=== PATIENT | male | born 1950 | race Caucasian/White ===

== ENCOUNTER 2021-10-19 12:21 | Inpatient (IN) | payer MEDICARE ==
[2021-10-19] MEDS ORDERED: PANTOPRAZOLE 40 MG/10 ML VIAL IVP STA (13:50)
[2021-10-19] MEDS ORDERED: SODIUM CHLORIDE 0.9% 500 ML 500 ML IV ONE (13:50)
[2021-10-19] MEDS ORDERED: fentaNYL (PF) 50 MCG/ML 2 ML AMP IVP STA (14:05)
[2021-10-19 14:10] LABS: Albumin 3.9 g/dL (3.5-5.0); Calcium 9.3 mg/dL (8.4-10.2); Potassium 5.9 mmol/L (3.5-5.1); Total Bilirubin 1.6 mg/dL (0.2-1.3); Total Protein 6.6 g/dL (6.3-8.2)
[2021-10-19 14:16] LABS: HCT 42.8 % (39.0-53.0); HGB 13.5 gm/dL (13.0-17.5); MCH 25.5 pg (25.0-35.0); MCHC 31.4 g/dL (31.0-37.0); MCV 81.3 fL (80.0-100.0); Platelet Count 519 k/uL (150-450); RBC 5.27 m/uL (4.30-5.90); RDW 12.9 % (11.5-15.5); WBC 17.5 k/uL (3.8-10.6)
--- NOTE | 2021-10-19 14:16 | ED ---
General Adult HPI - General Chief complaint: Abdominal Pain Stated complaint: near syncope, weakness Time Seen by Provider: 10/19/21 13:46 Source: patient, RN notes reviewed, old records reviewed Mode of arrival: ambulatory Limitations: no limitations - History of Present Illness Initial comments: 71-year-old male presenting for evaluation of abdominal pain and distention. Pain is generalized. It has been present for the past 3 days. The patient has had significant nausea with some vomiting. He states he has had a bowel movement but this is been very minimal. He denies chest pain. Denies fever. - Related Data Allergies Allergy/AdvReac Type Severity Reaction Status Date / Time No Known Allergies Allergy Verified 10/19/21 13:15 Review of Systems ROS Statement: Those systems with pertinent positive or pertinent negative responses have been documented in the HPI. ROS Other: All systems not noted in ROS Statement are negative. Past Medical History Past Medical History: Cancer, Hypertension Additional Past Medical History / Comment(s): irregular heart rate History of Any Multi-Drug Resistant Organisms: None Reported Additional Past Surgical History / Comment(s): metaport Past Psychological History: No Psychological Hx Reported Smoking Status: Never smoker Past Alcohol Use History: Occasional Past Drug Use History: None Reported General Exam Limitations: no limitations General appearance: alert, in no apparent distress Head exam: Present: atraumatic, normocephalic Eye exam: Present: normal appearance, PERRL ENT exam: Present: mucous membranes dry Neck exam: Present: normal inspection. Absent: tenderness, meningismus Respiratory exam: Present: normal lung sounds bilaterally. Absent: respiratory distress Cardiovascular Exam: Present: regular rate, normal rhythm GI/Abdominal exam: Present: distended, tenderness, guarding. Absent: rebound, rigid Extremities exam: Present: normal inspection, normal capillary refill. Absent: pedal edema Neurological exam: Present: alert, oriented X3, CN II-XII intact. Absent: motor sensory deficit Psychiatric exam: Present: normal affect, normal mood Skin exam: Present: warm, dry, intact. Absent: cyanosis, diaphoretic Course Vital Signs 10/19/21 13:16 Temperature 98.3 F Pulse Rate 96 Respiratory 20 Rate Blood Pressure 89/51 O2 Sat by Pulse 98 Oximetry Medical Decision Making - Medical Decision Making 71-year-old male with abdominal pain for the past 3 days with associated vomiting. Patient is hypotensive upon arrival. He has significant laboratory abnormalities including an elevated white blood cell count, QTC injury, lactic acidosis. He has CT evidence of possible ruptured appendicitis with inflammatory change within the right lower quadrant. I discussed the findings with Dr. Nicholson who will admit. She requested both medicine and urology be placed on consult. Patient is started on IV antibiotics and IV fluids. He will be kept nothing by mouth at this time. - Lab Data Result diagrams: 10/19/21 13:30 10/19/21 13:30 Lab Results 10/19/21 10/19/21 10/19/21 Range/Units 13:30 13:30 14:04 WBC 17.5 H (3.8-10.6) k/uL RBC 5.27 (4.30-5.90) m/uL Hgb 13.5 (13.0-17.5) gm/dL Hct 42.8 (39.0-53.0) % MCV 81.3 (80.0-100.0) fL MCH 25.5 (25.0-35.0) pg MCHC 31.4 (31.0-37.0) g/dL RDW 12.9 (11.5-15.5) % Plt Count 519 H (150-450) k/uL MPV 8.0 Neutrophils % (Manual) 75 % Band Neuts % (Manual) 14 % Lymphocytes % (Manual) 5 % Monocytes % (Manual) 6 % Metamyelocytes % 1 % Neutrophils # (Manual) 15.50 H (1.3-7.7) k/uL Lymphocytes # (Manual) 0.88 L (1.0-4.8) k/uL Monocytes # (Manual) 1.05 H (0-1.0) k/uL Metamyelocytes # (Man) 0.18 H (0) k/uL Nucleated RBCs 0 (0-0) /100 WBC Manual Slide Review Performed Poikilocytosis (manual Present Sodium 129 L (137-145) mmol/L Potassium 5.9 H (3.5-5.1) mmol/L Chloride 90 L (98-107) mmol/L Carbon Dioxide 25 (22-30) mmol/L Anion Gap 14 mmol/L BUN 21 H (9-20) mg/dL Creatinine 1.65 H (0.66-1.25) mg/dL Est GFR (CKD-EPI)AfAm 47 (>60 ml/min/1.73 sqM) Est GFR (CKD-EPI)NonAf 41 (>60 ml/min/1.73 sqM) Glucose 108 H (74-99) mg/dL Plasma Lactic Acid Zak (0.7-2.0) mmol/L Calcium 9.3 (8.4-10.2) mg/dL Magnesium (1.6-2.3) mg/dL Total Bilirubin 1.6 H (0.2-1.3) mg/dL AST 22 (17-59) U/L ALT 16 (4-49) U/L Alkaline Phosphatase 73 (38-126) U/L Total Protein 6.6 (6.3-8.2) g/dL Albumin 3.9 (3.5-5.0) g/dL Amylase 39 (30-110) U/L Lipase 15 L (23-300) U/L Urine Color [place] Urine Appearance Cloudy (Clear) Urine pH 5.5 (5.0-8.0) Ur Specific [place] 1.022 (1.001-1.035) Urine Protein 2+ H (Negative) Urine Glucose (UA) Trace H (Negative) Urine Ketones 1+ H (Negative) Urine Blood Negative (Negative) Urine Nitrite Negative (Negative) Urine Bilirubin 1+ H (Negative) Urine Urobilinogen <2.0 (<2.0) mg/dL Ur Leukocyte Esterase Negative (Negative) Urine RBC 3 (0-5) /hpf Urine WBC 12 H (0-5) /hpf Ur Squamous Epith Cells 2 (0-4) /hpf Urine Bacteria Rare H (None) /hpf Hyaline Casts 21 H (0-2) /lpf Urine Mucus Many H (None) /hpf 10/19/21 10/19/21 Range/Units 14:04 14:04 WBC (3.8-10.6) k/uL RBC (4.30-5.90) m/uL Hgb (13.0-17.5) gm/dL Hct (39.0-53.0) % MCV (80.0-100.0) fL MCH (25.0-35.0) pg MCHC (31.0-37.0) g/dL RDW (11.5-15.5) % Plt Count (150-450) k/uL MPV Neutrophils % (Manual) % Band Neuts % (Manual) % Lymphocytes % (Manual) % Monocytes % (Manual) % Metamyelocytes % % Neutrophils # (Manual) (1.3-7.7) k/uL Lymphocytes # (Manual) (1.0-4.8) k/uL Monocytes # (Manual) (0-1.0) k/uL Metamyelocytes # (Man) (0) k/uL Nucleated RBCs (0-0) /100 WBC Manual Slide Review Poikilocytosis (manual Sodium (137-145) mmol/L Potassium (3.5-5.1) mmol/L Chloride (98-107) mmol/L Carbon Dioxide (22-30) mmol/L Anion Gap mmol/L BUN (9-20) mg/dL Creatinine (0.66-1.25) mg/dL Est GFR (CKD-EPI)AfAm (>60 ml/min/1.73 sqM) Est GFR (CKD-EPI)NonAf (>60 ml/min/1.73 sqM) Glucose (74-99) mg/dL Plasma Lactic Acid Zak 4.1 H* (0.7-2.0) mmol/L Calcium (8.4-10.2) mg/dL Magnesium 1.9 (1.6-2.3) mg/dL Total Bilirubin (0.2-1.3) mg/dL AST (17-59) U/L ALT (4-49) U/L Alkaline Phosphatase (38-126) U/L Total Protein (6.3-8.2) g/dL Albumin (3.5-5.0) g/dL Amylase (30-110) U/L Lipase (23-300) U/L Urine Color Urine Appearance (Clear) Urine pH (5.0-8.0) Ur Specific [place] (1.001-1.035) Urine Protein (Negative) Urine Glucose (UA) (Negative) Urine Ketones (Negative) Urine Blood (Negative) Urine Nitrite (Negative) Urine Bilirubin (Negative) Urine Urobilinogen (<2.0) mg/dL Ur Leukocyte Esterase (Negative) Urine RBC (0-5) /hpf Urine WBC (0-5) /hpf Ur Squamous Epith Cells (0-4) /hpf Urine Bacteria (None) /hpf Hyaline Casts (0-2) /lpf Urine Mucus (None) /hpf Disposition Clinical Impression: Acute appendicitis, Sepsis Disposition: ADMITTED IP TO THIS HOSP Condition: Stable Is patient prescribed a controlled substance at d/c from ED?: No Referrals: Vj Knowles MD [Primary Care Provider] - 1-2 days Time of Disposition: 16:12
--- NOTE | 2021-10-19 14:36 | XR ---
EXAMINATION TYPE: XR KUB DATE OF EXAM: 10/19/2021 1:55 PM CLINICAL HISTORY: Pain with nausea and vomiting TECHNIQUE: Two Upright KUB images of the abdomen are obtained. COMPARISON: None. FINDINGS: Gas is seen in nondistended stomach. Scattered gas is seen in non-distended small bowel loo ps. Gas and fecal material is seen in non-distended colon. There is 8 mm calculus lower pole right ki dney. Scoliotic curvature with multilevel spurring and disc space narrowing in the thoracolumbar spin e. Prominent bilateral pelvic phleboliths. No free air. Lung bases are clear. Moderate axial joint sp marika loss in both hips. IMPRESSION: Overall nonobstructive bowel gas pattern.
[2021-10-19] MEDS: SODIUM CHLORIDE 0.9% 1,000 ML IV SCH ×2 (14:46→21:04)
[2021-10-19 15:10] LABS: Band Neutrophils % 14 %; Lymphocytes # (M) 0.88 k/uL (1.0-4.8); Metamyelocytes # (M) 0.18 k/uL (0); Metamyelocytes % 1 %; Monocytes # (M) 1.05 k/uL (0-1.0); Neutrophils % (M) 75 %; Nucleated Red Blood Cells 0 /100 WBC (0-0); Total Cells Counted 200
[2021-10-19 15:12] LABS: Poikilocytosis (M) Present
[2021-10-19 15:35] LABS: Appearance,Urine Cloudy (Clear); Bacteria,Urine Rare /hpf; Bilirubin,Urine 1+ (Negative); Blood,Urine Negative (Negative); Color,Urine Orange; Glucose,Urine (UA) Trace (Negative); Hyaline Casts,Urine 21 /lpf (0-2); Ketones,Urine 1+ (Negative); Leukocyte Esterase,Urine Negative (Negative); Mucus,Urine Many /hpf; Nitrite,Urine Negative (Negative); PH, Urine 5.5 (5.0-8.0); Protein,Urine 2+ (Negative); RBC,Urine 3 /hpf (0-5); Specific Gravity,Urine 1.022 (1.001-1.035); Squamous Epithelial Cell,Urine 2 /hpf (0-4); Urobilinogen,Urine <2.0 mg/dL (<2.0); WBC,Urine 12 /hpf (0-5)
--- NOTE | 2021-10-19 15:59 | CT ---
EXAMINATION TYPE: CT abdomen pelvis wo con DATE OF EXAM: 10/19/2021 COMPARISON: No previous CT scan is available for comparison HISTORY: lower anterior abdominal pain CT DLP: 871.9 mGycm Automated exposure control for dose reduction was used. TECHNIQUE: Helical acquisition of images was performed from the lung bases through the pelvis. FINDINGS: Suboptimal CT scan due to the lack of IV and oral contrast demonstration. LUNG BASES: Coronary arterial calcifications. Fluid-filled esophagus. LIVER/GB: No definite hepatic focal lesion. Cholelithiasis without evidence of acute cholecystitis. PANCREAS: Slightly atrophic. SPLEEN: No significant abnormality is seen. ADRENALS: No significant abnormality is seen. KIDNEYS: No significant abnormality is seen. FREE AIR: No free air is visualized RETROPERITONEAL ADENOPATHY: None visualized REPRODUCTIVE ORGANS: Enlarged prostate. Unremarkable seminal vesicles. URINARY BLADDER: Sizable left fat-containing inguinal hernia, also containing portion of the urinary bladder. This may cause urinary symptoms, please correlate clinically. PELVIC ADENOPATHY: None visualized. OSSEOUS STRUCTURES: Degenerative changes of the lower thoracic and lumbar spine. No aggressive bone lesion. BOWEL: Thick walled collection/soft tissue density lesion with central fluid/necrosis centered over the inferior medial aspect of the cecum inseparable from the appendicular base and possibly the termi nal ileum, measuring 5.5 x 7.5 cm with air bubbles within. This is associated with dilated appendix w ith the appendix tip measures up to 2.6 cm. Associated severe acute inflammatory changes in the lower abdomen, peritonitis cannot be excluded. Fluid-filled stomach. Slightly thickened small bowel loops in the pelvis, possibly reactive. OTHER: Scattered arterial atherosclerotic calcification. Small amount of free pelvic fluid. IMPRESSION: Severe acute inflammatory changes seen in the lower abdomen with thick walled collection/soft tissue lesion along the medial inferior aspect of the cecum demonstrating air bubble within and inseparable from the appendix and possibly the terminal ileum as detailed above. The overall picture could be related to sequela of acute appendicitis with contained perforation larsen aure underlying lesion/neoplastic process and/or associated peritonitis cannot be excluded. This is crum boptimally assessed due to the lack of oral and IV contrast administration. Recommend clinical correl ation and urgent surgical consultation. Other findings as above.
[2021-10-19] MEDS ORDERED: PIPERACILLIN-TAZOBACTAM 3.375 GM in SODIUM CHLORIDE 0.9% 100 ML IVPB STA (16:01)
[2021-10-19] MEDS ORDERED: HYDROmorphone 1 MG/ML 1 ML SYRINGE IVP PRN (16:09)
[2021-10-19] MEDS ORDERED: NALOXONE 0.4 MG/ML 1 ML VIAL IV PRN (16:09)
[2021-10-19] MEDS ORDERED: SODIUM CHLORIDE 0.9% 1,000 ML IV ONE ×2 (17:45→20:52)
[2021-10-19] MEDS: PANTOPRAZOLE 40 MG/10 ML VIAL IVP SCH (21:05)
[2021-10-19] MEDS: HYDROmorphone 0.5 MG/0.5 ML SYRINGE IVP PRN (21:05)
[2021-10-19] MEDS: ONDANSETRON 4 MG/2 ML VIAL IVP PRN (21:06)
[2021-10-19] MEDS: HEPARIN SODIUM,PORCINE/PF 5,000 UNIT/0.5 ML SYRINGE SQ SCH (21:06)
--- NOTE | 2021-10-19 22:34 | P.GSCN ---
History of Present Illness Consult date: 10/19/21 Reason for Consult: Irregular Bladder Requesting physician: Dimitry Martinez History of present illness: The patient is a 71-year-old white male admitted with abdominal pain. CT scan shows prolapse of the bladder into a left inguinal hernia. The kidneys appear normal and computed tomography scan, and no other bladder abnormalities are seen. The patient states that his urinary stream is weaker than it was 30 years ago, but does not report difficulty voiding. Specifically, he denies dysuria and hematuria. He reports nocturia 1. He does admit to occasional intermittency. Review of Systems - Constitutional Reports fever - Gastrointestinal Reports abdominal pain, Reports nausea, Reports vomiting - Genitourinary Reports as per HPI Past Medical History Past Medical History: Cancer, Hypertension Additional Past Medical History / Comment(s): irregular heart rate History of Any Multi-Drug Resistant Organisms: None Reported Additional Past Surgical History / Comment(s): metaport Past Psychological History: No Psychological Hx Reported Smoking Status: Never smoker Past Alcohol Use History: Occasional Past Drug Use History: None Reported Medications and Allergies Home Medications Medication Instructions Recorded Confirmed Type Calcium Carbonate [Tums] 500 mg PO DAILY 10/19/21 10/19/21 History Cholecalciferol (Vitamin D3) 125 mcg PO DAILY 10/19/21 10/19/21 History [Vitamin D3 (125 MCG = 5,000 IU)] Ibuprofen [Motrin] 800 mg PO Q8H PRN 10/19/21 10/19/21 History Magnesium 250 mg PO DAILY 10/19/21 10/19/21 History Potassium Gluconate [Potassium 99 mg PO DAILY 10/19/21 10/19/21 History Gluconate ER] Vitamin E (Dl,Tocopheryl Acet) 400 unit PO DAILY 10/19/21 10/19/21 History [Vitamin E (400 Iu = 180 mg)] amLODIPine BES/OLMESARTAN MED 1 tab PO BID 10/19/21 10/19/21 History [amLODIPine BES/OLMESARTAN MED 5-20 mg] atenoloL [Tenormin] 25 mg PO BID PRN 10/19/21 10/19/21 History Allergies Allergy/AdvReac Type Severity Reaction Status Date / Time No Known Allergies Allergy Verified 10/19/21 16:37 Surgical - Exam Vital Signs Temp Pulse Resp BP Pulse Ox 98.3 F 96 20 89/51 98 10/19/21 13:16 10/19/21 13:16 10/19/21 13:16 10/19/21 13:16 10/19/21 13:16 - General well developed, well nourished, moderate distress - Respiratory normal respiratory effort - Abdomen Distended, mild diffuse tenderness, no mass, no guarding, no rebound. Left inguinal hernia is palpable. - Genitourinary normal penis with no external lesions, testicles non-tender - Psychiatric oriented to time, oriented to person, oriented to place, speech is normal, memory intact Results - Labs 10/19/21 13:30 10/19/21 13:30 Abnormal Lab Results - Last 24 Hours (Table) 10/19/21 10/19/21 10/19/21 Range/Units 13:30 13:30 14:04 WBC 17.5 H (3.8-10.6) k/uL Plt Count 519 H (150-450) k/uL Neutrophils # (Manual) 15.50 H (1.3-7.7) k/uL Lymphocytes # (Manual) 0.88 L (1.0-4.8) k/uL Monocytes # (Manual) 1.05 H (0-1.0) k/uL Metamyelocytes # (Man) 0.18 H (0) k/uL Sodium 129 L (137-145) mmol/L Potassium 5.9 H (3.5-5.1) mmol/L Chloride 90 L (98-107) mmol/L BUN 21 H (9-20) mg/dL Creatinine 1.65 H (0.66-1.25) mg/dL Glucose 108 H (74-99) mg/dL Plasma Lactic Acid Zak (0.7-2.0) mmol/L Total Bilirubin 1.6 H (0.2-1.3) mg/dL Lipase 15 L (23-300) U/L Urine Protein 2+ H (Negative) Urine Glucose (UA) Trace H (Negative) Urine Ketones 1+ H (Negative) Urine Bilirubin 1+ H (Negative) Urine WBC 12 H (0-5) /hpf Urine Bacteria Rare H (None) /hpf Hyaline Casts 21 H (0-2) /lpf Urine Mucus Many H (None) /hpf 10/19/21 Range/Units 14:04 WBC (3.8-10.6) k/uL Plt Count (150-450) k/uL Neutrophils # (Manual) (1.3-7.7) k/uL Lymphocytes # (Manual) (1.0-4.8) k/uL Monocytes # (Manual) (0-1.0) k/uL Metamyelocytes # (Man) (0) k/uL Sodium (137-145) mmol/L Potassium (3.5-5.1) mmol/L Chloride (98-107) mmol/L BUN (9-20) mg/dL Creatinine (0.66-1.25) mg/dL Glucose (74-99) mg/dL Plasma Lactic Acid Zak 4.1 H* (0.7-2.0) mmol/L Total Bilirubin (0.2-1.3) mg/dL Lipase (23-300) U/L Urine Protein (Negative) Urine Glucose (UA) (Negative) Urine Ketones (Negative) Urine Bilirubin (Negative) Urine WBC (0-5) /hpf Urine Bacteria (None) /hpf Hyaline Casts (0-2) /lpf Urine Mucus (None) /hpf Diabetes panel 10/19/21 Range/Units 13:30 Sodium 129 L (137-145) mmol/L Potassium 5.9 H (3.5-5.1) mmol/L Chloride 90 L (98-107) mmol/L Carbon Dioxide 25 (22-30) mmol/L BUN 21 H (9-20) mg/dL Creatinine 1.65 H (0.66-1.25) mg/dL Glucose 108 H (74-99) mg/dL Calcium 9.3 (8.4-10.2) mg/dL AST 22 (17-59) U/L ALT 16 (4-49) U/L Alkaline Phosphatase 73 (38-126) U/L Total Protein 6.6 (6.3-8.2) g/dL Albumin 3.9 (3.5-5.0) g/dL Calcium panel 10/19/21 Range/Units 13:30 Calcium 9.3 (8.4-10.2) mg/dL Albumin 3.9 (3.5-5.0) g/dL Pituitary panel 10/19/21 Range/Units 13:30 Sodium 129 L (137-145) mmol/L Potassium 5.9 H (3.5-5.1) mmol/L Chloride 90 L (98-107) mmol/L Carbon Dioxide 25 (22-30) mmol/L BUN 21 H (9-20) mg/dL Creatinine 1.65 H (0.66-1.25) mg/dL Glucose 108 H (74-99) mg/dL Calcium 9.3 (8.4-10.2) mg/dL Adrenal panel 10/19/21 Range/Units 13:30 Sodium 129 L (137-145) mmol/L Potassium 5.9 H (3.5-5.1) mmol/L Chloride 90 L (98-107) mmol/L Carbon Dioxide 25 (22-30) mmol/L BUN 21 H (9-20) mg/dL Creatinine 1.65 H (0.66-1.25) mg/dL Glucose 108 H (74-99) mg/dL Calcium 9.3 (8.4-10.2) mg/dL Total Bilirubin 1.6 H (0.2-1.3) mg/dL AST 22 (17-59) U/L ALT 16 (4-49) U/L Alkaline Phosphatase 73 (38-126) U/L Total Protein 6.6 (6.3-8.2) g/dL Albumin 3.9 (3.5-5.0) g/dL - Imaging CT scan - pelvis: report reviewed, image reviewed Assessment and Plan Plan: CT scan shows prolapse of the bladder into the patient's left inguinal hernia. The bladder otherwise appears normal, as do the kidneys. Urinalysis shows trace microhematuria but is otherwise unremarkable. The patient reports only mild voiding symptoms. Bladder Scan will be utilized to check the postvoid residual. As long as bladder emptying is adequate, no further urologic evaluation or treatment is felt to be warranted. I explained to the patient that if and when his left inguinal hernia is repaired, the prolapse of bladder into the hernia will be reduced prior to hernia repair. Please notify me if I can be of further assistance. Time with Patient: Greater than 30
[2021-10-20] MEDS: PIPERACILLIN-TAZOBACTAM 3.375 GM in SODIUM CHLORIDE 0.9% 100 ML IVPB SCH ×3 (00:05→16:56)
--- NOTE | 2021-10-20 03:57 | P.CONS ---
History of Present Illness - Reason for Consult Consult date: 10/20/21 - History of Present Illness The patient is a 71-year-old male with a PMH of hypertension who had presented to the with complaints of abdominal pain. Reports that his pain initially started 3-4 days ago, with mild diffuse pain, aching in nature which gradually worsened. Reports pain was 10 out of 10 at maximal intensity, but had improved to a 1 at the time of interview. Notes that the pain is now limited to the lower abdomen. Denies any history of such pain. Also reports long-standing history of a hernia in the groin. Notes that he does not try to reduce it. CT abdomen in the emergency room revealed severe acute inflammatory changes, possibly secondary to acute appendicitis with contained perforation. Laboratory evaluation was remarkable for WBC count 17.5, lactic acid 4.1, sodium 129, potassium 5.9, BUN 21, creatinine 1.65. Review of systems: Pertinent positives and negatives as discussed in HPI, a complete review of systems was performed and all other systems are negative. Physical examination: General: non toxic, no distress, appears at stated age, obese Derm: no unusual rashes/lesions no unusual ecchymoses, warm, dry Head: atraumatic, normocephalic, symmetric Eyes: EOMI, no lid lag, anicteric sclera, pupils equal round reactive to light ENT: Nose and ears atraumatic, no thrush, no pharyngeal erythema Neck: No thyromegaly, no cervical lymphadenopathy, trachea midline, supple Mouth: no lip lesion, mucus membranes moist Cardiovascular: S1S2 reg, no murmur, positive posterior tibial pulse bilateral, no edema, capillary refill less than 2 seconds Lungs: CTA bilateral, no rhonchi, no rales , no accessory muscle use Abdominal: soft, diffuse tenderness on palpation, no guarding noted, left sided inguinal hernia noted nonreducible, nontender Ext: no gross muscle atrophy, muscle strength 5 out of 5 in all 4 extremities grossly, no contractures, Neuro: CN II-XI grossly intact, light touch intact all 4 extremities, finger to nose within normal limits, Psych: Alert, oriented, appropriate affect Assessment/plan Severe sepsis secondary to suspected perforated acute appendicitis -Continue with IV Zosyn -IV fluids -Pain control -Nothing by mouth for now Kidney injury, acute versus chronic -Continue with fluids and monitor for now Lactic acidosis -Monitor for resolution Hypochloremic hyponatremia -IV fluids Past Medical History Past Medical History: Cancer, Hypertension Additional Past Medical History / Comment(s): irregular heart rate History of Any Multi-Drug Resistant Organisms: None Reported Additional Past Surgical History / Comment(s): metaport Past Anesthesia/Blood Transfusion Reactions: No Reported Reaction Past Psychological History: No Psychological Hx Reported Smoking Status: Never smoker Past Alcohol Use History: Occasional Past Drug Use History: None Reported - Past Family History Father Family Medical History: Cancer Medications and Allergies Home Medications Medication Instructions Recorded Confirmed Type Calcium Carbonate [Tums] 500 mg PO DAILY 10/19/21 10/19/21 History Cholecalciferol (Vitamin D3) 125 mcg PO DAILY 10/19/21 10/19/21 History [Vitamin D3 (125 MCG = 5,000 IU)] Ibuprofen [Motrin] 800 mg PO Q8H PRN 10/19/21 10/19/21 History Magnesium 250 mg PO DAILY 10/19/21 10/19/21 History Potassium Gluconate [Potassium 99 mg PO DAILY 10/19/21 10/19/21 History Gluconate ER] Vitamin E (Dl,Tocopheryl Acet) 400 unit PO DAILY 10/19/21 10/19/21 History [Vitamin E (400 Iu = 180 mg)] amLODIPine BES/OLMESARTAN MED 1 tab PO BID 10/19/21 10/19/21 History [amLODIPine BES/OLMESARTAN MED 5-20 mg] atenoloL [Tenormin] 25 mg PO BID PRN 10/19/21 10/19/21 History Allergies Allergy/AdvReac Type Severity Reaction Status Date / Time No Known Allergies Allergy Verified 10/19/21 16:37 Physical Exam Vitals: Vital Signs Temp Pulse Pulse Resp BP BP Pulse Ox 10/20/21 00:00 99.6 F 98 18 94/58 92 L 10/19/21 20:12 99.6 F 100 16 104/68 95 10/19/21 20:00 98 18 10/19/21 17:50 64 16 92/52 95 10/19/21 17:17 62 16 93/56 95 10/19/21 16:41 78 16 72/48 95 10/19/21 13:16 98.3 F 96 20 89/51 98 Intake and Output 10/19/21 10/19/21 10/20/21 14:59 22:59 06:59 Output Total 110 200 Balance -110 -200 Output: Urine 100 200 Emesis 10 Other: # Voids 1 Weight 99.79 kg 99.79 kg Results CBC & Chem 7: 10/19/21 13:30 10/19/21 13:30 Labs: Abnormal Lab Results - Last 24 Hours (Table) 10/19/21 10/19/21 10/19/21 Range/Units 13:30 13:30 14:04 WBC 17.5 H (3.8-10.6) k/uL Plt Count 519 H (150-450) k/uL Neutrophils # (Manual) 15.50 H (1.3-7.7) k/uL Lymphocytes # (Manual) 0.88 L (1.0-4.8) k/uL Monocytes # (Manual) 1.05 H (0-1.0) k/uL Metamyelocytes # (Man) 0.18 H (0) k/uL Sodium 129 L (137-145) mmol/L Potassium 5.9 H (3.5-5.1) mmol/L Chloride 90 L (98-107) mmol/L BUN 21 H (9-20) mg/dL Creatinine 1.65 H (0.66-1.25) mg/dL Glucose 108 H (74-99) mg/dL Plasma Lactic Acid Zak (0.7-2.0) mmol/L Total Bilirubin 1.6 H (0.2-1.3) mg/dL Lipase 15 L (23-300) U/L Urine Protein 2+ H (Negative) Urine Glucose (UA) Trace H (Negative) Urine Ketones 1+ H (Negative) Urine Bilirubin 1+ H (Negative) Urine WBC 12 H (0-5) /hpf Urine Bacteria Rare H (None) /hpf Hyaline Casts 21 H (0-2) /lpf Urine Mucus Many H (None) /hpf 10/19/21 10/19/21 10/19/21 Range/Units 14:04 16:43 20:04 WBC (3.8-10.6) k/uL Plt Count (150-450) k/uL Neutrophils # (Manual) (1.3-7.7) k/uL Lymphocytes # (Manual) (1.0-4.8) k/uL Monocytes # (Manual) (0-1.0) k/uL Metamyelocytes # (Man) (0) k/uL Sodium (137-145) mmol/L Potassium (3.5-5.1) mmol/L Chloride (98-107) mmol/L BUN (9-20) mg/dL Creatinine (0.66-1.25) mg/dL Glucose (74-99) mg/dL Plasma Lactic Acid Zak 4.1 H* 2.7 H* 2.6 H* (0.7-2.0) mmol/L Total Bilirubin (0.2-1.3) mg/dL Lipase (23-300) U/L Urine Protein (Negative) Urine Glucose (UA) (Negative) Urine Ketones (Negative) Urine Bilirubin (Negative) Urine WBC (0-5) /hpf Urine Bacteria (None) /hpf Hyaline Casts (0-2) /lpf Urine Mucus (None) /hpf Microbiology - Last 24 Hours (Table) 10/19/21 14:04 Urine Culture - Preliminary Urine,Voided
[2021-10-20] MEDS: SODIUM CHLORIDE 0.9% 1,000 ML IV SCH ×2 (05:55→17:50)
[2021-10-20] MEDS: HYDROmorphone 0.5 MG/0.5 ML SYRINGE IVP PRN ×2 (06:39→20:03)
[2021-10-20] MEDS: HEPARIN SODIUM,PORCINE/PF 5,000 UNIT/0.5 ML SYRINGE SQ SCH ×2 (08:27→20:03)
[2021-10-20] MEDS: PANTOPRAZOLE 40 MG/10 ML VIAL IVP SCH ×2 (08:27→20:04)
[2021-10-20 08:59] LABS: MCV 81.3 fL (80.0-100.0); Mean Platelet Volume 8.3; Platelet Count 379 k/uL (150-450); RBC 3.93 m/uL (4.30-5.90); RDW 13.4 % (11.5-15.5); WBC 11.3 k/uL (3.8-10.6)
[2021-10-20 09:02] LABS: HGB 10.2 gm/dL (13.0-17.5)
[2021-10-20 09:34] LABS: Albumin 2.5 g/dL (3.5-5.0); Calcium 7.5 mg/dL (8.4-10.2); Phosphorus 3.8 mg/dL (2.5-4.5); Potassium 4.9 mmol/L (3.5-5.1); Total Bilirubin 0.8 mg/dL (0.2-1.3); Total Protein 4.8 g/dL (6.3-8.2)
[2021-10-20] MEDS ORDERED: HYDROmorphone 0.5 MG/0.5 ML SYRINGE ONE (12:47)
--- NOTE | 2021-10-20 14:54 | P.PN ---
Subjective Progress Note Date: 10/20/21 (delayed charting seen at 0945) Principal diagnosis: abdominal Patient is a 71-year-old male with hypertension who presented due to abdominal pain. In the ER he was found to have possible acute appendicitis plus or minus perforation versus neoplasm. He was found to have sepsis, hyponatremia, and hyperkalemia. He was admitted started on IV Zosyn, IV fluids, and pain control. We are asked to consult for medical management. Patient seen and examined at bedside. He continues to have some abdominal pain as well as distention. He denies any chest pain or shortness of breath. He has not had a bowel movement. General: Non toxic, no distress, appears at stated age Derm: warm, dry Head: atraumatic, normocephalic, symmetric Eyes: EOMI, no lid lag, anicteric sclera Mouth: no lip lesion, mucus membranes moist Cardiovascular: S1S2 reg, no murmur, positive posterior tibial pulse bilateral, Lungs: CTA bilateral, no rhonchi, no rales , no accessory muscle use Abdominal: soft, + guarding, + TTP diffusely, no appreciable organomegaly Ext: no gross muscle atrophy, no edema, no contractures Neuro: CN II-XI grossly intact, no focal neuro deficits Psych: Alert, oriented, appropriate affect Assessment/plan: Acute appendicitis with sepsis, possible perforation - Surgery recs - Zosyn - fluids - pain control - antiemetics - BP is low normal will continue to hold BP meds Hyponatremia, due to dehydration - IVF - follow labs Elevated Cr GALA vs CKD - avoid nephrotoxic agents - follow Cr - hold ARB HTN, currently hypotensive - follow BP - all medications on hold Anemia - due to IVF - follow CBC Hyperkalemia, resolved Thank you for allowing us to participate in the care of this pleasant patient. Do not hesitate to contact us with questions. Someone can be reached from the [facility] hospitalist group all hours of the day at [phone] or via [email or web address]. Objective - Vital Signs Vital signs: Vital Signs Temp 98.6 F 10/20/21 12:16 Pulse 74 10/20/21 12:16 Resp 18 10/20/21 12:16 BP 97/57 10/20/21 12:16 Pulse Ox 95 10/20/21 12:16 FiO2 Intake & Output 05/10/20/21 10/20/21 18:59 06:59 18:59 Output Total 310 430 Balance -310 -430 Weight 99.79 kg Output: Urine 300 380 Post Void Residual 50 Emesis 10 Other: Voiding Method Toilet Toilet # Voids 1 - Labs CBC & Chem 7: 10/20/21 08:33 10/20/21 08:33 Labs: Abnormal Lab Results - Last 24 Hours (Table) 10/19/21 10/19/21 10/19/21 Range/Units 13:30 13:30 14:04 WBC 17.5 H (3.8-10.6) k/uL RBC (4.30-5.90) m/uL Hgb (13.0-17.5) gm/dL Hct (39.0-53.0) % Plt Count 519 H (150-450) k/uL Neutrophils # (Manual) 15.50 H (1.3-7.7) k/uL Lymphocytes # (Manual) 0.88 L (1.0-4.8) k/uL Monocytes # (Manual) 1.05 H (0-1.0) k/uL Metamyelocytes # (Man) 0.18 H (0) k/uL Sodium 129 L (137-145) mmol/L Potassium 5.9 H (3.5-5.1) mmol/L Chloride 90 L (98-107) mmol/L BUN 21 H (9-20) mg/dL Creatinine 1.65 H (0.66-1.25) mg/dL Glucose 108 H (74-99) mg/dL Plasma Lactic Acid Zak (0.7-2.0) mmol/L Calcium (8.4-10.2) mg/dL Total Bilirubin 1.6 H (0.2-1.3) mg/dL Total Protein (6.3-8.2) g/dL Albumin (3.5-5.0) g/dL Lipase 15 L (23-300) U/L Urine Protein 2+ H (Negative) Urine Glucose (UA) Trace H (Negative) Urine Ketones 1+ H (Negative) Urine Bilirubin 1+ H (Negative) Urine WBC 12 H (0-5) /hpf Urine Bacteria Rare H (None) /hpf Hyaline Casts 21 H (0-2) /lpf Urine Mucus Many H (None) /hpf 05/25/22 05/25/22 05/25/22 Range/Units 14:04 16:43 20:04 WBC (3.8-10.6) k/uL RBC (4.30-5.90) m/uL Hgb (13.0-17.5) gm/dL Hct (39.0-53.0) % Plt Count (150-450) k/uL Neutrophils # (Manual) (1.3-7.7) k/uL Lymphocytes # (Manual) (1.0-4.8) k/uL Monocytes # (Manual) (0-1.0) k/uL Metamyelocytes # (Man) (0) k/uL Sodium (137-145) mmol/L Potassium (3.5-5.1) mmol/L Chloride (98-107) mmol/L BUN (9-20) mg/dL Creatinine (0.66-1.25) mg/dL Glucose (74-99) mg/dL Plasma Lactic Acid Zak 4.1 H* 2.7 H* 2.6 H* (0.7-2.0) mmol/L Calcium (8.4-10.2) mg/dL Total Bilirubin (0.2-1.3) mg/dL Total Protein (6.3-8.2) g/dL Albumin (3.5-5.0) g/dL Lipase (23-300) U/L Urine Protein (Negative) Urine Glucose (UA) (Negative) Urine Ketones (Negative) Urine Bilirubin (Negative) Urine WBC (0-5) /hpf Urine Bacteria (None) /hpf Hyaline Casts (0-2) /lpf Urine Mucus (None) /hpf 10/20/21 10/20/21 Range/Units 08:33 08:33 WBC 11.3 H (3.8-10.6) k/uL RBC 3.93 L (4.30-5.90) m/uL Hgb 10.2 L D (13.0-17.5) gm/dL Hct 32.0 L (39.0-53.0) % Plt Count (150-450) k/uL Neutrophils # (Manual) (1.3-7.7) k/uL Lymphocytes # (Manual) (1.0-4.8) k/uL Monocytes # (Manual) (0-1.0) k/uL Metamyelocytes # (Man) (0) k/uL Sodium 130 L (137-145) mmol/L Potassium (3.5-5.1) mmol/L Chloride (98-107) mmol/L BUN 23 H (9-20) mg/dL Creatinine 1.40 H (0.66-1.25) mg/dL Glucose (74-99) mg/dL Plasma Lactic Acid Zak (0.7-2.0) mmol/L Calcium 7.5 L (8.4-10.2) mg/dL Total Bilirubin (0.2-1.3) mg/dL Total Protein 4.8 L (6.3-8.2) g/dL Albumin 2.5 L (3.5-5.0) g/dL Lipase (23-300) U/L Urine Protein (Negative) Urine Glucose (UA) (Negative) Urine Ketones (Negative) Urine Bilirubin (Negative) Urine WBC (0-5) /hpf Urine Bacteria (None) /hpf Hyaline Casts (0-2) /lpf Urine Mucus (None) /hpf Microbiology - Last 24 Hours (Table) 10/19/21 14:04 Urine Culture - Preliminary Urine,Voided
--- NOTE | 2021-10-20 14:56 | P.GSHP ---
History of Present Illness H&P Date: 10/20/21 CHIEF COMPLAINT: Abdominal pain HISTORY OF PRESENT ILLNESS: This is a 71-year-old male who presents to the hospital with a four-day complaint of abdominal pain. Reports the pain is in the right lower quadrant. The level of pain intensity at times is 10 out of 10. He has more pain with movements. When he is lying still pain is 0 out of 10. Patient reports having fevers as high as 100.2 at home. He has been having nausea and vomiting. He also has a left inguinal hernia that has been present since 2009. The hernia is now containing a portion of the bladder as well as fat noted on CT. Patient had a computed tomography scan with evidence of appendicitis with perforation. Patient denies any prior abdominal surgeries. He has been having low-grade temps and hypotensive on admission. He is currently on IV antibiotics. Patient has received IV fluid boluses for the hypotension. Patient reports that his urine has been more orange in color and urine has been expelled more slowly. Patient denies any prior abdominal surgeries. Denies any cardiac history. 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 No longer on anticoagulation. PAST SURGICAL HISTORY: See list. MEDICATIONS: See list. ALLERGIES: See list. SOCIAL HISTORY: No illicit drug use. REVIEW OF SYSTEMS: CONSTITUTIONAL: Denies fever or chills. HEENT: Denies blurred vision, vision changes, or eye pain. Denies hemoptysis ENDOCRINE: Denies heat or cold intolerance. CARDIOVASCULAR: Denies chest pain or pressure. RESPIRATORY: No shortness of breath. GASTROINTESTINAL: Please refer to HPI NEURO: Denies history of seizures. PSYCH: No depression or suicidal ideation HEMATOLOGIC: Denies bleeding disorders. LYMPHATIC: The patient denies any lumps and bumps around the neck. GENITOURINARY: Denies any blood in urine or increased urinary frequency. MUSCULOSKELETAL: Denies myalgias. Denies joint swelling. Denies decreased range of motion beyond patients baseline. SKIN: Denies pruitis. Denies rash. PHYSICAL EXAM: VITAL SIGNS: Reviewed GENERAL: Well-developed in no acute distress. HEENT: No sclera icterus. Extraocular movements grossly intact. Moist buccal mucosa. Head is atraumatic, normocephalic. Hears conversational speech. No nasal drainage. NECK: Supple without lymphadenopathy. CHEST: Non-labored respirations and equal bilateral excursions. CARDIOVASCULAR: Palpable 2+ radial pulses. ABDOMEN: Soft. Nondistended. Right lower quadrant tenderness with palpation left lower quadrant evidence of left inguinal hernia. Tender with palpation. Evidence of peritonitis on exam MUSCULOSKELETAL: No clubbing or cyanosis. NEUROLOGIC: No focal or lateralizing signs. Cranial nerves II through XII suzie ssly intact. PSYCH: Appropriate affect. Alert and oriented to person, place and time. SKIN: Well perfused. Good skin turgor. LABORATORY DATA: WBC 17.5 down to 11.3 hemoglobin is 10.2 platelets 379 Sodium is 1:30 potassium 5.9 down to 4.9 creatinine 1.65 down to 1.40 Lactic acid 2.6 down to 1.2 Magnesium 2.0 Total bilirubin 1.6 down to 0.8 AST 21 ALT 11 alk phos 43 lipase 15 IMAGING: Computed tomography scan abdomen and pelvis unable to open report due to [employer] being down ASSESSMENT: 1. Acute appendicitis with perforation 2. Peritonitis 3. Left inguinal hernia containing bladder and fat 4. Sepsis secondary to the appendicitis perforation 5. Hyponatremia 6. History of left tonsil carcinoma status post radiation and chemotherapy 7. Hypotension PLAN: -Continue medical management at this time with IV antibiotics and IV fluids. Possible surgical intervention if no improvement in patient's symptoms. -Keep patient nothing by mouth, except for ice chips -PICC line ordered for outpatient IV antibiotics -Consult infectious disease for acute appendicitis with perforation and evidence of peritonitis -Continue supportive care -Continue pain medications -Continue antiemetics -Continue to check postvoid residuals -Patient also followed by urology and medicine service -DVT prophylaxis subcu heparin and GI prophylaxis Protonix Physician Clock Assembler note has been reviewed by physician. Signing provider agrees with the documented findings, assessment, and plan of care. REASON FOR ADMISSION: Perforated appendicitis HISTORY OF PRESENT ILLNESS: The patient is a 71 year old male who presents with a four-day history of generalized abdominal pain. Patient reports she was doing quite well and over the weekend on Sunday. Patient presented to the emergency room with generalized abdominal pain. Diagnostic studies demonstrated possible perforated appendicitis. Patient presented with severe dehydration including lactic acidosis. Additionally, patient reports history of left inguinal hernia ongoing for over 12 years since 2009. Since admission, patient confirms abdominal pain however stable. Reports primary discomfort involves the left groin. He reports trouble with urination. PAST MEDICAL HISTORY: See list and reviewed PAST SURGICAL HISTORY: See list and reviewed MEDICATIONS: See list and reviewed ALLERGIES: See list and reviewed SOCIAL HISTORY: See list and reviewed FAMILY HISTORY: See list and reviewed REVIEW OF ORGAN SYSTEMS: CONSTITUTIONAL: No fevers or chills. EYES: Denies any trouble with vision. No glasses. HEENT: No difficulties with hearing. No nosebleeds. No difficulty swallowing. RESPIRATORY: Denies pneumonia. Denies any troubles with breathing or dyspnea on exertion. CARDIOVASCULAR: Has hypertension. Has history of irregular heart rate. GASTROINTESTINAL: Denies fatty food intolerance. Denies change in bowel habits and gas bloat. GENITOURINARY: Denies any blood in urine. Has increased urinary frequency. NEUROLOGICAL: Denies any numbness or tingling along the distal extremities. No seizure disorders or headaches. MUSCULOSKELETAL: Denies any back pain, stiffness or joint arthritis. SKIN: No current skin cancer. No rash. PSYCHIATRIC: Denies current depression or suicidal thoughts. ENDOCRINE: Denies current thyroid disorders. Denies any blood sugar glucose intolerance. HEME/LYMPHATIC: Denies any lumps and bumps around the neck. No recent deep venous thrombosis. Patient has history of cancer including port placement. ALLERGY/IMMUNOLOGY: No immunoglobulin therapy. No immune deficiencies. BREAST: Denies current breast lumps, pain or nipple discharge. PHYSICAL EXAM: VITALS: Reviewed CONSTITUTIONAL: Well developed and in no acute distress. EYES: Conjuctivae without sclera icterus. Extraocular movements grossly intact. HEAD, EARS, NOSE, THROAT: Moist buccal mucosa. Head is atraumatic, normocephalic. Hears conversational speech. No nasal drainage. NECK: Supple. No JV distention. No thyroidomegaly. RESPIRATORY: Non-labored respirations and equal bilateral excursions. No gross wheezes. CARDIOVASCULAR: Palpable 2+ radial pulses. ABDOMEN: Protuberant. Diffusely tender. LYMPH: No neck lymphadenopathy. MUSCULOSKELETAL: No clubbing cyanosis or edema. NEUROLOGIC: Cranial nerves II through XII grossly intact. No focal or lateralizing signs. PSYCH: Appropriate affect. Alert and oriented to person, place and time. Displays appropriate insight. CLINCAL LABS: Reviewed. WBC down 17.5-11.3. Hemoglobin down 13.5-10.5. Hyponatremia sodium 129 now 130. Creatinine elevated 1.65 to 1.4 IMAGING: Independently reviewed. CT of the abdomen and pelvis independently review demonstrated fluid collections within the abdomen including around the right lower quadrant and appendix. Features consistent with phlegmon at the right lower quadrant. Bladder containing left inguinal hernia. No diffuse free air within the abdomen. No bowel obstruction. Multiple gallstones. This is my independent interpretation. RADIOLOGY: Report reviewed. RECORDS: previous old records reviewed Lexican stress test 2017 demonstrated ejection fraction of 60%. ASSESSMENT: 1. Perforated appendicitis with phlegmon 2. Lactic acidosis in presence of sepsis 3. Bladder containing left inguinal hernia PLAN: 1. IV fluid hydration for lactic acidosis 2. Urology consultation for incarcerated bladder in left groin 3. PICC line for anticipated prolonged antibiotics due to phlegmon and perforated appendicitis with infectious disease consultation 4. Cardiology consultation for cardiac risk assessment prior to surgical intervention 5. May need louis catheter for urinary retention 6. Inpatient hospitalization anticipated for 7 to 10 days due to complicated perforated appendicitis ADVANCE DIRECTIVE: Thank you for this kind consultation. Past Medical History Past Medical History: Cancer, Hypertension Additional Past Medical History / Comment(s): irregular heart rate History of Any Multi-Drug Resistant Organisms: None Reported Additional Past Surgical History / Comment(s): metaport Past Anesthesia/Blood Transfusion Reactions: No Reported Reaction Past Psychological History: No Psychological Hx Reported Smoking Status: Never smoker Past Alcohol Use History: Occasional Past Drug Use History: None Reported - Past Family History Father Family Medical History: Cancer Medications and Allergies Home Medications Medication Instructions Recorded Confirmed Type Calcium Carbonate [Tums] 500 mg PO DAILY 10/19/21 10/19/21 History Cholecalciferol (Vitamin D3) 125 mcg PO DAILY 10/19/21 10/19/21 History [Vitamin D3 (125 MCG = 5,000 IU)] Ibuprofen [Motrin] 800 mg PO Q8H PRN 10/19/21 10/19/21 History Magnesium 250 mg PO DAILY 10/19/21 10/19/21 History Potassium Gluconate [Potassium 99 mg PO DAILY 10/19/21 10/19/21 History Gluconate ER] Vitamin E (Dl,Tocopheryl Acet) 400 unit PO DAILY 10/19/21 10/19/21 History [Vitamin E (400 Iu = 180 mg)] amLODIPine BES/OLMESARTAN MED 1 tab PO BID 10/19/21 10/19/21 History [amLODIPine BES/OLMESARTAN MED 5-20 mg] atenoloL [Tenormin] 25 mg PO BID PRN 10/19/21 10/19/21 History Allergies Allergy/AdvReac Type Severity Reaction Status Date / Time No Known Allergies Allergy Verified 10/19/21 16:37 Surgical - Exam Vital Signs Temp Pulse Resp BP Pulse Ox 98.3 F 96 20 89/51 98 10/19/21 13:16 10/19/21 13:16 10/19/21 13:16 10/19/21 13:16 10/19/21 13:16 Results - Labs 10/20/21 08:33 10/20/21 08:33 Abnormal Lab Results - Last 24 Hours (Table) 10/19/21 10/19/21 10/19/21 Range/Units 13:30 13:30 14:04 WBC 17.5 H (3.8-10.6) k/uL RBC (4.30-5.90) m/uL Hgb (13.0-17.5) gm/dL Hct (39.0-53.0) % Plt Count 519 H (150-450) k/uL Neutrophils # (Manual) 15.50 H (1.3-7.7) k/uL Lymphocytes # (Manual) 0.88 L (1.0-4.8) k/uL Monocytes # (Manual) 1.05 H (0-1.0) k/uL Metamyelocytes # (Man) 0.18 H (0) k/uL Sodium 129 L (137-145) mmol/L Potassium 5.9 H (3.5-5.1) mmol/L Chloride 90 L (98-107) mmol/L BUN 21 H (9-20) mg/dL Creatinine 1.65 H (0.66-1.25) mg/dL Glucose 108 H (74-99) mg/dL Plasma Lactic Acid Zak (0.7-2.0) mmol/L Calcium (8.4-10.2) mg/dL Total Bilirubin 1.6 H (0.2-1.3) mg/dL Total Protein (6.3-8.2) g/dL Albumin (3.5-5.0) g/dL Lipase 15 L (23-300) U/L Urine Protein 2+ H (Negative) Urine Glucose (UA) Trace H (Negative) Urine Ketones 1+ H (Negative) Urine Bilirubin 1+ H (Negative) Urine WBC 12 H (0-5) /hpf Urine Bacteria Rare H (None) /hpf Hyaline Casts 21 H (0-2) /lpf Urine Mucus Many H (None) /hpf 10/19/21 10/19/21 10/19/21 Range/Units 14:04 16:43 20:04 WBC (3.8-10.6) k/uL RBC (4.30-5.90) m/uL Hgb (13.0-17.5) gm/dL Hct (39.0-53.0) % Plt Count (150-450) k/uL Neutrophils # (Manual) (1.3-7.7) k/uL Lymphocytes # (Manual) (1.0-4.8) k/uL Monocytes # (Manual) (0-1.0) k/uL Metamyelocytes # (Man) (0) k/uL Sodium (137-145) mmol/L Potassium (3.5-5.1) mmol/L Chloride (98-107) mmol/L BUN (9-20) mg/dL Creatinine (0.66-1.25) mg/dL Glucose (74-99) mg/dL Plasma Lactic Acid Zak 4.1 H* 2.7 H* 2.6 H* (0.7-2.0) mmol/L Calcium (8.4-10.2) mg/dL Total Bilirubin (0.2-1.3) mg/dL Total Protein (6.3-8.2) g/dL Albumin (3.5-5.0) g/dL Lipase (23-300) U/L Urine Protein (Negative) Urine Glucose (UA) (Negative) Urine Ketones (Negative) Urine Bilirubin (Negative) Urine WBC (0-5) /hpf Urine Bacteria (None) /hpf Hyaline Casts (0-2) /lpf Urine Mucus (None) /hpf 10/20/21 10/20/21 Range/Units 08:33 08:33 WBC 11.3 H (3.8-10.6) k/uL RBC 3.93 L (4.30-5.90) m/uL Hgb 10.2 L D (13.0-17.5) gm/dL Hct 32.0 L (39.0-53.0) % Plt Count (150-450) k/uL Neutrophils # (Manual) (1.3-7.7) k/uL Lymphocytes # (Manual) (1.0-4.8) k/uL Monocytes # (Manual) (0-1.0) k/uL Metamyelocytes # (Man) (0) k/uL Sodium 130 L (137-145) mmol/L Potassium (3.5-5.1) mmol/L Chloride (98-107) mmol/L BUN 23 H (9-20) mg/dL Creatinine 1.40 H (0.66-1.25) mg/dL Glucose (74-99) mg/dL Plasma Lactic Acid Zak (0.7-2.0) mmol/L Calcium 7.5 L (8.4-10.2) mg/dL Total Bilirubin (0.2-1.3) mg/dL Total Protein 4.8 L (6.3-8.2) g/dL Albumin 2.5 L (3.5-5.0) g/dL Lipase (23-300) U/L Urine Protein (Negative) Urine Glucose (UA) (Negative) Urine Ketones (Negative) Urine Bilirubin (Negative) Urine WBC (0-5) /hpf Urine Bacteria (None) /hpf Hyaline Casts (0-2) /lpf Urine Mucus (None) /hpf Microbiology - Last 24 Hours (Table) 10/19/21 14:04 Urine Culture - Preliminary Urine,Voided Diabetes panel 10/19/21 10/20/21 Range/Units 13:30 08:33 Sodium 129 L 130 L (137-145) mmol/L Potassium 5.9 H 4.9 (3.5-5.1) mmol/L Chloride 90 L 100 (98-107) mmol/L Carbon Dioxide 25 24 (22-30) mmol/L BUN 21 H 23 H (9-20) mg/dL Creatinine 1.65 H 1.40 H (0.66-1.25) mg/dL Glucose 108 H 91 (74-99) mg/dL Calcium 9.3 7.5 L (8.4-10.2) mg/dL AST 22 21 (17-59) U/L ALT 16 11 (4-49) U/L Alkaline Phosphatase 73 43 (38-126) U/L Total Protein 6.6 4.8 L (6.3-8.2) g/dL Albumin 3.9 2.5 L (3.5-5.0) g/dL Calcium panel 10/19/21 10/20/21 Range/Units 13:30 08:33 Calcium 9.3 7.5 L (8.4-10.2) mg/dL Phosphorus 3.8 (2.5-4.5) mg/dL Albumin 3.9 2.5 L (3.5-5.0) g/dL Pituitary panel 10/19/21 10/20/21 Range/Units 13:30 08:33 Sodium 129 L 130 L (137-145) mmol/L Potassium 5.9 H 4.9 (3.5-5.1) mmol/L Chloride 90 L 100 (98-107) mmol/L Carbon Dioxide 25 24 (22-30) mmol/L BUN 21 H 23 H (9-20) mg/dL Creatinine 1.65 H 1.40 H (0.66-1.25) mg/dL Glucose 108 H 91 (74-99) mg/dL Calcium 9.3 7.5 L (8.4-10.2) mg/dL Adrenal panel 10/19/21 10/20/21 Range/Units 13:30 08:33 Sodium 129 L 130 L (137-145) mmol/L Potassium 5.9 H 4.9 (3.5-5.1) mmol/L Chloride 90 L 100 (98-107) mmol/L Carbon Dioxide 25 24 (22-30) mmol/L BUN 21 H 23 H (9-20) mg/dL Creatinine 1.65 H 1.40 H (0.66-1.25) mg/dL Glucose 108 H 91 (74-99) mg/dL Calcium 9.3 7.5 L (8.4-10.2) mg/dL Total Bilirubin 1.6 H 0.8 (0.2-1.3) mg/dL AST 22 21 (17-59) U/L ALT 16 11 (4-49) U/L Alkaline Phosphatase 73 43 (38-126) U/L Total Protein 6.6 4.8 L (6.3-8.2) g/dL Albumin 3.9 2.5 L (3.5-5.0) g/dL
[2021-10-20] MEDS ORDERED: SODIUM CHLORIDE 0.9% 1,000 ML IV ONE (17:45)
[2021-10-20] MEDS: ACETAMINOPHEN IV (For NPO) 1,000 MG in EMPTY BAG 1 BAG IVPB SCH (18:50)
--- NOTE | 2021-10-20 23:33 | P.CONS ---
History of Present Illness - Reason for Consult Consult date: 10/20/21 - History of Present Illness Patient is a 71-year male presented to the hospital yesterday for evaluation of abdominal pain that started Sunday that is 2 days before presentation to the hospital the patient pain has been mostly in the lower abdominal area, described the pain to be more of a sharp intensity is almost 7-8 out of 10 head no radiation patient felt nauseated and did have episode of vomiting no constipation and no diarrhea, patient on presentation to the hospital was afebrile subsequent did have low-grade fever patient did have a white count of 17.5 that has came down to 11.3 BUN/creatinine mild elevated lactic acid was mildly elevated urine has been negative blood culture. She is currently pending patient did have a CT of abdominal pelvis severe acute intermittent changes in the lower abdominal with thick-walled collection along the medial inferior aspect of the cecum concerning for ruptured appendicitis and small abscess patient is currently being treated with Zosyn infectious disease was consulted today for further management of antibiotic therapy Past Medical History Past Medical History: Cancer, Hypertension Additional Past Medical History / Comment(s): irregular heart rate History of Any Multi-Drug Resistant Organisms: None Reported Additional Past Surgical History / Comment(s): metaport Past Anesthesia/Blood Transfusion Reactions: No Reported Reaction Past Psychological History: No Psychological Hx Reported Smoking Status: Never smoker Past Alcohol Use History: Occasional Past Drug Use History: None Reported - Past Family History Father Family Medical History: Cancer Medications and Allergies Home Medications Medication Instructions Recorded Confirmed Type Calcium Carbonate [Tums] 500 mg PO DAILY 10/19/21 10/19/21 History Cholecalciferol (Vitamin D3) 125 mcg PO DAILY 10/19/21 10/19/21 History [Vitamin D3 (125 MCG = 5,000 IU)] Ibuprofen [Motrin] 800 mg PO Q8H PRN 10/19/21 10/19/21 History Magnesium 250 mg PO DAILY 10/19/21 10/19/21 History Potassium Gluconate [Potassium 99 mg PO DAILY 10/19/21 10/19/21 History Gluconate ER] Vitamin E (Dl,Tocopheryl Acet) 400 unit PO DAILY 10/19/21 10/19/21 History [Vitamin E (400 Iu = 180 mg)] amLODIPine BES/OLMESARTAN MED 1 tab PO BID 10/19/21 10/19/21 History [amLODIPine BES/OLMESARTAN MED 5-20 mg] atenoloL [Tenormin] 25 mg PO BID PRN 10/19/21 10/19/21 History Allergies Allergy/AdvReac Type Severity Reaction Status Date / Time No Known Allergies Allergy Verified 10/19/21 16:37 Physical Exam Vitals: Vital Signs Temp Pulse Pulse Resp BP BP Pulse Ox 10/20/21 14:00 18 10/20/21 12:16 98.6 F 74 18 97/57 95 10/20/21 08:25 99.5 F 94 18 86/50 97 10/20/21 06:30 99.1 F 97 16 93/53 95 10/20/21 04:00 99.3 F 99 18 104/66 90 L 10/20/21 02:00 98 18 10/20/21 00:00 99.6 F 98 18 94/58 92 L 10/19/21 20:12 99.6 F 100 16 104/68 95 10/19/21 20:00 98 18 10/19/21 17:50 64 16 92/52 95 10/19/21 17:17 62 16 93/56 95 10/19/21 16:41 78 16 72/48 95 Intake and Output 10/20/21 10/20/21 10/20/21 06:59 14:59 22:59 Output Total 200 986 Balance -200 -986 Output: Urine 200 680 Post Void Residual 306 Other: Voiding Method Toilet Toilet Results CBC & Chem 7: 10/20/21 08:33 10/20/21 08:33 Labs: Abnormal Lab Results - Last 24 Hours (Table) 10/19/21 10/19/21 10/20/21 Range/Units 16:43 20:04 08:33 WBC 11.3 H (3.8-10.6) k/uL RBC 3.93 L (4.30-5.90) m/uL Hgb 10.2 L D (13.0-17.5) gm/dL Hct 32.0 L (39.0-53.0) % Sodium (137-145) mmol/L BUN (9-20) mg/dL Creatinine (0.66-1.25) mg/dL Plasma Lactic Acid Zak 2.7 H* 2.6 H* (0.7-2.0) mmol/L Calcium (8.4-10.2) mg/dL Total Protein (6.3-8.2) g/dL Albumin (3.5-5.0) g/dL 10/20/21 Range/Units 08:33 WBC (3.8-10.6) k/uL RBC (4.30-5.90) m/uL Hgb (13.0-17.5) gm/dL Hct (39.0-53.0) % Sodium 130 L (137-145) mmol/L BUN 23 H (9-20) mg/dL Creatinine 1.40 H (0.66-1.25) mg/dL Plasma Lactic Acid Zak (0.7-2.0) mmol/L Calcium 7.5 L (8.4-10.2) mg/dL Total Protein 4.8 L (6.3-8.2) g/dL Albumin 2.5 L (3.5-5.0) g/dL Microbiology - Last 24 Hours (Table) 10/19/21 14:04 Urine Culture - Preliminary Urine,Voided Assessment and Plan Plan: 1patient presented hospital abdominal pain has been diagnosed with likely ruptured appendicitis with localized abscess will need to cover for the enteric gram-negative both aerobes and anaerobes keeping in mind the patient has not been on antibiotics could be a sensitive pathogen. 2we will discuss with the radiology if the abscess can be drained CT-guided which should be sent for the culture. 3continue with Zosyn in view of clinical response and white count is trending down. We will follow on clinical condition and cultures to further adjust medication if needed Thank you for this consultation will follow this patient along with you Time with Patient: Greater than 30
[2021-10-21] MEDS: PIPERACILLIN-TAZOBACTAM 3.375 GM in SODIUM CHLORIDE 0.9% 100 ML IVPB SCH ×4 (01:07→23:36)
[2021-10-21] MEDS: ACETAMINOPHEN IV (For NPO) 1,000 MG in EMPTY BAG 1 BAG IVPB SCH ×3 (01:08→12:34)
[2021-10-21] MEDS: SODIUM CHLORIDE 0.9% 1,000 ML IV SCH ×3 (01:08→21:30)
[2021-10-21] MEDS: ONDANSETRON 4 MG/2 ML VIAL IVP PRN (04:58)
[2021-10-21] MEDS: HYDROmorphone 0.5 MG/0.5 ML SYRINGE IVP PRN (04:58)
--- NOTE | 2021-10-21 08:08 | P.PN ---
Subjective Progress Note Date: 10/21/21 CHIEF COMPLAINT: Perforated appendicitis HISTORY OF PRESENT ILLNESS: The patient is a 71 year old male admitted with perforated appendicitis with phlegmon and initial presentation of sepsis. Patient reports clinical improvement today compared to yesterday. He is passing flatus. He is able to tolerate touching his abdomen. No reports of fevers. No reports of chills. Patient is concerned with low blood pressure following narcotic Dilaudid. REVIEW OF ORGAN SYSTEMS: No shortness of breath. Reports low blood pressure with Dilaudid. No fevers or chills. Denies acute chest pain. PHYSICAL EXAM: VITALS: Reviewed CONSTITUTIONAL: Well developed and in no acute distress. EYES: Conjuctivae without sclera icterus. Extraocular movements grossly intact. HEAD, EARS, NOSE, THROAT: Moist buccal mucosa. Head is atraumatic, normocephalic. Hears conversational speech. No nasal drainage. NECK: Supple. No JV distention. No thyroidomegaly. RESPIRATORY: Non-labored respirations and equal bilateral excursions. No gross wheezes. CARDIOVASCULAR: Palpable 2+ radial pulses. ABDOMEN: Protuberant. Decreased generalized tenderness. LYMPH: No neck lymphadenopathy. MUSCULOSKELETAL: No clubbing cyanosis or edema. NEUROLOGIC: Cranial nerves II through XII grossly intact. No focal or lateralizing signs. PSYCH: Appropriate affect. Alert and oriented to person, place and time. Displays appropriate insight. CLINCAL LABS: Ordered and pending ASSESSMENT: 1. Perforated appendicitis with phlegmon 2. Lactic acidosis in presence of sepsis 3. Bladder containing left inguinal hernia 4. Hypotension with history of arrhythmia 5. Acute tubular necrosis with renal insufficiency due to dehydration PLAN: 1. Care plan discussed with patient where he is requesting nonnarcotic pain management. Scheduled Tylenol and Toradol reviewed. Dilaudid for breakthrough pain. 2. He has personal history of arrhythmia and hypotension during hospitalization. Echocardiogram ordered with cardiology consultation including for presurgical clearance 3. Inpatient hospitalization for 7 days reviewed and adjusted pending clinical course 4. PICC line for antibiotics including TPN 5. Overall, patient demonstrated understanding of the care plan and agreed. Objective - Vital Signs Vital signs: Vital Signs Temp 98.4 F 10/21/21 04:00 Pulse 97 10/21/21 04:00 Resp 16 10/21/21 04:00 BP 118/81 10/21/21 04:00 Pulse Ox 95 10/21/21 04:16 FiO2 Intake & Output 10/20/21 10/21/21 10/21/21 18:59 06:59 18:59 Output Total 1330 800 Balance -1330 -800 Output: Urine 880 800 Post Void Residual 450 Other: Voiding Method Toilet Toilet - Labs CBC & Chem 7: 10/20/21 08:33 10/20/21 08:33 Labs: Abnormal Lab Results - Last 24 Hours (Table) 10/20/21 10/20/21 Range/Units 08:33 08:33 WBC 11.3 H (3.8-10.6) k/uL RBC 3.93 L (4.30-5.90) m/uL Hgb 10.2 L D (13.0-17.5) gm/dL Hct 32.0 L (39.0-53.0) % Sodium 130 L (137-145) mmol/L BUN 23 H (9-20) mg/dL Creatinine 1.40 H (0.66-1.25) mg/dL Calcium 7.5 L (8.4-10.2) mg/dL Total Protein 4.8 L (6.3-8.2) g/dL Albumin 2.5 L (3.5-5.0) g/dL Microbiology - Last 24 Hours (Table) 10/19/21 16:20 Blood Culture - Preliminary Blood No Growth after 24 hours 10/19/21 16:35 Blood Culture - Preliminary Blood No Growth after 24 hours 10/19/21 14:04 Urine Culture - Final Urine,Voided
[2021-10-21 09:03] LABS: Basophils % (A) 0 %; Eosinophils % (A) 0 %; HCT 33.5 % (39.0-53.0); HGB 10.3 gm/dL (13.0-17.5); Hypochromasia Moderate; Lymphocytes # (A) 0.4 k/uL (1.0-4.8); Lymphocytes % (A) 3 %; MCH 25.7 pg (25.0-35.0); MCHC 30.6 g/dL (31.0-37.0); MCV 84.1 fL (80.0-100.0); Mean Platelet Volume 7.8; Monocytes # (A) 0.5 k/uL (0-1.0); Monocytes % (A) 4 %; Neutrophils # (A) 10.9 k/uL (1.3-7.7); Neutrophils % (A) 91 %; Platelet Count 367 k/uL (150-450); RBC 3.99 m/uL (4.30-5.90); RDW 13.2 % (11.5-15.5); WBC 12.1 k/uL (3.8-10.6)
[2021-10-21] MEDS: PANTOPRAZOLE 40 MG/10 ML VIAL IVP SCH ×2 (09:12→20:06)
[2021-10-21] MEDS: ONDANSETRON 4 MG/2 ML VIAL IVP SCH ×4 (09:12→23:36)
[2021-10-21] MEDS: KETOROLAC 15 MG/ML 1 ML VIAL IVP SCH ×4 (09:12→23:36)
[2021-10-21 09:13] LABS: Albumin 2.7 g/dL (3.5-5.0); Calcium 7.7 mg/dL (8.4-10.2); Potassium 4.9 mmol/L (3.5-5.1); Total Bilirubin 0.7 mg/dL (0.2-1.3)
[2021-10-21 09:14] LABS: Prothrombin Time 10.8 sec (9.0-12.0)
[2021-10-21] MEDS: HEPARIN SODIUM,PORCINE/PF 5,000 UNIT/0.5 ML SYRINGE SQ SCH ×2 (09:15→20:07)
[2021-10-21 10:16] VITALS: BMI 31.5
[2021-10-21] MEDS ORDERED: LIDOCAINE 1% PF 10 MG/ML (5 ML AMP) SQ ONE (10:32)
--- NOTE | 2021-10-21 11:54 | IR ---
EXAMINATION TYPE: IR cvc insert >=5 years DATE OF EXAM: 10/21/2021 COMPARISON: NONE CLINICAL HISTORY: Perforated appendicitis Needs long-term intravenous access for total parenteral nut rition. PROCEDURE: Hand hygiene obtained with soap and water and alcohol-based hand rub. After informed consent, the skin overlying the right basilic vein was localized with ultrasound and n oted to be compressible and patent. An ultrasound image was obtained and submitted on the patient's chart. The overlying skin was prepped and draped and Lidocaine was used for local anesthesia. A ski n waylon was made with a scalpel. Access was gained to the vein under ultrasound guidance with a 21 ga uge needle and a 0.018 inch wire was advanced. Access site was dilated with Peel-Away sheath and cat heter tailored to the appropriate length and advanced such that the distal tip is at the cavoatrial j unction. Spot image was obtained verifying placement. Catheter was fixed to the skin and a sterile dressing was placed following hemostasis. Catheter was aspirated and flushed with saline. Patient w as discharged in stable condition without complication.Maximal barrier technique is utilized. Ultras ound image is documented on the chart. Ultrasound used with sterile technique. Fluoro time and fluoroscopic images submitted to document procedure: 305 intraoperative C-arm images, 1 minute fluoroscopy time IMPRESSION: STATUS POST ULTRASOUND AND FLUOROSCOPIC GUIDED PICC LINE PLACEMENT, READY FOR USE. THIS PROCEDURE WAS PERFORMED BY THE UNDERSIGNED.
--- NOTE | 2021-10-21 12:52 | P.PN ---
Subjective Progress Note Date: 10/21/21 Principal diagnosis: Sepsis, appendicitis Patient is a 71-year-old male with hypertension who presented due to abdominal pain. In the ER he was found to have possible acute appendicitis plus or minus perforation versus neoplasm. He was found to have sepsis, hyponatremia, and hy perkalemia. He was admitted started on IV Zosyn, IV fluids, and pain control. We are asked to consult for medical management. Patient seen and examined at bedside. He reports that his abdominal pain is better. Reports he has not had a bowel movement in 2 days. Reports that his breathing is okay and his pain is tolerable. Denies shortness of breath or chest pain or palpitations. Objective - Vital Signs Vital signs: Vital Signs Temp 98.4 F 10/21/21 09:10 Pulse 94 10/21/21 09:10 Resp 16 10/21/21 09:10 BP 102/62 10/21/21 09:10 Pulse Ox 90 L 10/21/21 09:10 FiO2 Intake & Output 10/20/21 10/21/21 10/21/21 18:59 06:59 18:59 Intake Total 0 Output Total 1330 800 200 Balance -1330 -800 -200 Weight 99.79 kg Intake: Oral 0 Output: Urine 880 800 200 Post Void Residual 450 Other: Voiding Method Toilet Toilet Toilet - Exam Constitutional: No acute distress, on room air HEENT: Pupils equally reactive to light, atraumatic, normocephalic. Lungs: Clear to auscultation bilaterally, no wheezing, no crackles Cardiovascular: RRR, S1-S2 normal, no murmur, no peripheral edema Abdominal: Soft, mild tenderness to palpation Extremities: No cyanosis or clubbing Neuro: No focal neurological signs alert - Labs CBC & Chem 7: 10/21/21 08:27 10/21/21 08:27 Labs: Abnormal Lab Results - Last 24 Hours (Table) 10/21/21 10/21/21 Range/Units 08:27 08:27 WBC 12.1 H (3.8-10.6) k/uL RBC 3.99 L (4.30-5.90) m/uL Hgb 10.3 L (13.0-17.5) gm/dL Hct 33.5 L (39.0-53.0) % MCHC 30.6 L (31.0-37.0) g/dL Neutrophils # 10.9 H (1.3-7.7) k/uL Lymphocytes # 0.4 L (1.0-4.8) k/uL Sodium 133 L (137-145) mmol/L Carbon Dioxide 17 L (22-30) mmol/L Glucose 73 L (74-99) mg/dL Calcium 7.7 L (8.4-10.2) mg/dL Total Protein 5.0 L (6.3-8.2) g/dL Albumin 2.7 L (3.5-5.0) g/dL Microbiology - Last 24 Hours (Table) 10/19/21 16:20 Blood Culture - Preliminary Blood No Growth after 24 hours 10/19/21 16:35 Blood Culture - Preliminary Blood No Growth after 24 hours 10/19/21 14:04 Urine Culture - Final Urine,Voided Assessment and Plan Assessment: Assessment/plan: Acute appendicitis with sepsis, possible perforation -Follow surgery recommendations - On IV Zosyn, WBC trended up -On IV fluids - Pain management and antiemetics. - BP is low normal will continue to hold BP meds Hyponatremia, due to dehydration - IVF - follow labs, improved to 133 today GALA - Improved with IV fluids, likely prerenal - Avoid nephrotoxic agents if possible. Constipation - Added Colace HTN, currently hypotensive - Monitor BP. Resume antihypertensives for blood pressure is elevated. Anemia - Monitor hemoglobin and transfuse if hemoglobin is less than 7. Hyperkalemia, resolved
[2021-10-21] MEDS ORDERED: [UNRECOGNIZED DRUG - REMARK] IV SCH ×7 (13:00)
[2021-10-21] MEDS ORDERED: FAT EMULSION 20% 500 ML in EMPTY BAG 1 BAG IV SCH (13:00)
--- NOTE | 2021-10-21 13:18 | CA ---
Transthoracic Echo Report Name: Prudencio Cooper Age: 71 Gender: M : 1950 Exam Date: 10/21/2021 08:07 Exam Location: [facility] Ht (in): 70 Wt (lb): 215 Ordering Physician: Dayami Pak MD Attending/Referring Phys: Pasha COOK Software Technician Alvina Hastings RDCS Procedure CPT: Indications: Hypotension, arrhythmia Cardiac Hx: Technical Quality: Fair Contrast 1: Total Dose (mL): Contrast 2: Total Dose (mL): MEASUREMENTS (Male / Female) Normal Values 2D ECHO LV Diastolic Diameter PLAX 3.4 cm 4.2 - 5.9 / 3.9 - 5.3 cm LV Systolic Diameter PLAX 1.4 cm IVS Diastolic Thickness 1.5 cm 0.6 - 1.0 / 0.6 - 0.9 cm LVPW Diastolic Thickness 1.6 cm 0.6 - 1.0 / 0.6 - 0.9 cm LV Relative Wall Thickness 0.9 RV Internal Dim ED PLAX 3.1 cm LA Volume 65.1 cm??? 18 - 58 / 22 - 52 cm??? M-MODE Aortic Root Diameter MM 3.1 cm LA Systolic Diameter MM 4.5 cm LA Ao Ratio MM 1.4 DOPPLER AV Peak Velocity 127.2 cm/s AV Peak Gradient 6.5 mmHg AI Peak Velocity 285.1 cm/s AI Peak Gradient 32.5 mmHg AI Pressure Half Time 522.3 ms LVOT Peak Velocity 107.1 cm/s LVOT Peak Gradient 4.6 mmHg MV Area PHT 4.3 cm??? Mitral E Point Velocity 103.1 cm/s Mitral A Point Velocity 91.9 cm/s Mitral E to A Ratio 1.1 MV Deceleration Time 193.8 ms MV E' Velocity 10.3 cm/s Mitral E to MV E' Ratio 10.1 TR Peak Velocity 260.8 cm/s TR Peak Gradient 27.2 mmHg Right Ventricular Systolic Press 30.0 mmHg FINDINGS Left Ventricle Moderately increased left ventricular wall thickness. Normal left ventricular systolic function with no obvious regional wall motion abnormalities. Normal left ventricular diastolic filling pattern. Left ventricular ejection fraction is estimated at 55-60 %. Right Ventricle Normal right ventricular size and function. Right ventricular systolic pressure within normal limits. Right Atrium Normal right atrial size. Left Atrium Mildly increased left atrial volume. Mildly increased left atrial area. No evidence for an atrial septal defect. Mitral Valve Structurally normal mitral valve. Mild mitral annular calcification. Trace to mild mitral regurgitation. Aortic Valve Trileaflet aortic valve. Trace aortic regurgitation. Tricuspid Valve Mild tricuspid regurgitation. Pulmonic Valve Structurally normal pulmonic valve. Trace pulmonic regurgitation. Pericardium No pericardial effusion. Aorta Aortic root and proximal ascending aorta not well visualized. CONCLUSIONS Hyperdynamic left ventricle was EF of 65-70% Moderate concentric left ventricular hypertrophy Technically difficult study overall Previewed by: Dr. Garret Macario MD (Electronically Signed) Final Date: 21 Oct 2021 13:17
--- NOTE | 2021-10-21 15:57 | P.PN ---
Subjective Progress Note Date: 10/21/21 Principal diagnosis: Perforated appendicitis Patient is a 71-year-old male presenting to the hospital with abdominal pain, has been diagnosed with a ruptured appendicitis and a small abscess. On today's evaluation that is 10/21/2021, the patient denies having any fever or chills, abdominal pain has slightly decreased in intensity, denies any nausea or vomiting no chest pain shortness of breath or cough and no diarrhea Objective - Vital Signs Vital signs: Vital Signs Temp 98.9 F 10/21/21 12:30 Pulse 62 10/21/21 12:30 Resp 16 10/21/21 12:30 BP 122/79 10/21/21 12:30 Pulse Ox 93 L 10/21/21 12:30 FiO2 Intake & Output 10/20/21 10/21/21 10/21/21 18:59 06:59 18:59 Intake Total 0 Output Total 1330 800 200 Balance -1330 -800 -200 Weight 99.79 kg Intake: Oral 0 Output: Urine 880 800 200 Post Void Residual 450 Other: Voiding Method Toilet Toilet Toilet - Exam GENERAL DESCRIPTION: An elderly male lying in bed in no distress RESPIRATORY SYSTEM: Unlabored breathing , decreased breath sounds at bases HEART: S1 S2 regular rate and rhythm , ABDOMEN: Soft , mild right lower quadrant tenderness EXTREMITIES: No edema feet - Labs CBC & Chem 7: 10/21/21 08:27 10/21/21 08:27 Labs: Abnormal Lab Results - Last 24 Hours (Table) 10/21/21 10/21/21 Range/Units 08:27 08:27 WBC 12.1 H (3.8-10.6) k/uL RBC 3.99 L (4.30-5.90) m/uL Hgb 10.3 L (13.0-17.5) gm/dL Hct 33.5 L (39.0-53.0) % MCHC 30.6 L (31.0-37.0) g/dL Neutrophils # 10.9 H (1.3-7.7) k/uL Lymphocytes # 0.4 L (1.0-4.8) k/uL Sodium 133 L (137-145) mmol/L Carbon Dioxide 17 L (22-30) mmol/L Glucose 73 L (74-99) mg/dL Calcium 7.7 L (8.4-10.2) mg/dL Total Protein 5.0 L (6.3-8.2) g/dL Albumin 2.7 L (3.5-5.0) g/dL Microbiology - Last 24 Hours (Table) 10/19/21 16:20 Blood Culture - Preliminary Blood No Growth after 24 hours 10/19/21 16:35 Blood Culture - Preliminary Blood No Growth after 24 hours 10/19/21 14:04 Urine Culture - Final Urine,Voided Assessment and Plan (1) Acute appendicitis Current Visit: Yes Status: Acute Code(s): K35.80 - UNSPECIFIED ACUTE APPENDICITIS SNOMED Code(s): 30860801 (2) Peritonitis Current Visit: Yes Status: Acute Code(s): K65.9 - PERITONITIS, UNSPECIFIED SNOMED Code(s): 29905989 Plan: 1patient presented hospital abdominal pain has been diagnosed with likely ruptured appendicitis with localized abscess will need to cover for the enteric gram-negative both aerobes and anaerobes keeping in mind the patient has not been on antibiotics could be a sensitive pathogen. 2patient to continue with Zosyn in view of clinical response and monitor his clinical course closely Time with Patient: Less than 30
[2021-10-21 23:51] LABS: Glucose,Whole Blood 110 mg/dL (75-99)
[2021-10-22] MEDS ORDERED: MELATONIN 3 MG TABLET PO ONE (02:58)
[2021-10-22] MEDS: ONDANSETRON 4 MG/2 ML VIAL IVP SCH ×3 (05:35→17:01)
[2021-10-22] MEDS: KETOROLAC 15 MG/ML 1 ML VIAL IVP SCH ×3 (05:35→17:01)
[2021-10-22] MEDS: SODIUM CHLORIDE 0.9% 1,000 ML IV SCH ×4 (06:20→18:06)
[2021-10-22] MEDS: PANTOPRAZOLE 40 MG/10 ML VIAL IVP SCH ×2 (08:19→20:04)
[2021-10-22] MEDS: HEPARIN SODIUM,PORCINE/PF 5,000 UNIT/0.5 ML SYRINGE SQ SCH ×2 (08:19→20:05)
[2021-10-22] MEDS: PIPERACILLIN-TAZOBACTAM 3.375 GM in SODIUM CHLORIDE 0.9% 100 ML IVPB SCH ×2 (08:19→16:30)
[2021-10-22] MEDS: DOCUSATE 100 MG CAP PO PRN (08:25)
[2021-10-22 10:04] LABS: Ionized Calcium 4.6 mg/dL (4.5-5.3)
[2021-10-22 10:18] LABS: Basophils % (A) 0 %; Eosinophils # (A) 0.1 k/uL (0-0.7); Eosinophils % (A) 1 %; HCT 33.9 % (39.0-53.0); HGB 10.1 gm/dL (13.0-17.5); Hypochromasia Marked; Lymphocytes # (A) 0.5 k/uL (1.0-4.8); Lymphocytes % (A) 6 %; MCH 25.3 pg (25.0-35.0); MCHC 29.8 g/dL (31.0-37.0); Mean Platelet Volume 7.8; Monocytes # (A) 0.5 k/uL (0-1.0); Monocytes % (A) 6 %; Neutrophils % (A) 85 %; Platelet Count 360 k/uL (150-450); RBC 3.99 m/uL (4.30-5.90); RDW 13.9 % (11.5-15.5); WBC 8.3 k/uL (3.8-10.6)
[2021-10-22 10:22] LABS: African American GFR (CKD) >90 (>60 ml/min/1.73 sqM); Anion Gap 8 mmol/L; Blood Urea Nitrogen 10 mg/dL (9-20); Calcium 7.5 mg/dL (8.4-10.2); Carbon Dioxide 24 mmol/L (22-30); Chloride 96 mmol/L (98-107); Glucose 445 mg/dL (74-99); Magnesium 1.8 mg/dL (1.6-2.3); Non-African American GFR(CKD) 85 (>60 ml/min/1.73 sqM); Phosphorus 3.7 mg/dL (2.5-4.5); Potassium 3.6 mmol/L (3.5-5.1); Sodium 128 mmol/L (137-145)
--- NOTE | 2021-10-22 10:36 | P.CRDCN ---
History of Present Illness History of present illness: HISTORY OF PRESENTING ILLNESS Patient is a pleasant 71-year-old male with history of hypertension and palpitations controlled with atenolol who presents secondary to abdominal pain. He had abdominal pain starting on Sunday and presented a few days later with worsening pain in the lower abdomen. CT showed appendicitis with perforation and patient was found to be septic with elevated lactic acid, elevated white blood cell count and acute kidney injury. He was seen by surgery with homa mmendations for TPN with delayed surgery and antibiotics. Currently he is feeling much better in terms of his abdominal pain. His creatinine has improved. Cardiology was consulted due to hypotension and preoperative clearance. He states prior to this he has not been having any chest pain, pressure, shortness breath. He is easily able to walk up a flight of stairs without any dyspnea or difficulty. He had a stress test approximately 4-5 years ago without any significant findings. EKG showed normal sinus rhythm, Q waves inferiorly, no significant ST or T wave abnormalities. Echocardiogram shows normal ejection fraction 55-60% with mild mitral regurgitation and moderate LVH. REVIEW OF SYSTEMS At the time of my exam: CONSTITUTIONAL: Denies fever or chills. CARDIOVASCULAR: Denies chest pain, shortness of breath, orthopnea, PND + palpitations. RESPIRATORY: Denies cough. GASTROINTESTINAL: +abdominal pain. MUSCULOSKELETAL: Denies myalgias. NEUROLOGIC: Denies numbness, tingling or weakness. ENDOCRINE: Denies fatigue, weight change, polydipsia or polyurina. GENITOURINARY: Denies burning, hematuria or urgency with micturation. HEMATOLOGIC: Denies history of anemia or bleeding. PHYSICAL EXAMINATION Vital signs reviewed. CONSTITUTIONAL: No apparent distress. HEENT: Head is normocephalic. Pupils are equal, round. Sclerae anicteric. Mucous membranes of the mouth are moist. No JVD. No carotid bruit. CHEST EXAMINATION: Lungs are clear to auscultation. No chest wall tenderness is noted on palpation or with deep breathing. HEART EXAMINATION: Regular rate and rhythm. S1, S2 heard. No murmurs, gallops or rub. ABDOMEN: Soft, nontender. Positive bowel sounds. EXTREMITIES: 2+ peripheral pulses, no lower extremity edema and no calf tenderness. NEUROLOGIC EXAMINATION: Patient is awake, alert and oriented x3. ASSESSMENT 1. Appendicitis with rupture 2. Preoperative cardiovascular exam 3. Hypotension related to sepsis 4. Sepsis 5. Hypertension 6. Moderate LVH 7. Abnormal EKG PLAN Patient's main presentation was 4 abdominal pain and appendicitis. His hypotension is improved. Acute kidney injury has improved. He is not having any significant angina or heart failure symptoms. He is able to do more than 4 metastases of activity without significant angina or heart failure symptoms and echo shows preserved ejection fraction. Therefore patient will be cleared from a cardiology standpoint for appendectomy. Follow-up in the office in 1-2 weeks. Past Medical History Past Medical History: Cancer, Hypertension Additional Past Medical History / Comment(s): irregular heart rate History of Any Multi-Drug Resistant Organisms: None Reported Additional Past Surgical History / Comment(s): metaport Past Anesthesia/Blood Transfusion Reactions: No Reported Reaction Past Psychological History: No Psychological Hx Reported Smoking Status: Never smoker Past Alcohol Use History: Occasional Past Drug Use History: None Reported - Past Family History Father Family Medical History: Cancer Medications and Allergies Home Medications Medication Instructions Recorded Confirmed Type Calcium Carbonate [Tums] 500 mg PO DAILY 10/19/21 10/19/21 History Cholecalciferol (Vitamin D3) 125 mcg PO DAILY 10/19/21 10/19/21 History [Vitamin D3 (125 MCG = 5,000 IU)] Ibuprofen [Motrin] 800 mg PO Q8H PRN 10/19/21 10/19/21 History Magnesium 250 mg PO DAILY 10/19/21 10/19/21 History Potassium Gluconate [Potassium 99 mg PO DAILY 10/19/21 10/19/21 History Gluconate ER] Vitamin E (Dl,Tocopheryl Acet) 400 unit PO DAILY 10/19/21 10/19/21 History [Vitamin E (400 Iu = 180 mg)] amLODIPine BES/OLMESARTAN MED 1 tab PO BID 10/19/21 10/19/21 History [amLODIPine BES/OLMESARTAN MED 5-20 mg] atenoloL [Tenormin] 25 mg PO BID PRN 10/19/21 10/19/21 History Allergies Allergy/AdvReac Type Severity Reaction Status Date / Time No Known Allergies Allergy Verified 10/19/21 16:37 Physical Exam Vitals: Vital Signs Temp Pulse Resp BP Pulse Ox 10/22/21 08:00 98.3 F 100 16 136/79 94 L 10/22/21 03:07 97.8 F 103 H 12 125/82 92 L 10/21/21 23:45 98.8 F 102 H 17 137/86 93 L 10/21/21 19:47 97.5 F L 93 18 115/75 93 L 10/21/21 17:25 98.6 F 105 H 18 118/77 92 L 10/21/21 12:30 98.9 F 62 16 122/79 93 L Intake and Output 10/21/21 10/22/21 10/22/21 22:59 06:59 14:59 Intake Total 1360 Output Total 200 Balance 1360 -200 Intake: Intake, IV Titration 1240 Amount ACETAMINOPHEN IV (For NPO 100 ) 1,000 mg In Empty Bag 1 bag @ 400 mls/hr IVPB Q6HR [facility] Rx#:[id number] Piperacillin-Tazobactam 3 100 .375 gm In Sodium Chloride 0.9% 100 ml @ 25 mls/hr IVPB Q8HR [facility] Rx# :[id number] Sodium Chloride 0.9% 1, 1040 000 ml @ 130 mls/hr IV . Q7H42M [facility] Rx#:[id number] Oral 120 Output: Urine 200 Other: Voiding Method Toilet Toilet # Voids 3 1 # Bowel Movements 1 Results 10/22/21 09:30 10/22/21 09:30 CBC 10/22/21 Range/Units 09:30 WBC 8.3 (3.8-10.6) k/uL RBC 3.99 L (4.30-5.90) m/uL Hgb 10.1 L (13.0-17.5) gm/dL Hct 33.9 L (39.0-53.0) % Plt Count 360 (150-450) k/uL Comprehensive Metabolic Panel 10/22/21 Range/Units 09:30 Sodium 128 L (137-145) mmol/L Potassium 3.6 (3.5-5.1) mmol/L Chloride 96 L (98-107) mmol/L Carbon Dioxide 24 (22-30) mmol/L BUN 10 (9-20) mg/dL Creatinine 0.90 (0.66-1.25) mg/dL Glucose 445 H (74-99) mg/dL Calcium 7.5 L (8.4-10.2) mg/dL Current Medications Generic Name Dose Route Start Last Admin Trade Name Freq PRN Reason Stop Dose Admin Docusate Sodium 100 mg 10/21/21 12:46 10/22/21 08:25 Docusate 100 Mg Cap PO 100 mg DAILY PRN Administration Constipation Heparin Sodium (Porcine) 5,000 unit 10/19/21 21:00 10/22/21 08:19 Heparin Sodium,Porcine/Pf 5,000 Unit/0.5 Ml Syringe SQ 5,000 unit Q12HR [facility] Administration Hydromorphone HCl 0.5 mg 10/19/21 16:09 10/21/21 04:58 Hydromorphone 0.5 Mg/0.5 Ml Syringe IVP 0.5 mg Q3HR PRN Administration Moderate Pain Hydromorphone HCl 1 mg 10/19/21 16:09 Hydromorphone 1 Mg/Ml 1 Ml Syringe IVP Q3HR PRN Severe Pain Sodium Chloride 1,000 mls @ 130 mls/hr 10/19/21 14:15 10/22/21 06:22 Saline 0.9% IV 130 mls/hr .Q7H42M [facility] Administration Piperacillin Sod/Tazobactam 100 mls @ 25 mls/hr 10/20/21 00:00 10/22/21 08:19 Sod 3.375 gm/ Sodium Chloride IVPB 25 mls/hr Q8HR [facility] Administration Protocol Parenteral Vitamin Supplement 1,041 mls @ 30 mls/hr 10/21/21 13:00 10/21/21 14:04 10 ml/ Zinc/Copper/Manganese/ IV 10/22/21 12:59 30 mls/hr Selenium 1 ml/ Sodium Acetate .Q24H [facility] Administration 30 meq/ Sodium Phosphate 12 mmol/ Magnesium Sulfate 0.5 gm / Calcium Gluconate 1 gm/ Amino Acids/Dextrose Parenteral Vitamin Supplement 1,041 mls @ 90 mls/hr 10/22/21 13:00 10 ml/ Zinc/Copper/Manganese/ IV Selenium 1 ml/ Sodium Acetate .BY DURATION [facility] 30 meq/ Sodium Phosphate 12 mmol/ Magnesium Sulfate 0.5 gm / Calcium Gluconate 1 gm/ Amino Acids/Dextrose Sodium Acetate 30 meq/ Sodium 1,030 mls @ 90 mls/hr 10/22/21 13:00 Phosphate 12 mmol/ Magnesium IV Sulfate 0.5 gm/ Calcium .BY DURATION [facility] Gluconate 1 gm/ Amino Acids/ Dextrose Fat Emulsion Intravenous 500 500 mls @ 42 mls/hr 10/21/21 13:00 10/21/21 19:01 ml/ IV Solution IV 42 mls/hr Fr@1300 [facility] Administration Ketorolac Tromethamine 15 mg 10/21/21 08:15 10/22/21 05:35 Ketorolac 15 Mg/Ml 1 Ml Vial IVP 10/24/21 08:08 15 mg Q6HR [facility] Administration Naloxone HCl 0.2 mg 10/19/21 16:09 Naloxone 0.4 Mg/Ml 1 Ml Vial IV Q2M PRN Opioid Reversal Ondansetron HCl 4 mg 10/21/21 08:15 10/22/21 05:35 Ondansetron 4 Mg/2 Ml Vial IVP 4 mg Q6HR [facility] Administration Pantoprazole Sodium 40 mg 10/19/21 21:00 10/22/21 08:19 Pantoprazole 40 Mg/10 Ml Vial IVP 40 mg BID [facility] Administration Sodium Chloride 10 ml 10/21/21 11:50 Sodium Chloride 0.9% Flush 10 Ml Syringe IV Q4HR PRN PICC Line Sodium Chloride 10 ml 10/28/21 09:00 Sodium Chloride 0.9% Flush 10 Ml Syringe IV WEEKLY [facility] Sodium Chloride 20 ml 10/21/21 11:50 Sodium Chloride 0.9% Flush 10 Ml Syringe IV Q4HR PRN PICC Line Intake and Output 10/21/21 10/22/21 10/22/21 22:59 06:59 14:59 Intake Total 1360 Output Total 200 Balance 1360 -200 Intake: Intake, IV Titration 1240 Amount ACETAMINOPHEN IV (For NPO 100 ) 1,000 mg In Empty Bag 1 bag @ 400 mls/hr IVPB Q6HR [facility] Rx#:[id number] Piperacillin-Tazobactam 3 100 .375 gm In Sodium Chloride 0.9% 100 ml @ 25 mls/hr IVPB Q8HR [facility] Rx# :[id number] Sodium Chloride 0.9% 1, 1040 000 ml @ 130 mls/hr IV . Q7H42M [facility] Rx#:[id number] Oral 120 Output: Urine 200 Other: Voiding Method Toilet Toilet # Voids 3 1 # Bowel Movements 1 10/22/21 09:30 10/22/21 09:30
[2021-10-22 12:18] LABS: Glucose,Whole Blood 126 mg/dL (75-99)
--- NOTE | 2021-10-22 12:38 | P.PN ---
Progress Note - Text Progress Note Date: 10/22/21 The patient reports urinary frequency. He denies dysuria and hematuria. He is voiding without difficulty. His urine culture was negative. Postvoid residuals were all under 150 mL, consistent with adequate bladder emptying. He is urologically stable and will follow up with me as an outpatient as needed. Please notify us if we can be of any further assistance.
--- NOTE | 2021-10-22 12:59 | P.PN ---
Subjective Progress Note Date: 10/22/21 Principal diagnosis: Acute appendicitis Patient is a 71-year-old male with hypertension who presented due to abdominal pain. In the ER he was found to have possible acute appendicitis plus or minus perforation versus neoplasm. He was found to have sepsis, hyponatremia, and hyperkalemia. He was admitted started on IV Zosyn, IV fluids, and pain control. Internal medicine team following for medical management 10/22/2021: Patient seen and examined. Patient denies any new complaints no nausea vomiting fever chills states that he is feeling much improved overall Objective - Vital Signs Vital signs: Vital Signs Temp 98.8 F 10/22/21 11:43 Pulse 97 10/22/21 11:43 Resp 17 10/22/21 11:43 BP 142/82 10/22/21 11:43 Pulse Ox 95 10/22/21 11:43 FiO2 Intake & Output 10/21/21 10/22/21 10/22/21 18:59 06:59 18:59 Intake Total 1360 Output Total 200 200 Balance 1160 -200 Weight 99.79 kg Intake: Intake, IV Titration 1240 Amount ACETAMINOPHEN IV (For NPO 100 ) 1,000 mg In Empty Bag 1 bag @ 400 mls/hr IVPB Q6HR [facility] Rx#:[id number] Piperacillin-Tazobactam 3 100 .375 gm In Sodium Chloride 0.9% 100 ml @ 25 mls/hr IVPB Q8HR [facility] Rx# :[id number] Sodium Chloride 0.9% 1, 1040 000 ml @ 130 mls/hr IV . Q7H42M [facility] Rx#:[id number] Oral 120 Output: Urine 200 200 Other: Voiding Method Toilet Toilet # Voids 3 1 # Bowel Movements 1 - Exam Constitutional: No acute distress, on room air HEENT: Pupils equally reactive to light, atraumatic, normocephalic. Lungs: Clear to auscultation bilaterally, no wheezing, no crackles Cardiovascular: RRR, S1-S2 normal, no murmur, no peripheral edema Abdominal: Soft, mild tenderness to palpation Extremities: No cyanosis or clubbing Neuro: No focal neurological signs alert - Labs CBC & Chem 7: 10/22/21 09:30 10/22/21 09:30 Labs: Abnormal Lab Results - Last 24 Hours (Table) 10/21/21 10/22/21 10/22/21 Range/Units 23:48 09:30 09:30 RBC 3.99 L (4.30-5.90) m/uL Hgb 10.1 L (13.0-17.5) gm/dL Hct 33.9 L (39.0-53.0) % MCHC 29.8 L (31.0-37.0) g/dL Lymphocytes # 0.5 L (1.0-4.8) k/uL Sodium 128 L (137-145) mmol/L Chloride 96 L (98-107) mmol/L Glucose 445 H (74-99) mg/dL POC Glucose (mg/dL) 110 H (75-99) mg/dL Calcium 7.5 L (8.4-10.2) mg/dL 10/22/21 Range/Units 12:16 RBC (4.30-5.90) m/uL Hgb (13.0-17.5) gm/dL Hct (39.0-53.0) % MCHC (31.0-37.0) g/dL Lymphocytes # (1.0-4.8) k/uL Sodium (137-145) mmol/L Chloride (98-107) mmol/L Glucose (74-99) mg/dL POC Glucose (mg/dL) 126 H (75-99) mg/dL Calcium (8.4-10.2) mg/dL Microbiology - Last 24 Hours (Table) 10/19/21 16:35 Blood Culture - Preliminary Blood No Growth after 48 hours 10/19/21 16:20 Blood Culture - Preliminary Blood No Growth after 48 hours Assessment and Plan (1) Acute appendicitis Current Visit: Yes Status: Acute Code(s): K35.80 - UNSPECIFIED ACUTE APPENDICITIS SNOMED Code(s): 66240947 Plan: Acute appendicitis with sepsis, possible perforation -Surgical team following. Cardiology team was consulted for surgical clearance. Patient has been cleared by cardiology to proceed with appendectomy -Patient's leukocytosis has improved and is currently on IV Zosyn -Patient's pain controlled with IV Dilaudid, Toradol -BP is low normal will continue to hold BP meds Hyponatremia, due to dehydration -Patient's sodium worse today. Labs today show 128 -Currently on IV fluids. Will order urine studies including urine sodium and urine osmolarity GALA - Improved with IV fluids, likely prerenal - Avoid nephrotoxic patient's creatinine now back to baseline 0.90 Constipation -Colace HTN -Blood pressure is currently stable. Anemia - Monitor hemoglobin and transfuse if hemoglobin is less than 7. Hyperkalemia -Resolved
[2021-10-22] MEDS: 1: MVI, ADULT NO.4 WITH VIT K 10 ML, TRACE (CONC-1ML/DOSE) 1 ML, SODIUM ACETATE 30 MEQ, IV SCH ×7 (14:27)
[2021-10-22 16:40] LABS: Glucose,Whole Blood 130 mg/dL (75-99)
[2021-10-22] MEDS ORDERED: ALPRAZolam 0.5 MG TAB PO PRN (17:42)
--- NOTE | 2021-10-22 18:41 | P.PN ---
Subjective Progress Note Date: 10/22/21 CHIEF COMPLAINT: Perforated appendicitis HISTORY OF PRESENT ILLNESS: The patient is a 71 year old male admitted with perforated appendicitis with phlegmon and initial presentation of sepsis. He reports moderate improvement of his abdominal pain since admission. Reports low appetite. He is passing flatus having bowel movements. Pain is very well controlled. No blood in stools. He reports troubles with sleep due to noise. REVIEW OF ORGAN SYSTEMS: No shortness of breath. No fevers or chills. Denies acute chest pain. PHYSICAL EXAM: VITALS: Reviewed CONSTITUTIONAL: Well developed and in no acute distress. EYES: Conjuctivae without sclera icterus. Extraocular movements grossly intact. HEAD, EARS, NOSE, THROAT: Moist buccal mucosa. Head is atraumatic, normocephalic. Hears conversational speech. No nasal drainage. RESPIRATORY: Non-labored respirations and equal bilateral excursions. No gross wheezes. CARDIOVASCULAR: Palpable 2+ radial pulses. ABDOMEN: Protuberant. No peritonitis. MUSCULOSKELETAL: No clubbing cyanosis or edema. NEUROLOGIC: Cranial nerves II through XII grossly intact. No focal or lateralizing signs. PSYCH: Appropriate affect. Alert and oriented to person, place and time. Displays appropriate insight. CLINCAL LABS: WBC is down from 17.5 on admission to 8.3, now normal. Sodium low 128. ASSESSMENT: 1. Perforated appendicitis with phlegmon 2. Lactic acidosis in presence of sepsis 3. Bladder containing left inguinal hernia 4. Hypotension with history of arrhythmia 5. Acute tubular necrosis with renal insufficiency due to dehydration 6. Hyponatremia. PLAN: 1. May start clear liquid diet. 2. Continue TPN and on antibiotics. 3. Appreciate cardiology recommendations. 4. 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 Disposition in 4-5 days depending IV antibiotic management Objective - Vital Signs Vital signs: Vital Signs Temp 97.7 F 10/22/21 16:00 Pulse 97 10/22/21 16:00 Resp 16 10/22/21 16:00 BP 135/74 10/22/21 16:00 Pulse Ox 94 L 10/22/21 16:00 FiO2 Intake & Output 10/21/21 10/22/21 10/22/21 18:59 06:59 18:59 Intake Total 1360 Output Total 200 200 400 Balance 1160 -200 -400 Weight 99.79 kg Intake: Intake, IV Titration 1240 Amount ACETAMINOPHEN IV (For NPO 100 ) 1,000 mg In Empty Bag 1 bag @ 400 mls/hr IVPB Q6HR [facility] Rx#:[id number] Piperacillin-Tazobactam 3 100 .375 gm In Sodium Chloride 0.9% 100 ml @ 25 mls/hr IVPB Q8HR [facility] Rx# :[id number] Sodium Chloride 0.9% 1, 1040 000 ml @ 130 mls/hr IV . Q7H42M [facility] Rx#:[id number] Oral 120 Output: Urine 200 200 400 Other: Voiding Method Toilet Toilet # Voids 3 1 # Bowel Movements 1 - Labs CBC & Chem 7: 10/22/21 09:30 10/22/21 09:30 Labs: Abnormal Lab Results - Last 24 Hours (Table) 10/21/21 10/22/21 10/22/21 Range/Units 23:48 09:30 09:30 RBC 3.99 L (4.30-5.90) m/uL Hgb 10.1 L (13.0-17.5) gm/dL Hct 33.9 L (39.0-53.0) % MCHC 29.8 L (31.0-37.0) g/dL Lymphocytes # 0.5 L (1.0-4.8) k/uL Sodium 128 L (137-145) mmol/L Chloride 96 L (98-107) mmol/L Glucose 445 H (74-99) mg/dL POC Glucose (mg/dL) 110 H (75-99) mg/dL Calcium 7.5 L (8.4-10.2) mg/dL 10/22/21 10/22/21 Range/Units 12:16 16:38 RBC (4.30-5.90) m/uL Hgb (13.0-17.5) gm/dL Hct (39.0-53.0) % MCHC (31.0-37.0) g/dL Lymphocytes # (1.0-4.8) k/uL Sodium (137-145) mmol/L Chloride (98-107) mmol/L Glucose (74-99) mg/dL POC Glucose (mg/dL) 126 H 130 H (75-99) mg/dL Calcium (8.4-10.2) mg/dL Microbiology - Last 24 Hours (Table) 10/19/21 16:35 Blood Culture - Preliminary Blood No Growth after 48 hours 10/19/21 16:20 Blood Culture - Preliminary Blood No Growth after 48 hours
--- NOTE | 2021-10-22 22:49 | P.PN ---
Subjective Progress Note Date: 10/22/21 Principal diagnosis: Perforated appendicitis Patient is a 71-year-old male presenting to the hospital with abdominal pain, has been diagnosed with a ruptured appendicitis and a small abscess. On today's evaluation that is 10/22/2021, the patient remains to be afebrile, the patient abdominal pain has decreased in intensity, the patient denies any nausea or vomiting no chest pain shortness of breath or cough and no diarrhea Objective - Vital Signs Vital signs: Vital Signs Temp 97.7 F 10/22/21 16:00 Pulse 97 10/22/21 16:00 Resp 16 10/22/21 16:00 BP 135/74 10/22/21 16:00 Pulse Ox 94 L 10/22/21 16:00 FiO2 Intake & Output 10/22/21 10/22/21 10/23/21 06:59 18:59 06:59 Output Total 200 400 Balance -200 -400 Output: Urine 200 400 Other: Voiding Method Toilet # Voids 1 # Bowel Movements 1 - Exam GENERAL DESCRIPTION: An elderly male lying in bed in no distress RESPIRATORY SYSTEM: Unlabored breathing , decreased breath sounds at bases HEART: S1 S2 regular rate and rhythm , ABDOMEN: Soft , mild right lower quadrant tenderness EXTREMITIES: No edema feet - Labs CBC & Chem 7: 10/22/21 09:30 10/22/21 09:30 Labs: Abnormal Lab Results - Last 24 Hours (Table) 10/21/21 10/22/21 10/22/21 Range/Units 23:48 09:30 09:30 RBC 3.99 L (4.30-5.90) m/uL Hgb 10.1 L (13.0-17.5) gm/dL Hct 33.9 L (39.0-53.0) % MCHC 29.8 L (31.0-37.0) g/dL Lymphocytes # 0.5 L (1.0-4.8) k/uL Sodium 128 L (137-145) mmol/L Chloride 96 L (98-107) mmol/L Glucose 445 H (74-99) mg/dL POC Glucose (mg/dL) 110 H (75-99) mg/dL Calcium 7.5 L (8.4-10.2) mg/dL 10/22/21 10/22/21 Range/Units 12:16 16:38 RBC (4.30-5.90) m/uL Hgb (13.0-17.5) gm/dL Hct (39.0-53.0) % MCHC (31.0-37.0) g/dL Lymphocytes # (1.0-4.8) k/uL Sodium (137-145) mmol/L Chloride (98-107) mmol/L Glucose (74-99) mg/dL POC Glucose (mg/dL) 126 H 130 H (75-99) mg/dL Calcium (8.4-10.2) mg/dL Microbiology - Last 24 Hours (Table) 10/19/21 16:20 Blood Culture - Preliminary Blood No Growth after 72 hours 10/19/21 16:35 Blood Culture - Preliminary Blood No Growth after 72 hours Assessment and Plan (1) Acute appendicitis Current Visit: Yes Status: Acute Code(s): K35.80 - UNSPECIFIED ACUTE APPENDICITIS SNOMED Code(s): 03966548 (2) Peritonitis Current Visit: Yes Status: Acute Code(s): K65.9 - PERITONITIS, UNSPECIFIED SNOMED Code(s): 67352268 Plan: 1patient presented hospital abdominal pain has been diagnosed with likely ruptured appendicitis with localized abscess will need to cover for the enteric gram-negative both aerobes and anaerobes keeping in mind the patient has not been on antibiotics could be a sensitive pathogen. 2patient has shunt some clinical improvement and the patient white count has normalized, patient to continue with Zosyn and monitor clinical course closely Time with Patient: Less than 30
[2021-10-23] MEDS: PIPERACILLIN-TAZOBACTAM 3.375 GM in SODIUM CHLORIDE 0.9% 100 ML IVPB SCH ×4 (00:07→23:11)
[2021-10-23] MEDS: ONDANSETRON 4 MG/2 ML VIAL IVP SCH ×5 (00:09→23:11)
[2021-10-23] MEDS: KETOROLAC 15 MG/ML 1 ML VIAL IVP SCH ×5 (00:09→23:11)
[2021-10-23] MEDS: 1: MVI, ADULT NO.4 WITH VIT K 10 ML, TRACE (CONC-1ML/DOSE) 1 ML, SODIUM ACETATE 30 MEQ, IV SCH ×28 (00:10→18:09)
[2021-10-23 06:06] LABS: Glucose,Whole Blood 127 mg/dL (75-99)
[2021-10-23] MEDS: SODIUM CHLORIDE 0.9% 1,000 ML IV SCH ×2 (06:26→23:11)
[2021-10-23 07:46] LABS: African American GFR (CKD) >90 (>60 ml/min/1.73 sqM); Anion Gap 8 mmol/L; Blood Urea Nitrogen 8 mg/dL (9-20); Calcium 7.8 mg/dL (8.4-10.2); Carbon Dioxide 28 mmol/L (22-30); Chloride 95 mmol/L (98-107); Glucose 114 mg/dL (74-99); Magnesium 1.8 mg/dL (1.6-2.3); Non-African American GFR(CKD) 89 (>60 ml/min/1.73 sqM); Phosphorus 2.8 mg/dL (2.5-4.5); Potassium 3.5 mmol/L (3.5-5.1); Sodium 131 mmol/L (137-145)
[2021-10-23] MEDS: PANTOPRAZOLE 40 MG/10 ML VIAL IVP SCH (08:48)
[2021-10-23] MEDS: HEPARIN SODIUM,PORCINE/PF 5,000 UNIT/0.5 ML SYRINGE SQ SCH ×2 (08:49→20:30)
[2021-10-23] MEDS: MAGNESIUM SULFATE-D5W PMX 1 GM in DEXTROSE/WATER 1 100ML.BAG IVPB SCH ×2 (10:22→12:11)
--- NOTE | 2021-10-23 11:20 | P.PN ---
Subjective Progress Note Date: 10/23/21 Principal diagnosis: Acute appendicitis Patient is a 71-year-old male with hypertension who presented due to abdominal pain. In the ER he was found to have possible acute appendicitis plus or minus perforation versus neoplasm. He was found to have sepsis, hyponatremia, and hyperkalemia. He was admitted started on IV Zosyn, IV fluids, and pain control. Internal medicine team following for medical management 10/23/2021: Patient seen and examined. He reports that he is feeling much better today. He was able to sleep last night with the addition of 0.5 mg Xanax. Patient states that he's feeling significantly better due to a well rested sleep. Patient continues to be on IV antibiotics and being followed by both surgical and infectious disease team. Objective - Vital Signs Vital signs: Vital Signs Temp 98.9 F 10/23/21 02:00 Pulse 109 H 10/23/21 02:00 Resp 15 10/23/21 02:00 BP 155/93 10/23/21 02:00 Pulse Ox 94 L 10/23/21 02:00 FiO2 Intake & Output 10/22/21 10/23/21 10/23/21 18:59 06:59 18:59 Intake Total 928.5 Output Total 400 400 Balance -400 528.5 Intake: Intake, IV Titration 928.5 Amount Sodium Acetate 30 meq 928.5 Sodium Phosphate 12 mmol Magnesium Sulfate gm 0.5 gm Calcium Gluconate 1 gm In Amino Acids 5 %/ Dextrose 20 % 1,000 ml @ 90 mls/hr IV .BY DURATION [facility] Rx#:[id number] Output: Urine 400 400 Other: Voiding Method Toilet # Voids 2 # Bowel Movements 2 - Exam Constitutional: No acute distress, on room air HEENT: Pupils equally reactive to light, atraumatic, normocephalic. Lungs: Clear to auscultation bilaterally, no wheezing, no crackles Cardiovascular: RRR, S1-S2 normal, no murmur, no peripheral edema Abdominal: Soft, mild tenderness to palpation Extremities: No cyanosis or clubbing Neuro: No focal neurological signs alert - Labs CBC & Chem 7: 10/22/21 09:30 10/23/21 06:50 Labs: Abnormal Lab Results - Last 24 Hours (Table) 10/22/21 10/22/21 10/22/21 Range/Units 09:30 12:16 16:38 Sodium (137-145) mmol/L Chloride (98-107) mmol/L BUN (9-20) mg/dL Glucose (74-99) mg/dL POC Glucose (mg/dL) 126 H 130 H (75-99) mg/dL Calcium (8.4-10.2) mg/dL Triglycerides 161.00 H (0.00-149.00) mg/dL 10/23/21 10/23/21 Range/Units 05:55 06:50 Sodium 131 L (137-145) mmol/L Chloride 95 L (98-107) mmol/L BUN 8 L (9-20) mg/dL Glucose 114 H (74-99) mg/dL POC Glucose (mg/dL) 127 H (75-99) mg/dL Calcium 7.8 L (8.4-10.2) mg/dL Triglycerides (0.00-149.00) mg/dL Microbiology - Last 24 Hours (Table) 10/19/21 16:20 Blood Culture - Preliminary Blood No Growth after 72 hours 10/19/21 16:35 Blood Culture - Preliminary Blood No Growth after 72 hours Assessment and Plan (1) Acute appendicitis Current Visit: Yes Status: Acute Code(s): K35.80 - UNSPECIFIED ACUTE A PPENDICITIS SNOMED Code(s): 40707539 Plan: Acute appendicitis with sepsis, possible perforation -Surgical team following. Cardiology team was consulted for surgical clearance. Patient has been cleared by cardiology to proceed with appendectomy -Patient's leukocytosis has improved and is currently on IV Zosyn -Patient's pain controlled with IV Dilaudid, Toradol -Surgical team and infectious disease team following: At this time recommenda tion is to continue with IV antibiotics, no planned surgical procedure yet Hyponatremia, due to dehydration -Patient's sodium is improving today. His last sodium is 131 -Currently on IV fluids. GALA - Improved with IV fluids, likely prerenal - Avoid nephrotoxic patient's creatinine now back to baseline 0.90 Constipation -Colace HTN -Blood pressure is currently stable. Anemia -Patient's hemoglobin is 10.1 stable at this time. Hyperkalemia -Resolved Insomnia -Resolved with the addition of 0.5 mg xanax as needed Disposition: We'll continue with IV antibiotics. We'll await surgical and in fectious disease recommendation on discharge plan
[2021-10-23 11:55] LABS: Glucose,Whole Blood 125 mg/dL (75-99)
[2021-10-23] MEDS: POTASSIUM CHLORIDE 20 MEQ in WATER FOR INJECTION 1 100ML.BAG IVPB SCH ×2 (13:03→15:30)
--- NOTE | 2021-10-23 17:09 | P.PN ---
Subjective Progress Note Date: 10/23/21 CHIEF COMPLAINT: Perforated appendicitis HISTORY OF PRESENT ILLNESS: The patient is a 71 year old male admitted with perforated appendicitis with phlegmon and initial presentation of sepsis. His sepsis has resolved. His is at bedside. He denies any further abdominal pain. He tolerated liquid diet. He feels well with this course of recovery. He is on TPN and IV antibiotics. Patient seen and evaluated with infectious disease provider. REVIEW OF ORGAN SYSTEMS: No shortness of breath. No fevers or chills. Denies acute chest pain. PHYSICAL EXAM: VITALS: Reviewed CONSTITUTIONAL: Well developed and in no acute distress. EYES: Conjuctivae without sclera icterus. Extraocular movements grossly intact. HEAD, EARS, NOSE, THROAT: Moist buccal mucosa. Head is atraumatic, normocephalic . Hears conversational speech. No nasal drainage. RESPIRATORY: Non-labored respirations and equal bilateral excursions. No gross wheezes. CARDIOVASCULAR: Palpable 2+ radial pulses. ABDOMEN: Protuberant. Nondistended. MUSCULOSKELETAL: No clubbing cyanosis or edema. NEUROLOGIC: Cranial nerves II through XII grossly intact. No focal or lateralizing signs. PSYCH: Appropriate affect. Alert and oriented to person, place and time. Displays appropriate insight. CLINCAL LABS: Sodium improved to 131 to 128, hyponatremia ASSESSMENT: 1. Perforated appendicitis with phlegmon 2. Lactic acidosis in presence of sepsis 3. Bladder containing left inguinal hernia 4. Hypotension with history of arrhythmia 5. Acute tubular necrosis with renal insufficiency due to dehydration 6. Hyponatremia. PLAN: 1. Will start low fiber diet. 2. Wean TPN 3. Social work and home healthcare for home antibiotics infusion 4. Will repeat computed tomography scan prior to discharge. 5. Disposition and 48-72 hours pending tolerating diet and IV antibiotic management for home 6. Questions and care plan discussed with patient, and infectious disease provider Objective - Vital Signs Vital signs: Vital Signs Temp 99.3 F 10/23/21 08:00 Pulse 113 H 10/23/21 08:00 Resp 17 10/23/21 08:00 BP 131/88 10/23/21 08:00 Pulse Ox 94 L 10/23/21 08:00 FiO2 Intake & Output 10/22/21 10/23/21 10/23/21 18:59 06:59 18:59 Intake Total 928.5 Output Total 400 400 Balance -400 528.5 Intake: Intake, IV Titration 928.5 Amount Sodium Acetate 30 meq 928.5 Sodium Phosphate 12 mmol Magnesium Sulfate gm 0.5 gm Calcium Gluconate 1 gm In Amino Acids 5 %/ Dextrose 20 % 1,000 ml @ 90 mls/hr IV .BY DURATION [facility] Rx#:[id number] Output: Urine 400 400 Other: Voiding Method Toilet # Voids 2 # Bowel Movements 2 - Labs CBC & Chem 7: 10/22/21 09:30 10/23/21 06:50 Labs: Abnormal Lab Results - Last 24 Hours (Table) 10/22/21 10/23/21 10/23/21 Range/Units 09:30 05:55 06:50 Sodium 131 L (137-145) mmol/L Chloride 95 L (98-107) mmol/L BUN 8 L (9-20) mg/dL Glucose 114 H (74-99) mg/dL POC Glucose (mg/dL) 127 H (75-99) mg/dL Calcium 7.8 L (8.4-10.2) mg/dL Triglycerides 161.00 H (0.00-149.00) mg/dL 10/23/21 Range/Units 11:53 Sodium (137-145) mmol/L Chloride (98-107) mmol/L BUN (9-20) mg/dL Glucose (74-99) mg/dL POC Glucose (mg/dL) 125 H (75-99) mg/dL Calcium (8.4-10.2) mg/dL Triglycerides (0.00-149.00) mg/dL Microbiology - Last 24 Hours (Table) 10/19/21 16:20 Blood Culture - Preliminary Blood No Growth after 72 hours 10/19/21 16:35 Blood Culture - Preliminary Blood No Growth after 72 hours
[2021-10-23 18:00] LABS: Glucose,Whole Blood 116 mg/dL (75-99)
[2021-10-23] MEDS ORDERED: atenoloL 25 MG TAB PO SCH (21:00)
[2021-10-23 23:55] LABS: Glucose,Whole Blood 100 mg/dL (75-99)
[2021-10-24] MEDS: 1: MVI, ADULT NO.4 WITH VIT K 10 ML, TRACE (CONC-1ML/DOSE) 1 ML, SODIUM ACETATE 30 MEQ, IV SCH ×7 (04:16)
[2021-10-24] MEDS: atenoloL 25 MG TAB PO SCH (04:17)
[2021-10-24] MEDS: DOCUSATE 100 MG CAP PO PRN (04:20)
[2021-10-24] MEDS: KETOROLAC 15 MG/ML 1 ML VIAL IVP SCH (06:19)
[2021-10-24] MEDS: ONDANSETRON 4 MG/2 ML VIAL IVP SCH ×3 (06:19→17:28)
[2021-10-24] MEDS: IOPAMIDOL CONTRAST (ORAL USE) VIAL PO PRN ×2 (07:44→08:51)
[2021-10-24] MEDS: PIPERACILLIN-TAZOBACTAM 3.375 GM in SODIUM CHLORIDE 0.9% 100 ML IVPB SCH ×2 (07:45→16:05)
[2021-10-24] MEDS: HEPARIN SODIUM,PORCINE/PF 5,000 UNIT/0.5 ML SYRINGE SQ SCH ×2 (07:45→20:22)
[2021-10-24 08:16] LABS: Basophils # (A) 0.2 k/uL (0-0.2); Basophils % (A) 2 %; Eosinophils # (A) 0.2 k/uL (0-0.7); Eosinophils % (A) 2 %; HCT 36.9 % (39.0-53.0); HGB 11.3 gm/dL (13.0-17.5); Hypochromasia Slight; Lymphocytes # (A) 0.7 k/uL (1.0-4.8); Lymphocytes % (A) 7 %; MCH 24.8 pg (25.0-35.0); MCHC 30.6 g/dL (31.0-37.0); MCV 81.1 fL (80.0-100.0); Mean Platelet Volume 7.4; Monocytes # (A) 1.1 k/uL (0-1.0); Monocytes % (A) 11 %; Neutrophils # (A) 8.2 k/uL (1.3-7.7); Neutrophils % (A) 76 %; Platelet Count 434 k/uL (150-450); RBC 4.55 m/uL (4.30-5.90); RDW 13.2 % (11.5-15.5); WBC 10.7 k/uL (3.8-10.6)
[2021-10-24 08:27] LABS: African American GFR (CKD) >90 (>60 ml/min/1.73 sqM); Anion Gap 10 mmol/L; Blood Urea Nitrogen 9 mg/dL (9-20); Calcium 8.1 mg/dL (8.4-10.2); Carbon Dioxide 27 mmol/L (22-30); Chloride 96 mmol/L (98-107); Glucose 104 mg/dL (74-99); Magnesium 1.9 mg/dL (1.6-2.3); Non-African American GFR(CKD) >90 (>60 ml/min/1.73 sqM); Phosphorus 3.1 mg/dL (2.5-4.5); Potassium 3.8 mmol/L (3.5-5.1); Sodium 133 mmol/L (137-145)
--- NOTE | 2021-10-24 10:27 | XR ---
EXAMINATION TYPE: XR chest 2V DATE OF EXAM: 10/24/2021 COMPARISON: None INDICATION: Oxygen desaturation TECHNIQUE: Frontal and lateral views of the chest are obtained. FINDINGS: The heart size is normal. The pulmonary vasculature is normal. No suspicious focal consolidation is evident.. PIC line enters on the right with the tip in the dist al superior vena cava region. IMPRESSION: 1. No acute pulmonary process.
--- NOTE | 2021-10-24 11:06 | P.PN ---
Subjective Patient was examined at bedside today not complaining of any worsening symptomatology. Patient did have a bowel movement denies any abdominal pain. Anticipated for CT abdomen pelvis scan today. Case discussed with RN present at bedside. Objective - Vital Signs Vital signs: Vital Signs Temp 98.2 F 10/24/21 08:00 Pulse 99 10/24/21 08:00 Resp 17 10/24/21 08:00 BP 128/77 10/24/21 08:00 Pulse Ox 99 10/24/21 08:00 FiO2 Intake & Output 10/23/21 10/24/21 10/24/21 18:59 06:59 18:59 Intake Total 815.75 120 Balance 815.75 120 Intake: Intake, IV Titration 330.75 Amount Mvi, Adult No.4 with Vit 330.75 K 10 ml Trace (Conc-1Ml/ Dose) 1 ml Sodium Acetate 30 meq Sodium Phosphate 15 mmol Magnesium Sulfate gm 0.5 gm Calcium Gluconate 1 gm In Amino Acids 5 %/Dextrose 20 % 1 ,000 ml @ 90 mls/hr IV . BY DURATION [facility] Rx#: [id number] Oral 485 120 Other: Voiding Method Toilet # Voids 2 2 - Exam Constitutional: No acute distress, on room air HEENT: Pupils equally reactive to light, atraumatic, normocephalic. Lungs: Clear to auscultation bilaterally, no wheezing, no crackles Cardiovascular: RRR, S1-S2 normal, no murmur, no peripheral edema Abdominal: Soft, mild tenderness to palpation Extremities: No cyanosis or clubbing Neuro: No focal neurological signs alert - Labs CBC & Chem 7: 10/24/21 07:50 10/24/21 07:50 Labs: Abnormal Lab Results - Last 24 Hours (Table) 10/23/21 10/23/21 10/23/21 Range/Units 11:53 17:59 23:53 WBC (3.8-10.6) k/uL Hgb (13.0-17.5) gm/dL Hct (39.0-53.0) % MCH (25.0-35.0) pg MCHC (31.0-37.0) g/dL Neutrophils # (1.3-7.7) k/uL Lymphocytes # (1.0-4.8) k/uL Monocytes # (0-1.0) k/uL Sodium (137-145) mmol/L Chloride (98-107) mmol/L Glucose (74-99) mg/dL POC Glucose (mg/dL) 125 H 116 H 100 H (75-99) mg/dL Calcium (8.4-10.2) mg/dL 10/24/21 10/24/21 Range/Units 07:50 07:50 WBC 10.7 H (3.8-10.6) k/uL Hgb 11.3 L (13.0-17.5) gm/dL Hct 36.9 L (39.0-53.0) % MCH 24.8 L (25.0-35.0) pg MCHC 30.6 L (31.0-37.0) g/dL Neutrophils # 8.2 H (1.3-7.7) k/uL Lymphocytes # 0.7 L (1.0-4.8) k/uL Monocytes # 1.1 H (0-1.0) k/uL Sodium 133 L (137-145) mmol/L Chloride 96 L (98-107) mmol/L Glucose 104 H (74-99) mg/dL POC Glucose (mg/dL) (75-99) mg/dL Calcium 8.1 L (8.4-10.2) mg/dL Microbiology - Last 24 Hours (Table) 10/19/21 16:20 Blood Culture - Preliminary Blood No Growth after 96 hours 10/19/21 16:35 Blood Culture - Preliminary Blood No Growth after 96 hours Assessment and Plan Assessment: Acute appendicitis with sepsis, possible perforation -Surgical team following. Cardiology team was consulted for surgical clearance. Patient has been cleared by cardiology to proceed with appendectomy -Patient's leukocytosis has improved and is currently on IV Zosyn -Patient's pain controlled with IV Dilaudid, Toradol -Surgical team and infectious disease team following: At this time recommendat ion is to continue with IV antibiotics, no planned surgical procedure yet -Anticipated for repeat computed tomography scan today. HTN -Blood pressure is currently stable. Anemia -Patient's hemoglobin is stable at this time. Insomnia -Recommend discontinuing the use of Xanax specifically is for insomnia. Please use melatonin instead.
--- NOTE | 2021-10-24 11:18 | CT ---
EXAMINATION TYPE: CT ChestAbdPelvis w con DATE OF EXAM: 10/24/2021 INDICATION: Abdominal pain COMPARISON: CT abdomen pelvis 10/19/2021 CT DLP: 1554.9 mGycm CONTRAST: Performed with Oral Contrast and with IV Contrast, patient injected with 100 mL of Isovue 300. TECHNIQUE: Axial images at 5 mm thick sections. Reconstructed images in the coronal plane. Delayed images through the kidneys. FINDINGS: CT CHEST: Portion of the thyroid visualized is normal. Small left and minimal right pleural effusion is present. Some minimal atelectatic type changes are l ikely present within the lingula. Gastroesophageal reflux is evident within the esophagus. No enlarged mediastinal or hilar adenopathy is evident. The ascending aorta diameter at the level of the main pulmonary artery is 4.0 cm. The main pulmonary artery diameter at the bifurcation is 2.[address] ABDOMEN: Small amount of free fluid is adjacent to the liver and the spleen. Liver: There is moderate fatty infiltration to the liver. Spleen: Normal Pancreas: Normal Adrenal glands: The adrenal glands are normal. Gallbladder: Cholelithiasis is present. Kidneys: No masses are evident. No hydronephrosis is present. No cysts are present. Delayed images were obtained through the kidneys, which remain unremarkable. Aorta: Vascular calcification is within the aorta. Inferior vena cava: Normal. CT PELVIS: Free fluid is within the pelvis. This extends through the left inguinal region. Left-sided hydrocele may be present. Left inguinal hernia is present. Some inflammatory changes are adjacent to small bowel loops in the left mid abdomen. There appears to be some thickened bowel. Example image series 201 image 95. The suspected abscess in the right lower quadrant remains present measuring 6.0 x 7.0 cm. Previous measurement 7.5 x 5.5 cm. Oral contrast extends to mid ileum. There are loops of bowel which are incompletely distended or lac k oral contrast limiting their evaluation. Appendix: Not identified. Urinary bladder: Normal. Genitourinary structures: Prostate appears somewhat prominent Osseous structures: No suspicious lytic or sclerotic lesions. Subtle hypertrophy is within the lumbar spine. Degenerative disc changes are through the thoracic and lumbar spine. IMPRESSIONS: 1. Collection at the expected terminal ileum level is nonspecific. Abscess formation is within the di fferential. 2. Additional soft tissue density with thickening of distal jejunum. 3. Differential diagnosis could include changes from acute appendicitis or ileitis. Consider carcinoi d within the differential additional workup may be useful. 4. Small bilateral pleural effusions. 5. Gastroesophageal reflux demonstrated during the exam.
[2021-10-24] MEDS: SODIUM CHLORIDE 0.9% 1,000 ML IV SCH (20:25)
[2021-10-25] MEDS: PIPERACILLIN-TAZOBACTAM 3.375 GM in SODIUM CHLORIDE 0.9% 100 ML IVPB SCH ×4 (00:02→23:26)
[2021-10-25] MEDS: ONDANSETRON 4 MG/2 ML VIAL IVP SCH ×5 (00:25→23:29)
[2021-10-25] MEDS: atenoloL 25 MG TAB PO SCH (03:54)
[2021-10-25 04:55] LABS: ALT 18 U/L (4-49); AST 34 U/L (17-59); African American GFR (CKD) >90 (>60 ml/min/1.73 sqM); Alkaline Phosphatase 152 U/L (38-126); Anion Gap 5 mmol/L; Blood Urea Nitrogen 9 mg/dL (9-20); Calcium 7.6 mg/dL (8.4-10.2); Carbon Dioxide 27 mmol/L (22-30); Chloride 97 mmol/L (98-107); Glucose 82 mg/dL (74-99); Magnesium 1.8 mg/dL (1.6-2.3); Non-African American GFR(CKD) >90 (>60 ml/min/1.73 sqM); Phosphorus 3.3 mg/dL (2.5-4.5); Potassium 3.6 mmol/L (3.5-5.1); Sodium 129 mmol/L (137-145); Total Bilirubin 0.5 mg/dL (0.2-1.3); Total Protein 5.5 g/dL (6.3-8.2)
--- NOTE | 2021-10-25 07:32 | P.PN ---
Subjective Progress Note Date: 10/25/21 CHIEF COMPLAINT: Perforated appendicitis HISTORY OF PRESENT ILLNESS: The patient is a 71 year old male admitted with perforated appendicitis with phlegmon and initial presentation of sepsis. His is at bedside. He is tolerating low fiber diet. "I have no pain and I can sleep on my right side." No reports of reflux. No reports of chest pain. REVIEW OF ORGAN SYSTEMS: No shortness of breath. No fevers or chills. Denies acute chest pain. PHYSICAL EXAM: VITALS: Reviewed CONSTITUTIONAL: Well developed and in no acute distress. EYES: Conjuctivae without sclera icterus. Extraocular movements grossly intact. HEAD, EARS, NOSE, THROAT: Moist buccal mucosa. Head is atraumatic, normocephalic. Hears conversational speech. No nasal drainage. RESPIRATORY: Non-labored respirations and equal bilateral excursions. No gross wheezes. CARDIOVASCULAR: Palpable 2+ radial pulses. ABDOMEN: Nontender MUSCULOSKELETAL: No clubbing cyanosis or edema. NEUROLOGIC: Cranial nerves II through XII grossly intact. No focal or lateralizing signs. PSYCH: Appropriate affect. Alert and oriented to person, place and time. Displays appropriate insight. CLINCAL LABS: Reviewd. WBC up 8.3 to 10.6. Sodium 133 down to 129. STUDIES: CT of the chest, abdomen and pelvis with right lower quadrant phlegmon with perforated appendicitis. Inflammation grossly improved from admitting CT scan. Gallstones and left inguinal hernia noted. This is my independent interpretation. RADIOLOGY: Chest xray report demonstrates no acute process. CT report with gastroesophageal reflux present, small pleural effusion of right, moderate fatt liver with trace fluid spleen and liver, cholelithiasis present, left inguinal hernia with free fluid, fluid collection 6 cm x 7 cm decreased in size. ASSESSMENT: 1. Perforated appendicitis with phlegmon 2. Lactic acidosis in presence of sepsis 3. Bladder containing left inguinal hernia 4. Hypotension with history of arrhythmia 5. Acute tubular necrosis with renal insufficiency due to dehydration 6. Hyponatremia 7. Gastroesophageal reflux disease. PLAN: 1. Home infusion for antibiotics described. 2. Findings of gallstones also reviewed. Recommend outpatient management. 3. Intermittent nightly tachycardia discussed for which he denies symptoms. Cardiology following. Recent echo reviewed. Objective - Vital Signs Vital signs: Vital Signs Temp 98.7 F 10/25/21 00:01 Pulse 97 10/25/21 00:01 Resp 17 10/25/21 00:01 BP 138/86 10/25/21 00:01 Pulse Ox 96 10/25/21 00:01 FiO2 Intake & Output 10/24/21 10/24/21 10/25/21 06:59 18:59 06:59 Intake Total 815.75 360 Balance 815.75 360 Weight 99.79 kg Intake: Intake, IV Titration 330.75 Amount Mvi, Adult No.4 with Vit 330.75 K 10 ml Trace (Conc-1Ml/ Dose) 1 ml Sodium Acetate 30 meq Sodium Phosphate 15 mmol Magnesium Sulfate gm 0.5 gm Calcium Gluconate 1 gm In Amino Acids 5 %/Dextrose 20 % 1 ,000 ml @ 90 mls/hr IV . BY DURATION [facility] Rx#: [id number] Oral 485 360 Other: Voiding Method Toilet # Voids 2 3 - Labs CBC & Chem 7: 10/24/21 07:50 10/25/21 04:30 Labs: Abnormal Lab Results - Last 24 Hours (Table) 10/24/21 10/24/21 10/25/21 Range/Units 07:50 07:50 04:30 WBC 10.7 H (3.8-10.6) k/uL Hgb 11.3 L (13.0-17.5) gm/dL Hct 36.9 L (39.0-53.0) % MCH 24.8 L (25.0-35.0) pg MCHC 30.6 L (31.0-37.0) g/dL Neutrophils # 8.2 H (1.3-7.7) k/uL Lymphocytes # 0.7 L (1.0-4.8) k/uL Monocytes # 1.1 H (0-1.0) k/uL Sodium 133 L 129 L (137-145) mmol/L Chloride 96 L 97 L (98-107) mmol/L Glucose 104 H (74-99) mg/dL Calcium 8.1 L 7.6 L (8.4-10.2) mg/dL Alkaline Phosphatase 152 H (38-126) U/L Total Protein 5.5 L (6.3-8.2) g/dL Albumin 3.0 L (3.5-5.0) g/dL Microbiology - Last 24 Hours (Table) 10/19/21 16:20 Blood Culture - Preliminary Blood No Growth after 120 hours 10/19/21 16:35 Blood Culture - Preliminary Blood No Growth after 120 hours
[2021-10-25] MEDS: HEPARIN SODIUM,PORCINE/PF 5,000 UNIT/0.5 ML SYRINGE SQ SCH ×2 (08:17→20:45)
[2021-10-25 10:38] LABS: Basophils % (A) 0 %; Eosinophils # (A) 0.2 k/uL (0-0.7); Eosinophils % (A) 2 %; HCT 34.9 % (39.0-53.0); HGB 10.8 gm/dL (13.0-17.5); Hypochromasia Slight; Lymphocytes # (A) 0.9 k/uL (1.0-4.8); Lymphocytes % (A) 10 %; MCH 25.2 pg (25.0-35.0); MCHC 30.9 g/dL (31.0-37.0); MCV 81.6 fL (80.0-100.0); Mean Platelet Volume 7.3; Monocytes # (A) 0.9 k/uL (0-1.0); Monocytes % (A) 10 %; Neutrophils # (A) 6.7 k/uL (1.3-7.7); Neutrophils % (A) 74 %; Platelet Count 449 k/uL (150-450); RBC 4.27 m/uL (4.30-5.90); RDW 13.8 % (11.5-15.5); WBC 9.1 k/uL (3.8-10.6)
--- NOTE | 2021-10-25 12:22 | P.PN ---
Subjective Progress Note Date: 10/25/21 Principal diagnosis: Perforated appendicitis Patient is a 71-year-old male presenting to the hospital with abdominal pain, has been diagnosed with a ruptured appendicitis and a small abscess. On today's evaluation that is 10/25/2021, the patient denies any fever or chil ls, the patient denies abdominal pain , has been tolerating his diet, denies any nausea or vomiting no chest pain shortness of breath or cough and no diarrhea Objective - Vital Signs Vital signs: Vital Signs Temp 98.5 F 10/25/21 08:21 Pulse 86 10/25/21 08:21 Resp 18 10/25/21 08:21 BP 121/74 10/25/21 08:21 Pulse Ox 97 10/25/21 08:21 FiO2 Intake & Output 10/24/21 10/25/21 10/25/21 18:59 06:59 18:59 Intake Total 360 120 Balance 360 120 Weight 99.79 kg Intake: Oral 360 120 Other: Voiding Method Toilet # Voids 3 2 - Exam GENERAL DESCRIPTION: An elderly male lying in bed in no distress RESPIRATORY SYSTEM: Unlabored breathing , decreased breath sounds at bases HEART: S1 S2 regular rate and rhythm , ABDOMEN: Soft , mild right lower quadrant tenderness EXTREMITIES: No edema feet - Labs CBC & Chem 7: 10/25/21 10:03 10/25/21 04:30 Labs: Abnormal Lab Results - Last 24 Hours (Table) 10/25/21 10/25/21 Range/Units 04:30 10:03 RBC 4.27 L (4.30-5.90) m/uL Hgb 10.8 L (13.0-17.5) gm/dL Hct 34.9 L (39.0-53.0) % MCHC 30.9 L (31.0-37.0) g/dL Lymphocytes # 0.9 L (1.0-4.8) k/uL Sodium 129 L (137-145) mmol/L Chloride 97 L (98-107) mmol/L Calcium 7.6 L (8.4-10.2) mg/dL Alkaline Phosphatase 152 H (38-126) U/L Total Protein 5.5 L (6.3-8.2) g/dL Albumin 3.0 L (3.5-5.0) g/dL Microbiology - Last 24 Hours (Table) 10/25/21 04:30 Sputum Culture - Preliminary Sputum 10/19/21 16:20 Blood Culture - Preliminary Blood No Growth after 120 hours 10/19/21 16:35 Blood Culture - Preliminary Blood No Growth after 120 hours Assessment and Plan (1) Acute appendicitis Current Visit: Yes Status: Acute Code(s): K35.80 - UNSPECIFIED ACUTE APPENDICITIS SNOMED Code(s): 13236722 (2) Peritonitis Current Visit: Yes Status: Acute Code(s): K65.9 - PERITONITIS, UNSPECIFIED SNOMED Code(s): 87442845 Plan: 1patient presented hospital abdominal pain has been diagnosed with likely ruptured appendicitis with localized abscess will need to cover for the enteric gram-negative both aerobes and anaerobes keeping in mind the patient has not been on antibiotics could be a sensitive pathogen. Repeat CT abdominal pelvis completed on 10/24/2021, did not show any worsening abscess formation 2patient has shown overall clinical improvement on Zosyn which should be continued for another 2 weeks on discharge and a close outpatient follow-up Time with Patient: Less than 30
--- NOTE | 2021-10-25 15:13 | P.PN ---
Subjective Patient was examined at bedside today not complaining of any intractable pain currently rates it as a 10. Anticipated for discharge tomorrow pending approval for IV antibiotics outpatient. We'll follow recommendations from primary team. Objective - Vital Signs Vital signs: Vital Signs Temp 98.5 F 10/25/21 08:21 Pulse 84 10/25/21 12:00 Resp 18 10/25/21 12:00 BP 116/69 10/25/21 12:00 Pulse Ox 97 10/25/21 12:00 FiO2 Intake & Output 10/24/21 10/25/21 10/25/21 18:59 06:59 18:59 Intake Total 360 240 Balance 360 240 Weight 99.79 kg Intake: Oral 360 240 Other: Voiding Method Toilet # Voids 3 2 - Exam Constitutional: No acute distress, on room air HEENT: Pupils equally reactive to light, atraumatic, normocephalic. Lungs: Clear to auscultation bilaterally, no wheezing, no crackles Cardiovascular: RRR, S1-S2 normal, no murmur, no peripheral edema Abdominal: Soft, mild tenderness to palpation Extremities: No cyanosis or clubbing Neuro: No focal neurological signs alert - Labs CBC & Chem 7: 10/25/21 10:03 10/25/21 04:30 Labs: Abnormal Lab Results - Last 24 Hours (Table) 10/25/21 10/25/21 Range/Units 04:30 10:03 RBC 4.27 L (4.30-5.90) m/uL Hgb 10.8 L (13.0-17.5) gm/dL Hct 34.9 L (39.0-53.0) % MCHC 30.9 L (31.0-37.0) g/dL Lymphocytes # 0.9 L (1.0-4.8) k/uL Sodium 129 L (137-145) mmol/L Chloride 97 L (98-107) mmol/L Calcium 7.6 L (8.4-10.2) mg/dL Alkaline Phosphatase 152 H (38-126) U/L Total Protein 5.5 L (6.3-8.2) g/dL Albumin 3.0 L (3.5-5.0) g/dL Microbiology - Last 24 Hours (Table) 10/25/21 04:30 Sputum Culture - Preliminary Sputum 10/19/21 16:20 Blood Culture - Preliminary Blood No Growth after 120 hours 10/19/21 16:35 Blood Culture - Preliminary Blood No Growth after 120 hours Assessment and Plan Assessment: Acute appendicitis with sepsis, possible perforation -Patient's leukocytosis has improved and is currently on IV Zosyn -Patient's pain controlled with IV Dilaudid, Toradol -Surgical team and infectious disease team following: At this time recommendation is to continue with IV antibiotics, no planned surgical procedure yet -Repeat computed tomography scan reviewed. HTN -Blood pressure is currently stable. Anemia -Patient's hemoglobin is stable at this time. Insomnia -Recommend discontinuing the use of Xanax specifically is for insomnia. Please use melatonin instead.
--- NOTE | 2021-10-25 16:10 | P.PN ---
Subjective Progress Note Date: 10/25/21 CHIEF COMPLAINT: Perforated appendicitis HISTORY OF PRESENT ILLNESS: The patient is a 71 year old male admitted with perforated appendicitis with phlegmon and initial presentation of sepsis. Patient denies any abdominal pain. He is tolerating diet. He is having bowel movements. Denies any nausea or vomiting. Afebrile. WBC is 9.1 hemoglobin 10.8 platelets 449 sodium is 129 PHYSICAL EXAM: VITAL SIGNS: Reviewed GENERAL: Well-developed in no acute distress. HEENT: No sclera icterus. Extraocular movements grossly intact. Moist buccal mucosa. Head is atraumatic, normocephalic. Hears conversational speech. No nasal drainage. NECK: Supple without lymphadenopathy. CHEST: Non-labored respirations and equal bilateral excursions. CARDIOVASCULAR: Palpable 2+ radial pulses. ABDOMEN: Soft. Nondistended. Nontender. MUSCULOSKELETAL: No clubbing or cyanosis. NEUROLOGIC: No focal or lateralizing signs. Cranial nerves II through XII grossly intact. PSYCH: Appropriate affect. Alert and oriented to person, place and time. SKIN: Well perfused. Good skin turgor. ASSESSMENT: 1. Perforated appendicitis with phlegmon 2. Lactic acidosis in presence of sepsis 3. Bladder containing left inguinal hernia 4. Hypotension with history of arrhythmia 5. Acute tubular necrosis with renal insufficiency due to dehydration 6. Hyponatremia 7. Gastroesophageal reflux disease. 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 Recommend outpatient management -Intermittent nightly tachycardia. We'll monitor. -Anticipate discharge possibly tomorrow Physician Bobbin Dumper note has been reviewed by physician. Signing provider agrees with the documented findings, assessment, and plan of care. Objective - Vital Signs Vital signs: Vital Signs Temp 98.9 F 10/25/21 15:34 Pulse 90 10/25/21 15:34 Resp 18 10/25/21 15:34 BP 121/69 10/25/21 15:34 Pulse Ox 95 10/25/21 15:34 FiO2 Intake & Output 10/24/21 10/25/21 10/25/21 18:59 06:59 18:59 Intake Total 360 240 Balance 360 240 Weight 99.79 kg Intake: Oral 360 240 Other: Voiding Method Toilet # Voids 3 2 - Labs CBC & Chem 7: 10/25/21 10:03 10/25/21 04:30 Labs: Abnormal Lab Results - Last 24 Hours (Table) 10/25/21 10/25/21 Range/Units 04:30 10:03 RBC 4.27 L (4.30-5.90) m/uL Hgb 10.8 L (13.0-17.5) gm/dL Hct 34.9 L (39.0-53.0) % MCHC 30.9 L (31.0-37.0) g/dL Lymphocytes # 0.9 L (1.0-4.8) k/uL Sodium 129 L (137-145) mmol/L Chloride 97 L (98-107) mmol/L Calcium 7.6 L (8.4-10.2) mg/dL Alkaline Phosphatase 152 H (38-126) U/L Total Protein 5.5 L (6.3-8.2) g/dL Albumin 3.0 L (3.5-5.0) g/dL Microbiology - Last 24 Hours (Table) 10/25/21 04:30 Sputum Culture - Preliminary Sputum 10/19/21 16:20 Blood Culture - Preliminary Blood No Growth after 120 hours 10/19/21 16:35 Blood Culture - Preliminary Blood No Growth after 120 hours
[2021-10-26] MEDS: atenoloL 25 MG TAB PO SCH (04:33)
[2021-10-26] MEDS: ONDANSETRON 4 MG/2 ML VIAL IVP SCH ×2 (04:34→13:22)
[2021-10-26 05:12] VITALS: RESP 16
[2021-10-26] MEDS: PIPERACILLIN-TAZOBACTAM 3.375 GM in SODIUM CHLORIDE 0.9% 100 ML IVPB SCH (07:50)
[2021-10-26] MEDS: HEPARIN SODIUM,PORCINE/PF 5,000 UNIT/0.5 ML SYRINGE SQ SCH (07:51)
[2021-10-26 09:15] LABS: Basophils # (A) 0.05 X 10*3/uL (0.00-0.10); Basophils % (A) 0.5 %; Eosinophils # (A) 0.14 X 10*3/uL (0.04-0.35); Eosinophils % (A) 1.4 %; HCT 32.5 % (39.6-50.0); HGB 10.1 g/dL (13.0-17.0); Immature Grans, Automated 3.3 %; Lymphocytes # (A) 0.88 X 10*3/uL (0.90-5.00); Lymphocytes % (A) 9.1 %; MCH 24.3 pg (27.0-32.0); MCHC 31.1 g/dL (32.0-37.0); MCV 78.1 fL (80.0-97.0); Mean Platelet Volume 9.9 fL (9.5-12.2); Monocytes % (A) 12.4 %; NRBC Per 100 WBC 0 /100 WBCS (0.0-0.0); Neutrophils # (A) 7.11 X 10*3/uL (1.80-7.70); Neutrophils % (A) 73.3 %; Platelet Count 466 X 10*3/uL (140-440); RBC 4.16 X 10*6/uL (4.40-5.60); RDW 14.3 % (11.5-14.5)
[2021-10-26 09:19] LABS: African American GFR (CKD) 91.5 (60.0-200.0); Anion Gap 12.3 mmol/L (10.00-18.00); BUN/Creat Ratio 9.76 Ratio (12.00-20.00); Blood Urea Nitrogen 9.3 mg/dL (9.0-27.0); Calcium 8.2 mg/dL (8.7-10.3); Carbon Dioxide 25.5 mmol/L (20.0-27.5); Non-African American GFR(CKD) 78.9 (60.0-200.0); Potassium 4.1 mmol/L (3.5-5.5)
[2021-10-26 12:06] VITALS: BP 130/79; PULSE 82; TEMP 98.9
--- NOTE | 2021-10-26 14:13 | P.DS ---
Providers Date of admission: 10/19/21 16:09 Expected date of discharge: 10/26/21 Attending physician: Dayami Pak Consults: 10/19/21 16:10 Consult Physician Routine Consulting Provider: Keshawn Milian Consult Reason/Comments: Bladder diverticuli, lower abdominal pain Do you want consulting provider notified?: Yes Consult Physician Routine Consulting Provider: Slime Arteaga Consult Reason/Comments: med management Do you want consulting provider notified?: Yes 10/20/21 13:23 Consult Physician Routine Consulting Provider: Vero Mcdonnell Consult Reason/Comments: Ruptured appendicitis, peritonitis Do you want consulting provider notified?: Yes Primary care physician: Vj Knowles MD Hospital Course: Discharge diagnosis 1. Perforated appendicitis with phlegmon 2. Lactic acidosis in presence of sepsis 3. Bladder containing left inguinal hernia 4. Hypotension with history of arrhythmia 5. Acute tubular necrosis with renal insufficiency due to dehydration 6. Hyponatremia 7. Gastroesophageal reflux disease. Hospital course This is a 71-year-old male who presented to the hospital with a 4 day complaint of right lower quadrant abdominal pain. He had extreme intense pain. Also had fevers at home as high as 100.2. Patient had computed tomography scan abdomen and pelvis completed on admission. Patient admitted with perforated appendicitis with phlegmon and evidence of sepsis and peritonitis. CAT scan also showed evidence of bladder contained in the left inguinal hernia. Patient urinating without difficulty. He was seen and evaluated by urology during this admission. Patient placed on IV antibiotics for the perforated appendicitis. Patient to manage conservatively. Patient will be discharged home with another 2 weeks of IV antibiotics as recommended per infectious disease. Patient's pain is controlled. He is afebrile. His white count has normalized. He is tolerating diet. He is having bowel movements. He is up and ambulating. He is stable for discharge. Physician Inspector Tester Sorter note has been reviewed by physician. Signing provider agrees with the documented findings, assessment, and plan of care. Patient Condition at Discharge: Stable Plan - Discharge Summary Discharge Rx Participant: Yes New Discharge Prescriptions: New Piperacillin-Tazobactam [Zosyn] 3.375 gm IVPB Q8HR 14 Days each Continue Calcium Carbonate [Tums] 500 mg PO DAILY atenoloL [Tenormin] 25 mg PO BID amLODIPine BES/OLMESARTAN MED [amLODIPine BES/OLMESARTAN MED 5-20 mg] 1 tab PO BID Potassium Gluconate [Potassium Gluconate ER] 99 mg PO DAILY Magnesium 250 mg PO DAILY Discontinued Ibuprofen [Motrin] 800 mg PO Q8H PRN PRN Reason: Pain Or Fever > 100.5 No Action Cholecalciferol (Vitamin D3) [Vitamin D3 (125 MCG = 5,000 IU)] 125 mcg PO DAILY Vitamin E (Dl,Tocopheryl Acet) [Vitamin E (400 Iu = 180 mg)] 400 unit PO DAILY Discharge Medication List Calcium Carbonate [Tums] 500 mg PO DAILY 10/19/21 [History] Cholecalciferol (Vitamin D3) [Vitamin D3 (125 MCG = 5,000 IU)] 125 mcg PO DAILY 10/19/21 [History] Magnesium 250 mg PO DAILY 10/19/21 [History] Potassium Gluconate [Potassium Gluconate ER] 99 mg PO DAILY 10/19/21 [History] Vitamin E (Dl,Tocopheryl Acet) [Vitamin E (400 Iu = 180 mg)] 400 unit PO DAILY 10/19/21 [History] amLODIPine BES/OLMESARTAN MED [amLODIPine BES/OLMESARTAN MED 5-20 mg] 1 tab PO BID 10/19/21 [History] atenoloL [Tenormin] 25 mg PO BID 10/19/21 [History] Piperacillin-Tazobactam [Zosyn] 3.375 gm IVPB Q8HR 14 Days each 10/26/21 [Rx] Follow up Appointment(s)/Referral(s): [facility] [NON-STAFF] - 1 Week Vj Knowles MD [Primary Care Provider] - 1-2 days Андрей Wilson [NON-STAFF] - 1 Week Vero Mcdonnell MD [STAFF PHYSICIAN] - 2 Weeks Dayami Pak MD [STAFF PHYSICIAN] - 11/08/21 Patient Instructions/Handouts: Low Fiber Diet (ED) Activity/Diet/Wound Care/Special Instructions: Discharge IV antibiotics as prescribed by infectious disease Hold on taking Vit D and Vit E until seen by surgeon Discharge Disposition: HOME WITH HOME HEALTH SERVICES
[2021-10-26] MEDS ORDERED: ERTAPENEM 1 GM in SODIUM CHLORIDE 0.9% 50 ML IVPB STA (14:36)
--- NOTE | 2021-11-02 22:18 | P.PN ---
Subjective Progress Note Date: 10/23/21 Principal diagnosis: Perforated appendicitis Patient is a 71-year-old male presenting to the hospital with abdominal pain, has been diagnosed with a ruptured appendicitis and a small abscess. On today's evaluation that is 10/23/2021, the patient remains to be afebrile, the patient abdominal pain has decreased intensity And tolerating his diet,, denies any nausea or vomiting no chest pain shortness of breath or cough and no diarrhea Objective - Vital Signs Vital signs: Vital Signs Temp 99.3 F 10/23/21 08:00 Pulse 113 H 10/23/21 08:00 Resp 17 10/23/21 08:00 BP 131/88 10/23/21 08:00 Pulse Ox 94 L 10/23/21 08:00 FiO2 Intake & Output 10/22/21 10/23/21 10/23/21 18:59 06:59 18:59 Intake Total 928.5 Output Total 400 400 Balance -400 528.5 Intake: Intake, IV Titration 928.5 Amount Sodium Acetate 30 meq 928.5 Sodium Phosphate 12 mmol Magnesium Sulfate gm 0.5 gm Calcium Gluconate 1 gm In Amino Acids 5 %/ Dextrose 20 % 1,000 ml @ 90 mls/hr IV .BY DURATION [facility] Rx#:[id number] Output: Urine 400 400 Other: Voiding Method Toilet # Voids 2 # Bowel Movements 2 - Exam GENERAL DESCRIPTION: An elderly male lying in bed in no distress RESPIRATORY SYSTEM: Unlabored breathing , decreased breath sounds at bases HEART: S1 S2 regular rate and rhythm , ABDOMEN: Soft , mild right lower quadrant tenderness EXTREMITIES: No edema feet - Labs CBC & Chem 7: 10/26/21 06:33 10/26/21 06:33 Labs: Abnormal Lab Results - Last 24 Hours (Table) 10/22/21 10/22/21 10/23/21 Range/Units 09:30 16:38 05:55 Sodium (137-145) mmol/L Chloride (98-107) mmol/L BUN (9-20) mg/dL Glucose (74-99) mg/dL POC Glucose (mg/dL) 130 H 127 H (75-99) mg/dL Calcium (8.4-10.2) mg/dL Triglycerides 161.00 H (0.00-149.00) mg/dL 10/23/21 10/23/21 Range/Units 06:50 11:53 Sodium 131 L (137-145) mmol/L Chloride 95 L (98-107) mmol/L BUN 8 L (9-20) mg/dL Glucose 114 H (74-99) mg/dL POC Glucose (mg/dL) 125 H (75-99) mg/dL Calcium 7.8 L (8.4-10.2) mg/dL Triglycerides (0.00-149.00) mg/dL Microbiology - Last 24 Hours (Table) 10/19/21 16:20 Blood Culture - Preliminary Blood No Growth after 72 hours 10/19/21 16:35 Blood Culture - Preliminary Blood No Growth after 72 hours Assessment and Plan (1) Acute appendicitis Status: Acute Code(s): K35.80 - UNSPECIFIED ACUTE APPENDICITIS SNOMED Code(s): 56403578 (2) Peritonitis Status: Acute Code(s): K65.9 - PERITONITIS, UNSPECIFIED SNOMED Code(s): 29186333 Plan: 1patient presented hospital abdominal pain has been diagnosed with likely ruptured appendicitis with localized abscess will need to cover for the enteric gram-negative both aerobes and anaerobes keeping in mind the patient has not been on antibiotics could be a sensitive pathogen. Repeat CT abdominal pelvis has been ordered for 10/24/2021, which will be followed 2patient has shown overall clinical improvement on Zosyn which should be continued Time with Patient: Less than 30
--- NOTE | 2021-11-02 22:19 | P.PN ---
Subjective Progress Note Date: 10/24/21 Principal diagnosis: Perforated appendicitis Patient is a 71-year-old male presenting to the hospital with abdominal pain, has been diagnosed with a ruptured appendicitis and a small abscess. On today's evaluation that is 10/24/2021, the patient denies any fever or chil ls, the patient abdominal pain has decreased intensity And the patient is tolerating his diet, the patient denies any nausea or vomiting no chest pain shortness of breath or cough and no diarrhea Objective - Vital Signs Vital signs: Vital Signs Temp 98.2 F 10/24/21 20:00 Pulse 105 H 10/24/21 20:00 Resp 16 10/24/21 20:00 BP 118/76 10/24/21 20:00 Pulse Ox 96 10/24/21 20:00 FiO2 Intake & Output 10/24/21 10/24/21 10/25/21 06:59 18:59 06:59 Intake Total 815.75 360 Balance 815.75 360 Weight 99.79 kg Intake: Intake, IV Titration 330.75 Amount Mvi, Adult No.4 with Vit 330.75 K 10 ml Trace (Conc-1Ml/ Dose) 1 ml Sodium Acetate 30 meq Sodium Phosphate 15 mmol Magnesium Sulfate gm 0.5 gm Calcium Gluconate 1 gm In Amino Acids 5 %/Dextrose 20 % 1 ,000 ml @ 90 mls/hr IV . BY DURATION [facility] Rx#: [id number] Oral 485 360 Other: Voiding Method Toilet # Voids 2 3 - Exam GENERAL DESCRIPTION: An elderly male lying in bed in no distress RESPIRATORY SYSTEM: Unlabored breathing , decreased breath sounds at bases HEART: S1 S2 regular rate and rhythm , ABDOMEN: Soft , mild right lower quadrant tenderness EXTREMITIES: No edema feet - Labs CBC & Chem 7: 10/26/21 06:33 10/26/21 06:33 Labs: Abnormal Lab Results - Last 24 Hours (Table) 10/23/21 10/24/21 10/24/21 Range/Units 23:53 07:50 07:50 WBC 10.7 H (3.8-10.6) k/uL Hgb 11.3 L (13.0-17.5) gm/dL Hct 36.9 L (39.0-53.0) % MCH 24.8 L (25.0-35.0) pg MCHC 30.6 L (31.0-37.0) g/dL Neutrophils # 8.2 H (1.3-7.7) k/uL Lymphocytes # 0.7 L (1.0-4.8) k/uL Monocytes # 1.1 H (0-1.0) k/uL Sodium 133 L (137-145) mmol/L Chloride 96 L (98-107) mmol/L Glucose 104 H (74-99) mg/dL POC Glucose (mg/dL) 100 H (75-99) mg/dL Calcium 8.1 L (8.4-10.2) mg/dL Microbiology - Last 24 Hours (Table) 10/19/21 16:20 Blood Culture - Preliminary Blood No Growth after 120 hours 10/19/21 16:35 Blood Culture - Preliminary Blood No Growth after 120 hours Assessment and Plan (1) Acute appendicitis Status: Acute Code(s): K35.80 - UNSPECIFIED ACUTE APPENDICITIS SNOMED Code(s): 48695435 (2) Peritonitis Status: Acute Code(s): K65.9 - PERITONITIS, UNSPECIFIED SNOMED Code(s): 45868763 Plan: 1patient presented hospital abdominal pain has been diagnosed with likely ruptured appendicitis with localized abscess will need to cover for the enteric gram-negative both aerobes and anaerobes keeping in mind the patient has not been on antibiotics could be a sensitive pathogen. Repeat CT abdominal pelvis done 10/24/2021, didn't show any abscess 2patient has shown overall clinical improvement on Zosyn which should be continued and monitored weekly course closely Time with Patient: Less than 30
--- NOTE | 2021-11-02 22:21 | P.PN ---
Subjective Progress Note Date: 10/26/21 Principal diagnosis: Perforated appendicitis Patient is a 71-year-old male presenting to the hospital with abdominal pain, has been diagnosed with a ruptured appendicitis and a small abscess. On today's evaluation that is 10/26/2021, the patient remains to be afebrile, the patient denies abdominal pain And the patient is tolerating his diet, the patient denies any nausea or vomiting no chest pain shortness of breath or cough and no diarrhea Objective - Vital Signs Vital signs: Vital Signs Temp 98.9 F 10/26/21 11:50 Pulse 82 10/26/21 11:50 Resp 16 10/26/21 11:50 BP 130/79 10/26/21 11:50 Pulse Ox 95 10/26/21 11:50 FiO2 Intake & Output 10/25/21 10/26/21 10/26/21 18:59 06:59 18:59 Intake Total 240 100 Balance 240 100 Intake: Intake, IV Titration 100 Amount Piperacillin-Tazobactam 3 100 .375 gm In Sodium Chloride 0.9% 100 ml @ 25 mls/hr IVPB Q8HR [facility] Rx# :[id number] Oral 240 Other: Voiding Method Toilet Toilet Toilet # Voids 2 # Bowel Movements 1 - Exam GENERAL DESCRIPTION: An elderly male lying in bed in no distress RESPIRATORY SYSTEM: Unlabored breathing , decreased breath sounds at bases HEART: S1 S2 regular rate and rhythm , ABDOMEN: Soft , mild right lower quadrant tenderness EXTREMITIES: No edema feet - Labs CBC & Chem 7: 10/26/21 06:33 10/26/21 06:33 Labs: Abnormal Lab Results - Last 24 Hours (Table) 10/26/21 10/26/21 Range/Units 06:33 06:33 RBC 4.16 L (4.40-5.60) X 10*6/uL Hgb 10.1 L (13.0-17.0) g/dL Hct 32.5 L (39.6-50.0) % MCV 78.1 L (80.0-97.0) fL MCH 24.3 L (27.0-32.0) pg MCHC 31.1 L (32.0-37.0) g/dL Plt Count 466 H (140-440) X 10*3/uL Immature Gran # 0.32 H (0.00-0.04) X 10*3/uL Lymphocytes # 0.88 L (0.90-5.00) X 10*3/uL Monocytes # 1.20 H (0.20-1.00) X 10*3/uL Sodium 132 L (135-145) mmol/L Chloride 95 L (96-109) mmol/L BUN/Creatinine Ratio 9.76 L (12.00-20.00) Ratio Calcium 8.2 L (8.7-10.3) mg/dL Microbiology - Last 24 Hours (Table) 10/25/21 04:30 Gram Stain - Preliminary Sputum Sputum Culture - Preliminary 10/19/21 16:35 Blood Culture - Final Blood No Growth after 144 hours 10/19/21 16:20 Blood Culture - Final Blood No Growth after 144 hours Assessment and Plan (1) Acute appendicitis Status: Acute Code(s): K35.80 - UNSPECIFIED ACUTE APPENDICITIS SNOMED Code(s): 69084164 (2) Peritonitis Status: Acute Code(s): K65.9 - PERITONITIS, UNSPECIFIED SNOMED Code(s): 73585865 Plan: 1patient presented hospital abdominal pain has been diagnosed with likely ruptured appendicitis with localized abscess will need to cover for the enteric gram-negative both aerobes and anaerobes keeping in mind the patient has not been on antibiotics could be a sensitive pathogen. Repeat CT abdominal pelvis done 10/24/2021, did show decrease in size of the abscess The terminal ileum 2patient has shown overall clinical improvement on Zosyn which should be continued 2 week of discharge with a plan for repeat CAT scan before completion of his antibiotic therapy to make sure the abscess has completely resolved
== END 2021-10-26 16:55 | disposition home health service (06) | DRG 871 ==
LOC: EC 12:21 → 3SCARD 16:09 → 5NMEDONC 10-25 18:18
PROVIDERS: ADMIT Surgery Plastic and Reconstructive Surgery; ATTEND Surgery Plastic and Reconstructive Surgery
PROC: 3E0436Z Introduction of Nutritional Substance into Central Vein, Percutaneous Approach (ICD-10-PCS; 2021-10-21)
PROC: 02HV33Z Insertion of Infusion Device into Superior Vena Cava, Percutaneous Approach (ICD-10-PCS; principal; 2021-10-21 07:30)
DX: A41.9 Sepsis, unspecified organism (principal); K35.32 Acute appendicitis with perforation, localized peritonitis, and gangrene, without abscess; N17.0 Acute kidney failure with tubular necrosis; E87.2 Acidosis; E87.1 Hypo-osmolality and hyponatremia; R65.20 Severe sepsis without septic shock; E87.8 Other disorders of electrolyte and fluid balance, not elsewhere classified; I10 Essential (primary) hypertension; K40.90 Unilateral inguinal hernia, without obstruction or gangrene, not specified as recurrent; E86.0 Dehydration; E87.5 Hyperkalemia; D64.9 Anemia, unspecified; I34.0 Nonrheumatic mitral (valve) insufficiency; K59.00 Constipation, unspecified; K21.9 Gastro-esophageal reflux disease without esophagitis; E66.9 Obesity, unspecified; Z68.31 Body mass index [BMI] 31.0-31.9, adult; G47.00 Insomnia, unspecified; R35.0 Frequency of micturition; R35.1 Nocturia; Z79.899 Other long term (current) drug therapy; Z85.818 Personal history of malignant neoplasm of other sites of lip, oral cavity, and pharynx; Z92.21 Personal history of antineoplastic chemotherapy; Z86.718 Personal history of other venous thrombosis and embolism; Z92.3 Personal history of irradiation; Z71.3 Dietary counseling and surveillance
CPT/HCPCS: 36415; 36573; 71046; 71260; 74018; 74176; 74177; 80048; 80053; 81001; 82150; 82330; 83605; 83690; 83735; 83935; 84100; 84300; 84478; 85025; 85027; 85610; 86850; 86900; 86901; 87040; 87070; 87086; 87205; 93306; 96361; 96365; 96366; 96375; 99285

== ENCOUNTER 2021-11-17 14:04 | Inpatient (IN) | payer MEDICARE ==
[2021-11-17] MEDS ORDERED: SODIUM CHLORIDE 0.9% 1,000 ML IV STA ×2 (15:00)
--- NOTE | 2021-11-17 15:05 | ED ---
General Adult HPI - General Chief complaint: Syncope Stated complaint: Weakness Time Seen by Provider: 11/17/21 14:43 Source: patient, family, RN notes reviewed Mode of arrival: wheelchair Limitations: no limitations - History of Present Illness Initial comments: 71-year-old male with a recent history of ruptured appendix is also diagnosed with gallstones who states he came to the hospital today to have a follow-up CAT scan of his abdomen when he had a near syncopal episode and almost passed out he felt lightheaded dizzy does admit he is not been eating and drinking much over last day or so. He had a CAT scan done within one home but states she was not feeling any better so he was instructed to come back for evaluation. He states he did have some chills and dizziness when he reported to triage today he had a pulse ox in the 80s. He didn't complain some chills earlier today he had a fever of 101 yesterday but this resolved quickly he states. He currently is still getting IV antibiotic. He denies any overt chest pain or abdominal pain a t this time. He believes he was trying to drink enough water but thinks he may be somewhat dehydrated. - Related Data Home Medications Medication Instructions Recorded Confirmed Calcium Carbonate [Tums] 500 mg PO DAILY 10/19/21 11/17/21 Cholecalciferol (Vitamin D3) 125 mcg PO DAILY 10/19/21 11/17/21 [Vitamin D3 (125 MCG = 5,000 IU)] Magnesium 250 mg PO DAILY 10/19/21 11/17/21 Potassium Gluconate [Potassium 99 mg PO DAILY 10/19/21 11/17/21 Gluconate ER] Vitamin E (Dl,Tocopheryl Acet) 400 unit PO DAILY 10/19/21 11/17/21 [Vitamin E (400 Iu = 180 mg)] amLODIPine BES/OLMESARTAN MED 1 tab PO BID 10/19/21 11/17/21 [amLODIPine BES/OLMESARTAN MED 5-20 mg] atenoloL [Tenormin] 25 mg PO BID 10/19/21 11/17/21 Procto-Med Hc 2.5% Cream 1 applic RECTAL TID PRN 11/17/21 11/17/21 Previous Rx's Medication Instructions Recorded Piperacillin-Tazobactam [Zosyn] 3.375 gm IVPB Q8HR 14 Days each 10/26/21 Allergies Allergy/AdvReac Type Severity Reaction Status Date / Time No Known Allergies Allergy Verified 11/17/21 16:54 Review of Systems ROS Statement: Those systems with pertinent positive or pertinent negative responses have been documented in the HPI. ROS Other: All systems not noted in ROS Statement are negative. Past Medical History Past Medical History: Cancer, Hypertension Additional Past Medical History / Comment(s): squamous cell carcinoma-in remission, irregular heart rate History of Any Multi-Drug Resistant Organisms: None Reported Additional Past Surgical History / Comment(s): dental, bilateral cataract removal, metaport Past Anesthesia/Blood Transfusion Reactions: No Reported Reaction Past Psychological History: No Psychological Hx Reported Smoking Status: Never smoker Past Alcohol Use History: Occasional Past Drug Use History: None Reported - Past Family History Father Family Medical History: Cancer General Exam - General Exam Comments Initial Comments: This is a well-developed well-nourished awake alert oriented 3 male Limitations: no limitations General appearance: alert, in no apparent distress Head exam: Present: atraumatic, normocephalic, normal inspection Eye exam: Present: normal appearance, PERRL, EOMI. Absent: scleral icterus, conjunctival injection, periorbital swelling ENT exam: Present: mucous membranes dry Neck exam: Present: normal inspection, other (No stridor JVD or bruits). Absent: tenderness, meningismus, lymphadenopathy Respiratory exam: Present: normal lung sounds bilaterally. Absent: respiratory distress, wheezes, rales, rhonchi, stridor Cardiovascular Exam: Present: normal rhythm, tachycardia, normal heart sounds. Absent: systolic murmur, diastolic murmur, rubs, gallop, clicks GI/Abdominal exam: Present: soft, normal bowel sounds. Absent: distended, tenderness, guarding, rebound, rigid, bruit, pulsatile mass Extremities exam: Present: normal inspection, full ROM, normal capillary refill. Absent: tenderness, pedal edema, joint swelling, calf tenderness Back exam: Present: normal inspection Neurological exam: Present: alert, oriented X3, CN II-XII intact Psychiatric exam: Present: normal affect, normal mood Skin exam: Present: warm, dry, intact, normal color. Absent: rash Course Vital Signs 11/17/21 11/17/21 11/17/21 14:29 14:34 16:00 Temperature 96.9 F L Pulse Rate 76 115 H Respiratory 18 18 Rate Blood Pressure 97/64 127/89 O2 Sat by Pulse 80 L 84 L 97 Oximetry 11/17/21 11/17/21 16:30 17:00 Temperature Pulse Rate 115 H 102 H Respiratory 18 5 L Rate Blood Pressure 112/85 98/69 O2 Sat by Pulse 98 91 L Oximetry - Reevaluation(s) Reevaluation #1: 11/17/21 17:18 Patient did have a repeat of a near syncopal episode/syncope while attempting to use the bathroom. Reevaluation #2: 11/17/21 18:24 D-dimer is pending at this time EKG Findings - EKG Results: EKG: interpreted by ERMD, sinus rhythm (Sinus tachycardia rate of 1:15. Interval 171 QRS duration 90 QT since QTC 344/412 low-voltage nonspecific anterior configuration as well as inferior configuration. No definitive ST-T wave elevation or depressions.) Medical Decision Making - Medical Decision Making I did discuss the findings with the patient as well as with Dr. Nicholson also with the [facility], Dr. Hutchinson Patient be admitted cardiology consultation consultation to Dr. Nicholson. - Lab Data Result diagrams: 11/17/21 15:12 11/17/21 15:12 Lab Results 11/17/21 11/17/21 11/17/21 Range/Units 15:12 15:12 15:12 WBC 8.6 (3.8-10.6) k/uL RBC 3.94 L (4.30-5.90) m/uL Hgb 10.0 L (13.0-17.5) gm/dL Hct 31.5 L (39.0-53.0) % MCV 80.1 (80.0-100.0) fL MCH 25.5 (25.0-35.0) pg MCHC 31.8 (31.0-37.0) g/dL RDW 14.6 (11.5-15.5) % Plt Count 268 (150-450) k/uL MPV 8.3 Neutrophils % 79 % Lymphocytes % 8 % Monocytes % 9 % Eosinophils % 1 % Basophils % 1 % Neutrophils # 6.8 (1.3-7.7) k/uL Lymphocytes # 0.7 L (1.0-4.8) k/uL Monocytes # 0.7 (0-1.0) k/uL Eosinophils # 0.1 (0-0.7) k/uL Basophils # 0.1 (0-0.2) k/uL Hypochromasia Moderate Sodium 129 L (137-145) mmol/L Potassium 4.0 (3.5-5.1) mmol/L Chloride 96 L (98-107) mmol/L Carbon Dioxide 24 (22-30) mmol/L Anion Gap 9 mmol/L BUN 10 (9-20) mg/dL Creatinine 0.93 (0.66-1.25) mg/dL Est GFR (CKD-EPI)AfAm >90 (>60 ml/min/1.73 sqM) Est GFR (CKD-EPI)NonAf 82 (>60 ml/min/1.73 sqM) Glucose 113 H (74-99) mg/dL Plasma Lactic Acid Zak 1.2 (0.7-2.0) mmol/L Calcium 8.9 (8.4-10.2) mg/dL Magnesium 1.9 (1.6-2.3) mg/dL Total Bilirubin 0.8 (0.2-1.3) mg/dL AST 34 (17-59) U/L ALT 16 (4-49) U/L Alkaline Phosphatase 93 (38-126) U/L Creatine Kinase 45 L (55-170) U/L Troponin I (0.000-0.034) ng/mL Total Protein 6.4 (6.3-8.2) g/dL Albumin 3.8 (3.5-5.0) g/dL Lipase 46 (23-300) U/L 11/17/21 Range/Units 15:12 WBC (3.8-10.6) k/uL RBC (4.30-5.90) m/uL Hgb (13.0-17.5) gm/dL Hct (39.0-53.0) % MCV (80.0-100.0) fL MCH (25.0-35.0) pg MCHC (31.0-37.0) g/dL RDW (11.5-15.5) % Plt Count (150-450) k/uL MPV Neutrophils % % Lymphocytes % % Monocytes % % Eosinophils % % Basophils % % Neutrophils # (1.3-7.7) k/uL Lymphocytes # (1.0-4.8) k/uL Monocytes # (0-1.0) k/uL Eosinophils # (0-0.7) k/uL Basophils # (0-0.2) k/uL Hypochromasia Sodium (137-145) mmol/L Potassium (3.5-5.1) mmol/L Chloride (98-107) mmol/L Carbon Dioxide (22-30) mmol/L Anion Gap mmol/L BUN (9-20) mg/dL Creatinine (0.66-1.25) mg/dL Est GFR (CKD-EPI)AfAm (>60 ml/min/1.73 sqM) Est GFR (CKD-EPI)NonAf (>60 ml/min/1.73 sqM) Glucose (74-99) mg/dL Plasma Lactic Acid Zak (0.7-2.0) mmol/L Calcium (8.4-10.2) mg/dL Magnesium (1.6-2.3) mg/dL Total Bilirubin (0.2-1.3) mg/dL AST (17-59) U/L ALT (4-49) U/L Alkaline Phosphatase (38-126) U/L Creatine Kinase (55-170) U/L Troponin I 0.110 H* (0.000-0.034) ng/mL Total Protein (6.3-8.2) g/dL Albumin (3.5-5.0) g/dL Lipase (23-300) U/L - Radiology Data Radiology results: report reviewed (Visual reviewed no acute findings CAT scan does show evidence of any centimeter mass at the cecum.), image reviewed Disposition Clinical Impression: Syncope and collapse, Elevated troponin, Cecum mass Disposition: ADMITTED IP TO THIS [facility] Condition: Fair Referrals: Vj Knowles MD [Primary Care Provider] - 1-2 days Decision Date: 11/17/21 Decision Time: 18:24
[2021-11-17 15:36] LABS: Basophils # (A) 0.1 k/uL (0-0.2); Basophils % (A) 1 %; Eosinophils # (A) 0.1 k/uL (0-0.7); Eosinophils % (A) 1 %; HCT 31.5 % (39.0-53.0); Hypochromasia Moderate; Lymphocytes # (A) 0.7 k/uL (1.0-4.8); Lymphocytes % (A) 8 %; MCH 25.5 pg (25.0-35.0); MCHC 31.8 g/dL (31.0-37.0); MCV 80.1 fL (80.0-100.0); Mean Platelet Volume 8.3; Monocytes # (A) 0.7 k/uL (0-1.0); Monocytes % (A) 9 %; Neutrophils # (A) 6.8 k/uL (1.3-7.7); Neutrophils % (A) 79 %; Platelet Count 268 k/uL (150-450); RBC 3.94 m/uL (4.30-5.90); RDW 14.6 % (11.5-15.5); WBC 8.6 k/uL (3.8-10.6)
[2021-11-17 15:46] LABS: Sodium 129 mmol/L (137-145)
[2021-11-17 15:47] LABS: ALT 16 U/L (4-49); AST 34 U/L (17-59); African American GFR (CKD) >90 (>60 ml/min/1.73 sqM); Albumin 3.8 g/dL (3.5-5.0); Alkaline Phosphatase 93 U/L (38-126); Anion Gap 9 mmol/L; Blood Urea Nitrogen 10 mg/dL (9-20); Calcium 8.9 mg/dL (8.4-10.2); Carbon Dioxide 24 mmol/L (22-30); Chloride 96 mmol/L (98-107); Creatine Kinase 45 U/L (55-170); Glucose 113 mg/dL (74-99); Lipase 46 U/L (23-300); Magnesium 1.9 mg/dL (1.6-2.3); Non-African American GFR(CKD) 82 (>60 ml/min/1.73 sqM); Total Bilirubin 0.8 mg/dL (0.2-1.3); Total Protein 6.4 g/dL (6.3-8.2)
--- NOTE | 2021-11-17 17:18 | XR ---
EXAMINATION TYPE: XR chest 2V DATE OF EXAM: 11/17/2021 4:27 PM COMPARISON: Multiple radiographs, with the most recent on 10/24/2021 TECHNIQUE: XR chest 2V Frontal and lateral views of the chest. CLINICAL INDICATION:Male, 71 years old with history of Chills; FINDINGS: Lungs/Pleura: There is no evidence of pleural effusion, focal consolidation, or pneumothorax. Pulmonary vascularity: Unremarkable. Heart/mediastinum: Cardiomediastinal silhouette is unremarkable. Musculoskeletal: No acute osseous pathology. Lines/Tubes: Right-sided PICC line with distal tip at the cavoatrial junction. IMPRESSION: No acute cardiopulmonary disease/process.
[2021-11-17] MEDS ORDERED: NITROGLYCERIN SL TABS 0.4 MG TAB SUBLINGUAL PRN (18:27)
[2021-11-17] MEDS ORDERED: HEPARIN SODIUM 1,000 UN/ML (10ML VL) IV ONE (18:27)
[2021-11-17] MEDS ORDERED: HYDROCORTISONE 2.5% RECTAL CREAM 30 GM TUBE RECTAL PRN (18:30)
[2021-11-17] MEDS ORDERED: HEPARIN SOD,PORK IN 0.45% NACL 25,000 UNIT in 0.45% NACL 1 250ML.BAG IV SCH (18:30)
--- NOTE | 2021-11-17 18:37 | XR ---
EXAMINATION TYPE: XR KUB portable DATE OF EXAM: 11/17/2021 4:27 PM INDICATION: Patient age:Male; 71 years old; Reason for study: Chills; COMPARISON: CT abdomen pelvis. TECHNIQUE: One radiographic view of the abdomen was obtained. FINDINGS: The visualized bowel is nonobstructed with residual contrast identified throughout the [place] l and excreted IV contrast urinary bladder. There is no evidence for organomegaly or pneumoperitoneum . The osseous structures are intact. No abnormal calcifications are present. IMPRESSION: 1. Nonspecific bowel gas pattern without radiographic evidence for acute process. 2. Left inguinal hernia containing part of the urinary bladder containing excreted IV contrast.
[2021-11-17] MEDS ORDERED: amLODIPine 5 MG TAB PO SCH (21:00)
[2021-11-17] MEDS ORDERED: atenoloL 25 MG TAB PO SCH (21:00)
[2021-11-17] MEDS ORDERED: LOSARTAN 25 MG TAB PO SCH (21:00)
[2021-11-17] MEDS: PIPERACILLIN-TAZOBACTAM 3.375 GM in SODIUM CHLORIDE 0.9% 100 ML IVPB SCH (23:09)
[2021-11-17] MEDS: CALCIUM CARBONATE 500 MG CHEWABLE PO PRN (23:09)
[2021-11-17 23:27] LABS: Appearance,Urine Clear (Clear); Bacteria,Urine Rare /hpf; Bilirubin,Urine Negative (Negative); Blood,Urine Negative (Negative); Color,Urine Yellow; Glucose,Urine (UA) Trace (Negative); Ketones,Urine 3+ (Negative); Leukocyte Esterase,Urine Negative (Negative); Mucus,Urine Rare /hpf; Nitrite,Urine Negative (Negative); Protein,Urine 1+ (Negative); RBC,Urine <1 /hpf (0-5); Urobilinogen,Urine <2.0 mg/dL (<2.0); WBC,Urine 1 /hpf (0-5)
[2021-11-17 23:33] LABS: Specific Gravity,Urine >1.050 (1.001-1.035)
[2021-11-18] MEDS ORDERED: PIPERACILLIN-TAZOBACTAM 3.375 GM VIAL IVPB SCH
--- NOTE | 2021-11-18 00:39 | P.HPIM ---
History of Present Illness H&P Date: 11/17/21 The patient is a 71-year-old male with a PMH of recent hospitalization from 10/19-10/26 for perforated appendicitis with phlegmon who presents to the emergency room for syncope. Of note, the patient notes completing his 2 week course of IV antibiotics. The patient reports that he he had come to the emergency room to undergo CT abdomen that was ordered by his PCP. As he entered the hospital, he became severely lightheaded and almost fainted. He subsequently went for the CT abdomen, and nearly fainted again shortly after. He denied prodromal chest discomfort or shortness of breath. He reports chills without fever. Denied experiencing abdominal pain, nausea, vomiting, diarrhea. Does report 10 pounds weight loss over the past few months but otherwise states that he has been feeling okay at home and has been eating and drinking well. Chest x-ray in the emergency room was unremarkable. EKG revealed sinus tachycardia at 115 bpm with inferior lead Q waves and T-wave inversions. The patient also not expressing chest discomfort, shortness of breath, palpitations, diaphoresis. Dr. yaquelin roper was a marked before troponin of 0.110, lactic acid 1.2, sodium 129, and hemoglobin 10.0 with a d-dimer 1.97. CT abdomen and pelvis revealed necrotic enhancing mass 7.9 x 7.7 cm involving the base of the appendix concerning for malignancy. There was also enlarged mesenteric lymph nodes possibly metastatic with a chronic necrotic abscess in the differential. Review of systems: Pertinent positives and negatives as discussed in HPI, a complete review of systems was performed and all other systems are negative. Physical examination: General: non toxic, no distress, appears at stated age, normal weight Derm: no unusual rashes/lesions, warm Head: atraumatic, normocephalic, symmetric Eyes: EOMI, no lid lag, anicteric sclera, pupils equal round reactive to light ENT: Nose and ears atraumatic Neck: No cervical lymphadenopathy, trachea midline, supple Mouth: no lip lesion, mucus membranes moist Cardiovascular: S1S2 reg, no murmur, positive dorsalis pedis pulse bilateral, no edema Lungs: CTA bilateral, no rhonchi, no rales, no accessory muscle use Abdominal: soft, nontender to palpation, no guarding, right lower quadrant nodular operable mass appreciated nontender Ext: muscle strength 5 out of 5 in all 4 extremities grossly, no gross muscle atrophy, no contractures, Neuro: CN II-XI grossly intact, no gross focal neuro deficits Psych: Alert, oriented, appropriate affect Assessment/plan Near syncope, suspected orthostatic in setting of underlying malignancy vs abscess -Obtain orthostatics -C/w IVFs -Cardiac monitoring -Fall precautions Necrotic abdominal mass, malignancy versus abscess in setting of recent perforated appendix -Suspect that the prior diagnosis of perforated appendicitis may have in fact been a malignancy -Continue with IV antibiotics for now with IV Zosyn -Infectious disease and surgery consult -Patient will likely need IR guided biopsy pending surgery consult -Follow up blood cultures Elevated troponin -Suspect due to ongoing malignancy versus infection -Trend for now -Continue with heparin infusion -Cardiac monitoring -Continue aspirin Hyponatremia -May be due to underlying malignancy -Continue IV hydration and monitor for now DVT prophylaxis -Heparin infusion The patient is admitted with an anticipated greater than 2 midnight stay for evaluation of abdominal mass. CODE STATUS: Full Code Discussed with: Patient Anticipated discharge date: 2-[address]: Home Past Medical History Past Medical History: Cancer, Hypertension Additional Past Medical History / Comment(s): squamous cell carcinoma-in remission, tachycardic, recent ruptured appendix History of Any Multi-Drug Resistant Organisms: None Reported Additional Past Surgical History / Comment(s): dental, bilateral cataract removal, metaport Past Anesthesia/Blood Transfusion Reactions: No Reported Reaction Past Psychological History: No Psychological Hx Reported Smoking Status: Never smoker Past Alcohol Use History: Occasional Past Drug Use History: None Reported - Past Family History Father Family Medical History: Cancer Medications and Allergies Home Medications Medication Instructions Recorded Confirmed Type Calcium Carbonate [Tums] 500 mg PO DAILY 10/19/21 11/17/21 History Cholecalciferol (Vitamin D3) 125 mcg PO DAILY 10/19/21 11/17/21 History [Vitamin D3 (125 MCG = 5,000 IU)] Magnesium 250 mg PO DAILY 10/19/21 11/17/21 History Potassium Gluconate [Potassium 99 mg PO DAILY 10/19/21 11/17/21 History Gluconate ER] Vitamin E (Dl,Tocopheryl Acet) 400 unit PO DAILY 10/19/21 11/17/21 History [Vitamin E (400 Iu = 180 mg)] amLODIPine BES/OLMESARTAN MED 1 tab PO DAILY 10/19/21 11/18/21 History [amLODIPine BES/OLMESARTAN MED 5-20 mg] atenoloL [Tenormin] 25 mg PO DAILY 10/19/21 11/18/21 History Piperacillin-Tazobactam [Zosyn] 3.375 gm IVPB Q8HR 14 Days each 10/26/21 11/17/21 Rx Procto-Med Hc 2.5% Cream 1 applic RECTAL TID PRN 11/17/21 11/17/21 History Allergies Allergy/AdvReac Type Severity Reaction Status Date / Time No Known Allergies Allergy Verified 11/17/21 16:54 Physical Exam Vitals: Vital Signs Temp Pulse Pulse Resp BP BP Pulse Ox 11/17/21 21:51 98.7 F 119 H 21 129/78 91 L 11/17/21 17:00 102 H 5 L 98/69 91 L 11/17/21 16:30 115 H 18 112/85 98 11/17/21 16:00 115 H 18 127/89 97 11/17/21 14:34 84 L 11/17/21 14:29 96.9 F L 76 18 97/64 80 L Intake and Output 11/17/21 11/17/21 11/18/21 14:59 22:59 06:59 Other: Weight 89.358 kg 89.358 kg Results CBC & Chem 7: 11/17/21 15:12 11/17/21 15:12 Labs: Abnormal Lab Results - Last 24 Hours (Table) 11/17/21 11/17/21 11/17/21 Range/Units 15:12 15:12 15:12 RBC 3.94 L (4.30-5.90) m/uL Hgb 10.0 L (13.0-17.5) gm/dL Hct 31.5 L (39.0-53.0) % Lymphocytes # 0.7 L (1.0-4.8) k/uL D-Dimer (<0.60) mg/L FEU Sodium 129 L (137-145) mmol/L Chloride 96 L (98-107) mmol/L Glucose 113 H (74-99) mg/dL Creatine Kinase 45 L (55-170) U/L Troponin I 0.110 H* (0.000-0.034) ng/mL 11/17/21 11/17/21 11/17/21 Range/Units 18:48 19:23 22:24 RBC (4.30-5.90) m/uL Hgb (13.0-17.5) gm/dL Hct (39.0-53.0) % Lymphocytes # (1.0-4.8) k/uL D-Dimer 1.97 H (<0.60) mg/L FEU Sodium (137-145) mmol/L Chloride (98-107) mmol/L Glucose (74-99) mg/dL Creatine Kinase (55-170) U/L Troponin I 0.219 H* 0.305 H* (0.000-0.034) ng/mL Thrombosis Risk Factor Assmnt - Choose All That Apply Each Factor Represents 1 point: Obesity (BMI >25) Each Risk Factor Represents 2 Points: Age 61-74 years Thrombosis Risk Factor Assessment Total Risk Factor Score: 3 Thrombosis Risk Factor Assessment Level: Moderate Risk
[2021-11-18] MEDS: amLODIPine 5 MG TAB PO SCH (04:22)
[2021-11-18] MEDS: LOSARTAN 25 MG TAB PO SCH (04:23)
[2021-11-18] MEDS: atenoloL 25 MG TAB PO SCH (04:23)
[2021-11-18] MEDS ORDERED: VITAMIN E (DL,TOCOPHERYL ACET) 400 UNIT (180 MG) CAP PO SCH (09:00)
[2021-11-18] MEDS ORDERED: ASPIRIN 325 MG TAB PO SCH (09:00)
[2021-11-18] MEDS: CALCIUM CARBONATE 500 MG CHEWABLE PO SCH (09:51)
[2021-11-18] MEDS: MAGNESIUM OXIDE 400 MG TAB PO SCH (09:51)
[2021-11-18] MEDS: POTASSIUM CHLORIDE ER 10 MEQ TAB.ER.PRT PO SCH (09:51)
[2021-11-18] MEDS: PIPERACILLIN-TAZOBACTAM 3.375 GM in SODIUM CHLORIDE 0.9% 100 ML IVPB SCH ×3 (09:53→23:44)
[2021-11-18] MEDS: CHOLECALCIFEROL 125 MCG (5000 IU) TABLET PO SCH (09:54)
[2021-11-18] MEDS ORDERED: HEPARIN SODIUM 1,000 UN/ML (10ML VL) IV PRN ×2 (09:57→12:02)
[2021-11-18 10:39] LABS: African American GFR (CKD) >90 (>60 ml/min/1.73 sqM); Anion Gap 12 mmol/L; Blood Urea Nitrogen 9 mg/dL (9-20); Calcium 8.3 mg/dL (8.4-10.2); Carbon Dioxide 21 mmol/L (22-30); Chloride 99 mmol/L (98-107); Glucose 91 mg/dL (74-99); Non-African American GFR(CKD) 86 (>60 ml/min/1.73 sqM); Potassium 4.2 mmol/L (3.5-5.1); Sodium 132 mmol/L (137-145)
--- NOTE | 2021-11-18 10:42 | P.CRDCN ---
History of Present Illness Consult date: 11/18/21 History of present illness: HISTORY OF PRESENT ILLNESS: This is a 71-year-old male with a past medical history significant for hypertension and palpitations. 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 We have been asked to see the patient in consultation for abnormal troponins. Patient examined at the bedside. Patient states he was recently hospitalized for ruptured appendicitis with phlegmon. He was discharged home on IV antibiotics. Patient states yesterday he came into the hospital to have a CAT scan that was ordered by infectious disease. He states that he was walking into the hospital he felt dizzy and lightheaded and felt like he was going to pass out. The patient believes he passed out at that point. His took him to the emergency room for further evaluation. The patient states he passed out a second time on the stretcher after using the bathroom. He denied any chest pain or pressure. He does report shortness of breath. Reports generalized weakness. He reports having a fever 2 days ago but was afebrile at the time of admission. * EKG reveals sinus mechanism with S1Q3T3 pattern * Chest xray negative for acute process * CT abdomen and pelvis: Interval resolution of previously seen extensive inflammatory changes in the abdomen and pelvis. Persistent highly suspicious necrotic mass centered over the cecum/ileocecal junction and obstructing the appendicular base. Surrounding local regional and mesenteric lymph nodes, possibly metastatic. Chronic necrotic abscess is much less likely yet still in the differential. No convincing evidence of perforated appendicitis. * Laboratory data: W BC 8.6. Hemoglobin 10.0. Platelet count 268. D-dimer 1.97. Sodium 129. Potassium 4.0. BUN 10. Creatinine 0.93. Lactic acid 1.2. Troponin 0.110. 0.29. 0.305. * Current home cardiac medications include amlodipine/olmesartan 5-20mg daily, and atenolol 25 mg daily * Most recent echocardiogram obtained in September 2021 revealed ejection fraction 55- 60% and trace to mild mitral regurgitation and mild tricuspid regurgitation with moderate LVH REVIEW OF SYSTEMS: At the time of my exam: CONSTITUTIONAL: Denies fever or chills. HEENT: Denies blurred vision, vision changes, or eye pain. Denies hemoptysis CARDIOVASCULAR: Denies chest pain. Denies orthopnea. Denies PND. Denies palpit ations RESPIRATORY: + shortness of breath. GASTROINTESTINAL: Denies abdominal pain. Denies nausea or vomiting. HEMATOLOGIC: Denies bleeding disorders. GENITOURINARY: Denies any blood in urine. SKIN: Denies pruitis. Denies rash. PHYSICAL EXAM: VITAL SIGNS: Reviewed. GENERAL: Well-developed in no acute distress. HEENT: Head is normocephalic. Pupils are equal, round. Sclerae anicteric. Mucous membranes of the mouth are moist. Neck supple. No JVD or thyromegaly LUNGS: Respirations even and unlabored. Lungs essentially clear to auscultation bilaterally. HEART: Regular rate and rhythm. S1 and S2 heard. ABDOMEN: Soft. Nondistended. Nontender. EXTREMITIES: Normal range of motion. No clubbing or cyanosis. Peripheral pulses intact. No lower extremity edema NEUROLOGIC: Awake and alert. Oriented x 3. ASSESSMENT: Syncope x 2 Shortness of breath Fever, at home 2 days ago Elevated d-dimer with abnormal troponins, rule out PE Necrotic cecal mass, per abdominal CT Recent hospitalization for ruptured appendix, on outpatient IV antibiotics Hypertension PLAN: Obtain 2D echo to assess cardiac structure and function Obtain STAT CTA chest to r/o PE Continue IV heparin Further recommendations pending patient course Nurse practitioner note has been reviewed by physician. Signing provider agrees with the documented findings, assessment, and plan of care. Past Medical History Past Medical History: Cancer, Hypertension Additional Past Medical History / Comment(s): squamous cell carcinoma-in remission, tachycardic, recent ruptured appendix History of Any Multi-Drug Resistant Organisms: None Reported Additional Past Surgical History / Comment(s): dental, bilateral cataract removal, metaport Past Anesthesia/Blood Transfusion Reactions: No Reported Reaction Past Psychological History: No Psychological Hx Reported Smoking Status: Never smoker Past Alcohol Use History: Occasional Past Drug Use History: None Reported - Past Family History Father Family Medical History: Cancer Medications and Allergies Home Medications Medication Instructions Recorded Confirmed Type Calcium Carbonate [Tums] 500 mg PO DAILY 10/19/21 11/17/21 History Cholecalciferol (Vitamin D3) 125 mcg PO DAILY 10/19/21 11/17/21 History [Vitamin D3 (125 MCG = 5,000 IU)] Magnesium 250 mg PO DAILY 10/19/21 11/17/21 History Potassium Gluconate [Potassium 99 mg PO DAILY 10/19/21 11/17/21 History Gluconate ER] Vitamin E (Dl,Tocopheryl Acet) 400 unit PO DAILY 10/19/21 11/17/21 History [Vitamin E (400 Iu = 180 mg)] amLODIPine BES/OLMESARTAN MED 1 tab PO DAILY 10/19/21 11/18/21 History [amLODIPine BES/OLMESARTAN MED 5-20 mg] atenoloL [Tenormin] 25 mg PO DAILY 10/19/21 11/18/21 History Piperacillin-Tazobactam [Zosyn] 3.375 gm IVPB Q8HR 14 Days each 10/26/21 11/17/21 Rx Procto-Med Hc 2.5% Cream 1 applic RECTAL TID PRN 11/17/21 11/17/21 History Allergies Allergy/AdvReac Type Severity Reaction Status Date / Time No Known Allergies Allergy Verified 11/17/21 16:54 Physical Exam Vitals: Vital Signs Temp Pulse Pulse Resp BP BP Pulse Ox 11/18/21 04:00 98.8 F 114 H 20 107/65 91 L 11/18/21 00:00 98.4 F 117 H 20 115/69 91 L 11/17/21 21:51 98.7 F 119 H 21 129/78 91 L 11/17/21 17:00 102 H 5 L 98/69 91 L 11/17/21 16:30 115 H 18 112/85 98 11/17/21 16:00 115 H 18 127/89 97 11/17/21 14:34 84 L 11/17/21 14:29 96.9 F L 76 18 97/64 80 L Intake and Output 11/17/21 11/18/21 11/18/21 22:59 06:59 14:59 Intake Total 312.243 Balance 312.243 Intake: Intake, IV Titration 72.243 Amount Heparin Sod,Pork in 0.45% 72.243 NaCl 25,000 unit In 0.45 % NaCl 1 250ml.bag @ 11 UNITS/KG/HR 9.829 mls/hr IV .Q24H [facility] Rx#: [id number] Oral 240 Other: Voiding Method Bedside Commode Urinal # Voids 1 # Bowel Movements 1 Weight 89.358 kg Results 11/17/21 15:12 11/17/21 15:12 Cardiac Enzymes 11/17/21 11/17/21 11/17/21 Range/Units 15:12 15:12 18:48 AST 34 (17-59) U/L Troponin I 0.110 H* 0.219 H* (0.000-0.034) ng/mL 11/17/21 Range/Units 22:24 AST (17-59) U/L Troponin I 0.305 H* (0.000-0.034) ng/mL Coagulation 11/18/21 Range/Units 01:15 APTT 30.2 H (22.0-30.0) sec CBC 11/17/21 Range/Units 15:12 WBC 8.6 (3.8-10.6) k/uL RBC 3.94 L (4.30-5.90) m/uL Hgb 10.0 L (13.0-17.5) gm/dL Hct 31.5 L (39.0-53.0) % Plt Count 268 (150-450) k/uL Comprehensive Metabolic Panel 11/17/21 Range/Units 15:12 Sodium 129 L (137-145) mmol/L Potassium 4.0 (3.5-5.1) mmol/L Chloride 96 L (98-107) mmol/L Carbon Dioxide 24 (22-30) mmol/L BUN 10 (9-20) mg/dL Creatinine 0.93 (0.66-1.25) mg/dL Glucose 113 H (74-99) mg/dL Calcium 8.9 (8.4-10.2) mg/dL AST 34 (17-59) U/L ALT 16 (4-49) U/L Alkaline Phosphatase 93 (38-126) U/L Total Protein 6.4 (6.3-8.2) g/dL Albumin 3.8 (3.5-5.0) g/dL Current Medications Generic Name Dose Route Start Last Admin Trade Name Freq PRN Reason Stop Dose Admin Amlodipine Besylate 5 mg 11/18/21 09:00 11/18/21 04:22 Amlodipine 5 Mg Tab PO 5 mg DAILY SEJAL Administration Aspirin 325 mg 11/18/21 09:00 Aspirin 325 Mg Tab PO DAILY [facility] Atenolol 25 mg 11/18/21 09:00 11/18/21 04:23 Atenolol 25 Mg Tab PO 25 mg DAILY SEJAL Administration Calcium Carbonate/Glycine 500 mg 11/18/21 09:00 Calcium Carbonate 500 Mg Chewable PO DAILY SEJAL Calcium Carbonate/Glycine 500 mg 11/17/21 23:05 11/17/21 23:09 Calcium Carbonate 500 Mg Chewable PO 500 mg QID PRN Administration Heartburn Cholecalciferol 125 mcg 11/18/21 09:00 Cholecalciferol 125 Mcg (5000 Iu) Tablet PO DAILY SEJAL Hydrocortisone 1 applic 11/17/21 18:30 Hydrocortisone 2.5% Rectal Cream 30 Gm Tube RECTAL TID PRN AFTER BOWEL MOVEMENTS Sodium Chloride 1,000 mls @ 20 mls/hr 11/17/21 15:00 11/17/21 16:29 Saline 0.9% IV 11/18/21 14:59 Not Given .Q24H STA Heparin Sodium/Sodium Chloride 250 mls @ 9.829 mls/hr 11/17/21 18:30 11/18/21 02:37 25,000 unit/ Sodium Chloride IV 14 units/kg/hr .Q24H SEJAL 12.51 mls/hr Titration Protocol 11 UNITS/KG/HR Piperacillin Sod/Tazobactam 100 mls @ 25 mls/hr 11/18/21 00:00 11/17/21 23:09 Sod 3.375 gm/ Sodium Chloride IVPB 25 mls/hr Q8HR SEJAL Administration Losartan Potassium 75 mg 11/18/21 09:00 11/18/21 04:23 Losartan 25 Mg Tab PO 75 mg DAILY SEJAL Administration Magnesium Oxide 400 mg 11/18/21 09:00 Magnesium Oxide 400 Mg Tab PO DAILY SEJAL Nitroglycerin 0.4 mg 11/17/21 18:27 Nitroglycerin Sl Tabs 0.4 Mg Tab SUBLINGUAL Q5M PRN Chest Pain Potassium Chloride 10 meq 11/18/21 09:00 Potassium Chloride Er 10 Meq Tab.Er.Prt PO DAILY SEJAL Vitamin E 400 unit 11/18/21 09:00 Vitamin E (Dl,Tocopheryl Acet) 400 Unit (180 Mg) Cap PO DAILY SEJAL Intake and Output 11/17/21 11/18/21 11/18/21 22:59 06:59 14:59 Intake Total 312.243 Balance 312.243 Intake: Intake, IV Titration 72.243 Amount Heparin Sod,Pork in 0.45% 72.243 NaCl 25,000 unit In 0.45 % NaCl 1 250ml.bag @ 11 UNITS/KG/HR 9.829 mls/hr IV .Q24H [facility] Rx#: [id number] Oral 240 Other: Voiding Method Bedside Commode Urinal # Voids 1 # Bowel Movements 1 Weight 89.358 kg 11/17/21 15:12 11/17/21 15:12
--- NOTE | 2021-11-18 11:14 | CT ---
EXAMINATION TYPE: CT chest angio for PE DATE OF EXAM: 11/18/2021 COMPARISON: None HISTORY: Rule out PE CT DLP: 427.9 mGycm CONTRAST: CT chest with contrast and 3D reconstruction with MIP imaging is performed without and with IV Contra st, patient injected with 100 ml mL of Isovue 370. Contrast-enhanced CT of the chest was performed through the course of the pulmonary arteries with heidi g and mediastinal window settings submitted. 3D reconstruction with MIP imaging was also performed. PULMONARY ARTERIES: There are filling defects noted within first order, second order and third order branches of the pulmonary arteries bilaterally both within the upper and lower lobes however greatest within the right lower lobe. There are small pleural effusions seen. There is no evidence for saddle component of the main pulmonary arteries at this time. No evidence for right ventricular strain. LUNGS: The lungs are clear and free of infiltrate. No evidence for atelectasis. No pulmonary nodule or mass is detected. MEDIASTINUM: Thoracic aorta is of normal caliber,however, evaluation is limited given timing of the contrast bolus. If there is concern for thoracic aortic pathology consider OTTO. Correlate clinicall y . The heart is not enlarged. No evidence for mediastinal mass. No mediastinal lymph nodes greater than 1cm. HILAR STRUCTURES: No evidence for mass. No hilar lymph nodes greater than 1 cm. UPPER ABDOMEN: No significant abnormality is seen. IMPRESSION: 1. Moderate pulmonary embolism.
[2021-11-18] MEDS ORDERED: HEPARIN SODIUM 1,000 UN/ML (10ML VL) IV ONE (12:02)
[2021-11-18] MEDS ORDERED: HEPARIN SOD,PORK IN 0.45% NACL 25,000 UNIT in 0.45% NACL 1 250ML.BAG IV SCH ×3 (12:15→14:00)
[2021-11-18 12:38] LABS: Basophils % (A) 1 %; Eosinophils # (A) 0.1 k/uL (0-0.7); Eosinophils % (A) 1 %; HCT 29.5 % (39.0-53.0); HGB 9.5 gm/dL (13.0-17.5); Hypochromasia Moderate; Lymphocytes % (A) 13 %; MCH 25.5 pg (25.0-35.0); MCHC 32.2 g/dL (31.0-37.0); MCV 79.3 fL (80.0-100.0); Mean Platelet Volume 7.5; Monocytes # (A) 0.8 k/uL (0-1.0); Monocytes % (A) 10 %; Neutrophils # (A) 5.6 k/uL (1.3-7.7); Neutrophils % (A) 72 %; Platelet Count 262 k/uL (150-450); RBC 3.72 m/uL (4.30-5.90); RDW 14.9 % (11.5-15.5); WBC 7.8 k/uL (3.8-10.6)
[2021-11-18] MEDS: ASPIRIN 81 MG PO SCH (12:56)
--- NOTE | 2021-11-18 13:23 | US ---
EXAMINATION TYPE: US venous doppler duplex LE DATE OF EXAM: 11/18/2021 1:06 PM COMPARISON: NONE CLINICAL HISTORY: PE. PE, patient on blood thinners SIDE PERFORMED: Bilateral TECHNIQUE: The lower extremity deep venous system is examined utilizing real time linear array sonog ernestina with graded compression, doppler sonography and color-flow sonography. VESSELS IMAGED: Common Femoral Vein Deep Femoral Vein Greater Saphenous Vein * Femoral Vein Popliteal Vein Small Saphenous Vein * Proximal Calf Veins (* superficial vessels) Right Leg: Appears negative for DVT Left Leg: Appears negative for DVT IMPRESSION: No evidence for DVT at this time.
[2021-11-18] MEDS ORDERED: SODIUM CHLORIDE 0.9% 1,000 ML IV SCH ×4 (13:30)
--- NOTE | 2021-11-18 13:36 | P.GSCN ---
History of Present Illness Consult date: 11/18/21 History of present illness: CHIEF COMPLAINT: Syncope HISTORY OF PRESENT ILLNESS: This is a 71-year-old male with a known history of ruptured appendix and had been receiving IV antibiotics outpatient. Patient reports that he had presented to the hospital for follow-up computed tomography scan abdomen on his appendix. Patient reports that he has been dealing with chencho rtness of breath with activity. He had fever 2 days ago. When he presented to the ER he was dizzy and reports passing out 2 times. One at the entrance and 1 after he completed the CAT scan. Patient reports that he has been having fevers as high as 101. Patient reports that he had chills. He denies any abdominal pain. Denies any nausea or vomiting. He was found to have an elevated d-dimer and elevated troponin levels. He is on IV heparin. Cardiology did evaluate patient and ordered a CTA of the chest that did reveal moderate pulmonary embolism. Venous Doppler results are pending. Patient's computed tomography scan of the abdomen and pelvis had shown high suspicion for a mass at the cecum. He has been tachycardic. Surgical consult placed for cecal mass. 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 MEDICATIONS: See list. ALLERGIES: See list. SOCIAL HISTORY: No illicit drug use. REVIEW OF SYSTEMS: CONSTITUTIONAL: Denies fever or chills. HEENT: Denies blurred vision, vision changes, or eye pain. Denies hemoptysis ENDOCRINE: Denies heat or cold intolerance. CARDIOVASCULAR: Denies chest pain or pressure. RESPIRATORY: No shortness of breath. GASTROINTESTINAL: Denies abdominal pain. Denies nausea or vomiting. NEURO: Denies history of seizures. PSYCH: No depression or suicidal ideation HEMATOLOGIC: Denies bleeding disorders. LYMPHATIC: The patient denies any lumps and bumps around the neck. GENITOURINARY: Denies any blood in urine or increased urinary frequency. MUSCULOSKELETAL: Denies myalgias. Denies joint swelling. Denies decreased range of motion beyond patients baseline. SKIN: Denies pruitis. Denies rash. PHYSICAL EXAM: VITAL SIGNS: Reviewed GENERAL: Well-developed in no acute distress. HEENT: No sclera icterus. Extraocular movements grossly intact. Moist buccal mucosa. Head is atraumatic, normocephalic. Hears conversational speech. No nasal drainage. NECK: Supple without lymphadenopathy. CHEST: Non-labored respirations and equal bilateral excursions. CARDIOVASCULAR: Palpable 2+ radial pulses. ABDOMEN: Soft. Nondistended. Nontender MUSCULOSKELETAL: No clubbing or cyanosis. NEUROLOGIC: No focal or lateralizing signs. Cranial nerves II through XII grossly intact. PSYCH: Appropriate affect. Alert and oriented to person, place and time. SKIN: Well perfused. Good skin turgor. LABORATORY DATA: WBC is 7.8 Hgb 9.5 plt 262 Sodium 132 potassium 4.2 creatinine 0.87 Troponins trending upward 0.110, 0.219, 0.305 IMAGING: CTA of the chest moderate pulmonary embolism Computed tomography scan of the abdomen and pelvis interval resolution of the previously been extensive inflammatory changes in the abdomen and the pelvis as described above. Persistent highly suspicious necrotic mass centered over the cecum/ileocecal junction and obstructing the appendicular base. Surrounding local region and mesenteric lymph nodes, possibly the past ache. Chronic necrotic abscess less likely in the differential. No convincing evidence of perforated appendix. Recommend surgical consultation and tissue diagnosis. ASSESSMENT: 1. Highly suspicious mass at the cecum 2. Pulmonary embolism 3. Elevated troponins 4. Recent ruptured appendix with phlegmon being managed with IV antibiotics PLAN: -Patient scheduled for colonoscopy on 11/21/2021 for biopsy of cecal mass -Consult oncology regarding cecal mass -Ordered CEA and alpha-fetoprotein tumor marker -Consult pulmonary service regarding patient's shortness of breath and now diagnosed PE -Discussed with cardiology service. They're planning to proceed with EKOS this afternoon for the PE -Continue IV heparin for PE -Further recommendations forthcoming per surgeon Physician Fisheries Manager note has been reviewed by physician. Signing provider agrees with the documented findings, assessment, and plan of care. Past Medical History Past Medical History: Cancer, Hypertension Additional Past Medical History / Comment(s): squamous cell carcinoma-in remission, tachycardic, recent ruptured appendix History of Any Multi-Drug Resistant Organisms: None Reported Additional Past Surgical History / Comment(s): dental, bilateral cataract removal, metaport Past Anesthesia/Blood Transfusion Reactions: No Reported Reaction Past Psychological History: No Psychological Hx Reported Smoking Status: Never smoker Past Alcohol Use History: Occasional Past Drug Use History: None Reported - Past Family History Father Family Medical History: Cancer Medications and Allergies Home Medications Medication Instructions Recorded Confirmed Type Calcium Carbonate [Tums] 500 mg PO DAILY 10/19/21 11/17/21 History Cholecalciferol (Vitamin D3) 125 mcg PO DAILY 10/19/21 11/17/21 History [Vitamin D3 (125 MCG = 5,000 IU)] Magnesium 250 mg PO DAILY 10/19/21 11/17/21 History Potassium Gluconate [Potassium 99 mg PO DAILY 10/19/21 11/17/21 History Gluconate ER] Vitamin E (Dl,Tocopheryl Acet) 400 unit PO DAILY 10/19/21 11/17/21 History [Vitamin E (400 Iu = 180 mg)] amLODIPine BES/OLMESARTAN MED 1 tab PO DAILY 10/19/21 11/18/21 History [amLODIPine BES/OLMESARTAN MED 5-20 mg] atenoloL [Tenormin] 25 mg PO DAILY 10/19/21 11/18/21 History Piperacillin-Tazobactam [Zosyn] 3.375 gm IVPB Q8HR 14 Days each 10/26/21 11/17/21 Rx Procto-Med Hc 2.5% Cream 1 applic RECTAL TID PRN 11/17/21 11/17/21 History Allergies Allergy/AdvReac Type Severity Reaction Status Date / Time No Known Allergies Allergy Verified 11/17/21 16:54 Surgical - Exam Vital Signs Temp Pulse Resp BP Pulse Ox 96.9 F L 76 18 97/64 80 L 11/17/21 14:29 11/17/21 14:29 11/17/21 14:29 11/17/21 14:29 11/17/21 14:29 Results - Labs 11/18/21 12:09 11/18/21 08:31 Abnormal Lab Results - Last 24 Hours (Table) 11/17/21 11/17/21 11/17/21 Range/Units 15:12 15:12 15:12 RBC 3.94 L (4.30-5.90) m/uL Hgb 10.0 L (13.0-17.5) gm/dL Hct 31.5 L (39.0-53.0) % Lymphocytes # 0.7 L (1.0-4.8) k/uL APTT (22.0-30.0) sec D-Dimer (<0.60) mg/L FEU Sodium 129 L (137-145) mmol/L Chloride 96 L (98-107) mmol/L Carbon Dioxide (22-30) mmol/L Glucose 113 H (74-99) mg/dL Calcium (8.4-10.2) mg/dL Creatine Kinase 45 L (55-170) U/L Troponin I 0.110 H* (0.000-0.034) ng/mL Ur Specific [place] (1.001-1.035) Urine Protein (Negative) Urine Glucose (UA) (Negative) Urine Ketones (Negative) Urine Bacteria (None) /hpf Urine Mucus (None) /hpf 11/17/21 11/17/21 11/17/21 Range/Units 18:48 19:23 22:24 RBC (4.30-5.90) m/uL Hgb (13.0-17.5) gm/dL Hct (39.0-53.0) % Lymphocytes # (1.0-4.8) k/uL APTT (22.0-30.0) sec D-Dimer 1.97 H (<0.60) mg/L FEU Sodium (137-145) mmol/L Chloride (98-107) mmol/L Carbon Dioxide (22-30) mmol/L Glucose (74-99) mg/dL Calcium (8.4-10.2) mg/dL Creatine Kinase (55-170) U/L Troponin I 0.219 H* 0.305 H* (0.000-0.034) ng/mL Ur Specific [place] (1.001-1.035) Urine Protein (Negative) Urine Glucose (UA) (Negative) Urine Ketones (Negative) Urine Bacteria (None) /hpf Urine Mucus (None) /hpf 11/17/21 11/18/21 11/18/21 Range/Units 23:00 01:15 08:31 RBC (4.30-5.90) m/uL Hgb (13.0-17.5) gm/dL Hct (39.0-53.0) % Lymphocytes # (1.0-4.8) k/uL APTT 30.2 H 38.4 H (22.0-30.0) sec D-Dimer (<0.60) mg/L FEU Sodium (137-145) mmol/L Chloride (98-107) mmol/L Carbon Dioxide (22-30) mmol/L Glucose (74-99) mg/dL Calcium (8.4-10.2) mg/dL Creatine Kinase (55-170) U/L Troponin I (0.000-0.034) ng/mL Ur Specific [place] >1.050 H (1.001-1.035) Urine Protein 1+ H (Negative) Urine Glucose (UA) Trace H (Negative) Urine Ketones 3+ H (Negative) Urine Bacteria Rare H (None) /hpf Urine Mucus Rare H (None) /hpf 11/18/21 Range/Units 08:31 RBC (4.30-5.90) m/uL Hgb (13.0-17.5) gm/dL Hct (39.0-53.0) % Lymphocytes # (1.0-4.8) k/uL APTT (22.0-30.0) sec D-Dimer (<0.60) mg/L FEU Sodium 132 L (137-145) mmol/L Chloride (98-107) mmol/L Carbon Dioxide 21 L (22-30) mmol/L Glucose (74-99) mg/dL Calcium 8.3 L (8.4-10.2) mg/dL Creatine Kinase (55-170) U/L Troponin I (0.000-0.034) ng/mL Ur Specific [place] (1.001-1.035) Urine Protein (Negative) Urine Glucose (UA) (Negative) Urine Ketones (Negative) Urine Bacteria (None) /hpf Urine Mucus (None) /hpf Diabetes panel 11/17/21 11/18/21 Range/Units 15:12 08:31 Sodium 129 L 132 L (137-145) mmol/L Potassium 4.0 4.2 (3.5-5.1) mmol/L Chloride 96 L 99 (98-107) mmol/L Carbon Dioxide 24 21 L (22-30) mmol/L BUN 10 9 (9-20) mg/dL Creatinine 0.93 0.87 (0.66-1.25) mg/dL Glucose 113 H 91 (74-99) mg/dL Calcium 8.9 8.3 L (8.4-10.2) mg/dL AST 34 (17-59) U/L ALT 16 (4-49) U/L Alkaline Phosphatase 93 (38-126) U/L Total Protein 6.4 (6.3-8.2) g/dL Albumin 3.8 (3.5-5.0) g/dL Calcium panel 11/17/21 11/18/21 Range/Units 15:12 08:31 Calcium 8.9 8.3 L (8.4-10.2) mg/dL Albumin 3.8 (3.5-5.0) g/dL Pituitary panel 11/17/21 11/18/21 Range/Units 15:12 08:31 Sodium 129 L 132 L (137-145) mmol/L Potassium 4.0 4.2 (3.5-5.1) mmol/L Chloride 96 L 99 (98-107) mmol/L Carbon Dioxide 24 21 L (22-30) mmol/L BUN 10 9 (9-20) mg/dL Creatinine 0.93 0.87 (0.66-1.25) mg/dL Glucose 113 H 91 (74-99) mg/dL Calcium 8.9 8.3 L (8.4-10.2) mg/dL Adrenal panel 11/17/21 11/18/21 Range/Units 15:12 08:31 Sodium 129 L 132 L (137-145) mmol/L Potassium 4.0 4.2 (3.5-5.1) mmol/L Chloride 96 L 99 (98-107) mmol/L Carbon Dioxide 24 21 L (22-30) mmol/L BUN 10 9 (9-20) mg/dL Creatinine 0.93 0.87 (0.66-1.25) mg/dL Glucose 113 H 91 (74-99) mg/dL Calcium 8.9 8.3 L (8.4-10.2) mg/dL Total Bilirubin 0.8 (0.2-1.3) mg/dL AST 34 (17-59) U/L ALT 16 (4-49) U/L Alkaline Phosphatase 93 (38-126) U/L Total Protein 6.4 (6.3-8.2) g/dL Albumin 3.8 (3.5-5.0) g/dL
[2021-11-18] MEDS ORDERED: ALTEPLASE 10 MG in SODIUM CHLORIDE 0.9% 90 ML IV ONE ×4 (14:00)
--- NOTE | 2021-11-18 14:05 | P.CNPUL ---
History of Present Illness Consult date: 11/18/21 Requesting physician: Slime Arteaga Reason for consult: dyspnea, hypoxemia, pulmonary embolism, pulmonary hypertension, abnormal CXR/CT Chief complaint: Shortness of breath. History of present illness: Pulmonary consult dated 11/18/2021. 71-year-old male seen in consultation, for shortness of breath. The patient was initially seen in the emergency department, on November 17, complaining of syncope, and weakness. The patient has a recent history of a ruptured appendix, being treated with outpatient IV Zosyn. The patient was to come to the hospital today for a computed tomography scan of the abdomen, and he had a near syncopal episode, feeling very lightheaded and dizzy. He also has not been eating or drinking very much recently. He also had shortness of breath, and was evaluated, and the CTA was positive for pulmonary embolism. This is why we are asked to see him. Currently, he's on 6 L. He is receiving IV heparin, and Zosyn. White count 7.8, he will benign 0.5, hematocrit 29.5, and platelet count normal. Sodium 132, potassium 4.2, chlorides 99, CO2 21, BUN 9, creatinine 0.87. Troponin was 0.305. Urine was unremarkable. The chest x-ray showed no acute cardiopulmonary process. The KUB x-ray showed left inguinal hernia, and nonspecific bowel pattern. EKG did show sinus tachycardia. It also did show an S in lead 1 and a Q in lead 3. CT angiogram showed bilateral pulmonary emboli, worse on the right side than on the left. There was no evidence of right heart strain on the CTA. Echocardiogram did show a pulmonary pressure that was elevated at 55, and also a right ventricular to left ventricular ratio of 1.5. Dopplers of the lower extremities were negative for DVT. Review of Systems REVIEW OF SYSTEMS: CONSTITUTIONAL: [Negative.] NEUROLOGIC: [ Negative.] HEENT: [ Negative.] CARDIAC: Near-syncope. PULMONARY: Shortness of breath. GI: [Negative.] : [Negative.] RHEUMATOLOGIC: [ Negative.] IMMUNOLOGIC: [ Negative.] ENDOCRINE: [Negative. ] DERMATOLOGIC: [Negative.] Past Medical History Past Medical History: Cancer, Hypertension Additional Past Medical History / Comment(s): squamous cell carcinoma-in remission, tachycardic, recent ruptured appendix History of Any Multi-Drug Resistant Organisms: None Reported Additional Past Surgical History / Comment(s): dental, bilateral cataract removal, metaport Past Anesthesia/Blood Transfusion Reactions: No Reported Reaction Past Psychological History: No Psychological Hx Reported Smoking Status: Never smoker Past Alcohol Use History: Occasional Past Drug Use History: None Reported - Past Family History Father Family Medical History: Cancer Medications and Allergies Home Medications Medication Instructions Recorded Confirmed Type Calcium Carbonate [Tums] 500 mg PO DAILY 10/19/21 11/17/21 History Cholecalciferol (Vitamin D3) 125 mcg PO DAILY 10/19/21 11/17/21 History [Vitamin D3 (125 MCG = 5,000 IU)] Magnesium 250 mg PO DAILY 10/19/21 11/17/21 History Potassium Gluconate [Potassium 99 mg PO DAILY 10/19/21 11/17/21 History Gluconate ER] Vitamin E (Dl,Tocopheryl Acet) 400 unit PO DAILY 10/19/21 11/17/21 History [Vitamin E (400 Iu = 180 mg)] amLODIPine BES/OLMESARTAN MED 1 tab PO DAILY 10/19/21 11/18/21 History [amLODIPine BES/OLMESARTAN MED 5-20 mg] atenoloL [Tenormin] 25 mg PO DAILY 10/19/21 11/18/21 History Piperacillin-Tazobactam [Zosyn] 3.375 gm IVPB Q8HR 14 Days each 10/26/21 11/17/21 Rx Procto-Med Hc 2.5% Cream 1 applic RECTAL TID PRN 11/17/21 11/17/21 History Allergies Allergy/AdvReac Type Severity Reaction Status Date / Time No Known Allergies Allergy Verified 11/17/21 16:54 Physical Exam Osteopathic Statement: *. No significant issues noted on an osteopathic structural exam other than those noted in the History and Physical/Consult. Vitals: Vital Signs Temp Pulse Pulse Resp BP BP Pulse Ox 11/18/21 09:27 22 11/18/21 08:00 98.4 F 103 H 20 129/76 92 L 11/18/21 04:00 98.8 F 114 H 20 107/65 91 L 11/18/21 00:00 98.4 F 117 H 20 115/69 91 L 11/17/21 21:51 98.7 F 119 H 21 129/78 91 L 11/17/21 17:00 102 H 5 L 98/69 91 L 11/17/21 16:30 115 H 18 112/85 98 11/17/21 16:00 115 H 18 127/89 97 11/17/21 14:34 84 L 11/17/21 14:29 96.9 F L 76 18 97/64 80 L Intake and Output 11/17/21 11/18/21 11/18/21 22:59 06:59 14:59 Intake Total 312.243 699.863 Balance 312.243 699.863 Intake: IV 610 Invasive Line 1 10 Sodium Chloride 0.9% 1, 600 000 ml @ 75 mls/hr IV . [id number] STA Rx#:[id number] Intake, IV Titration 72.243 89.863 Amount Heparin Sod,Pork in 0.45% 72.243 89.863 NaCl 25,000 unit In 0.45 % NaCl 1 250ml.bag @ 11 UNITS/KG/HR 9.829 mls/hr IV .Q24H SEJAL Rx#: [id number] Oral 240 Other: Voiding Method Bedside Commode Bedside Commode Urinal Urinal # Voids 1 # Bowel Movements 1 Weight 89.358 kg No acute distress, oriented 3. Currently on 6 L nasal cannula. No conversational dyspnea or use of accessory muscles. HEENT examination is grossly unremarkable. Neck supple. Full range of motion. No adenopathy thyromegaly or neck vein distention. Cardiovascular examination reveals regular rhythm rate. S1-S2 normal. No S3 or S4. No discernible murmur noted. Heart sounds are distant. Heart rate 103 bpm. Lungs reveal mostly clear breath sounds. No significant wheezes, rhonchi, or crackles. Currently on 6 L. Saturations 92%. Abdomen soft, but a bit distended. Tender on palpation. Extremities are intact. No cyanosis clubbing or edema. Skin is without rash or lesion. Neurologic examination is brief but nonfocal. Results - Laboratory Findings CBC and BMP: 11/18/21 12:09 11/18/21 08:31 PT/INR, D-dimer D-Dimer 1.97 mg/L FEU (<0.60) H 11/17/21 19:23 Abnormal lab findings: Abnormal Labs 11/17/21 11/17/2111/17/22 15:12 15:12 15:12 RBC 3.94 L Hgb 10.0 L Hct 31.5 L MCV Lymphocytes # 0.7 L APTT D-Dimer Sodium 129 L Chloride 96 L Carbon Dioxide Glucose 113 H Calcium Creatine Kinase 45 L Troponin I 0.110 H* Ur Specific [place] Urine Protein Urine Glucose (UA) Urine Ketones Urine Bacteria Urine Mucus 11/17/21 11/17/21 11/17/21 18:48 19:23 22:24 RBC Hgb Hct MCV Lymphocytes # APTT D-Dimer 1.97 H Sodium Chloride Carbon Dioxide Glucose Calcium Creatine Kinase Troponin I 0.219 H* 0.305 H* Ur Specific [place] Urine Protein Urine Glucose (UA) Urine Ketones Urine Bacteria Urine Mucus 11/17/21 11/18/21 11/18/21 23:00 01:15 08:31 RBC Hgb Hct MCV Lymphocytes # APTT 30.2 H 38.4 H D-Dimer Sodium Chloride Carbon Dioxide Glucose Calcium Creatine Kinase Troponin I Ur Specific [place] >1.050 H Urine Protein 1+ H Urine Glucose (UA) Trace H Urine Ketones 3+ H Urine Bacteria Rare H Urine Mucus Rare H 11/18/21 11/18/21 11/18/21 08:31 12:08 12:09 RBC 3.72 L Hgb 9.5 L Hct 29.5 L MCV 79.3 L Lymphocytes # APTT 33.1 H D-Dimer Sodium 132 L Chloride Carbon Dioxide 21 L Glucose Calcium 8.3 L Creatine Kinase Troponin I Ur Specific [place] Urine Protein Urine Glucose (UA) Urine Ketones Urine Bacteria Urine Mucus - Diagnostic Findings Chest x-ray: image reviewed CT scan - chest: image reviewed Assessment and Plan Assessment: Acute pulmonary embolism, with right heart strain, and acute pulmonary hypertension. Cecal mass, suspicious for carcinoma. Recent episode of ruptured appendix, being treated as an outpatient, with IV Zosyn. History of hypertension. 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 Vague history of irregular heartbeat. Plan: Plan dated 11/18/2021. The patient is apparently being taken to the catheterization laboratory for catheter directed TPA and ultrasonic dissolution of the clot (EKOS). This is because the echocardiogram showed acute pulmonary hypertension, and an RV/LV ratio that was greater than 1.5. The patient will go to the intensive care unit after the procedure. The patient's currently on IV heparin. He continues on Zosyn. Computed tomography scan done yesterday shows a necrotic cecal mass, which could be consistent with colon cancer. Prognosis is guarded. Dopplers of the lower extremities were negative. Time with Patient: Greater than 30
[2021-11-18] MEDS ORDERED: MIDAZOLAM 2 MG/2 ML VIAL IV ONE (14:20)
[2021-11-18] MEDS ORDERED: LIDOCAINE 1% INJ 10MG/ML (30 ML VIAL-PF) SQ ONE (14:21)
[2021-11-18] MEDS ORDERED: IV FLUID CONTINUATION 800 ML IV ONE (14:27)
--- NOTE | 2021-11-18 14:27 | P.PN ---
Subjective Progress Note Date: 11/18/21 Principal diagnosis: syncope Feeling ok, states he has been having diarrhea since yesterday. No further episodes of dizziness or syncope. No pain or sob. Objective - Vital Signs Vital signs: Vital Signs Temp 98.4 F 11/18/21 08:00 Pulse 103 H 11/18/21 08:00 Resp 22 11/18/21 09:27 BP 129/76 11/18/21 08:00 Pulse Ox 92 L 11/18/21 08:00 FiO2 Intake & Output 11/17/21 11/18/21 11/18/21 18:59 06:59 18:59 Intake Total 312.243 752.754 Balance 312.243 752.754 Weight 89.358 kg 89.358 kg Intake: IV 620 Invasive Line 1 20 Sodium Chloride 0.9% 1, 600 000 ml @ 75 mls/hr IV . [id number] STA Rx#:[id number] Intake, IV Titration 72.243 132.754 Amount Heparin Sod,Pork in 0.45% 72.243 132.754 NaCl 25,000 unit In 0.45 % NaCl 1 250ml.bag @ 11 UNITS/KG/HR 9.829 mls/hr IV .Q24H SEJAL Rx#: [id number] Oral 240 Other: Voiding Method Bedside Commode Bedside Commode Urinal Urinal # Voids 1 # Bowel Movements 1 - Exam Constitutional: No acute distress, conversant, pleasant Eyes:Anicteric sclerae, moist conjunctiva, no lid-lag, PERRLA, ENMT: Oropharynx clear, no erythema, exudates Neck: Supple, FROM, no masses, or JVD, No carotid bruits, No thyromegaly Lungs: Clear to auscultation, Clear to percussion, Normal respiratory effort, no accessory muscle use Cardiovascular: Heart regular in rate and rhythm, No murmurs, gallops, or rubs, No peripheral edema Abdominal: Soft, Nontender, no guarding, rebound or rigidity, Normoactive bowel sounds, No hepatomegaly, No splenomegaly, No palpable mass Skin: Normal temperature, tone, texture, turgor, no induration, No subcutaneous nodules, No rash, lesions, No ulcers Extremities: No digital cyanosis, No clubbing, Pedal pulses intact and symmetrical, Radial pulses intact and symmetrical, No calf tenderness Psychiatric: Alert and oriented to person, place and time, appropriate affect, intact judgement Neuro: Muscles Strength 5/5 in all 4 extremities, Sensation to light touch grossly present throughout, Cranial nerves II-XII grossly intact, no focal sensory deficits - Labs CBC & Chem 7: 11/18/21 12:09 11/18/21 08:31 Labs: Abnormal Lab Results - Last 24 Hours (Table) 11/17/21 11/17/21 11/17/21 Range/Units 15:12 15:12 15:12 RBC 3.94 L (4.30-5.90) m/uL Hgb 10.0 L (13.0-17.5) gm/dL Hct 31.5 L (39.0-53.0) % MCV (80.0-100.0) fL Lymphocytes # 0.7 L (1.0-4.8) k/uL APTT (22.0-30.0) sec D-Dimer (<0.60) mg/L FEU Sodium 129 L (137-145) mmol/L Chloride 96 L (98-107) mmol/L Carbon Dioxide (22-30) mmol/L Glucose 113 H (74-99) mg/dL Calcium (8.4-10.2) mg/dL Creatine Kinase 45 L (55-170) U/L Troponin I 0.110 H* (0.000-0.034) ng/mL Ur Specific [place] (1.001-1.035) Urine Protein (Negative) Urine Glucose (UA) (Negative) Urine Ketones (Negative) Urine Bacteria (None) /hpf Urine Mucus (None) /hpf 11/17/21 11/17/21 11/17/21 Range/Units 18:48 19:23 22:24 RBC (4.30-5.90) m/uL Hgb (13.0-17.5) gm/dL Hct (39.0-53.0) % MCV (80.0-100.0) fL Lymphocytes # (1.0-4.8) k/uL APTT (22.0-30.0) sec D-Dimer 1.97 H (<0.60) mg/L FEU Sodium (137-145) mmol/L Chloride (98-107) mmol/L Carbon Dioxide (22-30) mmol/L Glucose (74-99) mg/dL Calcium (8.4-10.2) mg/dL Creatine Kinase (55-170) U/L Troponin I 0.219 H* 0.305 H* (0.000-0.034) ng/mL Ur Specific [place] (1.001-1.035) Urine Protein (Negative) Urine Glucose (UA) (Negative) Urine Ketones (Negative) Urine Bacteria (None) /hpf Urine Mucus (None) /hpf 11/17/21 11/18/21 11/18/21 Range/Units 23:00 01:15 08:31 RBC (4.30-5.90) m/uL Hgb (13.0-17.5) gm/dL Hct (39.0-53.0) % MCV (80.0-100.0) fL Lymphocytes # (1.0-4.8) k/uL APTT 30.2 H 38.4 H (22.0-30.0) sec D-Dimer (<0.60) mg/L FEU Sodium (137-145) mmol/L Chloride (98-107) mmol/L Carbon Dioxide (22-30) mmol/L Glucose (74-99) mg/dL Calcium (8.4-10.2) mg/dL Creatine Kinase (55-170) U/L Troponin I (0.000-0.034) ng/mL Ur Specific [place] >1.050 H (1.001-1.035) Urine Protein 1+ H (Negative) Urine Glucose (UA) Trace H (Negative) Urine Ketones 3+ H (Negative) Urine Bacteria Rare H (None) /hpf Urine Mucus Rare H (None) /hpf 11/18/21 11/18/21 11/18/21 Range/Units 08:31 12:08 12:09 RBC 3.72 L (4.30-5.90) m/uL Hgb 9.5 L (13.0-17.5) gm/dL Hct 29.5 L (39.0-53.0) % MCV 79.3 L (80.0-100.0) fL Lymphocytes # (1.0-4.8) k/uL APTT 33.1 H (22.0-30.0) sec D-Dimer (<0.60) mg/L FEU Sodium 132 L (137-145) mmol/L Chloride (98-107) mmol/L Carbon Dioxide 21 L (22-30) mmol/L Glucose (74-99) mg/dL Calcium 8.3 L (8.4-10.2) mg/dL Creatine Kinase (55-170) U/L Troponin I (0.000-0.034) ng/mL Ur Specific [place] (1.001-1.035) Urine Protein (Negative) Urine Glucose (UA) (Negative) Urine Ketones (Negative) Urine Bacteria (None) /hpf Urine Mucus (None) /hpf Assessment and Plan Plan: Near syncope, likely sec to PE -IV heparin. Necrotic abdominal mass, malignancy versus abscess in setting of recent perforated appendix -Continue IV Zosyn -Surgery planning colonoscopy to biopsy the cecal mass -Follow up blood cultures -Consult oncology Elevated troponin -Likely sec to PE cardio following, on IV heparin -Continue aspirin Hyponatremia -May be due to underlying malignancy -Continue IV hydration and monitor for now Chronic anemia -Check work up, iron panel, B12, folate DVT prophylaxis -Heparin infusion CODE STATUS: Full Code Discussed with: Patient Anticipated discharge date: 2-[address]: Home
[2021-11-18 14:44] LABS: Chol/HDL Ratio 3.21 Ratio; LDL Cholesterol,Calculated 48.9 mg/dL (0.0-131.0); VLDL Calculation 16.08 mg/dL (5.00-40.00)
--- NOTE | 2021-11-18 15:00 | P.PCN ---
Date of Procedure: 11/18/21 Operative Findings: Placement of ultrasonic catheter in the pulmonary artery Performing physician Garret Macario MD Procedure performed #1 successful placement of ultrasound catheter in the right and left pulmonary arteries #2 ultrasound-guided access of the right common femoral vein 2 Indication This is a 72-year-old gentleman who presented to the hospital with shortness of breath of sudden onset. He was found to have elevated d-dimer but the EKG showed sinus tachycardia with S1/Q3/T3 pattern. In the light of that computed tomography scan was performed and showed evidence of bilateral PE with evidence of RV strain by echocardiogram. He was diagnosed with submassive PE. Approach Right common femoral veins time to Complication None Level of sedation Moderate sedation length of 30 minutes Procedure description After obtaining an informed consent the patient was brought to the cardiac laboratory courier. The right common femoral vein was cannulated 2 using ultrasound guidance, and I placed a 6-Persian sheath. Under fluoroscopy guidance an 035 stiff Glidewire was advanced to the right ventricle with adjunctive JR4 catheter. Subsequently the wire was advanced initially to the right pulmonary artery and subsequently did left pulmonary arteries. After that the JR4 catheter was withdrawn out and I advanced the infusion catheter over 035 wire to the right and left pulmonary arteries. After that the ultrasonic catheter was placed inside the infusion catheter. The procedure was completed without any complication Postprocedure management #1 monitor the patient in the intensive. #2 pulled the catheter tomorrow morning
--- NOTE | 2021-11-18 15:08 | P.CONS ---
History of Present Illness - Reason for Consult Consult date: 11/18/21 Cecal Mass Requesting physician: Dayami Pak - History of Present Illness Mr. Cooper is a 71-year-old male with a PMH of recent hospitalization from 10/19-10/26 for perforated appendicitis with phlegmn who presents to the emergency room for syncope. Status post 2 week course of IV antibiotics. He was sent to ER for abdominal CT by PCP and experienced syncopal episodes on arrival. He denied any fever. Denied abdominal pain, nausea, vomiting, diarrhea. CTA revealed Moderate Pulmonary embolism and heparin drip initiated. CT abdomen and Pelvis CT abdomen and pelvis revealed necrotic enhancing mass 7.9 x 7.7 cm involving the base of the appendix concerning for malignancy. There was also enlarged mesenteric lymph nodes possibly metastatic with a chronic necrotic abscess in t he differential. We have been asked by surgery to further evaluate due to above findings, colonoscopy is planned next week with possible colectomy. 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 Now with cecal mass. Review of Systems All systems: negative Constitutional: Reports as per HPI Past Medical History Past Medical History: Cancer, Hypertension Additional Past Medical History / Comment(s): squamous cell carcinoma-in remission, tachycardic, recent ruptured appendix History of Any Multi-Drug Resistant Organisms: None Reported Additional Past Surgical History / Comment(s): dental, bilateral cataract removal, metaport Past Anesthesia/Blood Transfusion Reactions: No Reported Reaction Past Psychological History: No Psychological Hx Reported Smoking Status: Never smoker Past Alcohol Use History: Occasional Past Drug Use History: None Reported - Past Family History Father Family Medical History: Cancer Medications and Allergies Home Medications Medication Instructions Recorded Confirmed Type Calcium Carbonate [Tums] 500 mg PO DAILY 10/19/21 11/17/21 History Cholecalciferol (Vitamin D3) 125 mcg PO DAILY 10/19/21 11/17/21 History [Vitamin D3 (125 MCG = 5,000 IU)] Magnesium 250 mg PO DAILY 10/19/21 11/17/21 History Potassium Gluconate [Potassium 99 mg PO DAILY 10/19/21 11/17/21 History Gluconate ER] Vitamin E (Dl,Tocopheryl Acet) 400 unit PO DAILY 10/19/21 11/17/21 History [Vitamin E (400 Iu = 180 mg)] amLODIPine BES/OLMESARTAN MED 1 tab PO DAILY 10/19/21 11/18/21 History [amLODIPine BES/OLMESARTAN MED 5-20 mg] atenoloL [Tenormin] 25 mg PO DAILY 10/19/21 11/18/21 History Piperacillin-Tazobactam [Zosyn] 3.375 gm IVPB Q8HR 14 Days each 10/26/21 11/17/21 Rx Procto-Med Hc 2.5% Cream 1 applic RECTAL TID PRN 11/17/21 11/17/21 History Allergies Allergy/AdvReac Type Severity Reaction Status Date / Time No Known Allergies Allergy Verified 11/17/21 16:54 Physical Exam Vitals: Vital Signs Temp Pulse Pulse Resp BP BP Pulse Ox 11/18/21 08:00 98.4 F 103 H 20 129/76 92 L 11/18/21 04:00 98.8 F 114 H 20 107/65 91 L 11/18/21 00:00 98.4 F 117 H 20 115/69 91 L 11/17/21 21:51 98.7 F 119 H 21 129/78 91 L 11/17/21 17:00 102 H 5 L 98/69 91 L 11/17/21 16:30 115 H 18 112/85 98 11/17/21 16:00 115 H 18 127/89 97 11/17/21 14:34 84 L 11/17/21 14:29 96.9 F L 76 18 97/64 80 L Intake and Output 11/17/21 11/18/21 11/18/21 22:59 06:59 14:59 Intake Total 312.243 89.863 Balance 312.243 89.863 Intake: Intake, IV Titration 72.243 89.863 Amount Heparin Sod,Pork in 0.45% 72.243 89.863 NaCl 25,000 unit In 0.45 % NaCl 1 250ml.bag @ 11 UNITS/KG/HR 9.829 mls/hr IV .Q24H [facility] Rx#: [id number] Oral 240 Other: Voiding Method Bedside Commode Urinal # Voids 1 # Bowel Movements 1 Weight 89.358 kg - Constitutional General appearance: cooperative, no acute distress - EENT Eyes: EOMI ENT: NA/AT - Neck Neck: normal ROM - Respiratory Respiratory: bilateral: CTA, diminished - Cardiovascular Rhythm: regularly irregular - Gastrointestinal General gastrointestinal: tenderness - Integumentary Integumentary: pale - Neurologic Neurologic: CNII-XII intact - Musculoskeletal Musculoskeletal: generalized weakness - Psychiatric Psychiatric: A&O x's 3, appropriate affect, intact judgment & insight Results CBC & Chem 7: 11/18/21 12:09 11/18/21 08:31 Labs: Abnormal Lab Results - Last 24 Hours (Table) 11/17/21 11/17/21 11/17/21 Range/Units 15:12 15:12 15:12 RBC 3.94 L (4.30-5.90) m/uL Hgb 10.0 L (13.0-17.5) gm/dL Hct 31.5 L (39.0-53.0) % Lymphocytes # 0.7 L (1.0-4.8) k/uL APTT (22.0-30.0) sec D-Dimer (<0.60) mg/L FEU Sodium 129 L (137-145) mmol/L Chloride 96 L (98-107) mmol/L Carbon Dioxide (22-30) mmol/L Glucose 113 H (74-99) mg/dL Calcium (8.4-10.2) mg/dL Creatine Kinase 45 L (55-170) U/L Troponin I 0.110 H* (0.000-0.034) ng/mL Ur Specific [place] (1.001-1.035) Urine Protein (Negative) Urine Glucose (UA) (Negative) Urine Ketones (Negative) Urine Bacteria (None) /hpf Urine Mucus (None) /hpf 11/17/21 11/17/21 11/17/21 Range/Units 18:48 19:23 22:24 RBC (4.30-5.90) m/uL Hgb (13.0-17.5) gm/dL Hct (39.0-53.0) % Lymphocytes # (1.0-4.8) k/uL APTT (22.0-30.0) sec D-Dimer 1.97 H (<0.60) mg/L FEU Sodium (137-145) mmol/L Chloride (98-107) mmol/L Carbon Dioxide (22-30) mmol/L Glucose (74-99) mg/dL Calcium (8.4-10.2) mg/dL Creatine Kinase (55-170) U/L Troponin I 0.219 H* 0.305 H* (0.000-0.034) ng/mL Ur Specific [place] (1.001-1.035) Urine Protein (Negative) Urine Glucose (UA) (Negative) Urine Ketones (Negative) Urine Bacteria (None) /hpf Urine Mucus (None) /hpf 11/17/21 11/18/21 11/18/21 Range/Units 23:00 01:15 08:31 RBC (4.30-5.90) m/uL Hgb (13.0-17.5) gm/dL Hct (39.0-53.0) % Lymphocytes # (1.0-4.8) k/uL APTT 30.2 H 38.4 H (22.0-30.0) sec D-Dimer (<0.60) mg/L FEU Sodium (137-145) mmol/L Chloride (98-107) mmol/L Carbon Dioxide (22-30) mmol/L Glucose (74-99) mg/dL Calcium (8.4-10.2) mg/dL Creatine Kinase (55-170) U/L Troponin I (0.000-0.034) ng/mL Ur Specific [place] >1.050 H (1.001-1.035) Urine Protein 1+ H (Negative) Urine Glucose (UA) Trace H (Negative) Urine Ketones 3+ H (Negative) Urine Bacteria Rare H (None) /hpf Urine Mucus Rare H (None) /hpf 11/18/21 Range/Units 08:31 RBC (4.30-5.90) m/uL Hgb (13.0-17.5) gm/dL Hct (39.0-53.0) % Lymphocytes # (1.0-4.8) k/uL APTT (22.0-30.0) sec D-Dimer (<0.60) mg/L FEU Sodium 132 L (137-145) mmol/L Chloride (98-107) mmol/L Carbon Dioxide 21 L (22-30) mmol/L Glucose (74-99) mg/dL Calcium 8.3 L (8.4-10.2) mg/dL Creatine Kinase (55-170) U/L Troponin I (0.000-0.034) ng/mL Ur Specific [place] (1.001-1.035) Urine Protein (Negative) Urine Glucose (UA) (Negative) Urine Ketones (Negative) Urine Bacteria (None) /hpf Urine Mucus (None) /hpf CT scan - abdomen: report reviewed CT scan - chest: report reviewed CT scan - pelvis: report reviewed Assessment and Plan (1) Pulmonary embolism Narrative/Plan: Heparin drip to continue and BLE Doppler ordered THis will continue at this time until after all surgical intervention are completed next week. Patient will need to remain in hospital with new acute thrombus and likely need for surgical intervention Current Visit: Yes Status: Acute Code(s): I26.99 - OTHER PULMONARY EMBOLISM WITHOUT ACUTE COR PULMONALE SNOMED Code(s): 93785258 (2) History of peritonitis Narrative/Plan: Recent Appendicitis rupture and repair. Current Visit: Yes Status: Acute Code(s): Z87.19 - PERSONAL HISTORY OF OTHER DISEASES OF THE DIGESTIVE SYSTEM SNOMED Code(s): 737373148 (3) Cecum mass Narrative/Plan: Large mass seen on CT: COlonoscopy with possible colectomy planned this coming week Current Visit: Yes Status: Acute Code(s): K63.89 - OTHER SPECIFIED DISEASES OF INTESTINE SNOMED Code(s): 0843485416 (4) Syncope and collapse Narrative/Plan: Likely due to PE, Heparin drip to continue and change to DOAC after all surgical interventions Current Visit: Yes Status: Acute Code(s): R55 - SYNCOPE AND COLLAPSE SNOMED Code(s): 245564088 (5) History of head and neck cancer Narrative/Plan: 2002, definitive radiaiton and chemotherapy per patient P16 positive Current Visit: Yes Status: Acute Code(s): Z85.89 - PERSONAL HISTORY OF MALIGNANT NEOPLASM OF ORGANS AND SYSTEMS SNOMED Code(s): 982125942
[2021-11-18 15:31] LABS: Glucose,Whole Blood 99 mg/dL (70-110)
[2021-11-18] MEDS: SODIUM CHLORIDE 0.9% 1,000 ML IV SCH ×2 (15:59→16:02)
[2021-11-18] MEDS: CALCIUM CARBONATE 500 MG CHEWABLE PO PRN (16:34)
[2021-11-18 18:46] LABS: Partial Thromboplastin Time 28.9 sec (22.0-30.0); Prothrombin Time 11.1 sec (9.0-12.0)
--- NOTE | 2021-11-19 00:42 | P.CONS ---
History of Present Illness - Reason for Consult Consult date: 11/18/21 Antibiotic selection Requesting physician: Dimitry Camilo - Chief Complaint Passed out x one day - History of Present Illness Patient is a 71-year-old male was recently admitted to this hospital in this patient did have a right-sided abdominal pain patient did have a CT and there was concern for possible ruptured appendicitis and an abscess patient did shows clinical improvement with Zosyn and subsequently the patient was discharged home on IV Zosyn for 2 weeks pending repeat CAT scan which was completed yesterday and the radiologist called me concerning for possible necrotic cecal tumor and obstruction of the appendix, patient apparently has been feeling weak and the patient nearly fainted after completion of his CT abdominal pelvis patient subsequently presented to the [facility] ER on presentation to the hospital the patient was initially febrile subsequently did have low-grade fever of 99.3 F patient did have a normal white count D-dimer was mildly elevated kidney function was normal troponin was mildly elevated patient did have a chest x-ray no acute cardiopulmonary process patient did have a CT angiogram completed this morning that shows evidence of moderate PE lower extremity Doppler was negative for DVT patient currently being treated with heparin and Zosyn infectious disease was consulted for further management of antibiotic therapy, patient did mention overall improvement in his abdominal pain patient currently denies having any nausea or vomiting and denies any diarrhea or constipation Review of Systems Positive point has been mentioned in the HPI rest of the systems are negative Past Medical History Past Medical History: Cancer, Hypertension Additional Past Medical History / Comment(s): squamous cell carcinoma-in remiss ion, tachycardic, recent ruptured appendix History of Any Multi-Drug Resistant Organisms: None Reported Additional Past Surgical History / Comment(s): dental, bilateral cataract removal, metaport Past Anesthesia/Blood Transfusion Reactions: No Reported Reaction Past Psychological History: No Psychological Hx Reported Smoking Status: Never smoker Past Alcohol Use History: Occasional Past Drug Use History: None Reported - Past Family History Father Family Medical History: Cancer Medications and Allergies Home Medications Medication Instructions Recorded Confirmed Type Calcium Carbonate [Tums] 500 mg PO DAILY 10/19/21 11/17/21 History Cholecalciferol (Vitamin D3) 125 mcg PO DAILY 10/19/21 11/17/21 History [Vitamin D3 (125 MCG = 5,000 IU)] Magnesium 250 mg PO DAILY 10/19/21 11/17/21 History Potassium Gluconate [Potassium 99 mg PO DAILY 10/19/21 11/17/21 History Gluconate ER] Vitamin E (Dl,Tocopheryl Acet) 400 unit PO DAILY 10/19/21 11/17/21 History [Vitamin E (400 Iu = 180 mg)] amLODIPine BES/OLMESARTAN MED 1 tab PO DAILY 10/19/21 11/18/21 History [amLODIPine BES/OLMESARTAN MED 5-20 mg] atenoloL [Tenormin] 25 mg PO DAILY 10/19/21 11/18/21 History Piperacillin-Tazobactam [Zosyn] 3.375 gm IVPB Q8HR 14 Days each 10/26/21 11/17/21 Rx Procto-Med Hc 2.5% Cream 1 applic RECTAL TID PRN 11/17/21 11/17/21 History Apixaban [Eliquis Starter Pack 5 - 10 mg PO DIRECTED 30 Days 11/21/21 Rx (for VTE)] #1 each Allergies Allergy/AdvReac Type Severity Reaction Status Date / Time No Known Allergies Allergy Verified 11/17/21 16:54 Physical Exam Vitals: Vital Signs Temp Pulse Pulse Resp BP BP Pulse Ox 11/18/21 08:00 98.4 F 103 H 20 129/76 92 L 11/18/21 04:00 98.8 F 114 H 20 107/65 91 L 11/18/21 00:00 98.4 F 117 H 20 115/69 91 L 11/17/21 21:51 98.7 F 119 H 21 129/78 91 L 11/17/21 17:00 102 H 5 L 98/69 91 L 11/17/21 16:30 115 H 18 112/85 98 11/17/21 16:00 115 H 18 127/89 97 11/17/21 14:34 84 L 11/17/21 14:29 96.9 F L 76 18 97/64 80 L Intake and Output 11/17/21 11/18/21 11/18/21 22:59 06:59 14:59 Intake Total 312.243 89.863 Balance 312.243 89.863 Intake: Intake, IV Titration 72.243 89.863 Amount Heparin Sod,Pork in 0.45% 72.243 89.863 NaCl 25,000 unit In 0.45 % NaCl 1 250ml.bag @ 11 UNITS/KG/HR 9.829 mls/hr IV .Q24H [facility] Rx#: [id number] Oral 240 Other: Voiding Method Bedside Commode Urinal # Voids 1 # Bowel Movements 1 Weight 89.358 kg GENERAL DESCRIPTION: Elderly male lying in bed, no distress. No tachypnea or accessory muscle of respiration use. HEENT: Shows Pallor , no scleral icterus. Oral mucous membrane is dry. No pharyngeal erythema or thrush NECK: Trachea central, no thyromegaly. LUNGS: Unlabored breathing. Clear to auscultation anteriorly. No wheeze or crackle. HEART: S1, S2, regular rate and rhythm. No loud murmur ABDOMEN: Soft, no tenderness , guarding or rigidity, no organomegaly EXTREMITIES: No edema of feet. SKIN: No rash, no masses palpable. NEUROLOGICAL: The patient is awake, alert, oriented x3, mood and affect normal. Results CBC & Chem 7: 11/23/21 03:58 11/23/21 03:58 Labs: Abnormal Lab Results - Last 24 Hours (Table) 11/17/21 11/17/21 11/17/21 Range/Units 15:12 15:12 15:12 RBC 3.94 L (4.30-5.90) m/uL Hgb 10.0 L (13.0-17.5) gm/dL Hct 31.5 L (39.0-53.0) % Lymphocytes # 0.7 L (1.0-4.8) k/uL APTT (22.0-30.0) sec D-Dimer (<0.60) mg/L FEU Sodium 129 L (137-145) mmol/L Chloride 96 L (98-107) mmol/L Carbon Dioxide (22-30) mmol/L Glucose 113 H (74-99) mg/dL Calcium (8.4-10.2) mg/dL Creatine Kinase 45 L (55-170) U/L Troponin I 0.110 H* (0.000-0.034) ng/mL Ur Specific [place] (1.001-1.035) Urine Protein (Negative) Urine Glucose (UA) (Negative) Urine Ketones (Negative) Urine Bacteria (None) /hpf Urine Mucus (None) /hpf 11/17/21 11/17/21 11/17/21 Range/Units 18:48 19:23 22:24 RBC (4.30-5.90) m/uL Hgb (13.0-17.5) gm/dL Hct (39.0-53.0) % Lymphocytes # (1.0-4.8) k/uL APTT (22.0-30.0) sec D-Dimer 1.97 H (<0.60) mg/L FEU Sodium (137-145) mmol/L Chloride (98-107) mmol/L Carbon Dioxide (22-30) mmol/L Glucose (74-99) mg/dL Calcium (8.4-10.2) mg/dL Creatine Kinase (55-170) U/L Troponin I 0.219 H* 0.305 H* (0.000-0.034) ng/mL Ur Specific [place] (1.001-1.035) Urine Protein (Negative) Urine Glucose (UA) (Negative) Urine Ketones (Negative) Urine Bacteria (None) /hpf Urine Mucus (None) /hpf 11/17/21 11/18/21 11/18/21 Range/Units 23:00 01:15 08:31 RBC (4.30-5.90) m/uL Hgb (13.0-17.5) gm/dL Hct (39.0-53.0) % Lymphocytes # (1.0-4.8) k/uL APTT 30.2 H 38.4 H (22.0-30.0) sec D-Dimer (<0.60) mg/L FEU Sodium (137-145) mmol/L Chloride (98-107) mmol/L Carbon Dioxide (22-30) mmol/L Glucose (74-99) mg/dL Calcium (8.4-10.2) mg/dL Creatine Kinase (55-170) U/L Troponin I (0.000-0.034) ng/mL Ur Specific [place] >1.050 H (1.001-1.035) Urine Protein 1+ H (Negative) Urine Glucose (UA) Trace H (Negative) Urine Ketones 3+ H (Negative) Urine Bacteria Rare H (None) /hpf Urine Mucus Rare H (None) /hpf 11/18/21 Range/Units 08:31 RBC (4.30-5.90) m/uL Hgb (13.0-17.5) gm/dL Hct (39.0-53.0) % Lymphocytes # (1.0-4.8) k/uL APTT (22.0-30.0) sec D-Dimer (<0.60) mg/L FEU Sodium 132 L (137-145) mmol/L Chloride (98-107) mmol/L Carbon Dioxide 21 L (22-30) mmol/L Glucose (74-99) mg/dL Calcium 8.3 L (8.4-10.2) mg/dL Creatine Kinase (55-170) U/L Troponin I (0.000-0.034) ng/mL Ur Specific [place] (1.001-1.035) Urine Protein (Negative) Urine Glucose (UA) (Negative) Urine Ketones (Negative) Urine Bacteria (None) /hpf Urine Mucus (None) /hpf Assessment and Plan (1) Peritonitis Current Visit: No Status: Acute Code(s): K65.9 - PERITONITIS, UNSPECIFIED SNOMED Code(s): 81254335 Plan: 1patient presented to hospital with near syncopal episode in this patient currently being treated for possible periappendicular abscess however the pat ient repeat CAT scan is suspicious for possible necrotic cecal tumor and obstruction of the appendix and this finding has been discussed with the surgeon who is planning for a colonoscopy followed by surgical procedure later this week. 2we will continue the patient on Zosyn while awaiting further work-up to be completed. We will follow on clinical condition and cultures to further adjust medication if needed Thank you for this consultation will follow this patient along with you Time with Patient: Greater than 30
[2021-11-19] MEDS: ACETAMINOPHEN TAB 325 MG TAB PO PRN ×3 (01:13→20:34)
[2021-11-19] MEDS ORDERED: ZOLPIDEM 5 MG TAB PO PRN (01:26)
[2021-11-19] MEDS: PIPERACILLIN-TAZOBACTAM 3.375 GM in SODIUM CHLORIDE 0.9% 100 ML IVPB SCH ×3 (07:45→23:23)
[2021-11-19 07:52] LABS: Basophils # (A) 0.1 k/uL (0-0.2); Basophils % (A) 1 %; Eosinophils # (A) 0.3 k/uL (0-0.7); Eosinophils % (A) 3 %; HCT 32.4 % (39.0-53.0); HGB 10.2 gm/dL (13.0-17.5); Hypochromasia Moderate; Lymphocytes # (A) 0.9 k/uL (1.0-4.8); Lymphocytes % (A) 9 %; MCH 24.8 pg (25.0-35.0); MCHC 31.5 g/dL (31.0-37.0); MCV 78.9 fL (80.0-100.0); Mean Platelet Volume 7.9; Monocytes % (A) 10 %; Neutrophils # (A) 7.4 k/uL (1.3-7.7); Neutrophils % (A) 75 %; Platelet Count 273 k/uL (150-450); RBC 4.11 m/uL (4.30-5.90); RDW 14.7 % (11.5-15.5); WBC 9.9 k/uL (3.8-10.6)
[2021-11-19 07:59] LABS: ALT 12 U/L (4-49); AST 26 U/L (17-59); African American GFR (CKD) >90 (>60 ml/min/1.73 sqM); Albumin 3.6 g/dL (3.5-5.0); Alkaline Phosphatase 83 U/L (38-126); Anion Gap 13 mmol/L; Blood Urea Nitrogen 5 mg/dL (9-20); Calcium 8.1 mg/dL (8.4-10.2); Carbon Dioxide 22 mmol/L (22-30); Chloride 98 mmol/L (98-107); Glucose 93 mg/dL (74-99); Non-African American GFR(CKD) >90 (>60 ml/min/1.73 sqM); Potassium 3.7 mmol/L (3.5-5.1); Sodium 133 mmol/L (137-145); Total Bilirubin 0.9 mg/dL (0.2-1.3); Total Protein 6.1 g/dL (6.3-8.2)
[2021-11-19] MEDS: CHOLECALCIFEROL 125 MCG (5000 IU) TABLET PO SCH (08:08)
[2021-11-19] MEDS: ASPIRIN 81 MG PO SCH (08:08)
[2021-11-19] MEDS: amLODIPine 5 MG TAB PO SCH (08:08)
[2021-11-19] MEDS: atenoloL 25 MG TAB PO SCH (08:08)
[2021-11-19] MEDS: CALCIUM CARBONATE 500 MG CHEWABLE PO SCH (08:09)
[2021-11-19] MEDS: LOSARTAN 25 MG TAB PO SCH (08:09)
[2021-11-19] MEDS: POTASSIUM CHLORIDE ER 10 MEQ TAB.ER.PRT PO SCH (08:09)
[2021-11-19] MEDS: MAGNESIUM OXIDE 400 MG TAB PO SCH (08:09)
[2021-11-19] MEDS ORDERED: ASPIRIN 81 MG PO SCH (09:00)
--- NOTE | 2021-11-19 10:26 | P.PN ---
Progress Note - Text Progress Note Date: 11/19/21 The patient's resting comfortably in the ICU. He denies a significant pain. He's had no evidence of GI bleed. Newly diagnosed cecal tumor. Patient scheduled for colonoscopy on Sunday.
--- NOTE | 2021-11-19 10:39 | CA ---
Transthoracic Echo Report Name: Prudencio Cooper Age: 71 Gender: M : 1950 Exam Date: 11/18/2021 11:10 Exam Location: [facility] Ht (in): 62 Wt (lb): 197 Ordering Physician: Deneen Johnson Attending/Referring Phys: Restaurant Service Manager Maria Fernanda Hadley, CARRIE Procedure CPT: Indications: eval RV for strain, LV function, abnormal trop Cardiac Hx: Echo done 10/21/21: Repeat Echo for RV Strain Technical Quality: Fair Contrast 1: Total Dose (mL): Contrast 2: Total Dose (mL): MEASUREMENTS (Male / Female) Normal Values 2D ECHO RV Internal Dim ED PLAX 4.5 cm DOPPLER TR Peak Velocity 270.0 cm/s TR Peak Gradient 39.0 mmHg FINDINGS Left Ventricle Left ventricular ejection fraction is estimated at 50-55 %. Right Ventricle Severe right ventricular dilatation. RV Strain 15.488mm moderate pulmonary hypertension. Right Atrium Left Atrium Mitral Valve Aortic Valve Tricuspid Valve [id number] tricuspid regurgitation. Pulmonic Valve Pericardium Aorta CONCLUSIONS #1. Left ventricular size and function are normal. #2. Right ventricular dilatation with evidence of pulmonary hypertension and right ventricular strain Previewed by: Dr. Kole Weiss MD (Electronically Signed) Final Date: 19 November 2021 10:38
--- NOTE | 2021-11-19 12:03 | P.PN ---
Subjective Progress Note Date: 11/19/21 Principal diagnosis: Pulmonary embolism 71-year-old male seen in consultation, for shortness of breath. The patient was initially seen in the emergency department, on November 17, complaining of syncope, and weakness. The patient has a recent history of a ruptured appendix, being treated with outpatient IV Zosyn. The patient was to come to the hospital today for a computed tomography scan of the abdomen, and he had a near syncopal episode, feeling very lightheaded and dizzy. He also has not been eating or drinking very much recently. He also had shortness of breath, and was evaluated, and the CTA was positive for pulmonary embolism. This is why we are asked to see him. Currently, he's on 6 L. He is receiving IV heparin, and Zosyn. White count 7.8, he will benign 0.5, hematocrit 29.5, and platelet count normal. Sodium 132, potassium 4.2, chlorides 99, CO2 21, BUN 9, creatinine 0.87. Troponin was 0.305. Urine was unremarkable. The chest x-ray showed no acute cardiopulmonary process. The KUB x-ray showed left inguinal hernia, and nonspecific bowel pattern. EKG did show sinus tachycardia. It also did show an S in lead 1 and a Q in lead 3. CT angiogram showed bilateral pulmonary emboli, worse on the right side than on the left. There was no evidence of right heart strain on the CTA. Echocardiogram did show a pulmonary pressure that was elevated at 55, and also a right ventricular to left ventricular ratio of 1.5. Dopplers of the lower extremities were negative for DVT. The patient is seen today 11/20/2019 follow-up in the intensive care unit. He is resting comfortably in bed. Awake and alert in no acute distress. He was found to have RV strain on his echocardiogram. He did undergo in for an EKOS procedure yesterday. Femoral catheters still in place. Remains on heparin. He is on 6 L high flow nasal cannula. He's been afebrile. Hemodynamically stable. Blood culture reveals no growth. White count 9.9. Hemoglobin 10.2. Platelets 273. Sodium 133. Potassium 3.7. BUN 5. Creatinine 0.68. He is currently on Zosyn. Objective - Vital Signs Vital signs: Vital Signs Temp 98.8 F 11/19/21 08:00 Pulse 94 06/25/22 10:00 Resp 11 L 11/19/21 10:00 BP 139/91 11/19/21 10:00 Pulse Ox 96 11/19/21 10:00 FiO2 Intake & Output 11/18/21 11/19/21 11/19/21 18:59 06:59 18:59 Intake Total 912.754 480 330 Output Total 2140 750 Balance 912.956 -2494 -913 Weight 91.6 kg Intake: IV 780 320 100 Invasive Line 1 20 Piperacillin-Tazobactam 3 100 100 100 .375 gm In Sodium Chloride 0.9% 100 ml @ 25 mls/hr IVPB Q8HR [facility] Rx# :[id number] Sodium Chloride 0.9% 1, 660 220 000 ml @ 75 mls/hr IV . [id number] [facility] Rx#:[id number] Intake, IV Titration 132.754 160 80 Amount Heparin Sod,Pork in 0.45% 132.754 NaCl 25,000 unit In 0.45 % NaCl 1 250ml.bag @ 11 UNITS/KG/HR 9.829 mls/hr IV .Q24H [facility] Rx#: [id number] Sodium Chloride 0.9% 1, 160 80 000 ml @ Per Protocol IV .Q0M [facility] Rx#:[id number] Oral 150 Output: Urine 2140 750 Other: Voiding Method Urinal Urinal Urinal # Voids 2 - Exam GENERAL EXAM: Alert, 71-year-old male patient, on 6 L nasal cannula, fairly comfortable in no apparent distress. HEAD: Normocephalic. EYES: Normal reaction of pupils, equal size. NOSE: Clear with pink turbinates. THROAT: No erythema or exudates. NECK: No masses, no JVD. CHEST: No chest wall deformity. LUNGS: Equal air entry with no crackles, wheeze, rhonchi or dullness. CVS: S1 and S2 normal with no audible murmur, regular rhythm. ABDOMEN: No hepatosplenomegaly, normal bowel sounds, no guarding or rigidity. SPINE: No scoliosis or deformity SKIN: No rashes CENTRAL NERVOUS SYSTEM: No focal deficits, tone is normal in all 4 extremities. EXTREMITIES: Bilateral femoral catheters remain in place. There is no peripheral edema. No clubbing, no cyanosis. Peripheral pulses are intact. - Labs CBC & Chem 7: 11/19/21 07:36 11/19/21 07:36 Labs: Abnormal Lab Results - Last 24 Hours (Table) 11/18/21 11/18/21 11/18/21 Range/Units 08:31 12:08 12:09 RBC 3.72 L (4.30-5.90) m/uL Hgb 9.5 L (13.0-17.5) gm/dL Hct 29.5 L (39.0-53.0) % MCV 79.3 L (80.0-100.0) fL MCH (25.0-35.0) pg Lymphocytes # (1.0-4.8) k/uL APTT 33.1 H (22.0-30.0) sec Sodium (137-145) mmol/L BUN (9-20) mg/dL Calcium (8.4-10.2) mg/dL Total Protein (6.3-8.2) g/dL HDL Cholesterol 29.40 L (40.00-60.00) mg/dL 11/19/21 11/19/21 Range/Units 07:36 07:36 RBC 4.11 L (4.30-5.90) m/uL Hgb 10.2 L (13.0-17.5) gm/dL Hct 32.4 L (39.0-53.0) % MCV 78.9 L (80.0-100.0) fL MCH 24.8 L (25.0-35.0) pg Lymphocytes # 0.9 L (1.0-4.8) k/uL APTT (22.0-30.0) sec Sodium 133 L (137-145) mmol/L BUN 5 L (9-20) mg/dL Calcium 8.1 L (8.4-10.2) mg/dL Total Protein 6.1 L (6.3-8.2) g/dL HDL Cholesterol (40.00-60.00) mg/dL Microbiology - Last 24 Hours (Table) 11/17/21 15:19 Blood Culture - Preliminary Blood No Growth after 24 hours Assessment and Plan Assessment: Acute pulmonary embolism, with right heart strain, and acute pulmonary hypertension. He did undergo EKOS procedure on 11/18/2021. Remains on heparin. Cecal mass, suspicious for carcinoma. Recent episode of ruptured appendix, being treated as an outpatient, with IV Zosyn. History of hypertension. 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 Vague history of irregular heartbeat. Plan: The patient was seen and evaluated Resting comfortably in bed. Post EKOS procedure Remains on heparin Remains on Zosyn Titrate down the FiO2 as tolerated Okay for transfer out of the ICU We will continue to follow I have personally seen and examined the patient, performed the documentation and the assessment and plan as written. Number of minutes spent on the visit: 10.
--- NOTE | 2021-11-19 14:31 | P.PN ---
Subjective Progress Note Date: 11/19/21 This is a 72-year-old gentleman who presented to the hospital with shortness of breath of sudden onset. He was found to have elevated d-dimer but the EKG showed sinus tachycardia with S1/Q3/T3 pattern. In the light of that computed tomography scan was performed and showed evidence of bilateral PE with evidence of RV strain by echocardiogram. He was diagnosed with submassive PE. 11/19/2021: This patient seemed to be doing very well. Patient had placement of catheters in the pulmonary arteries and TPA infusion. [ Ekos procedure.] Patient is doing well today. The catheters were removed from the groin. Groin is soft without any hematoma. Lungs are clear. Heart is regular. Overall patient is doing well. Patient will be transferred to telemetry unit and increase activity as tolerated Objective - Vital Signs Vital signs: Vital Signs Temp 98.2 F 11/19/21 12:00 Pulse 97 11/19/21 13:00 Resp 17 11/19/21 13:00 BP 143/104 11/19/21 13:00 Pulse Ox 100 11/19/21 13:00 FiO2 Intake & Output 11/18/21 11/19/21 11/19/21 18:59 06:59 18:59 Intake Total 912.754 480 330 Output Total 2140 950 Balance 912.754 -1660 -620 Weight 91.6 kg Intake: IV 780 320 100 Invasive Line 1 20 Piperacillin-Tazobactam 3 100 100 100 .375 gm In Sodium Chloride 0.9% 100 ml @ 25 mls/hr IVPB Q8HR [facility] Rx# :[id number] Sodium Chloride 0.9% 1, 660 220 000 ml @ 75 mls/hr IV . [id number] [facility] Rx#:[id number] Intake, IV Titration 132.754 160 80 Amount Heparin Sod,Pork in 0.45% 132.754 NaCl 25,000 unit In 0.45 % NaCl 1 250ml.bag @ 11 UNITS/KG/HR 9.829 mls/hr IV .Q24H [facility] Rx#: [id number] Sodium Chloride 0.9% 1, 160 80 000 ml @ Per Protocol IV .Q0M [facility] Rx#:[id number] Oral 150 Output: Urine 2140 950 Other: Voiding Method Urinal Urinal Urinal # Voids 1 - Exam GENERAL EXAM: Patient is alert and oriented and doesn't appear to be in any acute distress HEENT: Normocephalic. Normal reaction of pupils, equal size, normal range of extraocular motion. No erythema or exudates in the throat. NECK: No masses, no nuchal rigidity. CHEST: No chest wall deformity. LUNGS: Equal air entry with no crackles or wheeze. HEART: S1 and S2 normal with no audible mumurs or gallops. Regular rhythm, femorals equal on both sides.. ABDOMEN: No hepatosplenomegaly, normal bowel sounds, no guarding or rigidity. SKIN: No rashes CENTRAL NERVOUS SYSTEM: No focal deficits. EXTREMITIES: No cyanosis, clubbing or edema. Right groin: Soft without any hematoma at the puncture sites - Labs CBC & Chem 7: 11/19/21 07:36 11/19/21 07:36 Labs: Abnormal Lab Results - Last 24 Hours (Table) 11/18/21 11/19/21 11/19/21 Range/Units 08:31 07:36 07:36 RBC 4.11 L (4.30-5.90) m/uL Hgb 10.2 L (13.0-17.5) gm/dL Hct 32.4 L (39.0-53.0) % MCV 78.9 L (80.0-100.0) fL MCH 24.8 L (25.0-35.0) pg Lymphocytes # 0.9 L (1.0-4.8) k/uL Sodium 133 L (137-145) mmol/L BUN 5 L (9-20) mg/dL Calcium 8.1 L (8.4-10.2) mg/dL Total Protein 6.1 L (6.3-8.2) g/dL HDL Cholesterol 29.40 L (40.00-60.00) mg/dL Microbiology - Last 24 Hours (Table) 11/17/21 15:19 Blood Culture - Preliminary Blood No Growth after 24 hours Assessment and Plan (1) Cecum mass Current Visit: Yes Status: Acute Code(s): K63.89 - OTHER SPECIFIED DISEASES OF INTESTINE SNOMED Code(s): 7359994442 (2) Elevated troponin Current Visit: Yes Status: Acute Code(s): R77.8 - OTHER SPECIFIED ABNORMALITIES OF PLASMA PROTEINS SNOMED Code(s): 972140058 (3) Pulmonary embolism Current Visit: Yes Status: Acute Code(s): I26.99 - OTHER PULMONARY EMBOLISM WITHOUT ACUTE COR PULMONALE SNOMED Code(s): 43145970 Plan: Transfer to telemetry unit. Continue the rest of the management. Patient is on heparin. He is scheduled to have colonoscopy on Sunday for further evaluation of cecal mass
--- NOTE | 2021-11-19 14:55 | P.PN ---
Subjective Progress Note Date: 11/19/21 Principal diagnosis: syncope Doing well. Denied sob or cp this am. No dizziness, has been able to get up without difficulties. No diarrhea. No n/v. Objective - Vital Signs Vital signs: Vital Signs Temp 98.2 F 11/19/21 12:00 Pulse 97 11/19/21 13:00 Resp 17 11/19/21 13:00 BP 143/104 11/19/21 13:00 Pulse Ox 100 11/19/21 13:00 FiO2 Intake & Output 11/18/21 11/19/21 11/19/21 18:59 06:59 18:59 Intake Total 912.754 480 330 Output Total 2140 950 Balance 912.114 -1539 -620 Weight 91.6 kg Intake: IV 780 320 100 Invasive Line 1 20 Piperacillin-Tazobactam 3 100 100 100 .375 gm In Sodium Chloride 0.9% 100 ml @ 25 mls/hr IVPB Q8HR [facility] Rx# :[id number] Sodium Chloride 0.9% 1, 660 220 000 ml @ 75 mls/hr IV . [id number] [facility] Rx#:[id number] Intake, IV Titration 132.754 160 80 Amount Heparin Sod,Pork in 0.45% 132.754 NaCl 25,000 unit In 0.45 % NaCl 1 250ml.bag @ 11 UNITS/KG/HR 9.829 mls/hr IV .Q24H [facility] Rx#: [id number] Sodium Chloride 0.9% 1, 160 80 000 ml @ Per Protocol IV .Q0M [facility] Rx#:[id number] Oral 150 Output: Urine 2140 950 Other: Voiding Method Urinal Urinal Urinal # Voids 1 - Exam Constitutional: No acute distress, conversant, pleasant Eyes:Anicteric sclerae, moist conjunctiva, no lid-lag, PERRLA, ENMT: Oropharynx clear, no erythema, exudates Neck: Supple, FROM, no masses, or JVD, No carotid bruits, No thyromegaly Lungs: Clear to auscultation, Clear to percussion, Normal respiratory effort, no accessory muscle use Cardiovascular: Heart regular in rate and rhythm, No murmurs, gallops, or rubs, No peripheral edema Abdominal: Soft, Nontender, no guarding, rebound or rigidity, Normoactive bowel sounds, No hepatomegaly, No splenomegaly, No palpable mass Skin: Normal temperature, tone, texture, turgor, no induration, No subcutaneous nodules, No rash, lesions, No ulcers Extremities: No digital cyanosis, No clubbing, Pedal pulses intact and symmetrical, Radial pulses intact and symmetrical, No calf tenderness Psychiatric: Alert and oriented to person, place and time, appropriate affect, intact judgement Neuro: Muscles Strength 5/5 in all 4 extremities, Sensation to light touch grossly present throughout, Cranial nerves II-XII grossly intact, no focal sensory deficits - Labs CBC & Chem 7: 11/19/21 07:36 11/19/21 07:36 Labs: Abnormal Lab Results - Last 24 Hours (Table) 11/19/21 11/19/21 Range/Units 07:36 07:36 RBC 4.11 L (4.30-5.90) m/uL Hgb 10.2 L (13.0-17.5) gm/dL Hct 32.4 L (39.0-53.0) % MCV 78.9 L (80.0-100.0) fL MCH 24.8 L (25.0-35.0) pg Lymphocytes # 0.9 L (1.0-4.8) k/uL Sodium 133 L (137-145) mmol/L BUN 5 L (9-20) mg/dL Calcium 8.1 L (8.4-10.2) mg/dL Total Protein 6.1 L (6.3-8.2) g/dL Microbiology - Last 24 Hours (Table) 11/17/21 15:19 Blood Culture - Preliminary Blood No Growth after 24 hours Assessment and Plan Plan: Near syncope, likely sec to PE -IV heparin. -S/p EKOS by cardio, procedure tolerated Necrotic abdominal mass, malignancy versus abscess in setting of recent perfo rated appendix -Continue IV Zosyn -Surgery planning colonoscopy to biopsy the cecal mass on sunday -Blood cultures NGTD Elevated troponin -Likely sec to PE, on IV heparin -Continue aspirin Hyponatremia -Better with IV hydration and monitor for now Chronic anemia -Check work up, iron panel, B12, folate DVT prophylaxis -Heparin infusion CODE STATUS: Full Code Discussed with: Patient Anticipated discharge date: 2-[address]: Home
[2021-11-19] MEDS ORDERED: HEPARIN SODIUM 1,000 UN/ML (10ML VL) IV PRN (15:40)
[2021-11-19] MEDS ORDERED: HEPARIN SODIUM 1,000 UN/ML (10ML VL) IV ONE (15:40)
[2021-11-19] MEDS: HEPARIN SOD,PORK IN 0.45% NACL 25,000 UNIT in 0.45% NACL 1 250ML.BAG IV SCH (15:50)
[2021-11-19 18:23] LABS: Basophils # (A) 0.1 k/uL (0-0.2); Basophils % (A) 1 %; Eosinophils # (A) 0.6 k/uL (0-0.7); Eosinophils % (A) 6 %; HGB 10.6 gm/dL (13.0-17.5); Hypochromasia Moderate; Lymphocytes # (A) 0.8 k/uL (1.0-4.8); Lymphocytes % (A) 8 %; MCH 24.8 pg (25.0-35.0); MCHC 31.1 g/dL (31.0-37.0); MCV 79.6 fL (80.0-100.0); Mean Platelet Volume 8.3; Monocytes # (A) 0.9 k/uL (0-1.0); Monocytes % (A) 9 %; Neutrophils # (A) 7.7 k/uL (1.3-7.7); Neutrophils % (A) 75 %; Platelet Count 305 k/uL (150-450); RBC 4.27 m/uL (4.30-5.90); RDW 14.7 % (11.5-15.5); WBC 10.2 k/uL (3.8-10.6)
[2021-11-19] MEDS: CALCIUM CARBONATE 500 MG CHEWABLE PO PRN (18:46)
--- NOTE | 2021-11-19 22:39 | P.PN ---
Subjective Progress Note Date: 11/19/21 Principal diagnosis: Periappendicular abscess versus necrotic tumor Patient is a 71-year-old male who was recently admitted to this hospital with abdominal pain did have abdominal CT suspicious for possible ruptured appendicitis and abscess treated with IV Zosyn with subsequent CT raises the possibility of possible necrotic tumor in this patient did have a syncopal episode and evidence of PE. On today's evaluation that is 11/19/2021, the patient denies having any fever or chills, the patient is breathing comfortably on room air denies any chest pain or shortness of breath or cough no worsening abdominal pain and no diarrhea Objective - Vital Signs Vital signs: Vital Signs Temp 101.8 F H 11/19/21 20:00 Pulse 108 H 11/19/21 20:00 Resp 20 11/19/21 20:00 BP 131/79 11/19/21 20:00 Pulse Ox 93 L 11/19/21 20:00 FiO2 Intake & Output 11/19/21 11/19/21 11/20/21 06:59 18:59 06:59 Intake Total 480 1270 Output Total 2140 950 Balance -1660 320 Weight 91.6 kg Intake: IV 320 200 Piperacillin-Tazobactam 3 100 200 .375 gm In Sodium Chloride 0.9% 100 ml @ 25 mls/hr IVPB Q8HR [facility] Rx# :[id number] Sodium Chloride 0.9% 1, 220 000 ml @ 75 mls/hr IV . [id number] [facility] Rx#:[id number] Intake, IV Titration 160 80 Amount Sodium Chloride 0.9% 1, 160 80 000 ml @ Per Protocol IV .Q0M [facility] Rx#:[id number] Oral 990 Output: Urine 2140 950 Other: Voiding Method Urinal Urinal Toilet Urinal # Voids 1 - Exam GENERAL DESCRIPTION: An elderly male lying in bed in no distress RESPIRATORY SYSTEM: Unlabored breathing , decreased breath sounds at bases HEART: S1 S2 regular rate and rhythm , ABDOMEN: Soft , no tenderness EXTREMITIES: No edema feet - Labs CBC & Chem 7: 11/19/21 17:17 11/19/21 07:36 Labs: Abnormal Lab Results - Last 24 Hours (Table) 11/19/21 11/19/21 11/19/21 Range/Units 07:36 07:36 07:36 RBC 4.11 L (4.30-5.90) m/uL Hgb 10.2 L (13.0-17.5) gm/dL Hct 32.4 L (39.0-53.0) % MCV 78.9 L (80.0-100.0) fL MCH 24.8 L (25.0-35.0) pg Lymphocytes # 0.9 L (1.0-4.8) k/uL Sodium 133 L (137-145) mmol/L BUN 5 L (9-20) mg/dL Calcium 8.1 L (8.4-10.2) mg/dL Total Protein 6.1 L (6.3-8.2) g/dL Folate 4.00 L (4.40-31.00) ng/mL 11/19/21 Range/Units 17:17 RBC 4.27 L (4.30-5.90) m/uL Hgb 10.6 L (13.0-17.5) gm/dL Hct 34.0 L (39.0-53.0) % MCV 79.6 L (80.0-100.0) fL MCH 24.8 L (25.0-35.0) pg Lymphocytes # 0.8 L (1.0-4.8) k/uL Sodium (137-145) mmol/L BUN (9-20) mg/dL Calcium (8.4-10.2) mg/dL Total Protein (6.3-8.2) g/dL Folate (4.40-31.00) ng/mL Microbiology - Last 24 Hours (Table) 11/17/21 15:19 Blood Culture - Preliminary Blood No Growth after 48 hours Assessment and Plan (1) Peritonitis Current Visit: No Status: Acute Code(s): K65.9 - PERITONITIS, UNSPECIFIED SNOMED Code(s): 65247299 Plan: 1patient presented to hospital with near syncopal episode in this patient curre ntly being treated for possible periappendicular abscess however the patient repeat CAT scan is suspicious for possible necrotic cecal tumor and obstruction of the appendix and this finding has been discussed with the surgeon who is planning for a colonoscopy followed by surgical procedure later this week. 2the patient to continue with Zosyn while awaiting further work-up to be completed and monitored clinical course closely. Time with Patient: Less than 30
[2021-11-20 06:02] LABS: Basophils # (A) 0.1 k/uL (0-0.2); Basophils % (A) 1 %; Eosinophils # (A) 0.6 k/uL (0-0.7); Eosinophils % (A) 8 %; HCT 32.2 % (39.0-53.0); HGB 10.3 gm/dL (13.0-17.5); Hypochromasia Moderate; Lymphocytes # (A) 0.7 k/uL (1.0-4.8); Lymphocytes % (A) 9 %; MCH 25.2 pg (25.0-35.0); MCHC 31.9 g/dL (31.0-37.0); MCV 79.1 fL (80.0-100.0); Mean Platelet Volume 8.2; Monocytes # (A) 0.7 k/uL (0-1.0); Monocytes % (A) 9 %; Neutrophils # (A) 5.4 k/uL (1.3-7.7); Neutrophils % (A) 71 %; Platelet Count 290 k/uL (150-450); RBC 4.08 m/uL (4.30-5.90); RDW 14.8 % (11.5-15.5); WBC 7.6 k/uL (3.8-10.6)
[2021-11-20 06:08] LABS: ALT 13 U/L (4-49); AST 26 U/L (17-59); African American GFR (CKD) >90 (>60 ml/min/1.73 sqM); Albumin 3.3 g/dL (3.5-5.0); Alkaline Phosphatase 78 U/L (38-126); Anion Gap 8 mmol/L; Blood Urea Nitrogen 7 mg/dL (9-20); Calcium 8.2 mg/dL (8.4-10.2); Carbon Dioxide 28 mmol/L (22-30); Chloride 96 mmol/L (98-107); Glucose 100 mg/dL (74-99); Non-African American GFR(CKD) 88 (>60 ml/min/1.73 sqM); Phosphorus 2.1 mg/dL (2.5-4.5); Potassium 3.8 mmol/L (3.5-5.1); Sodium 132 mmol/L (137-145); Total Bilirubin 0.7 mg/dL (0.2-1.3); Total Protein 5.7 g/dL (6.3-8.2)
[2021-11-20 06:10] LABS: INR 1.1 (<1.2); Partial Thromboplastin Time 40.3 sec (22.0-30.0); Prothrombin Time 11.7 sec (9.0-12.0)
[2021-11-20] MEDS ORDERED: POLYETHYLENE GLYCOL LYTES SOLN 4,000 ML SOLN.RECON PO ONE (08:00)
--- NOTE | 2021-11-20 09:11 | P.PN ---
Progress Note - Text Progress Note Date: 11/20/21 Patient [place] stable. He will start his bowel prep today for colonoscopy. He describes no significant pain. He's had no evidence of GI bleed. Possible cecal mass. Colonoscopy pending tomorrow.
--- NOTE | 2021-11-20 09:17 | P.PN ---
Subjective Progress Note Date: 11/20/21 This is a 72-year-old gentleman who presented to the hospital with shortness of breath of sudden onset. He was found to have elevated d-dimer but the EKG showed sinus tachycardia with S1/Q3/T3 pattern. In the light of that computed tomography scan was performed and showed evidence of bilateral PE with evidence of RV strain by echocardiogram. He was diagnosed with submassive PE. 11/19/2021: This patient seemed to be doing very well. Patient had placement of catheters in the pulmonary arteries and TPA infusion. [ Ekos procedure.] Patient is doing well today. The catheters were removed from the groin. Groin is soft without any hematoma. Lungs are clear. Heart is regular. Overall patient is doing well. Patient will be transferred to telemetry unit and increase activity as tolerated. 11/20/2021: Patient is doing well. No complaints of any chest pain or shortness of breath. His groin is soft without any hematoma. Patient is on IV heparin. He is going to have colonoscopy studies tomorrow. Lungs are clear. Heart is regular. Continue current medical therapy Objective - Vital Signs Vital signs: Vital Signs Temp 98 F 11/20/21 04:00 Pulse 99 11/20/21 04:00 Resp 18 11/20/21 04:00 BP 155/92 11/20/21 04:00 Pulse Ox 96 11/20/21 04:00 FiO2 Intake & Output 11/19/21 11/20/21 11/20/21 18:59 06:59 18:59 Intake Total 1270 157.834 Output Total 950 1 Balance 320 156.834 Intake: IV 200 Piperacillin-Tazobactam 3 200 .375 gm In Sodium Chloride 0.9% 100 ml @ 25 mls/hr IVPB Q8HR [facility] Rx# :[id number] Intake, IV Titration 80 157.834 Amount Heparin Sod,Pork in 0.45% 157.834 NaCl 25,000 unit In 0.45 % NaCl 1 250ml.bag @ 10. 917 UNITS/KG/HR 10 mls/hr IV .Q24H [facility] Rx#: [id number] Sodium Chloride 0.9% 1, 80 000 ml @ Per Protocol IV .Q0M [facility] Rx#:[id number] Oral 990 Output: Urine 950 Stool 1 Other: Voiding Method Urinal Toilet Urinal # Voids 1 3 - Exam GENERAL EXAM: Patient is alert and oriented and doesn't appear to be in any acute distress HEENT: Normocephalic. Normal reaction of pupils, equal size, normal range of extraocular motion. No erythema or exudates in the throat. NECK: No masses, no nuchal rigidity. CHEST: No chest wall deformity. LUNGS: Equal air entry with no crackles or wheeze. HEART: S1 and S2 normal with no audible mumurs or gallops. Regular rhythm, femorals equal on both sides.. ABDOMEN: No hepatosplenomegaly, normal bowel sounds, no guarding or rigidity. SKIN: No rashes CENTRAL NERVOUS SYSTEM: No focal deficits. EXTREMITIES: No cyanosis, clubbing or edema. Right groin: Soft without any hematoma at the puncture sites - Labs CBC & Chem 7: 11/20/21 05:13 11/20/21 05:13 Labs: Abnormal Lab Results - Last 24 Hours (Table) 11/19/21 11/19/21 11/19/21 Range/Units 07:36 17:17 21:40 RBC 4.27 L (4.30-5.90) m/uL Hgb 10.6 L (13.0-17.5) gm/dL Hct 34.0 L (39.0-53.0) % MCV 79.6 L (80.0-100.0) fL MCH 24.8 L (25.0-35.0) pg Lymphocytes # 0.8 L (1.0-4.8) k/uL APTT 35.1 H (22.0-30.0) sec Sodium (137-145) mmol/L Chloride (98-107) mmol/L BUN (9-20) mg/dL Glucose (74-99) mg/dL Calcium (8.4-10.2) mg/dL Phosphorus (2.5-4.5) mg/dL Total Protein (6.3-8.2) g/dL Albumin (3.5-5.0) g/dL Folate 4.00 L (4.40-31.00) ng/mL 11/20/21 11/20/21 11/20/21 Range/Units 05:13 05:13 05:13 RBC 4.08 L (4.30-5.90) m/uL Hgb 10.3 L (13.0-17.5) gm/dL Hct 32.2 L (39.0-53.0) % MCV 79.1 L (80.0-100.0) fL MCH (25.0-35.0) pg Lymphocytes # 0.7 L (1.0-4.8) k/uL APTT 40.3 H (22.0-30.0) sec Sodium 132 L (137-145) mmol/L Chloride 96 L (98-107) mmol/L BUN 7 L (9-20) mg/dL Glucose 100 H (74-99) mg/dL Calcium 8.2 L (8.4-10.2) mg/dL Phosphorus 2.1 L (2.5-4.5) mg/dL Total Protein 5.7 L (6.3-8.2) g/dL Albumin 3.3 L (3.5-5.0) g/dL Folate (4.40-31.00) ng/mL Microbiology - Last 24 Hours (Table) 11/17/21 15:19 Blood Culture - Preliminary Blood No Growth after 48 hours Assessment and Plan (1) Cecum mass Current Visit: Yes Status: Acute Code(s): K63.89 - OTHER SPECIFIED DISEASES OF INTESTINE SNOMED Code(s): 8332497405 (2) Elevated troponin Current Visit: Yes Status: Acute Code(s): R77.8 - OTHER SPECIFIED ABNORMALITIES OF PLASMA PROTEINS SNOMED Code(s): 148693887 (3) Pulmonary embolism Current Visit: Yes Status: Acute Code(s): I26.99 - OTHER PULMONARY EMBOLISM WITHOUT ACUTE COR PULMONALE SNOMED Code(s): 16219092 Plan: Patient is stable. No complaints of chest pain or shortness of breath. Patient is on heparin. For endoscopy studies tomorrow
[2021-11-20] MEDS: HEPARIN SOD,PORK IN 0.45% NACL 25,000 UNIT in 0.45% NACL 1 250ML.BAG IV SCH (09:30)
[2021-11-20] MEDS: PIPERACILLIN-TAZOBACTAM 3.375 GM in SODIUM CHLORIDE 0.9% 100 ML IVPB SCH ×3 (09:32→23:37)
[2021-11-20] MEDS: CHOLECALCIFEROL 125 MCG (5000 IU) TABLET PO SCH (09:33)
[2021-11-20] MEDS: LOSARTAN 25 MG TAB PO SCH (09:33)
[2021-11-20] MEDS: amLODIPine 5 MG TAB PO SCH (09:33)
[2021-11-20] MEDS: atenoloL 25 MG TAB PO SCH (09:33)
[2021-11-20] MEDS: CALCIUM CARBONATE 500 MG CHEWABLE PO SCH (09:33)
[2021-11-20] MEDS: ASPIRIN 81 MG PO SCH (09:33)
[2021-11-20] MEDS: MAGNESIUM OXIDE 400 MG TAB PO SCH (09:33)
[2021-11-20] MEDS: POTASSIUM CHLORIDE ER 10 MEQ TAB.ER.PRT PO SCH (09:34)
--- NOTE | 2021-11-20 11:38 | P.PN ---
Subjective Progress Note Date: 11/20/21 Principal diagnosis: Pulmonary embolism. Pulmonary embolism 71-year-old male seen in consultation, for shortness of breath. The patient was initially seen in the emergency department, on November 17, complaining of syncope, and weakness. The patient has a recent history of a ruptured appendix, being treated with outpatient IV Zosyn. The patient was to come to the hospital today for a computed tomography scan of the abdomen, and he had a near syncopal episode, feeling very lightheaded and dizzy. He also has not been eating or drinking very much recently. He also had shortness of breath, and was evaluated, and the CTA was positive for pulmonary embolism. This is why we are asked to see him. Currently, he's on 6 L. He is receiving IV heparin, and Zosyn. White count 7.8, he will benign 0.5, hematocrit 29.5, and platelet count normal. Sodium 132, potassium 4.2, chlorides 99, CO2 21, BUN 9, creatinine 0.87. Troponin was 0.305. Urine was unremarkable. The chest x-ray showed no acute cardiopulmonary process. The KUB x-ray showed left inguinal hernia, and nonspecific bowel pattern. EKG did show sinus tachycardia. It also did show an S in lead 1 and a Q in lead 3. CT angiogram showed bilateral pulmonary emboli, worse on the right side than on the left. There was no evidence of right heart strain on the CTA. Echocardiogram did show a pulmonary pressure that was elevated at 55, and also a right ventricular to left ventricular ratio of 1.5. Dopplers of the lower extremities were negative for DVT. The patient is seen today 11/20/2019 follow-up in the intensive care unit. He is resting comfortably in bed. Awake and alert in no acute distress. He was found to have RV strain on his echocardiogram. He did undergo in for an EKOS procedure yesterday. Femoral catheters still in place. Remains on heparin. He is on 6 L high flow nasal cannula. He's been afebrile. Hemodynamically stable. Blood culture reveals no growth. White count 9.9. Hemoglobin 10.2. Platelets 273. Sodium 133. Potassium 3.7. BUN 5. Creatinine 0.68. He is currently on Zosyn. Progress note dated 11/20/2021. The patient is seen today in room 361. The patient remains on IV heparin. The patient is scheduled for an EGD and colonoscopy tomorrow. He is also planning to have surgery on his colonic mass, sometime this week. The patient remains on IV heparin. The patient was on 6 L yesterday, but is on room air today. He's feeling much better. The patient did have EKOS for his significant bilateral pulmonary emboli. White count 7.6, hemoglobin 10.3, hematocrit 32.2, and platelet count 390,000. PTT is 40.3. Sodium 132, potassium 3.8, chlorides 96, CO2 28, BUN 7, creatinine 0.83. Albumin is 3.3. Objective - Vital Signs Vital signs: Vital Signs Temp 98 F 11/20/21 04:00 Pulse 99 11/20/21 04:00 Resp 18 11/20/21 04:00 BP 155/92 11/20/21 04:00 Pulse Ox 96 11/20/21 04:00 FiO2 Intake & Output 11/19/21 11/20/21 11/20/21 18:59 06:59 18:59 Intake Total 1270 157.834 45.091 Output Total 950 1 Balance 320 156.834 45.091 Intake: IV 200 Piperacillin-Tazobactam 3 200 .375 gm In Sodium Chloride 0.9% 100 ml @ 25 mls/hr IVPB Q8HR [facility] Rx# :[id number] Intake, IV Titration 80 157.834 45.091 Amount Heparin Sod,Pork in 0.45% 157.834 45.091 NaCl 25,000 unit In 0.45 % NaCl 1 250ml.bag @ 10. 917 UNITS/KG/HR 10 mls/hr IV .Q24H [facility] Rx#: [id number] Sodium Chloride 0.9% 1, 80 000 ml @ Per Protocol IV .Q0M [facility] Rx#:[id number] Oral 990 Output: Urine 950 Stool 1 Other: Voiding Method Urinal Toilet Urinal # Voids 1 3 - Exam No acute distress, oriented 3. Currently on room air. HEENT examination is grossly unremarkable. Neck supple. Full range of motion. No adenopathy thyromegaly or neck vein distention. Cardiovascular examination reveals regular rhythm rate. S1-S2 normal. No S3 or S4. No discernible murmur noted. Heart rate 90 bpm. Lungs reveal clear breath sounds. Breath sounds are equal bilaterally. No ad ventitious lung sounds including wheezes rhonchi or crackles. Abdomen soft bowel sounds are heard. No masses or tenderness. Extremities are intact. No cyanosis clubbing or edema. Skin is without rash or lesion. Neurologic examination is brief but nonfocal. - Labs CBC & Chem 7: 11/20/21 05:13 11/20/21 05:13 Labs: Abnormal Lab Results - Last 24 Hours (Table) 11/19/21 11/19/21 11/19/21 Range/Units 07:36 17:17 21:40 RBC 4.27 L (4.30-5.90) m/uL Hgb 10.6 L (13.0-17.5) gm/dL Hct 34.0 L (39.0-53.0) % MCV 79.6 L (80.0-100.0) fL MCH 24.8 L (25.0-35.0) pg Lymphocytes # 0.8 L (1.0-4.8) k/uL APTT 35.1 H (22.0-30.0) sec Sodium (137-145) mmol/L Chloride (98-107) mmol/L BUN (9-20) mg/dL Glucose (74-99) mg/dL Calcium (8.4-10.2) mg/dL Phosphorus (2.5-4.5) mg/dL Total Protein (6.3-8.2) g/dL Albumin (3.5-5.0) g/dL Folate 4.00 L (4.40-31.00) ng/mL 11/20/21 11/20/21 11/20/21 Range/Units 05:13 05:13 05:13 RBC 4.08 L (4.30-5.90) m/uL Hgb 10.3 L (13.0-17.5) gm/dL Hct 32.2 L (39.0-53.0) % MCV 79.1 L (80.0-100.0) fL MCH (25.0-35.0) pg Lymphocytes # 0.7 L (1.0-4.8) k/uL APTT 40.3 H (22.0-30.0) sec Sodium 132 L (137-145) mmol/L Chloride 96 L (98-107) mmol/L BUN 7 L (9-20) mg/dL Glucose 100 H (74-99) mg/dL Calcium 8.2 L (8.4-10.2) mg/dL Phosphorus 2.1 L (2.5-4.5) mg/dL Total Protein 5.7 L (6.3-8.2) g/dL Albumin 3.3 L (3.5-5.0) g/dL Folate (4.40-31.00) ng/mL Microbiology - Last 24 Hours (Table) 11/17/21 15:19 Blood Culture - Preliminary Blood No Growth after 48 hours Assessment and Plan Assessment: Acute pulmonary embolism, with right heart strain, and acute pulmonary hypertension, S/P EKOS. Cecal mass, suspicious for carcinoma, with anticipated surgery, later this week. Recent episode of ruptured appendix, being treated as an outpatient, with IV Zosyn. History of hypertension. 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 Vague history of irregular heartbeat. Plan: Plan dated 11/18/2021. The patient is apparently being taken to the catheterization laboratory for catheter directed TPA and ultrasonic dissolution of the clot (EKOS). This is because the echocardiogram showed acute pulmonary hypertension, and an RV/LV ratio that was greater than 1.5. The patient will go to the intensive care unit after the procedure. The patient's currently on IV heparin. He continues on Zosyn. Computed tomography scan done yesterday shows a necrotic cecal mass, which could be consistent with colon cancer. Prognosis is guarded. Dopplers of the lower extremities were negative. Plan dated 11/20/2021. The patient is starting a prepped for an EGD and colonoscopy in the morning. He states that later this week, maybe on , he'll have surgery for his colonic mass. Patient remains on IV heparin. No additional recommendations are made. Prognosis is guarded. We will continue to follow make additional recommendations and suggestions along the way. Currently, he's been weaned down to room air. He looks very stable today. Time with Patient: Less than 30
[2021-11-20 11:54] LABS: % Iron Saturation 5.08 (15.00-50.00); Ferritin 97.5 ng/mL (22.0-322.0); Iron 17 ug/dL (65-175); Total Iron Binding Capacity 335 ug/dL (228-460)
--- NOTE | 2021-11-20 14:40 | P.PN ---
Subjective Progress Note Date: 11/20/21 Principal diagnosis: syncope Doing well, no changes compared to yesterday. No overnight events. Objective - Vital Signs Vital signs: Vital Signs Temp 98.4 F 11/20/21 11:40 Pulse 101 H 11/20/21 11:40 Resp 18 11/20/21 11:40 BP 123/79 11/20/21 11:40 Pulse Ox 95 11/20/21 11:40 FiO2 Intake & Output 11/19/21 11/20/21 11/20/21 18:59 06:59 18:59 Intake Total 1270 378.264 1595.856 Output Total 950 1 Balance 320 032.060 1529.856 Intake: IV 200 20 Invasive Line 1 20 Piperacillin-Tazobactam 3 200 .375 gm In Sodium Chloride 0.9% 100 ml @ 25 mls/hr IVPB Q8HR [facility] Rx# :[id number] Intake, IV Titration 80 157.834 108.856 Amount Heparin Sod,Pork in 0.45% 157.834 108.856 NaCl 25,000 unit In 0.45 % NaCl 1 250ml.bag @ 10. 917 UNITS/KG/HR 10 mls/hr IV .Q24H [facility] Rx#: [id number] Sodium Chloride 0.9% 1, 80 000 ml @ Per Protocol IV .Q0M [facility] Rx#:[id number] Oral 990 889 Output: Urine 950 Stool 1 Other: Voiding Method Urinal Toilet Urinal # Voids 1 3 - Exam Constitutional: No acute distress, conversant, pleasant Eyes:Anicteric sclerae, moist conjunctiva, no lid-lag, PERRLA, ENMT: Oropharynx clear, no erythema, exudates Neck: Supple, FROM, no masses, or JVD, No carotid bruits, No thyromegaly Lungs: Clear to auscultation, Clear to percussion, Normal respiratory effort, no accessory muscle use Cardiovascular: Heart regular in rate and rhythm, No murmurs, gallops, or rubs, No peripheral edema Abdominal: Soft, Nontender, no guarding, rebound or rigidity, Normoactive bowel sounds, No hepatomegaly, No splenomegaly, No palpable mass Skin: Normal temperature, tone, texture, turgor, no induration, No subcutaneous nodules, No rash, lesions, No ulcers Extremities: No digital cyanosis, No clubbing, Pedal pulses intact and symmetrical, Radial pulses intact and symmetrical, No calf tenderness Psychiatric: Alert and oriented to person, place and time, appropriate affect, intact judgement Neuro: Muscles Strength 5/5 in all 4 extremities, Sensation to light touch grossly present throughout, Cranial nerves II-XII grossly intact, no focal sensory deficits - Labs CBC & Chem 7: 11/20/21 05:13 11/20/21 05:13 Labs: Abnormal Lab Results - Last 24 Hours (Table) 11/19/21 11/19/21 11/19/21 Range/Units 07:36 07:36 17:17 RBC 4.27 L (4.30-5.90) m/uL Hgb 10.6 L (13.0-17.5) gm/dL Hct 34.0 L (39.0-53.0) % MCV 79.6 L (80.0-100.0) fL MCH 24.8 L (25.0-35.0) pg Lymphocytes # 0.8 L (1.0-4.8) k/uL APTT (22.0-30.0) sec Sodium (137-145) mmol/L Chloride (98-107) mmol/L BUN (9-20) mg/dL Glucose (74-99) mg/dL Calcium (8.4-10.2) mg/dL Phosphorus (2.5-4.5) mg/dL Iron 17 L (65-175) ug/dL % Saturation 5.08 L (15.00-50.00) Total Protein (6.3-8.2) g/dL Albumin (3.5-5.0) g/dL Vitamin B12 166.0 L (200.0-944.0) pg/mL Folate 4.00 L (4.40-31.00) ng/mL 11/19/21 11/20/21 11/20/21 Range/Units 21:40 05:13 05:13 RBC 4.08 L (4.30-5.90) m/uL Hgb 10.3 L (13.0-17.5) gm/dL Hct 32.2 L (39.0-53.0) % MCV 79.1 L (80.0-100.0) fL MCH (25.0-35.0) pg Lymphocytes # 0.7 L (1.0-4.8) k/uL APTT 35.1 H (22.0-30.0) sec Sodium 132 L (137-145) mmol/L Chloride 96 L (98-107) mmol/L BUN 7 L (9-20) mg/dL Glucose 100 H (74-99) mg/dL Calcium 8.2 L (8.4-10.2) mg/dL Phosphorus 2.1 L (2.5-4.5) mg/dL Iron (65-175) ug/dL % Saturation (15.00-50.00) Total Protein 5.7 L (6.3-8.2) g/dL Albumin 3.3 L (3.5-5.0) g/dL Vitamin B12 (200.0-944.0) pg/mL Folate (4.40-31.00) ng/mL 11/20/21 11/20/21 Range/Units 05:13 13:03 RBC (4.30-5.90) m/uL Hgb (13.0-17.5) gm/dL Hct (39.0-53.0) % MCV (80.0-100.0) fL MCH (25.0-35.0) pg Lymphocytes # (1.0-4.8) k/uL APTT 40.3 H 42.2 H (22.0-30.0) sec Sodium (137-145) mmol/L Chloride (98-107) mmol/L BUN (9-20) mg/dL Glucose (74-99) mg/dL Calcium (8.4-10.2) mg/dL Phosphorus (2.5-4.5) mg/dL Iron (65-175) ug/dL % Saturation (15.00-50.00) Total Protein (6.3-8.2) g/dL Albumin (3.5-5.0) g/dL Vitamin B12 (200.0-944.0) pg/mL Folate (4.40-31.00) ng/mL Microbiology - Last 24 Hours (Table) 11/17/21 15:19 Blood Culture - Preliminary Blood No Growth after 48 hours Assessment and Plan Plan: Near syncope, likely sec to PE -IV heparin. -S/p EKOS by cardio, procedure tolerated Necrotic abdominal mass, malignancy versus abscess in setting of recent perforated appendix -Continue IV Zosyn -Surgery planning colonoscopy to biopsy the cecal mass on sunday -Blood cultures NGTD Elevated troponin -Likely sec to PE, on IV heparin -Continue aspirin Hyponatremia -Better with IV hydration and monitor for now Chronic anemia -Check work up, iron panel, B12, folate DVT prophylaxis -Heparin infusion CODE STATUS: Full Code Discussed with: Patient Anticipated discharge date: 2-[address]: Home
[2021-11-21] MEDS: LOSARTAN 25 MG TAB PO SCH (07:33)
[2021-11-21] MEDS: PIPERACILLIN-TAZOBACTAM 3.375 GM in SODIUM CHLORIDE 0.9% 100 ML IVPB SCH ×2 (07:33→18:52)
[2021-11-21] MEDS: atenoloL 25 MG TAB PO SCH (07:34)
[2021-11-21] MEDS: CALCIUM CARBONATE 500 MG CHEWABLE PO SCH ×2 (07:34→18:52)
[2021-11-21] MEDS: MAGNESIUM OXIDE 400 MG TAB PO SCH (07:34)
[2021-11-21] MEDS: ASPIRIN 81 MG PO SCH ×2 (07:34→18:52)
[2021-11-21] MEDS: POTASSIUM CHLORIDE ER 10 MEQ TAB.ER.PRT PO SCH (07:34)
[2021-11-21] MEDS: amLODIPine 5 MG TAB PO SCH (07:34)
[2021-11-21] MEDS: CHOLECALCIFEROL 125 MCG (5000 IU) TABLET PO SCH (07:34)
--- NOTE | 2021-11-21 07:56 | P.PN ---
Progress Note - Text Progress Note Date: 11/18/21 Please see full consultation following. Patient well-known to me for previous admission for perforated appendicitis with phlegmon. Repeat computed tomography scan now shows colonic neoplasm. Recommend colonoscopy for biopsy of cecal mass of carcinoid versus adenocarcinoma. Upper endoscopy for symptomatic anemia workup including gastroesophageal reflux disease. Oncology consultation and advised for colonic neoplasm. An ascending tumor markers including alpha- fetoprotein and carcinogenic antigen. Also, inpatient colon resection described pending pathology report.
--- NOTE | 2021-11-21 12:34 | P.PN ---
Subjective This is a 71-year-old male with a past medical history significant for hypertension and palpitations. Patient does not follow with a recovery coordinator. We have been asked to see the patient in consultation for abnormal troponins. Patient was recently hospitalized for ruptured appendicitis with phlegmon, evaluated by Dr. Pak. He was discharged home on IV antibiotics. Patient came into the hospital to have a CAT scan that was ordered by infectious disease. He states that he was walking into the hospital he felt dizzy and lightheaded and felt like he was going to pass out. The patient believes he passed out at that point. His took him to the emergency room for further evaluation. Patient was found to have bilateral PE with evidence of RV strain by echocardiogram. EF 50-55%. He underwent EKOS with Dr. Macario on 11/18/2021. CT abdomen and pelvis report revealed Persistent highly suspicious necrotic mass centered over the cecum/ileocecal junction and obstructing the appendicular base. Surrounding local regional and mesenteric lymph nodes, possibly metastatic. Chronic necrotic abscess is much less likely yet still in the differential. No convincing evidence of perforated appendicitis. 11/21/2021 Patient seen and examined at bedside, no acute distress. He denies any chest pain or shortness of breath. Plan for EGD and colonoscopy today with Dr. Pak. Patient's IV heparin is on hold currently. His vital signs are stable. Meds: He is currently maintained on amlodipine 5 mg daily, aspirin 81 mg daily, atenolol 25 mg daily, losartan 75 mg daily GENERAL: Well-appearing, well-nourished and in no acute distress. NECK: Supple without JVD or thyromegaly. LUNGS: Breath sounds clear to auscultation bilaterally. Respiration equal and unlabored. No wheezes, rales or rhonchi. HEART: Regular rate and rhythm without murmurs, rubs or gallops. S1 and S2 heard. EXTREMITIES: Normal range of motion, no edema. No clubbing or cyanosis. Peripheral pulses intact. ASSESSMENT Bilateral pulmonary embolism with evidence of RV strain s/p EKOS procedure on 11/18/2021 Syncope, likely related to above Elevated troponin, secondary to bilateral PE Necrotic cecal mass noted on CT Recent hospitalization for ruptured appendix, on outpatient IV antibiotics Hypertension PLAN Recommend continuing IV heparin or transitioning to PO anticoagulation as soon as possible after endoscopy procedures Continue home cardiac medications Further recommendations based on clinical course Nurse Practitioner note has been reviewed, I agree with a documented findings and plan of care. Patient was seen and examined. Objective - Vital Signs Vital signs: Vital Signs Temp 98.6 F 11/21/21 07:15 Pulse 100 11/21/21 07:15 Resp 18 11/21/21 07:15 BP 133/79 11/21/21 07:15 Pulse Ox 98 11/21/21 07:15 FiO2 Intake & Output 11/20/21 11/21/21 11/21/21 18:59 06:59 18:59 Intake Total 1254.856 97.108 99.127 Output Total 0 Balance 1254.856 97.108 99.127 Weight 87.6 kg 87.6 kg Intake: IV 20 10 Invasive Line 1 20 10 Intake, IV Titration 108.856 97.108 89.127 Amount Heparin Sod,Pork in 0.45% 108.856 97.108 89.127 NaCl 25,000 unit In 0.45 % NaCl 1 250ml.bag @ 10. 917 UNITS/KG/HR 10 mls/hr IV .Q24H [facility] Rx#: [id number] Oral 1126 0 Output: Stool 0 Other: Voiding Method Toilet Urinal # Voids 0 1 # Bowel Movements 0 1 - Labs CBC & Chem 7: 11/20/21 05:13 11/20/21 05:13 Labs: Abnormal Lab Results - Last 24 Hours (Table) 11/20/21 11/20/21 11/21/21 Range/Units 13:03 19:31 06:41 APTT 42.2 H 56.8 H 51.3 H (22.0-30.0) sec Microbiology - Last 24 Hours (Table) 11/19/21 23:08 Blood Culture - Preliminary Blood No Growth after 24 hours 11/17/21 15:19 Blood Culture - Preliminary Blood No Growth after 72 hours
--- NOTE | 2021-11-21 12:49 | P.PN ---
Subjective Progress Note Date: 11/21/21 Principal diagnosis: syncope Doing well. no complaints. No overnight events. He is going for colonoscopy this afternoon. Objective - Vital Signs Vital signs: Vital Signs Temp 98.6 F 11/21/21 07:15 Pulse 100 11/21/21 07:15 Resp 18 11/21/21 07:15 BP 133/79 11/21/21 07:15 Pulse Ox 98 11/21/21 07:15 FiO2 Intake & Output 11/20/21 11/21/21 11/21/21 18:59 06:59 18:59 Intake Total 1254.856 97.108 99.127 Output Total 0 Balance 1254.856 97.108 99.127 Weight 87.6 kg 87.6 kg Intake: IV 20 10 Invasive Line 1 20 10 Intake, IV Titration 108.856 97.108 89.127 Amount Heparin Sod,Pork in 0.45% 108.856 97.108 89.127 NaCl 25,000 unit In 0.45 % NaCl 1 250ml.bag @ 10. 917 UNITS/KG/HR 10 mls/hr IV .Q24H [facility] Rx#: [id number] Oral 1126 0 Output: Stool 0 Other: Voiding Method Toilet Urinal # Voids 0 1 # Bowel Movements 0 1 - Exam Constitutional: No acute distress, conversant, pleasant Eyes:Anicteric sclerae, moist conjunctiva, no lid-lag, PERRLA, ENMT: Oropharynx clear, no erythema, exudates Neck: Supple, FROM, no masses, or JVD, No carotid bruits, No thyromegaly Lungs: Clear to auscultation, Clear to percussion, Normal respiratory effort, no accessory muscle use Cardiovascular: Heart regular in rate and rhythm, No murmurs, gallops, or rubs, No peripheral edema Abdominal: Soft, Nontender, no guarding, rebound or rigidity, Normoactive bowel sounds, No hepatomegaly, No splenomegaly, No palpable mass Skin: Normal temperature, tone, texture, turgor, no induration, No subcutaneous nodules, No rash, lesions, No ulcers Extremities: No digital cyanosis, No clubbing, Pedal pulses intact and symmetrical, Radial pulses intact and symmetrical, No calf tenderness Psychiatric: Alert and oriented to person, place and time, appropriate affect, intact judgement Neuro: Muscles Strength 5/5 in all 4 extremities, Sensation to light touch grossly present throughout, Cranial nerves II-XII grossly intact, no focal sensory deficits - Labs CBC & Chem 7: 11/20/21 05:13 11/20/21 05:13 Labs: Abnormal Lab Results - Last 24 Hours (Table) 11/20/21 11/20/21 11/21/21 Range/Units 13:03 19:31 06:41 APTT 42.2 H 56.8 H 51.3 H (22.0-30.0) sec Microbiology - Last 24 Hours (Table) 11/19/21 23:08 Blood Culture - Preliminary Blood No Growth after 24 hours 11/17/21 15:19 Blood Culture - Preliminary Blood No Growth after 72 hours Assessment and Plan Plan: Near syncope, likely sec to PE with RV strain -IV heparin. -S/p EKOS by cardio, procedure tolerated -Need to transition to oral AC. Necrotic abdominal mass, malignancy versus abscess in setting of recent perforated appendix -Continue IV Zosyn -Planning colonoscopy to biopsy the cecal mass today -Blood cultures NGTD Elevated troponin -Likely sec to PE, on IV heparin -Continue aspirin -Seen by cardio Hyponatremia -Better with IV hydration and monitor for now Chronic microcytic anemia, likely sec to iron deficiency -Replace iron IV, start IM B12, and oral folate B12 and folate deficiency -Start replacement. DVT prophylaxis -Heparin infusion CODE STATUS: Full Code Discussed with: Patient Anticipated discharge date: tomorrow Anticipated discharge place: Home
[2021-11-21] MEDS ORDERED: SODIUM FERRIC GLUCONAT-SUCROSE 125 MG in SODIUM CHLORIDE 0.9% 100 ML IVPB SCH (13:00)
[2021-11-21] MEDS ORDERED: MIDAZOLAM 2 MG/2 ML VIAL IV PRN (13:31)
[2021-11-21] MEDS ORDERED: ONDANSETRON 4 MG/2 ML VIAL IVP ONE (13:31)
[2021-11-21] MEDS ORDERED: LIDOCAINE 1% (10MG/ML) FOR IV START INTRADERMA PRN (13:31)
[2021-11-21] MEDS ORDERED: DEXAMETHASONE SOD PHOSPHATE 4 MG/ML 1 ML VIAL IV ONE (13:31)
[2021-11-21] MEDS ORDERED: LIDOCAINE 2% INJ 20 MG/ML (2 ML VIAL) ONE (14:41)
[2021-11-21] MEDS ORDERED: PROPOFOL 10 MG/ML 20 ML VIAL IV ONE (14:41)
--- NOTE | 2021-11-21 14:41 | P.PN ---
Subjective Progress Note Date: 11/21/21 71-year-old male seen in consultation, for shortness of breath. The patient was initially seen in the emergency department, on November 17, complaining of syncope, and weakness. The patient has a recent history of a ruptured appendix, being treated with outpatient IV Zosyn. The patient was to come to the hospital today for a computed tomography scan of the abdomen, and he had a near syncopal episode, feeling very lightheaded and dizzy. He also has not been eating or drinking very much recently. He also had shortness of breath, and was evaluated, and the CTA was positive for pulmonary embolism. This is why we are asked to see him. Currently, he's on 6 L. He is receiving IV heparin, and Zosyn. White count 7.8, he will benign 0.5, hematocrit 29.5, and platelet count normal. Sodium 132, potassium 4.2, chlorides 99, CO2 21, BUN 9, creatinine 0.87. Troponin was 0.305. Urine was unremarkable. The chest x-ray showed no acute cardiopulmonary process. The KUB x-ray showed left inguinal hernia, and nonspecific bowel pattern. EKG did show sinus tachycardia. It also did show an S in lead 1 and a Q in lead 3. CT angiogram showed bilateral pulmonary emboli, worse on the right side than on the left. There was no evidence of right heart strain on the CTA. Echocardiogram did show a pulmonary pressure that was elevated at 55, and also a right ventricular to left ventricular ratio of 1.5. Dopplers of the lower extremities were negative for DVT. The patient is seen today 11/20/2019 follow-up in the intensive care unit. He is resting comfortably in bed. Awake and alert in no acute distress. He was found to have RV strain on his echocardiogram. He did undergo in for an EKOS procedure yesterday. Femoral catheters still in place. Remains on heparin. He is on 6 L high flow nasal cannula. He's been afebrile. Hemodynamically stable. Blood culture reveals no growth. White count 9.9. Hemoglobin 10.2. Platelets 273. Sodium 133. Potassium 3.7. BUN 5. Creatinine 0.68. He is currently on Zosyn. Progress note dated 11/20/2021. The patient is seen today in room 361. The patient remains on IV heparin. The patient is scheduled for an EGD and colonoscopy tomorrow. He is also planning to have surgery on his colonic mass, sometime this week. The patient remains on IV heparin. The patient was on 6 L yesterday, but is on room air today. He's feeling much better. The patient did have EKOS for his significant bilateral pulmonary emboli. White count 7.6, hemoglobin 10.3, hematocrit 32.2, and platelet count 390,000. PTT is 40.3. Sodium 132, potassium 3.8, chlorides 96, CO2 28, BUN 7, creatinine 0.83. Albumin is 3.3. 11/21/2021, the patient is calm and comfortable and the patient has no specific complaints and the patient is currently on room air oxygen. The patient was taken off the IV heparin and this patient for colonoscopy today. As mentioned earlier, the patient has a cecal mass that needs to be further investigated. Otherwise, the patient has no specific complaints. No evidence of any GI bleeding. Doppler of the lower extremities have been negative and the patient has undergone selective intra-arterial thrombolytic therapy regarding pulmonary embolism. The patient has been covered with IV Zosyn also has an empiric antibiotic coverage. Patient underwentthe bowel preparation yesterday without any major difficulties. No labs are available from today. Note that echocardiogram at shown pulmonary hypertension secondary to bilateral pulmonary embolism.he also gives history of tonsillar cancer that was treated many years back with a combination of chemoradiation therapy and back then during his treatment he had a blood clot in his left upper extremity. Objective - Vital Signs Vital signs: Vital Signs Temp 98.6 F 11/21/21 07:15 Pulse 100 11/21/21 07:15 Resp 18 11/21/21 07:15 BP 133/79 11/21/21 07:15 Pulse Ox 98 11/21/21 07:15 FiO2 Intake & Output 11/20/21 11/21/21 11/21/21 18:59 06:59 18:59 Intake Total 1254.856 97.108 99.127 Output Total 0 Balance 1254.856 97.108 99.127 Weight 87.6 kg 87.6 kg Intake: IV 20 10 Invasive Line 1 20 10 Intake, IV Titration 108.856 97.108 89.127 Amount Heparin Sod,Pork in 0.45% 108.856 97.108 89.127 NaCl 25,000 unit In 0.45 % NaCl 1 250ml.bag @ 10. 917 UNITS/KG/HR 10 mls/hr IV .Q24H [facility] Rx#: [id number] Oral 1126 0 Output: Stool 0 Other: Voiding Method Toilet Urinal # Voids 0 1 # Bowel Movements 0 1 - Exam No acute distress, oriented 3. Currently on room air. HEENT examination is grossly unremarkable. Neck supple. Full range of motion. No adenopathy thyromegaly or neck vein distention. Cardiovascular examination reveals regular rhythm rate. S1-S2 normal. No S3 or S4. No discernible murmur noted. Lungs reveal clear breath sounds. Breath sounds are equal bilaterally. No adventitious lung sounds including wheezes rhonchi or crackles. Abdomen soft bowel sounds are heard. No masses or tenderness. Extremities are intact. No cyanosis clubbing or edema. Skin is without rash or lesion. Neurologic examination is brief but nonfocal. - Labs CBC & Chem 7: 11/20/21 05:13 11/20/21 05:13 Labs: Abnormal Lab Results - Last 24 Hours (Table) 11/19/21 11/20/21 11/20/21 Range/Units 07:36 13:03 19:31 APTT 42.2 H 56.8 H (22.0-30.0) sec Iron 17 L (65-175) ug/dL % Saturation 5.08 L (15.00-50.00) Vitamin B12 166.0 L (200.0-944.0) pg/mL 11/21/21 Range/Units 06:41 APTT 51.3 H (22.0-30.0) sec Iron (65-175) ug/dL % Saturation (15.00-50.00) Vitamin B12 (200.0-944.0) pg/mL Microbiology - Last 24 Hours (Table) 11/19/21 23:08 Blood Culture - Preliminary Blood No Growth after 24 hours 11/17/21 15:19 Blood Culture - Preliminary Blood No Growth after 72 hours Assessment and Plan Plan: Acute pulmonary embolism, with right heart strain, and acute pulmonary hypertension, S/P EKOS.the patient is currently on room air oxygen. Echocardiog sylvie showed moderate to severe degree of pulmonary hypertension which is related to acute pulmonary embolism. The patient was treated with IV heparin. IV heparin is currently on hold as the patient is going to undergo a colonoscopy. Cecal mass, suspicious for carcinoma, with anticipated surgery,for now, the patient is going to undergo a colonoscopy for diagnostic purposes Recent episode of ruptured appendix, being treated as an outpatient, with IV Zosyn. History of hypertension. 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 remote history of a left upper extremity DVT Vague history of irregular heartbeat. Plan Proceed with colonoscopy Discuss with general surgery regarding the plan regarding a surgical resection of the bowel the patient is hemodynamically stable at this point in time Anticoagulation with IV hypertension be resumed following his colonoscopy We'll continue to follow. Obviously this is a provoked pulmonary embolism and consideration needs to be given for retrievable IVC filter specially as the patient will not be able to receive any form of anticoagulation postop. we'll continue to follow. We'll discuss this with the vascular surgeons and the general surgeons. Further decisions will be made based on the findings of the colonoscopy today. The patient is nothing by mouth for now.
[2021-11-21] MEDS ORDERED: IV FLUID CONTINUATION 1,000 ML IV ONE (14:43)
--- NOTE | 2021-11-21 15:16 | P.PN ---
Subjective Progress Note Date: 11/21/21 Principal diagnosis: cecal mass In f/u today pt is pending colonoscopy today to further assess cecal mass. His hep drip is off pending procedure, pt denies any chest pain, hemoptysis, unusual SOB, no lower extremity pain or swelling, no other acute c/o, questions or concerns. Objective - Vital Signs Vital signs: Vital Signs Temp 98.6 F 11/21/21 07:15 Pulse 100 11/21/21 07:15 Resp 18 11/21/21 07:15 BP 133/79 11/21/21 07:15 Pulse Ox 98 11/21/21 07:15 FiO2 Intake & Output 11/20/21 11/21/21 11/21/21 18:59 06:59 18:59 Intake Total 1254.856 97.108 99.127 Output Total 0 Balance 1254.856 97.108 99.127 Weight 87.6 kg 87.6 kg Intake: IV 20 10 Invasive Line 1 20 10 Intake, IV Titration 108.856 97.108 89.127 Amount Heparin Sod,Pork in 0.45% 108.856 97.108 89.127 NaCl 25,000 unit In 0.45 % NaCl 1 250ml.bag @ 10. 917 UNITS/KG/HR 10 mls/hr IV .Q24H [facility] Rx#: [id number] Oral 1126 0 Output: Stool 0 Other: Voiding Method Toilet Urinal # Voids 0 1 # Bowel Movements 0 1 - Constitutional General appearance: Present: average body habitus, cooperative, no acute distress - EENT Eyes: Present: anicteric sclerae, EOMI ENT: Present: hearing grossly normal - Respiratory Details: resp are even and unlabored - Peripheral edema leg Peripheral Edema: bilateral: None - Integumentary Integumentary: Present: pale - Neurologic Neurologic: Present: CNII-XII intact (grossly) - Musculoskeletal Musculoskeletal: Present: strength equal bilaterally - Psychiatric Psychiatric: Present: A&O x's 3, appropriate affect, intact judgment & insight - Labs CBC & Chem 7: 11/20/21 05:13 11/20/21 05:13 Labs: Abnormal Lab Results - Last 24 Hours (Table) 11/20/21 11/20/21 11/21/21 Range/Units 13:03 19:31 06:41 APTT 42.2 H 56.8 H 51.3 H (22.0-30.0) sec Microbiology - Last 24 Hours (Table) 11/19/21 23:08 Blood Culture - Preliminary Blood No Growth after 24 hours 11/17/21 15:19 Blood Culture - Preliminary Blood No Growth after 72 hours - Imaging and Cardiology Venous US: report reviewed Assessment and Plan (1) Pulmonary embolism Current Visit: Yes Status: Acute Priority: High Code(s): I26.99 - OTHER PULMONARY EMBOLISM WITHOUT ACUTE COR PULMONALE SNOMED Code(s): 71397026 (2) Cecum mass Current Visit: Yes Status: Acute Priority: High Code(s): K63.89 - OTHER SPECIFIED DISEASES OF INTESTINE SNOMED Code(s): 8415735736 (3) History of head and neck cancer Current Visit: No Status: Chronic Priority: Medium Code(s): Z85.89 - PERSONAL HISTORY OF MALIGNANT NEOPLASM OF ORGANS AND SYSTEMS SNOMED Code(s): 805848040 Plan: Symptomatic PE. Heparin drip until all planned procedures complete, transition to DOAC. Rx sent for copay verification. BLE doppler neg for DVT Provoking factors for PE-had recent hospitalization for ruptured appendix, po ssible malignancy. Discussed case with Oncologist, consider hypercoaguable work up outpt in the future. Current recommendation for anticoagulation is 6mo. Recommendations may change based on malignancy status/hypercoaguable work up. Pending biopsy results of cecal mass. Further recommendations to follow.
--- NOTE | 2021-11-21 16:39 | P.PCN ---
Date of Procedure: 11/21/21 Description of Procedure: PREOPERATIVE DIAGNOSIS: Chronic anemia Anticoagulant use Gastroesophageal reflux disease POSTOPERATIVE DIAGNOSIS: Chronic anemia Anticoagulant use Gastroesophageal reflux disease Diaphragmatic hiatal hernia OPERATION: Esophagogastroduodenoscopy with cold forceps biopsies, antrum SURGEON: Dayami Pak MD ANESTHESIA: MAC. INDICATIONS: The patient is a 71-year-old male who presents with chronic anemia and on anticoagulant use. Benefits and risks of the procedure were described. Informed consent was obtained. DESCRIPTION: The patient was brought into the endoscopy suite and laid in the left lateral decubitus position. An Olympus gastroscope was passed along the posterior oropharynx down to the distal esophagus where the squamocolumnar junction was encountered at 40 cm from the incisors. The stomach was entered and no bile reflux was found. Additional findings are listed below. The first through third portion of the duodenum was examined. Cold biopsies were obtained of the antrum Retroflexion of the scope confirmed Hill grade 3 lower esophageal valve. The squamocolumnar junction demonstrated LA grade B erosive esophagitis. The stomach was desufflated. The patient tolerated the procedure well. FINDINGS: Squamocolumnar junction 40 cm from the incisors. Diaphragmatic hiatus at 45 cm. Hiatal hernia, 5 cm Hill grade 3 lower esophageal valve. LA grade B erosive esophagitis. No active duodenitis. No stigmata of bleeding Chronic gastritis with cold forceps biopsies obtained. RECOMMENDATIONS: 1. Diet as tolerated 2. Upper endoscopy as needed 3. Start Protonix 40 mg daily for gastritis
--- NOTE | 2021-11-21 16:46 | P.PCN ---
Date of Procedure: 11/21/21 Description of Procedure: PREOPERATIVE DIAGNOSIS: History of perforated appendicitis Abnormal computed tomography scan for large cecal mass Chronic anemia POSTOPERATIVE DIAGNOSIS: Tubular adenoma transverse colon Tubular adenoma ascending colon Cecal tumor, high malignant potential OPERATION: Colonoscopy to the ileocecal valve and appendiceal orifice, cecum Colonoscopy with hot snare polypectomy Colonoscopy with injection of Maranda ink 5 mL, mid transverse colon SURGEON: Dayami Pak MD. ANESTHESIA: MAC. INDICATIONS: The patient is an 71-year-old male with recent finding of abnormal computed tomography scan of large cecal mass 8 cm. Patient reports no prior colonoscopy in 13 years. Colonoscopy order for diagnostic assessment. Benefits and risks were described and informed consent was obtained. DESCRIPTION OF PROCEDURE: The patient had undergone Sutab prep. The patient had been brought into the operating room and laid in the left lateral decubitus position. After adequate intravenous sedation, the rectum was examined with 2% lidocaine jelly. The prostate was unremarkable. External hemorrhoids were encountered. The rectal tone was within normal limits. No lesions were palpated in the rectal vault. An Olympus colonoscope was advanced until the cecum, ileocecal valve and ap pendiceal orifice were clearly viewed. The prep was fair. No large sigmoid diverticulosis was encountered. Colonic polyps were found and removed. However, large cecal mass involving the appendiceal orifice and ileocecal valve was identified. Another lesion unresectable at the proximal mid transverse colon was identified and injected with 5 mL Maranda ink. No evidence of focal colitis was found. Retroflexion of the scope demonstrated grade 2 internal hemorrhoids without active bleeding or inflammation. The colon was desufflated. The patient had tolerated the procedure well. Withdrawal time was over 6 minutes. FINDINGS: Aronchick preparation quality scale 3 (1-5) Internal hemorrhoids, grade 2 External hemorrhoids, grade 2 No arteriovenous malformations. No large sigmoid diverticulosis Removal of 6 polyps: - Snare polypectomy mid transverse colon 3, 5 to 8 mm tubulovillous adenoma polyp. - Snare polypectomy ascending colon 3, 5-10 mm flat villous adenoma polyp. - Snare polypectomy incisional biopsy of cecal tumor completely obliterating appendiceal orifice immediately distal to ileocecal valve, over 8 cm in size - Unresectable proximal mid transverse colon tumor occupying 75% of the lumen with injection of Maranda ink, 5 mL No focal colitis. RECOMMENDATIONS: 1. Surgical resection of large cecal mass including unresectable tumor of the proximal mid transverse colon advised, extended right hemicolectomy. 2. Recommend high-protein regular diet in the interim prior to resection Plan - Discharge Summary Discharge Rx Participant: Yes New Discharge Prescriptions: New Apixaban [Eliquis Starter Pack (for VTE)] 5 - 10 mg PO DIRECTED 30 Days #1 each No Action Calcium Carbonate [Tums] 500 mg PO DAILY Cholecalciferol (Vitamin D3) [Vitamin D3 (125 MCG = 5,000 IU)] 125 mcg PO DAILY atenoloL [Tenormin] 25 mg PO DAILY amLODIPine BES/OLMESARTAN MED [amLODIPine BES/OLMESARTAN MED 5-20 mg] 1 tab PO DAILY Procto-Med Hc 2.5% Cream 1 applic RECTAL TID PRN PRN Reason: AFTER BOWEL MOVEMENTS Potassium Gluconate [Potassium Gluconate ER] 99 mg PO DAILY Vitamin E (Dl,Tocopheryl Acet) [Vitamin E (400 Iu = 180 mg)] 400 unit PO DAILY Magnesium 250 mg PO DAILY Piperacillin-Tazobactam [Zosyn] 3.375 gm IVPB Q8HR 14 Days each Discharge Medication List Calcium Carbonate [Tums] 500 mg PO DAILY 10/19/21 [History] Cholecalciferol (Vitamin D3) [Vitamin D3 (125 MCG = 5,000 IU)] 125 mcg PO DAILY 10/19/21 [History] Magnesium 250 mg PO DAILY 10/19/21 [History] Potassium Gluconate [Potassium Gluconate ER] 99 mg PO DAILY 10/19/21 [History] Vitamin E (Dl,Tocopheryl Acet) [Vitamin E (400 Iu = 180 mg)] 400 unit PO DAILY 10/19/21 [History] amLODIPine BES/OLMESARTAN MED [amLODIPine BES/OLMESARTAN MED 5-20 mg] 1 tab PO DAILY 10/19/21 [History] atenoloL [Tenormin] 25 mg PO DAILY 10/19/21 [History] Piperacillin-Tazobactam [Zosyn] 3.375 gm IVPB Q8HR 14 Days each 10/26/21 [Rx] Procto-Med Hc 2.5% Cream 1 applic RECTAL TID PRN 11/17/21 [History] Apixaban [Eliquis Starter Pack (for VTE)] 5 - 10 mg PO DIRECTED 30 Days #1 each 06/27/22 [Rx] Follow up Appointment(s)/Referral(s): Vj Knowles MD [Primary Care Provider] - 1-2 days
[2021-11-21] MEDS ORDERED: FERROUS SULFATE 325 MG TAB PO SCH (17:30)
[2021-11-21] MEDS: LACTATED RINGERS 1,000 ML IV SCH (17:41)
[2021-11-21] MEDS: HEPARIN SOD,PORK IN 0.45% NACL 25,000 UNIT in 0.45% NACL 1 250ML.BAG IV SCH ×2 (17:44→22:32)
[2021-11-21] MEDS: FOLIC ACID 1 MG TAB PO SCH (18:52)
[2021-11-21] MEDS: CYANOCOBALAMIN 1,000 MCG/ML 1 ML VIAL IM SCH (18:52)
[2021-11-21] MEDS ORDERED: HEPARIN SOD,PORK IN 0.45% NACL 25,000 UNIT in 0.45% NACL 1 250ML.BAG IV SCH (22:00)
--- NOTE | 2021-11-21 23:47 | P.PN ---
Subjective Progress Note Date: 11/20/21 Principal diagnosis: Periappendicular abscess versus necrotic tumor Patient is a 71-year-old male who was recently admitted to this hospital with abdominal pain did have abdominal CT suspicious for possible ruptured appendicitis and abscess treated with IV Zosyn with subsequent CT raises the possibility of possible necrotic tumor in this patient did have a syncopal episode and evidence of PE. On today's evaluation that is 11/20/2021, the patient remains to be febrile, the patient is breathing comfortably on room air, the patient denies any chest pain or shortness of breath or cough no worsening abdominal pain however has been complaining of diarrhea from all the bowel prep he is drinking Objective - Vital Signs Vital signs: Vital Signs Temp 98.2 F 11/20/21 15:37 Pulse 97 11/20/21 15:37 Resp 18 11/20/21 15:37 BP 119/88 11/20/21 15:37 Pulse Ox 95 11/20/21 15:37 FiO2 Intake & Output 11/19/21 11/20/21 11/20/21 18:59 06:59 18:59 Intake Total 1270 173.583 8041.856 Output Total 950 1 0 Balance 320 748.619 7135.856 Intake: IV 200 20 Invasive Line 1 20 Piperacillin-Tazobactam 3 200 .375 gm In Sodium Chloride 0.9% 100 ml @ 25 mls/hr IVPB Q8HR [facility] Rx# :[id number] Intake, IV Titration 80 157.834 108.856 Amount Heparin Sod,Pork in 0.45% 157.834 108.856 NaCl 25,000 unit In 0.45 % NaCl 1 250ml.bag @ 10. 917 UNITS/KG/HR 10 mls/hr IV .Q24H [facility] Rx#: [id number] Sodium Chloride 0.9% 1, 80 000 ml @ Per Protocol IV .Q0M [facility] Rx#:[id number] Oral 990 1126 Output: Urine 950 Stool 1 0 Other: Voiding Method Urinal Toilet Urinal # Voids 1 3 0 # Bowel Movements 0 - Exam GENERAL DESCRIPTION: An elderly male lying in bed in no distress RESPIRATORY SYSTEM: Unlabored breathing , decreased breath sounds at bases HEART: S1 S2 regular rate and rhythm , ABDOMEN: Soft , no tenderness EXTREMITIES: No edema feet - Labs CBC & Chem 7: 11/20/21 05:13 11/20/21 05:13 Labs: Abnormal Lab Results - Last 24 Hours (Table) 11/19/21 11/19/21 11/19/21 Range/Units 07:36 17:17 21:40 RBC 4.27 L (4.30-5.90) m/uL Hgb 10.6 L (13.0-17.5) gm/dL Hct 34.0 L (39.0-53.0) % MCV 79.6 L (80.0-100.0) fL MCH 24.8 L (25.0-35.0) pg Lymphocytes # 0.8 L (1.0-4.8) k/uL APTT 35.1 H (22.0-30.0) sec Sodium (137-145) mmol/L Chloride (98-107) mmol/L BUN (9-20) mg/dL Glucose (74-99) mg/dL Calcium (8.4-10.2) mg/dL Phosphorus (2.5-4.5) mg/dL Iron 17 L (65-175) ug/dL % Saturation 5.08 L (15.00-50.00) Total Protein (6.3-8.2) g/dL Albumin (3.5-5.0) g/dL Vitamin B12 166.0 L (200.0-944.0) pg/mL 11/20/21 11/20/21 11/20/21 Range/Units 05:13 05:13 05:13 RBC 4.08 L (4.30-5.90) m/uL Hgb 10.3 L (13.0-17.5) gm/dL Hct 32.2 L (39.0-53.0) % MCV 79.1 L (80.0-100.0) fL MCH (25.0-35.0) pg Lymphocytes # 0.7 L (1.0-4.8) k/uL APTT 40.3 H (22.0-30.0) sec Sodium 132 L (137-145) mmol/L Chloride 96 L (98-107) mmol/L BUN 7 L (9-20) mg/dL Glucose 100 H (74-99) mg/dL Calcium 8.2 L (8.4-10.2) mg/dL Phosphorus 2.1 L (2.5-4.5) mg/dL Iron (65-175) ug/dL % Saturation (15.00-50.00) Total Protein 5.7 L (6.3-8.2) g/dL Albumin 3.3 L (3.5-5.0) g/dL Vitamin B12 (200.0-944.0) pg/mL 11/20/21 Range/Units 13:03 RBC (4.30-5.90) m/uL Hgb (13.0-17.5) gm/dL Hct (39.0-53.0) % MCV (80.0-100.0) fL MCH (25.0-35.0) pg Lymphocytes # (1.0-4.8) k/uL APTT 42.2 H (22.0-30.0) sec Sodium (137-145) mmol/L Chloride (98-107) mmol/L BUN (9-20) mg/dL Glucose (74-99) mg/dL Calcium (8.4-10.2) mg/dL Phosphorus (2.5-4.5) mg/dL Iron (65-175) ug/dL % Saturation (15.00-50.00) Total Protein (6.3-8.2) g/dL Albumin (3.5-5.0) g/dL Vitamin B12 (200.0-944.0) pg/mL Microbiology - Last 24 Hours (Table) 11/17/21 15:19 Blood Culture - Preliminary Blood No Growth after 48 hours Assessment and Plan (1) Peritonitis Current Visit: No Status: Acute Code(s): K65.9 - PERITONITIS, UNSPECIFIED SNOMED Code(s): 35443257 Plan: 1patient presented to hospital with near syncopal episode in this patient currently being treated for possible periappendicular abscess however the patient repeat CAT scan is suspicious for possible necrotic cecal tumor and obstruction of the appendix and this finding has been discussed with the surgeon patient is scheduled for colonoscopy tomorrow 2the patient to continue with Zosyn while awaiting further work-up to be completed and continue supportive care. Time with Patient: Less than 30
--- NOTE | 2021-11-21 23:48 | P.PN ---
Subjective Progress Note Date: 11/21/21 Principal diagnosis: Periappendicular abscess versus necrotic tumor Patient is a 71-year-old male who was recently admitted to this hospital with abdominal pain did have abdominal CT suspicious for possible ruptured appendicitis and abscess treated with IV Zosyn with subsequent CT raises the possibility of possible necrotic tumor in this patient did have a syncopal episode and evidence of PE. On today's evaluation that is 11/21/2021, the patient denies any fever or chills, the patient is breathing comfortably on room air, the patient denies any chest pain or shortness of breath or cough, the patient complains currently controlled no nausea no vomiting and no diarrhea Objective - Vital Signs Vital signs: Vital Signs Temp 98.6 F 11/21/21 07:15 Pulse 100 11/21/21 07:15 Resp 18 11/21/21 07:15 BP 133/79 11/21/21 07:15 Pulse Ox 98 11/21/21 07:15 FiO2 Intake & Output 11/20/21 11/21/21 11/21/21 18:59 06:59 18:59 Intake Total 1254.856 97.108 99.127 Output Total 0 Balance 1254.856 97.108 99.127 Weight 87.6 kg 87.6 kg Intake: IV 20 10 Invasive Line 1 20 10 Intake, IV Titration 108.856 97.108 89.127 Amount Heparin Sod,Pork in 0.45% 108.856 97.108 89.127 NaCl 25,000 unit In 0.45 % NaCl 1 250ml.bag @ 10. 917 UNITS/KG/HR 10 mls/hr IV .Q24H [facility] Rx#: [id number] Oral 1126 0 Output: Stool 0 Other: Voiding Method Toilet Urinal # Voids 0 1 # Bowel Movements 0 1 - Exam GENERAL DESCRIPTION: An elderly male lying in bed in no distress RESPIRATORY SYSTEM: Unlabored breathing , decreased breath sounds at bases HEART: S1 S2 regular rate and rhythm , ABDOMEN: Soft , no tenderness EXTREMITIES: No edema feet - Labs CBC & Chem 7: 11/20/21 05:13 11/20/21 05:13 Labs: Abnormal Lab Results - Last 24 Hours (Table) 11/20/21 11/21/21 Range/Units 19:31 06:41 APTT 56.8 H 51.3 H (22.0-30.0) sec Microbiology - Last 24 Hours (Table) 11/19/21 23:08 Blood Culture - Preliminary Blood No Growth after 24 hours 11/17/21 15:19 Blood Culture - Preliminary Blood No Growth after 72 hours Assessment and Plan (1) Peritonitis Current Visit: No Status: Acute Code(s): K65.9 - PERITONITIS, UNSPECIFIED SNOMED Code(s): 21781402 Plan: 1patient presented to hospital with near syncopal episode in this patient currently being treated for possible periappendicular abscess however the patient repeat CAT scan is suspicious for possible necrotic cecal tumor and obstruction of the appendix and this finding has been discussed with the surgeon patient is scheduled for colonoscopy this afternoon 2the patient is currently being treated with Zosyn which will be continued while awaiting further work-up to be completed and continue supportive care. Time with Patient: Less than 30
[2021-11-22] MEDS: PIPERACILLIN-TAZOBACTAM 3.375 GM in SODIUM CHLORIDE 0.9% 100 ML IVPB SCH ×4 (00:38→23:51)
[2021-11-22] MEDS: PANTOPRAZOLE 40 MG TABLET PO SCH (06:37)
[2021-11-22] MEDS ORDERED: HYDROmorphone 0.5 MG/0.5 ML SYRINGE IVP PRN (07:00)
[2021-11-22] MEDS: CALCIUM CARBONATE 500 MG CHEWABLE PO SCH (09:32)
[2021-11-22] MEDS: LOSARTAN 25 MG TAB PO SCH (09:33)
[2021-11-22] MEDS: ASPIRIN 81 MG PO SCH (09:33)
[2021-11-22] MEDS: atenoloL 25 MG TAB PO SCH (09:33)
[2021-11-22] MEDS: FOLIC ACID 1 MG TAB PO SCH (09:33)
[2021-11-22] MEDS: POTASSIUM CHLORIDE ER 10 MEQ TAB.ER.PRT PO SCH (09:33)
[2021-11-22] MEDS: MAGNESIUM OXIDE 400 MG TAB PO SCH (09:33)
[2021-11-22] MEDS: amLODIPine 5 MG TAB PO SCH (09:34)
--- NOTE | 2021-11-22 10:15 | P.PN ---
Subjective Progress Note Date: 11/22/21 71-year-old male seen in consultation, for shortness of breath. The patient was initially seen in the emergency department, on November 17, complaining of syncope, and weakness. The patient has a recent history of a ruptured appendix, being treated with outpatient IV Zosyn. The patient was to come to the hospital today for a computed tomography scan of the abdomen, and he had a near syncopal episode, feeling very lightheaded and dizzy. He also has not been eating or drinking very much recently. He also had shortness of breath, and was evaluated, and the CTA was positive for pulmonary embolism. This is why we are asked to see him. Currently, he's on 6 L. He is receiving IV heparin, and Zosyn. White count 7.8, he will benign 0.5, hematocrit 29.5, and platelet count normal. Sodium 132, potassium 4.2, chlorides 99, CO2 21, BUN 9, creatinine 0.87. Troponin was 0.305. Urine was unremarkable. The chest x-ray showed no acute cardiopulmonary process. The KUB x-ray showed left inguinal hernia, and nonspecific bowel pattern. EKG did show sinus tachycardia. It also did show an S in lead 1 and a Q in lead 3. CT angiogram showed bilateral pulmonary emboli, worse on the right side than on the left. There was no evidence of right heart strain on the CTA. Echocardiogram did show a pulmonary pressure that was elevated at 55, and also a right ventricular to left ventricular ratio of 1.5. Dopplers of the lower extremities were negative for DVT. The patient is seen today 11/20/2019 follow-up in the intensive care unit. He is resting comfortably in bed. Awake and alert in no acute distress. He was found to have RV strain on his echocardiogram. He did undergo in for an EKOS procedure yesterday. Femoral catheters still in place. Remains on heparin. He is on 6 L high flow nasal cannula. He's been afebrile. Hemodynamically stable. Blood culture reveals no growth. White count 9.9. Hemoglobin 10.2. Platelets 273. Sodium 133. Potassium 3.7. BUN 5. Creatinine 0.68. He is currently on Zosyn. Progress note dated 11/20/2021. The patient is seen today in room 361. The patient remains on IV heparin. The patient is scheduled for an EGD and colonoscopy tomorrow. He is also planning to have surgery on his colonic mass, sometime this week. The patient remains on IV heparin. The patient was on 6 L yesterday, but is on room air today. He's feeling much better. The patient did have EKOS for his significant bilateral pulmonary emboli. White count 7.6, hemoglobin 10.3, hematocrit 32.2, and platelet count 390,000. PTT is 40.3. Sodium 132, potassium 3.8, chlorides 96, CO2 28, BUN 7, creatinine 0.83. Albumin is 3.3. 11/21/2021, the patient is calm and comfortable and the patient has no specific complaints and the patient is currently on room air oxygen. The patient was taken off the IV heparin and this patient for colonoscopy today. As mentioned earlier, the patient has a cecal mass that needs to be further investigated. Otherwise, the patient has no specific complaints. No evidence of any GI bleeding. Doppler of the lower extremities have been negative and the patient has undergone selective intra-arterial thrombolytic therapy regarding pulmonary embolism. The patient has been covered with IV Zosyn also has an empiric antibiotic coverage. Patient underwentthe bowel preparation yesterday without any major difficulties. No labs are available from today. Note that echocardiogram at shown pulmonary hypertension secondary to bilateral pulmonary embolism.he also gives history of tonsillar cancer that was treated many years back with a combination of chemoradiation therapy and back then during his treatment he had a blood clot in his left upper extremity. 11/22/2021, the patient is quite stable. The patient underwent a colonoscopy yesterday and the patient was found to have a unresectable proximal mid transverse colon tumor occupying 75% of the lumen of the colon. He also had some polyps that were resected. Nevertheless, there major concern is the mass in the proximal mid transverse colon and the patient will obviously need a colectomy. I discussed the case with the general surgeon and I also discussed the case with the vascular surgeon RONNA. I think the patient would be better off with an IVC filter placed to protect him from any further embolic phenomena postop knowing that the patient is getting to be off anticoagulants for at least 5-7 days postop. Otherwise, the patient is currently on IV heparin. Is doing extremely well. No bleeding complications. No other complaints otherwise for now. Note that the original Doppler of the lower extremities were negative for DVTs. Objective - Vital Signs Vital signs: Vital Signs Temp 98.6 F 11/22/21 04:00 Pulse 91 11/22/21 04:00 Resp 18 11/22/21 04:00 BP 141/88 11/22/21 04:00 Pulse Ox 98 11/22/21 04:00 FiO2 Intake & Output 11/21/21 11/22/21 11/22/21 18:59 06:59 18:59 Intake Total 1284.127 102.3 118 Balance 1284.127 102.3 118 Weight 87.6 kg Intake: IV 520 Invasive Line 1 20 Intake, IV Titration 89.127 102.3 Amount Heparin Sod,Pork in 0.45% 89.127 NaCl 25,000 unit In 0.45 % NaCl 1 250ml.bag @ 10. 917 UNITS/KG/HR 10 mls/hr IV .Q24H [facility] Rx#: [id number] Heparin Sod,Pork in 0.45% 102.3 NaCl 25,000 unit In 0.45 % NaCl 1 250ml.bag @ 15.5 mls/hr IV .Q16H8M [facility] Rx #:[id number] Oral 675 118 Other: Voiding Method Toilet Urinal # Voids 2 1 # Bowel Movements 2 1 - Exam No acute distress, oriented 3. Currently on room air. HEENT examination is grossly unremarkable. Neck supple. Full range of motion. No adenopathy thyromegaly or neck vein distention. Cardiovascular examination reveals regular rhythm rate. S1-S2 normal. No S3 or S4. No discernible murmur noted. Lungs reveal clear breath sounds. Breath sounds are equal bilaterally. No adventitious lung sounds including wheezes rhonchi or crackles. Abdomen soft bowel sounds are heard. No masses or tenderness. Extremities are intact. No cyanosis clubbing or edema. Skin is without rash or lesion. Neurologic examination is brief but nonfocal. - Labs CBC & Chem 7: 11/20/21 05:13 11/20/21 05:13 Labs: Abnormal Lab Results - Last 24 Hours (Table) 11/22/21 Range/Units 03:50 APTT 53.6 H (22.0-30.0) sec Microbiology - Last 24 Hours (Table) 11/19/21 23:08 Blood Culture - Preliminary Blood No Growth after 48 hours 11/17/21 15:19 Blood Culture - Preliminary Blood No Growth after 96 hours Assessment and Plan Plan: Acute pulmonary embolism, with right heart strain, and acute pulmonary hypertension, S/P EKOS.the patient is currently on room air oxygen. Echocardiogram showed moderate to severe degree of pulmonary hypertension which is related to acute pulmonary embolism. The patient is currently on IV heparin. Transverse colonic mass for which the patient is being planned for surgical resection of this week. Recent episode of ruptured appendix, being treated as an outpatient, with IV Zosyn. History of hypertension. 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 remote history of a left upper extremity DVT Vague history of irregular heartbeat. Plan Results of the colonoscopy noted Discussed the case with general surgery, Dr. Nicholson was planning to proceed with surgical resection on The patient remains on IV heparin I will keep the IV heparin for now and plan for retrievable filter insertion in preparation for surgery. I think the patient will be better off having a filter in place to prevent any future clotting as the patient is going to be off anticoagulants at least a week post-surgery. Obviously this is a provoked pulmonary embolism and consideration needs to be given for retrievable IVC filter specially as the patient will not be able to receive any form of anticoagulation postop. Consulted vascular surgery in this regard we'll continue to follow. We'll discuss this with the vascular surgeons and the general surgeons
[2021-11-22 10:43] LABS: Basophils # (A) 0.1 k/uL (0-0.2); Basophils % (A) 1 %; Eosinophils # (A) 0.7 k/uL (0-0.7); Eosinophils % (A) 10 %; HCT 30.7 % (39.0-53.0); HGB 9.5 gm/dL (13.0-17.5); Hypochromasia Moderate; Lymphocytes # (A) 0.9 k/uL (1.0-4.8); Lymphocytes % (A) 13 %; MCH 24.5 pg (25.0-35.0); MCHC 30.9 g/dL (31.0-37.0); MCV 79.1 fL (80.0-100.0); Mean Platelet Volume 7.1; Monocytes # (A) 0.6 k/uL (0-1.0); Monocytes % (A) 9 %; Neutrophils # (A) 4.4 k/uL (1.3-7.7); Neutrophils % (A) 65 %; Platelet Count 313 k/uL (150-450); RBC 3.88 m/uL (4.30-5.90); RDW 14.9 % (11.5-15.5); WBC 6.8 k/uL (3.8-10.6)
[2021-11-22 10:59] LABS: African American GFR (CKD) >90 (>60 ml/min/1.73 sqM); Anion Gap 9 mmol/L; Blood Urea Nitrogen 4 mg/dL (9-20); Calcium 8.2 mg/dL (8.4-10.2); Carbon Dioxide 24 mmol/L (22-30); Chloride 99 mmol/L (98-107); Glucose 100 mg/dL (74-99); Non-African American GFR(CKD) 88 (>60 ml/min/1.73 sqM); Potassium 3.7 mmol/L (3.5-5.1); Sodium 132 mmol/L (137-145)
--- NOTE | 2021-11-22 12:22 | P.PN ---
Subjective This is a 71-year-old male with a past medical history significant for hypertension and palpitations. 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 We have been asked to see the patient in consultation for abnormal troponins. Patient was recently hospitalized for ruptured appendicitis with phlegmon, evaluated by Dr. Pak. He was discharged home on IV antibiotics. Patient came into the hospital to have a CAT scan that was ordered by infectious disease. He states that he was walking into the hospital he felt dizzy and lightheaded and felt like he was going to pass out. The patient believes he passed out at that point. His took him to the emergency room for further evaluation. Patient was found to have bilateral PE with evidence of RV strain by echocardiogram. EF 50-55%. He underwent EKOS with Dr. Macario on 11/18/2021. CT abdomen and pelvis report revealed Persistent highly suspicious necrotic mass centered over the cecum/ileocecal junction and obstructing the appendicular base. Surrounding local regional and mesenteric lymph nodes, possibly metastatic. Chronic necrotic abscess is much less likely yet still in the differential. No convincing evidence of perforated appendicitis. 11/21/2021- patient underwent EGD and colonoscopy which revealed an unresectable proximal mid transverse colon tumor occupying 75% of the lumen of the colon, polyps which were resected, and chronic gastritis. Surgical resection with right colectomy recommended. 11/22/2021 Patient seen and examined at bedside, no acute distress. He is doing well. He denies any chest pain or shortness of breath. He is continued on IV Heparin. His vital signs are stable. Plan for potential right colectomy on . Meds: He is currently maintained on amlodipine 5 mg daily, aspirin 81 mg daily, atenolol 25 mg daily, losartan 75 mg daily GENERAL: Well-appearing, well-nourished and in no acute distress. NECK: Supple without JVD or thyromegaly. LUNGS: Breath sounds clear to auscultation bilaterally. Respiration equal and unlabored. No wheezes, rales or rhonchi. HEART: Regular rate and rhythm without murmurs, rubs or gallops. S1 and S2 heard. EXTREMITIES: Normal range of motion, no edema. No clubbing or cyanosis. Peripheral pulses intact. ASSESSMENT Bilateral pulmonary embolism with evidence of RV strain s/p EKOS procedure on 11/18/2021 Syncope, likely related to above Elevated troponin, secondary to bilateral PE Necrotic cecal mass noted on CT Recent hospitalization for ruptured appendix, on outpatient IV antibiotics Hypertension PLAN Recommend continuing IV heparin Plan for possible colectomy on Vascular consulted for IVC filter placement Continue home cardiac medications Further recommendations based on clinical course Nurse Practitioner note has been reviewed, I agree with a documented findings and plan of care. Patient was seen and examined. Objective - Vital Signs Vital signs: Vital Signs Temp 98.4 F 11/22/21 11:39 Pulse 82 11/22/21 11:39 Resp 17 11/22/21 11:39 BP 143/89 11/22/21 11:39 Pulse Ox 96 11/22/21 11:39 FiO2 Intake & Output 11/21/21 11/22/21 11/22/21 18:59 06:59 18:59 Intake Total 1284.127 102.3 118 Balance 1284.127 102.3 118 Weight 87.6 kg Intake: IV 520 Invasive Line 1 20 Intake, IV Titration 89.127 102.3 Amount Heparin Sod,Pork in 0.45% 89.127 NaCl 25,000 unit In 0.45 % NaCl 1 250ml.bag @ 10. 917 UNITS/KG/HR 10 mls/hr IV .Q24H [facility] Rx#: [id number] Heparin Sod,Pork in 0.45% 102.3 NaCl 25,000 unit In 0.45 % NaCl 1 250ml.bag @ 15.5 mls/hr IV .Q16H8M [facility] Rx #:[id number] Oral 675 118 Other: Voiding Method Toilet Urinal # Voids 2 1 # Bowel Movements 2 1 - Labs CBC & Chem 7: 11/22/21 10:12 11/22/21 10:12 Labs: Abnormal Lab Results - Last 24 Hours (Table) 11/22/21 11/22/21 11/22/21 Range/Units 03:50 10:12 10:12 RBC 3.88 L (4.30-5.90) m/uL Hgb 9.5 L (13.0-17.5) gm/dL Hct 30.7 L (39.0-53.0) % MCV 79.1 L (80.0-100.0) fL MCH 24.5 L (25.0-35.0) pg MCHC 30.9 L (31.0-37.0) g/dL Lymphocytes # 0.9 L (1.0-4.8) k/uL APTT 53.6 H (22.0-30.0) sec Sodium 132 L (137-145) mmol/L BUN 4 L (9-20) mg/dL Glucose 100 H (74-99) mg/dL Calcium 8.2 L (8.4-10.2) mg/dL Microbiology - Last 24 Hours (Table) 11/19/21 23:08 Blood Culture - Preliminary Blood No Growth after 48 hours 11/17/21 15:19 Blood Culture - Preliminary Blood No Growth after 96 hours
--- NOTE | 2021-11-22 13:02 | P.GSCN ---
History of Present Illness Consult date: 11/22/21 Reason for Consult: IVC filter placement Requesting physician: Teresa Plummer History of present illness: This is a 71-year-old male who presented to the emergency department on 11/17/2021 with complaints of syncope and shortness of breath. Patient was recently diagnosed and treated for ruptured appendix with long-term outpatient antibiotics. Patient had a CT of the abdomen and pelvis done as a follow-up outpatient that showed a cecal mass. Dr. Pak is following patient for both previous ruptured appendix as well as a cecal mass. During his workup cardiology was consulted for elevated troponin and ordered a CT angiogram of the chest had reported moderate pulmonary embolism, with echocardiogram showing right ventricular strain and pulmonary hypertension. Cardiology had been on consult for elevated troponins and took the patient for EKOS procedure on 11/18/2021. Patient has been on a heparin drip since. Pulmonology is following patient for shortness of breath and pulmonary embolism and asked us to see the patient regarding need for IVC filter placement for development of possible future DVT as patient will not be able to have anticoagulation status post cecal mass removal and likelihood of underlying cancer. The patient is currently sitting up eating his lunch. He is denying any acute changes. Denies any increase in shortness of breath, chest pain, leg pain, abdominal pain, nausea or vomiting. Review of Systems A 14 point review systems was completed all pertinent positives and negatives as stated in the HPI. Past Medical History Past Medical History: Cancer, Hypertension Additional Past Medical History / Comment(s): squamous cell carcinoma-in remission, tachycardic, recent ruptured appendix History of Any Multi-Drug Resistant Organisms: None Reported Additional Past Surgical History / Comment(s): dental, bilateral cataract removal, metaport Past Anesthesia/Blood Transfusion Reactions: No Reported Reaction Past Psychological History: No Psychological Hx Reported Smoking Status: Never smoker Past Alcohol Use History: Occasional Past Drug Use History: None Reported - Past Family History Father Family Medical History: Cancer Medications and Allergies Home Medications Medication Instructions Recorded Confirmed Type Calcium Carbonate [Tums] 500 mg PO DAILY 10/19/21 11/17/21 History Cholecalciferol (Vitamin D3) 125 mcg PO DAILY 10/19/21 11/17/21 History [Vitamin D3 (125 MCG = 5,000 IU)] Magnesium 250 mg PO DAILY 10/19/21 11/17/21 History Potassium Gluconate [Potassium 99 mg PO DAILY 10/19/21 11/17/21 History Gluconate ER] Vitamin E (Dl,Tocopheryl Acet) 400 unit PO DAILY 10/19/21 11/17/21 History [Vitamin E (400 Iu = 180 mg)] amLODIPine BES/OLMESARTAN MED 1 tab PO DAILY 10/19/21 11/18/21 History [amLODIPine BES/OLMESARTAN MED 5-20 mg] atenoloL [Tenormin] 25 mg PO DAILY 10/19/21 11/18/21 History Piperacillin-Tazobactam [Zosyn] 3.375 gm IVPB Q8HR 14 Days each 10/26/21 11/17/21 Rx Procto-Med Hc 2.5% Cream 1 applic RECTAL TID PRN 11/17/21 11/17/21 History Apixaban [Eliquis Starter Pack 5 - 10 mg PO DIRECTED 30 Days 11/21/21 Rx (for VTE)] #1 each Allergies Allergy/AdvReac Type Severity Reaction Status Date / Time No Known Allergies Allergy Verified 11/17/21 16:54 Surgical - Exam Vital Signs Temp Pulse Resp BP Pulse Ox 96.9 F L 76 18 97/64 80 L 11/17/21 14:29 11/17/21 14:29 11/17/21 14:29 11/17/21 14:29 11/17/21 14:29 General appearance: The patient is alert, oriented, appears in no acute dist ress. HET: Head is normocephalic and atraumatic. Pupils are equal and reactive. Neck: Supple without lymphadenopathy. Trachea midline. Heart: S1 S2. Regular rate and rhythm. Lungs: Clear to auscultation bilaterally. Abdomen: Soft, nontender, nondistended. Extremities: Normal skin color and turgor. Neurological: No focal deficits. Results - Labs 11/22/21 10:12 11/22/21 10:12 Abnormal Lab Results - Last 24 Hours (Table) 11/22/21 11/22/21 11/22/21 Range/Units 03:50 10:12 10:12 RBC 3.88 L (4.30-5.90) m/uL Hgb 9.5 L (13.0-17.5) gm/dL Hct 30.7 L (39.0-53.0) % MCV 79.1 L (80.0-100.0) fL MCH 24.5 L (25.0-35.0) pg MCHC 30.9 L (31.0-37.0) g/dL Lymphocytes # 0.9 L (1.0-4.8) k/uL APTT 53.6 H (22.0-30.0) sec Sodium 132 L (137-145) mmol/L BUN 4 L (9-20) mg/dL Glucose 100 H (74-99) mg/dL Calcium 8.2 L (8.4-10.2) mg/dL Microbiology - Last 24 Hours (Table) 11/19/21 23:08 Blood Culture - Preliminary Blood No Growth after 48 hours 11/17/21 15:19 Blood Culture - Preliminary Blood No Growth after 96 hours Diabetes panel 11/22/21 Range/Units 10:12 Sodium 132 L (137-145) mmol/L Potassium 3.7 (3.5-5.1) mmol/L Chloride 99 (98-107) mmol/L Carbon Dioxide 24 (22-30) mmol/L BUN 4 L (9-20) mg/dL Creatinine 0.82 (0.66-1.25) mg/dL Glucose 100 H (74-99) mg/dL Calcium 8.2 L (8.4-10.2) mg/dL Calcium panel 11/22/21 Range/Units 10:12 Calcium 8.2 L (8.4-10.2) mg/dL Pituitary panel 11/22/21 Range/Units 10:12 Sodium 132 L (137-145) mmol/L Potassium 3.7 (3.5-5.1) mmol/L Chloride 99 (98-107) mmol/L Carbon Dioxide 24 (22-30) mmol/L BUN 4 L (9-20) mg/dL Creatinine 0.82 (0.66-1.25) mg/dL Glucose 100 H (74-99) mg/dL Calcium 8.2 L (8.4-10.2) mg/dL Adrenal panel 11/22/21 Range/Units 10:12 Sodium 132 L (137-145) mmol/L Potassium 3.7 (3.5-5.1) mmol/L Chloride 99 (98-107) mmol/L Carbon Dioxide 24 (22-30) mmol/L BUN 4 L (9-20) mg/dL Creatinine 0.82 (0.66-1.25) mg/dL Glucose 100 H (74-99) mg/dL Calcium 8.2 L (8.4-10.2) mg/dL - Imaging Comments: Venous duplex negative for DVT bilaterally CT scan - abdomen: report reviewed CT scan - chest: report reviewed Assessment and Plan Assessment: 1. Pulmonary embolism with right heart strain, status post EKOS on heparin drip 2. Cecal tumor, scheduled for right colectomy on 11/24/[address] Pak 3. Recent episode ruptured appendix treated with outpatient IV antibiotics 4. History of remote upper extremity DVT Plan: 1. Nothing by mouth after midnight 2. Plan for IVC filter placement tomorrow afternoon, procedure discussed with patient including risks and benefits. Patient is agreeable to proceeding. 3. Discontinue heparin drip 6 hours prior to procedure Thank you for this consultation, we'll continue to follow. The impression and plan of care has been dictated as directed. I performed a history and examination of this patient, discussed the same with the dictator. I agree with the dictator's note ,documented as a scribe. Any additional findings or plans will be noted.
--- NOTE | 2021-11-22 13:52 | P.PN ---
Subjective Progress Note Date: 11/22/21 CHIEF COMPLAINT: Colon mass HISTORY OF PRESENT ILLNESS: This is a 71-year-old male who presented to the [facility] after syncopal episode. He has been found to have evidence of pulmonary embolism underwent Ekos procedure and is currently on IV heparin. Patient had evidence of a cecal mass on CAT scan. He is status post colonoscopy as well as EGD results showed mid transverse colon with tubulous adenoma polyp, ascending colon with villous adenoma polyp, cecal tumor completely obliterating appendiceal orifice immediately distal to the cecal valve and an unresectable proximal mid transverse colon tumor occupying 75% of the lumen and EGD showed diaphragmatic hiatal hernia and chronic gastritis. Patient seen by vascular surgery and is scheduled for IVC filter placement tomorrow. Patient at high r isk to develop post operative blood clots since he will require to be off of anticoagulants in the postoperative period. Case discussed with pulmonary service and vascular service. Afebrile WBC 6.8 HGB 9.5 Na 132. Patient does complain of some achiness in the abdomen, otherwise no pain. Denies any nausea or vomiting. Tolerating regular diet. PHYSICAL EXAM: VITAL SIGNS: Reviewed GENERAL: Well-developed in no acute distress. HEENT: No sclera icterus. Extraocular movements grossly intact. Moist buccal mucosa. Head is atraumatic, normocephalic. Hears conversational speech. No nasal richie inage. NECK: Supple without lymphadenopathy. CHEST: Non-labored respirations and equal bilateral excursions. CARDIOVASCULAR: Palpable 2+ radial pulses. ABDOMEN: Soft. Nondistended. Nontender. MUSCULOSKELETAL: No clubbing or cyanosis. NEUROLOGIC: No focal or lateralizing signs. Cranial nerves II through XII grossly intact. PSYCH: Appropriate affect. Alert and oriented to person, place and time. SKIN: Well perfused. Good skin turgor. ASSESSMENT: 1. 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 History of perforated appendicitis 3. Pulmonary embolism status post EKOS procedure PLAN: -Patient scheduled for IVC filter placement tomorrow with vascular surgical service -Continue high protein regular diet -Patient scheduled for right colectomy on 11/24/[address] Pak -Continue IV heparin -Continue supportive care -Continue PPI Physician Picker Machine Operator note has been reviewed by physician. Signing provider agrees with the documented findings, assessment, and plan of care. CHIEF COMPLAINT: Cecal mass HISTORY OF PRESENT ILLNESS: The patient is a 71-year-old male status post upper and lower endoscopy with multiple adenomas identified along the colon as well as new unresectable tumor found of the proximal mid transverse colon. He is tolerating diet. He presented also with acute pulmonary embolism being managed by pulmonary. Reports no further shortness of breath. He is tolerating diet. He is on heparin drip for a pulmonary embolism ROS: No reports of nausea and vomiting. No bowel movements. No fevers or chills. No new chest pain. No productive sputum PHYSICAL EXAM: VITAL SIGNS: Reviewed CONSTITUTIONAL: Well developed and in no acute distress. EYES: Conjuctivae without sclera icterus. Extraocular movements grossly intact. HEAD, EARS, NOSE, THROAT: Moist buccal mucosa. Head is atraumatic, normocephalic. Hears conversational speech. No nasal drainage. RESPIRATORY: Non-labored respirations and equal bilateral excursions. CARDIOVASCULAR: Palpable 2+ radial pulses. ABDOMEN: Nontender MUSCULOSKELETAL: No gross deformity of the lower extremities noted. No clubbing. No cyanosis. SKIN: Good skin turgor. Well perfused. NEUROLOGIC: Cranial nerves II through XII grossly intact. No focal or lateral izing signs. PSYCH: Appropriate affect. Alert and oriented to person, place and time. CLINICAL LABS: Reviewed. Hemoglobin down to 10.3-9.5 ASSESSMENT: 1. Cecal mass 2. Transverse colon mass, adenoma unresectable via endoscopy 3. Pulmonary embolism, acute PLAN: 1. I was personally contacted by Dr. Plummer all around gear machine operator regarding patient's elevated risk for recurrent embolisms following colon resection. I agree with vascular consultation for IVC filter placement. 2. Inpatient colectomy described to address both new unresectable transverse colon mass and cecal mass Objective - Vital Signs Vital signs: Vital Signs Temp 98.4 F 11/22/21 11:39 Pulse 82 11/22/21 11:39 Resp 17 11/22/21 11:39 BP 143/89 11/22/21 11:39 Pulse Ox 96 11/22/21 11:39 FiO2 Intake & Output 11/21/21 11/22/21 11/22/21 18:59 06:59 18:59 Intake Total 1284.127 102.3 118 Balance 1284.127 102.3 118 Weight 87.6 kg Intake: IV 520 Invasive Line 1 20 Intake, IV Titration 89.127 102.3 Amount Heparin Sod,Pork in 0.45% 89.127 NaCl 25,000 unit In 0.45 % NaCl 1 250ml.bag @ 10. 917 UNITS/KG/HR 10 mls/hr IV .Q24H [facility] Rx#: [id number] Heparin Sod,Pork in 0.45% 102.3 NaCl 25,000 unit In 0.45 % NaCl 1 250ml.bag @ 15.5 mls/hr IV .Q16H8M [facility] Rx #:[id number] Oral 675 118 Other: Voiding Method Toilet Urinal # Voids 2 1 # Bowel Movements 2 1 - Labs CBC & Chem 7: 11/22/21 10:12 11/22/21 10:12 Labs: Abnormal Lab Results - Last 24 Hours (Table) 11/22/21 11/22/21 11/22/21 Range/Units 03:50 10:12 10:12 RBC 3.88 L (4.30-5.90) m/uL Hgb 9.5 L (13.0-17.5) gm/dL Hct 30.7 L (39.0-53.0) % MCV 79.1 L (80.0-100.0) fL MCH 24.5 L (25.0-35.0) pg MCHC 30.9 L (31.0-37.0) g/dL Lymphocytes # 0.9 L (1.0-4.8) k/uL APTT 53.6 H (22.0-30.0) sec Sodium 132 L (137-145) mmol/L BUN 4 L (9-20) mg/dL Glucose 100 H (74-99) mg/dL Calcium 8.2 L (8.4-10.2) mg/dL Microbiology - Last 24 Hours (Table) 11/19/21 23:08 Blood Culture - Preliminary Blood No Growth after 48 hours 11/17/21 15:19 Blood Culture - Preliminary Blood No Growth after 96 hours
[2021-11-22] MEDS: SODIUM FERRIC GLUCONAT-SUCROSE 125 MG in SODIUM CHLORIDE 0.9% 100 ML IVPB SCH (14:03)
[2021-11-22] MEDS: CALCIUM CARBONATE 500 MG CHEWABLE PO PRN (14:03)
[2021-11-22] MEDS: HEPARIN SOD,PORK IN 0.45% NACL 25,000 UNIT in 0.45% NACL 1 250ML.BAG IV SCH (14:04)
--- NOTE | 2021-11-22 14:34 | P.PN ---
Subjective Progress Note Date: 11/22/21 Principal diagnosis: Presented with syncope and found to have PE and colon mass Objective - Vital Signs Vital signs: Vital Signs Temp 98.4 F 11/22/21 11:39 Pulse 82 11/22/21 11:39 Resp 17 11/22/21 11:39 BP 143/89 11/22/21 11:39 Pulse Ox 96 11/22/21 11:39 FiO2 Intake & Output 11/21/21 11/22/21 11/22/21 18:59 06:59 18:59 Intake Total 1284.127 102.3 374.467 Balance 1284.127 102.3 374.467 Weight 87.6 kg Intake: IV 520 Invasive Line 1 20 Intake, IV Titration 89.127 102.3 138.467 Amount Heparin Sod,Pork in 0.45% 89.127 NaCl 25,000 unit In 0.45 % NaCl 1 250ml.bag @ 10. 917 UNITS/KG/HR 10 mls/hr IV .Q24H [facility] Rx#: [id number] Heparin Sod,Pork in 0.45% 102.3 138.467 NaCl 25,000 unit In 0.45 % NaCl 1 250ml.bag @ 15.5 mls/hr IV .Q16H8M [facility] Rx #:[id number] Oral 675 236 Other: Voiding Method Toilet Urinal # Voids 2 1 # Bowel Movements 2 1 - Exam General examination - Alert and Oriented 3 in NAD Heart - + S1S2 no murmurs Lungs - Clear to auscultation Abdomen soft NT ND +ve BS Extremities - No edema CONTINUUM OF CARE MANAGER - Moving all 4 extremities spontaneously Psych - Calm and cooperative - Labs CBC & Chem 7: 11/22/21 10:12 11/22/21 10:12 Labs: Abnormal Lab Results - Last 24 Hours (Table) 11/22/21 11/22/21 11/22/21 Range/Units 03:50 10:12 10:12 RBC 3.88 L (4.30-5.90) m/uL Hgb 9.5 L (13.0-17.5) gm/dL Hct 30.7 L (39.0-53.0) % MCV 79.1 L (80.0-100.0) fL MCH 24.5 L (25.0-35.0) pg MCHC 30.9 L (31.0-37.0) g/dL Lymphocytes # 0.9 L (1.0-4.8) k/uL APTT 53.6 H (22.0-30.0) sec Sodium 132 L (137-145) mmol/L BUN 4 L (9-20) mg/dL Glucose 100 H (74-99) mg/dL Calcium 8.2 L (8.4-10.2) mg/dL Microbiology - Last 24 Hours (Table) 11/19/21 23:08 Blood Culture - Preliminary Blood No Growth after 48 hours 11/17/21 15:19 Blood Culture - Preliminary Blood No Growth after 96 hours Assessment and Plan Assessment: Acute pulmonary embolism with right heart strain and acute pulmonary hypertension -Status post [place] by cardiology -Patient now on room air -Echocardiogram showed moderate to severe pulmonary hypertension -Patient on IV heparin -Pulmonology recommending IVC filter as patient will need to be off of antico agulation for at least a week following his surgery -This is a provoked PE due to likely malignancy which is being worked up Transverse and cecal colon mass -Status post colonoscopy with multiple polyps removed and showed unresectable mass in the transverse colon -Gen. surgery plans to do colon resection on 11/24/2021 hypertension Status post recent ruptured appendix with abscess -Patient was being treated with IV Zosyn outpatient. 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
--- NOTE | 2021-11-22 17:33 | P.PN ---
Subjective Progress Note Date: 11/22/21 Principal diagnosis: cecal mass In f/u today pt is status post colonoscopy. Surgical report reviewed. Patient states he is having surgery. He has no acute complaints. He denies any pain Objective - Vital Signs Vital signs: Vital Signs Temp 98.4 F 11/22/21 11:39 Pulse 82 11/22/21 11:39 Resp 17 11/22/21 11:39 BP 143/89 11/22/21 11:39 Pulse Ox 95 11/22/21 16:41 FiO2 Intake & Output 11/21/21 11/22/21 11/22/21 18:59 06:59 18:59 Intake Total 1284.127 102.3 374.467 Output Total 0 Balance 1284.127 102.3 374.467 Weight 87.6 kg Intake: IV 520 Invasive Line 1 20 Intake, IV Titration 89.127 102.3 138.467 Amount Heparin Sod,Pork in 0.45% 89.127 NaCl 25,000 unit In 0.45 % NaCl 1 250ml.bag @ 10. 917 UNITS/KG/HR 10 mls/hr IV .Q24H [facility] Rx#: [id number] Heparin Sod,Pork in 0.45% 102.3 138.467 NaCl 25,000 unit In 0.45 % NaCl 1 250ml.bag @ 15.5 mls/hr IV .Q16H8M [facility] Rx #:[id number] Oral 675 236 Output: Stool 0 Other: Voiding Method Toilet Toilet Urinal Urinal # Voids 2 1 # Bowel Movements 2 1 - Constitutional General appearance: Present: average body habitus, cooperative, no acute distress - EENT ENT: Present: hearing grossly normal - Respiratory Details: resp even and unlabored at rest - Cardiovascular Rhythm: regular Heart sounds: normal: S1, S2 Abnormal Heart Sounds: Absent: systolic murmur, diastolic murmur, rub, S3 Gallop, S4 Gallop, click, other - Peripheral edema leg Peripheral Edema: bilateral: None - Integumentary Integumentary: Present: pale - Neurologic Neurologic: Present: CNII-XII intact - Musculoskeletal Musculoskeletal: Present: strength equal bilaterally - Psychiatric Psychiatric: Present: A&O x's 3, appropriate affect, intact judgment & insight - Labs CBC & Chem 7: 11/22/21 10:12 11/22/21 10:12 Labs: Abnormal Lab Results - Last 24 Hours (Table) 11/22/21 11/22/21 11/22/21 Range/Units 03:50 10:12 10:12 RBC 3.88 L (4.30-5.90) m/uL Hgb 9.5 L (13.0-17.5) gm/dL Hct 30.7 L (39.0-53.0) % MCV 79.1 L (80.0-100.0) fL MCH 24.5 L (25.0-35.0) pg MCHC 30.9 L (31.0-37.0) g/dL Lymphocytes # 0.9 L (1.0-4.8) k/uL APTT 53.6 H (22.0-30.0) sec Sodium 132 L (137-145) mmol/L BUN 4 L (9-20) mg/dL Glucose 100 H (74-99) mg/dL Calcium 8.2 L (8.4-10.2) mg/dL Microbiology - Last 24 Hours (Table) 11/19/21 23:08 Blood Culture - Preliminary Blood No Growth after 48 hours 11/17/21 15:19 Blood Culture - Preliminary Blood No Growth after 96 hours Assessment and Plan (1) Pulmonary embolism Current Visit: Yes Status: Acute Priority: High Code(s): I26.99 - OTHER PULMONARY EMBOLISM WITHOUT ACUTE COR PULMONALE SNOMED Code(s): 27698569 (2) Cecum mass Current Visit: Yes Status: Acute Priority: High Code(s): K63.89 - OTHER SPECIFIED DISEASES OF INTESTINE SNOMED Code(s): 3540410869 (3) History of head and neck cancer Current Visit: No Status: Chronic Priority: Medium Code(s): Z85.89 - PERSONAL HISTORY OF MALIGNANT NEOPLASM OF ORGANS AND SYSTEMS SNOMED Code(s): 158576175 Plan: Symptomatic PE. Heparin drip until all planned procedures complete. Rx previously sent for copay verification for DOAC. BLE doppler neg for DVT Provoking factors for PE-had recent hospitalization for ruptured appendix, possible malignancy. Discussed case with Oncologist, consider hypercoaguable work up outpt in the future. Current recommendation for anticoagulation is 6mo. Biopsy of cecal mass. Path pending. Reviewed surgical notes. Patient is being taken to surgery for a right hemicolectomy for the cecal mass. There are plans for IVC filter placement as patient will not be able to be on anticoagulation immediately postop. Follow up with the Medical Oncologist in 4-5 weeks. Possible genetic testing for his children, if covered by insurance
[2021-11-22] MEDS: LACTATED RINGERS 1,000 ML IV SCH (17:41)
[2021-11-22] MEDS: CYANOCOBALAMIN 1,000 MCG/ML 1 ML VIAL IM SCH (18:04)
[2021-11-23 04:17] LABS: Basophils # (A) 0.1 k/uL (0-0.2); Basophils % (A) 1 %; Eosinophils # (A) 0.7 k/uL (0-0.7); Eosinophils % (A) 12 %; HCT 30.1 % (39.0-53.0); HGB 9.4 gm/dL (13.0-17.5); Hypochromasia Moderate; Lymphocytes # (A) 0.9 k/uL (1.0-4.8); Lymphocytes % (A) 15 %; MCH 24.7 pg (25.0-35.0); MCHC 31.1 g/dL (31.0-37.0); MCV 79.3 fL (80.0-100.0); Mean Platelet Volume 7.6; Monocytes # (A) 0.6 k/uL (0-1.0); Monocytes % (A) 9 %; Neutrophils # (A) 3.8 k/uL (1.3-7.7); Neutrophils % (A) 61 %; Platelet Count 347 k/uL (150-450); RDW 15.3 % (11.5-15.5); WBC 6.2 k/uL (3.8-10.6)
[2021-11-23 04:33] LABS: African American GFR (CKD) >90 (>60 ml/min/1.73 sqM); Anion Gap 6 mmol/L; Blood Urea Nitrogen 2 mg/dL (9-20); Calcium 8.2 mg/dL (8.4-10.2); Carbon Dioxide 24 mmol/L (22-30); Chloride 101 mmol/L (98-107); Glucose 95 mg/dL (74-99); Non-African American GFR(CKD) 88 (>60 ml/min/1.73 sqM); Potassium 3.6 mmol/L (3.5-5.1); Sodium 131 mmol/L (137-145)
[2021-11-23] MEDS: PANTOPRAZOLE 40 MG TABLET PO SCH (06:17)
[2021-11-23] MEDS: HEPARIN SOD,PORK IN 0.45% NACL 25,000 UNIT in 0.45% NACL 1 250ML.BAG IV SCH (06:17)
[2021-11-23] MEDS: amLODIPine 5 MG TAB PO SCH (08:31)
[2021-11-23] MEDS: ASPIRIN 81 MG PO SCH (08:31)
[2021-11-23] MEDS: CALCIUM CARBONATE 500 MG CHEWABLE PO SCH (08:31)
[2021-11-23] MEDS: CYANOCOBALAMIN 1,000 MCG/ML 1 ML VIAL IM SCH (08:31)
[2021-11-23] MEDS: MAGNESIUM OXIDE 400 MG TAB PO SCH (08:31)
[2021-11-23] MEDS: FOLIC ACID 1 MG TAB PO SCH (08:31)
[2021-11-23] MEDS: LOSARTAN 25 MG TAB PO SCH (08:31)
[2021-11-23] MEDS: POTASSIUM CHLORIDE ER 10 MEQ TAB.ER.PRT PO SCH (08:31)
[2021-11-23] MEDS: atenoloL 25 MG TAB PO SCH (08:31)
[2021-11-23] MEDS: PIPERACILLIN-TAZOBACTAM 3.375 GM in SODIUM CHLORIDE 0.9% 100 ML IVPB SCH ×3 (08:34→23:01)
[2021-11-23 10:06] VITALS: BMI 27.7
[2021-11-23] MEDS ORDERED: POLYETHYLENE GLYCOL LYTES SOLN 4,000 ML SOLN.RECON PO ONE (10:07)
--- NOTE | 2021-11-23 10:34 | P.PN ---
Subjective Progress Note Date: 11/23/21 71-year-old male seen in consultation, for shortness of breath. The patient was initially seen in the emergency department, on November 17, complaining of syncope, and weakness. The patient has a recent history of a ruptured appendix, being treated with outpatient IV Zosyn. The patient was to come to the hospital today for a computed tomography scan of the abdomen, and he had a near syncopal episode, feeling very lightheaded and dizzy. He also has not been eating or drinking very much recently. He also had shortness of breath, and was evaluated, and the CTA was positive for pulmonary embolism. This is why we are asked to see him. Currently, he's on 6 L. He is receiving IV heparin, and Zosyn. White count 7.8, he will benign 0.5, hematocrit 29.5, and platelet count normal. Sodium 132, potassium 4.2, chlorides 99, CO2 21, BUN 9, creatinine 0.87. Troponin was 0.305. Urine was unremarkable. The chest x-ray showed no acute cardiopulmonary process. The KUB x-ray showed left inguinal hernia, and nonspecific bowel pattern. EKG did show sinus tachycardia. It also did show an S in lead 1 and a Q in lead 3. CT angiogram showed bilateral pulmonary emboli, worse on the right side than on the left. There was no evidence of right heart strain on the CTA. Echocardiogram did show a pulmonary pressure that was elevated at 55, and also a right ventricular to left ventricular ratio of 1.5. Dopplers of the lower extremities were negative for DVT. The patient is seen today 11/20/2019 follow-up in the intensive care unit. He is resting comfortably in bed. Awake and alert in no acute distress. He was found to have RV strain on his echocardiogram. He did undergo in for an EKOS procedure yesterday. Femoral catheters still in place. Remains on heparin. He is on 6 L high flow nasal cannula. He's been afebrile. Hemodynamically stable. Blood culture reveals no growth. White count 9.9. Hemoglobin 10.2. Platelets 273. Sodium 133. Potassium 3.7. BUN 5. Creatinine 0.68. He is currently on Zosyn. Progress note dated 11/20/2021. The patient is seen today in room 361. The patient remains on IV heparin. The patient is scheduled for an EGD and colonoscopy tomorrow. He is also planning to have surgery on his colonic mass, sometime this week. The patient remains on IV heparin. The patient was on 6 L yesterday, but is on room air today. He's feeling much better. The patient did have EKOS for his significant bilateral pulmonary emboli. White count 7.6, hemoglobin 10.3, hematocrit 32.2, and platelet count 390,000. PTT is 40.3. Sodium 132, potassium 3.8, chlorides 96, CO2 28, BUN 7, creatinine 0.83. Albumin is 3.3. 11/21/2021, the patient is calm and comfortable and the patient has no specific complaints and the patient is currently on room air oxygen. The patient was taken off the IV heparin and this patient for colonoscopy today. As mentioned earlier, the patient has a cecal mass that needs to be further investigated. Otherwise, the patient has no specific complaints. No evidence of any GI bleeding. Doppler of the lower extremities have been negative and the patient has undergone selective intra-arterial thrombolytic therapy regarding pulmonary embolism. The patient has been covered with IV Zosyn also has an empiric antibiotic coverage. Patient underwentthe bowel preparation yesterday without any major difficulties. No labs are available from today. Note that echocardiogram at shown pulmonary hypertension secondary to bilateral pulmonary embolism.he also gives history of tonsillar cancer that was treated many years back with a combination of chemoradiation therapy and back then during his treatment he had a blood clot in his left upper extremity. 11/22/2021, the patient is quite stable. The patient underwent a colonoscopy yesterday and the patient was found to have a unresectable proximal mid transverse colon tumor occupying 75% of the lumen of the colon. He also had some polyps that were resected. Nevertheless, there major concern is the mass in the proximal mid transverse colon and the patient will obviously need a colectomy. I discussed the case with the general surgeon and I also discussed the case with the vascular surgeon RONNA. I think the patient would be better off with an IVC filter placed to protect him from any further embolic phenomena postop knowing that the patient is getting to be off anticoagulants for at least 5-7 days postop. Otherwise, the patient is currently on IV heparin. Is doing extremely well. No bleeding complications. No other complaints otherwise for now. Note that the original Doppler of the lower extremities were negative for DVTs. This 2021, the patient is awaiting a IVC filter placement. Otherwise is doing well. No specific complaints. The procedure is going to with some bibasilar surgery and following that the plan is to proceed with a resection of the transverse colonic tumor that is causing 75% obstruction of the colonic lumen. Otherwise, the patient is calm and comfortable. The patient on room air oxygen. Not having any respiratory difficulties. His hemoglobin stable at 9.4 with a white cell count of 6.2 and the patient remains on IV Zosyn for now. The sodium is at 131. The patient remains on IV heparin with a therapeutic PTT at 96. Rest of the medications remain unchanged. The plan is to proceed with an IVC filter followed by a colectomy. Objective - Vital Signs Vital signs: Vital Signs Temp 99.1 F 11/23/21 08:00 Pulse 95 11/23/21 08:00 Resp 16 11/23/21 08:00 BP 125/87 11/23/21 08:00 Pulse Ox 95 11/23/21 08:00 FiO2 Intake & Output 11/22/21 11/23/21 11/23/21 18:59 06:59 18:59 Intake Total 954.467 232.348 Output Total 0 Balance 954.467 232.348 Weight 87.6 kg Intake: Intake, IV Titration 238.467 232.348 Amount Heparin Sod,Pork in 0.45% 138.467 232.348 NaCl 25,000 unit In 0.45 % NaCl 1 250ml.bag @ 15.5 mls/hr IV .Q16H8M [facility] Rx #:[id number] Piperacillin-Tazobactam 3 100 .375 gm In Sodium Chloride 0.9% 100 ml @ 25 mls/hr IVPB Q8HR [facility] Rx# :[id number] Oral 716 Output: Stool 0 Other: Voiding Method Toilet Toilet Urinal Urinal # Voids 1 # Bowel Movements 1 - Exam No acute distress, oriented 3. Currently on room air. HEENT examination is grossly unremarkable. Neck supple. Full range of motion. No adenopathy thyromegaly or neck vein distention. Cardiovascular examination reveals regular rhythm rate. S1-S2 normal. No S3 or S4. No discernible murmur noted. Lungs reveal clear breath sounds. Breath sounds are equal bilaterally. No adventitious lung sounds including wheezes rhonchi or crackles. Abdomen soft bowel sounds are heard. No masses or tenderness. Extremities are intact. No cyanosis clubbing or edema. Skin is without rash or lesion. Neurologic examination is brief but nonfocal. - Labs CBC & Chem 7: 11/23/21 03:58 11/23/21 03:58 Labs: Abnormal Lab Results - Last 24 Hours (Table) 11/22/21 11/22/21 11/23/21 Range/Units 10:12 10:12 03:58 RBC 3.88 L (4.30-5.90) m/uL Hgb 9.5 L (13.0-17.5) gm/dL Hct 30.7 L (39.0-53.0) % MCV 79.1 L (80.0-100.0) fL MCH 24.5 L (25.0-35.0) pg MCHC 30.9 L (31.0-37.0) g/dL Lymphocytes # 0.9 L (1.0-4.8) k/uL APTT 96.3 H (22.0-30.0) sec Sodium 132 L (137-145) mmol/L BUN 4 L (9-20) mg/dL Glucose 100 H (74-99) mg/dL Calcium 8.2 L (8.4-10.2) mg/dL 11/23/21 11/23/21 Range/Units 03:58 03:58 RBC 3.80 L (4.30-5.90) m/uL Hgb 9.4 L (13.0-17.5) gm/dL Hct 30.1 L (39.0-53.0) % MCV 79.3 L (80.0-100.0) fL MCH 24.7 L (25.0-35.0) pg MCHC (31.0-37.0) g/dL Lymphocytes # 0.9 L (1.0-4.8) k/uL APTT (22.0-30.0) sec Sodium 131 L (137-145) mmol/L BUN 2 L (9-20) mg/dL Glucose (74-99) mg/dL Calcium 8.2 L (8.4-10.2) mg/dL Microbiology - Last 24 Hours (Table) 11/19/21 23:08 Blood Culture - Preliminary Blood No Growth after 72 hours 11/17/21 15:19 Blood Culture - Preliminary Blood No Growth after 120 hours Assessment and Plan Plan: Acute pulmonary embolism, with right heart strain, and acute pulmonary hypertension, S/P EKOS.the patient is currently on room air oxygen. Echocardiogram showed moderate to severe degree of pulmonary hypertension which is related to acute pulmonary embolism. The patient is currently on IV heparin. Transverse colonic mass for which the patient is being planned for surgical resection of this week. Recent episode of ruptured appendix, being treated as an outpatient, with IV Zosyn. History of hypertension. 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 remote history of a left upper extremity DVT Vague history of irregular heartbeat. Plan Insertion of an IVC filter today by vascular surgery Surgical follow-up regarding colectomy The patient during this time will be kept on IV heparin we'll continue to follow.
--- NOTE | 2021-11-23 11:52 | P.PN ---
Subjective This is a 71-year-old male with a past medical history significant for hypertension and palpitations. Patient does not follow with a echo vascular technologist. We have been asked to see the patient in consultation for abnormal troponins. Patient was recently hospitalized for ruptured appendicitis with phlegmon, evaluated by Dr. Pak. He was discharged home on IV antibiotics. Patient came into the hospital to have a CAT scan that was ordered by infectious disease. He states that he was walking into the hospital he felt dizzy and lightheaded and felt like he was going to pass out. The patient believes he passed out at that point. His took him to the emergency room for further evaluation. Patient was found to have bilateral PE with evidence of RV strain by echocardiogram. EF 50-55%. He underwent EKOS with Dr. Macario on 11/18/2021. CT abdomen and pelvis report revealed Persistent highly suspicious necrotic mass centered over the cecum/ileocecal junction and obstructing the appendicular base. Surrounding local regional and mesenteric lymph nodes, possibly metastatic. Chronic necrotic abscess is much less likely yet still in the differential. No convincing evidence of perforated appendicitis. 11/21/2021- patient underwent EGD and colonoscopy which revealed an unresectable proximal mid transverse colon tumor occupying 75% of the lumen of the colon, polyps which were resected, and chronic gastritis. Surgical resection with right colectomy recommended. 11/23/2021 Patient seen and examined at bedside, no acute distress. He is doing well. No acute events overnight. He denies any chest pain or shortness of breath. Plan for patient to undergo IVC filter today and Colectomy tomorrow. His vital signs are stable. Plan for right colectomy on . Meds: He is currently maintained on amlodipine 5 mg daily, aspirin 81 mg daily, atenolol 25 mg daily, losartan 75 mg daily GENERAL: Well-appearing, well-nourished and in no acute distress. NECK: Supple without JVD or thyromegaly. LUNGS: Breath sounds clear to auscultation bilaterally. Respiration equal and unlabored. No wheezes, rales or rhonchi. HEART: Regular rate and rhythm without murmurs, rubs or gallops. S1 and S2 he jhon. EXTREMITIES: Normal range of motion, no edema. No clubbing or cyanosis. Peripheral pulses intact. ASSESSMENT Bilateral pulmonary embolism with evidence of RV strain s/p EKOS procedure on 11/18/2021 Syncope, likely related to above Elevated troponin, secondary to bilateral PE Necrotic cecal mass noted on CT Recent hospitalization for ruptured appendix, on outpatient IV antibiotics Hypertension PLAN Plan for IVC filter placement today by vascular surgery Plan for possible colectomy on Continue IV heparin Continue home cardiac medications Further recommendations based on clinical course Nurse Practitioner note has been reviewed, I agree with a documented findings and plan of care. Patient was seen and examined. Objective - Vital Signs Vital signs: Vital Signs Temp 99.1 F 11/23/21 08:00 Pulse 95 11/23/21 08:00 Resp 16 11/23/21 08:00 BP 125/87 11/23/21 08:00 Pulse Ox 95 11/23/21 08:00 FiO2 Intake & Output 11/22/21 11/23/21 11/23/21 18:59 06:59 18:59 Intake Total 954.467 232.348 Output Total 0 0 Balance 954.467 232.348 0 Weight 87.6 kg Intake: Intake, IV Titration 238.467 232.348 Amount Heparin Sod,Pork in 0.45% 138.467 232.348 NaCl 25,000 unit In 0.45 % NaCl 1 250ml.bag @ 15.5 mls/hr IV .Q16H8M [facility] Rx #:[id number] Piperacillin-Tazobactam 3 100 .375 gm In Sodium Chloride 0.9% 100 ml @ 25 mls/hr IVPB Q8HR [facility] Rx# :[id number] Oral 716 Output: Stool 0 0 Other: Voiding Method Toilet Toilet Toilet Urinal Urinal Urinal # Voids 1 # Bowel Movements 1 - Labs CBC & Chem 7: 11/23/21 03:58 11/23/21 03:58 Labs: Abnormal Lab Results - Last 24 Hours (Table) 11/23/21 11/23/21 11/23/21 Range/Units 03:58 03:58 03:58 RBC 3.80 L (4.30-5.90) m/uL Hgb 9.4 L (13.0-17.5) gm/dL Hct 30.1 L (39.0-53.0) % MCV 79.3 L (80.0-100.0) fL MCH 24.7 L (25.0-35.0) pg Lymphocytes # 0.9 L (1.0-4.8) k/uL APTT 96.3 H (22.0-30.0) sec Sodium 131 L (137-145) mmol/L BUN 2 L (9-20) mg/dL Calcium 8.2 L (8.4-10.2) mg/dL Microbiology - Last 24 Hours (Table) 11/19/21 23:08 Blood Culture - Preliminary Blood No Growth after 72 hours 11/17/21 15:19 Blood Culture - Preliminary Blood No Growth after 120 hours
--- NOTE | 2021-11-23 12:10 | P.PN ---
Subjective Progress Note Date: 11/23/21 CHIEF COMPLAINT: Colon mass HISTORY OF PRESENT ILLNESS: This is a 71-year-old male who presented to the [facility] after syncopal episode. He has been found to have evidence of pulmonary embolism underwent Ekos procedure and is currently on IV heparin. Patient had evidence of a cecal mass on CAT scan. He is status post colonoscopy as well as EGD results showed mid transverse colon with tubulous adenoma polyp, ascending colon with villous adenoma polyp, cecal tumor completely obliterating appendiceal orifice immediately distal to the cecal valve and an unresectable proximal mid transverse colon tumor occupying 75% of the lumen and EGD showed diaphragmatic hiatal hernia and chronic gastritis. Patient scheduled for a green filled filter placement today. Denies any abdominal pain. Denies any na usea vomiting. Afebrile. WBC 6.2 Hgb 9.4 sodium 131 potassium 3.6 pathology results pending PHYSICAL EXAM: VITAL SIGNS: Reviewed GENERAL: Well-developed in no acute distress. HEENT: No sclera icterus. Extraocular movements grossly intact. Moist buccal mucosa. Head is atraumatic, normocephalic. Hears conversational speech. No nasal drainage. NECK: Supple without lymphadenopathy. CHEST: Non-labored respirations and equal bilateral excursions. CARDIOVASCULAR: Palpable 2+ radial pulses. ABDOMEN: Soft. Nondistended. Nontender. MUSCULOSKELETAL: No clubbing or cyanosis. NEUROLOGIC: No focal or lateralizing signs. Cranial nerves II through XII grossly intact. PSYCH: Appropriate affect. Alert and oriented to person, place and time. SKIN: Well perfused. Good skin turgor. ASSESSMENT: 1. 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 History of perforated appendicitis 3. Pulmonary embolism status post EKOS procedure PLAN: -Patient scheduled for right colectomy on 11/24/[address] Pak -Patient scheduled for IVC filter placement today vascular surgical service -Patient to start the Nulytely bowel prep today -Continue IV heparin -Continue supportive care -Continue PPI Physician Bakery Machine Mechanic note has been reviewed by physician. Signing provider agrees with the documented findings, assessment, and plan of care. Please see additional documentation CHIEF COMPLAINT: Cecal mass HISTORY OF PRESENT ILLNESS: The patient is a 71-year-old male with new large cecal mass status post colonoscopy multiple tubular adenomas. Patient did present with pulmonary embolus and treated with EKOS procedure. No reports of abdominal pain. No reports of blood in stools. He is on heparin drip. ROS: No reports of nausea and vomiting. No fevers or chills. No new chest pain. No productive sputum PHYSICAL EXAM: VITAL SIGNS: Reviewed CONSTITUTIONAL: Well developed and in no acute distress. EYES: Conjuctivae without sclera icterus. Extraocular movements grossly intact. HEAD, EARS, NOSE, THROAT: Moist buccal mucosa. Head is atraumatic, normocephalic. Hears conversational speech. No nasal drainage. RESPIRATORY: Non-labored respirations and equal bilateral excursions. CARDIOVASCULAR: Palpable 2+ radial pulses. ABDOMEN: Nontender. Nondistended. MUSCULOSKELETAL: No gross deformity of the lower extremities noted. No c lubbing. No cyanosis. SKIN: Good skin turgor. Well perfused. NEUROLOGIC: Cranial nerves II through XII grossly intact. No focal or lateralizing signs. PSYCH: Appropriate affect. Alert and oriented to person, place and time. CLINICAL LABS: Reviewed. Hemoglobin stable 9.5-9.4. ASSESSMENT: 1. Cecal mass 2. Transverse colon mass, adenoma unresectable via endoscopy 3. Pulmonary embolism, acute PLAN: 1. Further discussion with oncology and vascular performed with hold of IVC filter placement as patient has negative duplex ultrasound of the lower extremities. At this time, continue with heparin drip. 2. Bowel prep with neomycin and Flagyl initiated including GoLYTELY prep. 3. Benefits of the risks of robotic extended right hemicolectomy described. Patient is at elevated risk for bleeding. 4. Discussion of vascular team includes heparin drip will be continued within 6 to 8 hours after surgery due to recent pulmonary embolus. 5. Care plan discussed with patient at bedside regarding IVC filter, heparin drip to continue after surgery and colon resection with all questions addressed. Objective - Vital Signs Vital signs: Vital Signs Temp 99.1 F 11/23/21 08:00 Pulse 95 11/23/21 08:00 Resp 16 11/23/21 08:00 BP 125/87 11/23/21 08:00 Pulse Ox 95 11/23/21 08:00 FiO2 Intake & Output 11/22/21 11/23/21 11/23/21 18:59 06:59 18:59 Intake Total 954.467 232.348 Output Total 0 0 Balance 954.467 232.348 0 Weight 87.6 kg Intake: Intake, IV Titration 238.467 232.348 Amount Heparin Sod,Pork in 0.45% 138.467 232.348 NaCl 25,000 unit In 0.45 % NaCl 1 250ml.bag @ 15.5 mls/hr IV .Q16H8M [facility] Rx #:[id number] Piperacillin-Tazobactam 3 100 .375 gm In Sodium Chloride 0.9% 100 ml @ 25 mls/hr IVPB Q8HR [facility] Rx# :[id number] Oral 716 Output: Stool 0 0 Other: Voiding Method Toilet Toilet Toilet Urinal Urinal Urinal # Voids 1 # Bowel Movements 1 - Labs CBC & Chem 7: 11/23/21 03:58 11/23/21 03:58 Labs: Abnormal Lab Results - Last 24 Hours (Table) 11/23/21 11/23/21 11/23/21 Range/Units 03:58 03:58 03:58 RBC 3.80 L (4.30-5.90) m/uL Hgb 9.4 L (13.0-17.5) gm/dL Hct 30.1 L (39.0-53.0) % MCV 79.3 L (80.0-100.0) fL MCH 24.7 L (25.0-35.0) pg Lymphocytes # 0.9 L (1.0-4.8) k/uL APTT 96.3 H (22.0-30.0) sec Sodium 131 L (137-145) mmol/L BUN 2 L (9-20) mg/dL Calcium 8.2 L (8.4-10.2) mg/dL Microbiology - Last 24 Hours (Table) 11/19/21 23:08 Blood Culture - Preliminary Blood No Growth after 72 hours 11/17/21 15:19 Blood Culture - Preliminary Blood No Growth after 120 hours
[2021-11-23] MEDS: SODIUM FERRIC GLUCONAT-SUCROSE 125 MG in SODIUM CHLORIDE 0.9% 100 ML IVPB SCH (12:18)
--- NOTE | 2021-11-23 12:46 | P.PN ---
Subjective Progress Note Date: 11/23/21 Principal diagnosis: Presented with syncope and found to have PE and colon mass Patient denies any acute complaints this morning. He is aware that he'll be going for a IVC filter today. Objective - Vital Signs Vital signs: Vital Signs Temp 99.1 F 11/23/21 08:00 Pulse 89 11/23/21 12:00 Resp 16 11/23/21 12:00 BP 122/80 11/23/21 12:00 Pulse Ox 95 11/23/21 12:00 FiO2 Intake & Output 11/22/21 11/23/21 11/23/21 18:59 06:59 18:59 Intake Total 954.467 232.348 Output Total 0 0 Balance 954.467 232.348 0 Weight 87.6 kg Intake: Intake, IV Titration 238.467 232.348 Amount Heparin Sod,Pork in 0.45% 138.467 232.348 NaCl 25,000 unit In 0.45 % NaCl 1 250ml.bag @ 15.5 mls/hr IV .Q16H8M [facility] Rx #:[id number] Piperacillin-Tazobactam 3 100 .375 gm In Sodium Chloride 0.9% 100 ml @ 25 mls/hr IVPB Q8HR [facility] Rx# :[id number] Oral 716 Output: Stool 0 0 Other: Voiding Method Toilet Toilet Toilet Urinal Urinal Urinal # Voids 1 # Bowel Movements 1 - Exam General examination - Alert and Oriented 3 in NAD Heart - + S1S2 no murmurs Lungs - Clear to auscultation Abdomen soft NT ND +ve BS Extremities - No edema TOE PUNCHER - Moving all 4 extremities spontaneously Psych - Calm and cooperative - Labs CBC & Chem 7: 11/23/21 03:58 11/23/21 03:58 Labs: Abnormal Lab Results - Last 24 Hours (Table) 11/23/21 11/23/21 11/23/21 Range/Units 03:58 03:58 03:58 RBC 3.80 L (4.30-5.90) m/uL Hgb 9.4 L (13.0-17.5) gm/dL Hct 30.1 L (39.0-53.0) % MCV 79.3 L (80.0-100.0) fL MCH 24.7 L (25.0-35.0) pg Lymphocytes # 0.9 L (1.0-4.8) k/uL APTT 96.3 H (22.0-30.0) sec Sodium 131 L (137-145) mmol/L BUN 2 L (9-20) mg/dL Calcium 8.2 L (8.4-10.2) mg/dL Microbiology - Last 24 Hours (Table) 11/19/21 23:08 Blood Culture - Preliminary Blood No Growth after 72 hours 11/17/21 15:19 Blood Culture - Preliminary Blood No Growth after 120 hours Assessment and Plan Assessment: Acute pulmonary embolism with right heart strain and acute pulmonary hypertension -Status post [place] by cardiology -Patient now on room air -Echocardiogram showed moderate to severe pulmonary hypertension -Patient on IV heparin -Pulmonology recommending IVC filter as patient will need to be off of anticoagulation for at least a week following his surgery -Patient scheduled for IVC filter today by vascular surgery -This is a provoked PE due to likely malignancy which is being worked up Transverse and cecal colon mass -Status post colonoscopy with multiple polyps removed and showed unresectable mass in the transverse colon -Gen. surgery plans to do colon resection on 11/24/2021 hypertension Status post recent ruptured appendix with abscess -Patient was being treated with IV Zosyn outpatient. 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
--- NOTE | 2021-11-23 13:58 | P.PN ---
Subjective Progress Note Date: 11/23/21 Principal diagnosis: Pulmonary embolism Patient seen today as a follow-up. Vascular surgery was consulted f by pulmonology or IVC filter placement for patient who has pulmonary embolism who was undergoing colectomy tomorrow with general surgery. It was discussed that the patient would need to be off anticoagulation for 1 week post surgery. However this was discussed with hematology and general surgery Dr. Pak and Dr. Nicholson states that it is fine patient may go back on a heparin drip after surgery tomorrow. Patient has had no acute changes through the night he is sitting up in bed with no signs of distress. He denies any shortness of breath, chest pain, nausea or vomiting. Objective - Vital Signs Vital signs: Vital Signs Temp 99.1 F 11/23/21 08:00 Pulse 89 11/23/21 12:00 Resp 16 11/23/21 12:00 BP 122/80 11/23/21 12:00 Pulse Ox 95 11/23/21 12:00 FiO2 Intake & Output 11/22/21 11/23/21 11/23/21 18:59 06:59 18:59 Intake Total 954.467 232.348 Output Total 0 0 Balance 954.467 232.348 0 Weight 87.6 kg Intake: Intake, IV Titration 238.467 232.348 Amount Heparin Sod,Pork in 0.45% 138.467 232.348 NaCl 25,000 unit In 0.45 % NaCl 1 250ml.bag @ 15.5 mls/hr IV .Q16H8M [facility] Rx #:[id number] Piperacillin-Tazobactam 3 100 .375 gm In Sodium Chloride 0.9% 100 ml @ 25 mls/hr IVPB Q8HR [facility] Rx# :[id number] Oral 716 Output: Stool 0 0 Other: Voiding Method Toilet Toilet Toilet Urinal Urinal Urinal # Voids 1 # Bowel Movements 1 - Exam General appearance: The patient is alert, oriented, appears in no acute distress. HET: Head is normocephalic and atraumatic. Neck: Supple without lymphadenopathy. Trachea midline. Heart: S1 S2. Regular rate and rhythm. Lungs: Clear to auscultation bilaterally. Abdomen: Soft, nontender, nondistended. Extremities: Normal skin color and turgor. No cyanosis, rash, ulceration, clubbing, or edema. Neurological: No focal deficits. Alert and oriented 3. - Labs CBC & Chem 7: 11/23/21 03:58 11/23/21 03:58 Labs: Abnormal Lab Results - Last 24 Hours (Table) 11/23/21 11/23/21 11/23/21 Range/Units 03:58 03:58 03:58 RBC 3.80 L (4.30-5.90) m/uL Hgb 9.4 L (13.0-17.5) gm/dL Hct 30.1 L (39.0-53.0) % MCV 79.3 L (80.0-100.0) fL MCH 24.7 L (25.0-35.0) pg Lymphocytes # 0.9 L (1.0-4.8) k/uL APTT 96.3 H (22.0-30.0) sec Sodium 131 L (137-145) mmol/L BUN 2 L (9-20) mg/dL Calcium 8.2 L (8.4-10.2) mg/dL 11/23/21 Range/Units 11:35 RBC (4.30-5.90) m/uL Hgb (13.0-17.5) gm/dL Hct (39.0-53.0) % MCV (80.0-100.0) fL MCH (25.0-35.0) pg Lymphocytes # (1.0-4.8) k/uL APTT 30.3 H (22.0-30.0) sec Sodium (137-145) mmol/L BUN (9-20) mg/dL Calcium (8.4-10.2) mg/dL Microbiology - Last 24 Hours (Table) 11/19/21 23:08 Blood Culture - Preliminary Blood No Growth after 72 hours 11/17/21 15:19 Blood Culture - Preliminary Blood No Growth after 120 hours Assessment and Plan Assessment: 1. Pulmonary embolism with right heart strain, status post EKOS on heparin drip 2. Cecal tumor, scheduled for right colectomy on 11/24/[address] Pak 3. Recent episode ruptured appendix treated with outpatient IV antibiotics 4. History of remote upper extremity DVT Plan: 1. It was discussed with both hematology and general surgery at that there is no contraindication to anticoagulation after surgery. They recommend bridging with heparin after surgery. It was agreed that IVC filter placement be canceled for today 2. IVC filter placement canceled 3. Patient may resume heparin drip and shot up per recommendations from general surgeon 4. Resume diet as tolerated Thank you for this consultation, we will sign off at this time. If patient has any bleeding or further concerns and need for IVC filter placement please do not hesitate to contact us. The impression and plan of care has been dictated as directed. Dr. Lucas I performed a history and examination of this patient, discussed the same with the dictator. I agree with the dictator's note ,documented as a scribe. Any additional findings or plans will be noted.
[2021-11-23] MEDS ORDERED: HEPARIN SODIUM 1,000 UN/ML (10ML VL) IV ONE (15:53)
[2021-11-23] MEDS ORDERED: HEPARIN SODIUM 1,000 UN/ML (10ML VL) IV PRN (15:53)
[2021-11-23] MEDS ORDERED: HEPARIN SOD,PORK IN 0.45% NACL 25,000 UNIT in 0.45% NACL 1 250ML.BAG IV SCH (16:00)
[2021-11-23] MEDS ORDERED: Antibiotics per Pharmacy 1 EACH MISC MISCELLANE PRN (16:16)
[2021-11-23] MEDS: NEOMYCIN 500 MG TAB PO SCH ×3 (17:08→22:58)
[2021-11-23] MEDS: metroNIDAZOLE 500 MG TAB PO SCH ×3 (17:11→22:57)
--- NOTE | 2021-11-23 17:40 | P.PN ---
Subjective Progress Note Date: 11/23/21 Principal diagnosis: cecal mass In f/u today pt is status post colonoscopy. Pt having surgery in AM. He has no acute complaints, no pain or bleeding. Objective - Vital Signs Vital signs: Vital Signs Temp 99.1 F 11/23/21 08:00 Pulse 84 11/23/21 16:00 Resp 16 11/23/21 16:00 BP 118/81 11/23/21 16:00 Pulse Ox 95 11/23/21 16:04 FiO2 21 11/23/21 16:04 Intake & Output 11/22/21 11/23/21 11/23/21 18:59 06:59 18:59 Intake Total 954.467 232.348 300 Output Total 0 0 Balance 954.467 232.348 300 Weight 87.6 kg Intake: Intake, IV Titration 238.467 232.348 300 Amount Heparin Sod,Pork in 0.45% 138.467 232.348 NaCl 25,000 unit In 0.45 % NaCl 1 250ml.bag @ 15.5 mls/hr IV .Q16H8M [facility] Rx #:[id number] IV Fluid Continuation 800 100 ml @ 0 mls/hr IV .[facility] Rx#:[id number] Piperacillin-Tazobactam 3 100 200 .375 gm In Sodium Chloride 0.9% 100 ml @ 25 mls/hr IVPB Q8HR [facility] Rx# :[id number] Oral 716 Output: Stool 0 0 Other: Voiding Method Toilet Toilet Toilet Urinal Urinal Urinal # Voids 1 # Bowel Movements 1 - Constitutional General appearance: Present: average body habitus, cooperative, no acute distress - EENT ENT: Present: hearing grossly normal - Respiratory Details: resp even and unlabored - Musculoskeletal Musculoskeletal: Present: strength equal bilaterally - Psychiatric Psychiatric: Present: A&O x's 3, appropriate affect, intact judgment & insight - Labs CBC & Chem 7: 11/23/21 03:58 11/23/21 03:58 Labs: Abnormal Lab Results - Last 24 Hours (Table) 11/23/21 11/23/21 11/23/21 Range/Units 03:58 03:58 03:58 RBC 3.80 L (4.30-5.90) m/uL Hgb 9.4 L (13.0-17.5) gm/dL Hct 30.1 L (39.0-53.0) % MCV 79.3 L (80.0-100.0) fL MCH 24.7 L (25.0-35.0) pg Lymphocytes # 0.9 L (1.0-4.8) k/uL APTT 96.3 H (22.0-30.0) sec Sodium 131 L (137-145) mmol/L BUN 2 L (9-20) mg/dL Calcium 8.2 L (8.4-10.2) mg/dL 11/23/21 Range/Units 11:35 RBC (4.30-5.90) m/uL Hgb (13.0-17.5) gm/dL Hct (39.0-53.0) % MCV (80.0-100.0) fL MCH (25.0-35.0) pg Lymphocytes # (1.0-4.8) k/uL APTT 30.3 H (22.0-30.0) sec Sodium (137-145) mmol/L BUN (9-20) mg/dL Calcium (8.4-10.2) mg/dL Microbiology - Last 24 Hours (Table) 11/19/21 23:08 Blood Culture - Preliminary Blood No Growth after 72 hours 11/17/21 15:19 Blood Culture - Preliminary Blood No Growth after 120 hours Assessment and Plan (1) Pulmonary embolism Current Visit: Yes Status: Acute Priority: High Code(s): I26.99 - OTHER PULMONARY EMBOLISM WITHOUT ACUTE COR PULMONALE SNOMED Code(s): 15856499 (2) Cecum mass Current Visit: Yes Status: Acute Priority: High Code(s): K63.89 - OTHER SPECIFIED DISEASES OF INTESTINE SNOMED Code(s): 4043874772 (3) History of head and neck cancer Current Visit: No Status: Chronic Priority: Medium Code(s): Z85.89 - PERSONAL HISTORY OF MALIGNANT NEOPLASM OF ORGANS AND SYSTEMS SNOMED Code(s): 527835038 Plan: Symptomatic PE. Heparin drip until all planned procedures complete. Rx previously sent for copay verification for DOAC. BLE doppler neg for DVT Provoking factors for PE-had recent hospitalization for ruptured appendix, possible malignancy. Discussed case with Oncologist, consider hypercoaguable work up outpt in the future. Current recommendation for anticoagulation is 6mo. Case discussed with Vascular and with Surgery-clarified no contraindication to post op anticoagulation so, heparin drip will be resumed post op, monitor for bleeding. Hold plans for IVC filter placement for now. Biopsy of cecal mass. Path pending. Follow up with the Medical Oncologist in 4-5 weeks if malignant process. Time with Patient: Greater than 30
--- NOTE | 2021-11-23 18:15 | P.PN ---
Subjective Progress Note Date: 11/22/21 Principal diagnosis: Periappendicular abscess versus necrotic tumor Patient is a 71-year-old male who was recently admitted to this hospital with abdominal pain did have abdominal CT suspicious for possible ruptured appendicitis and abscess treated with IV Zosyn with subsequent CT raises the possibility of possible necrotic tumor in this patient did have a syncopal episode and evidence of PE. 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 area On today's evaluation that is 11/22/2021, the patient remains to be afebrile, the patient is breathing comfortably on room air, the patient denies chest pain or shortness of breath or cough, the patient denies abdominal pain no nausea no vomiting and no diarrhea Objective - Vital Signs Vital signs: Vital Signs Temp 98.4 F 11/22/21 11:39 Pulse 82 11/22/21 11:39 Resp 17 11/22/21 11:39 BP 143/89 11/22/21 11:39 Pulse Ox 96 11/22/21 11:39 FiO2 Intake & Output 11/21/21 11/22/21 11/22/21 18:59 06:59 18:59 Intake Total 1284.127 102.3 118 Balance 1284.127 102.3 118 Weight 87.6 kg Intake: IV 520 Invasive Line 1 20 Intake, IV Titration 89.127 102.3 Amount Heparin Sod,Pork in 0.45% 89.127 NaCl 25,000 unit In 0.45 % NaCl 1 250ml.bag @ 10. 917 UNITS/KG/HR 10 mls/hr IV .Q24H [facility] Rx#: [id number] Heparin Sod,Pork in 0.45% 102.3 NaCl 25,000 unit In 0.45 % NaCl 1 250ml.bag @ 15.5 mls/hr IV .Q16H8M [facility] Rx #:[id number] Oral 675 118 Other: Voiding Method Toilet Urinal # Voids 2 1 # Bowel Movements 2 1 - Exam GENERAL DESCRIPTION: An elderly male lying in bed in no distress RESPIRATORY SYSTEM: Unlabored breathing , decreased breath sounds at bases HEART: S1 S2 regular rate and rhythm , ABDOMEN: Soft , no tenderness EXTREMITIES: No edema feet - Labs CBC & Chem 7: 11/23/21 03:58 11/23/21 03:58 Labs: Abnormal Lab Results - Last 24 Hours (Table) 11/22/21 11/22/21 11/22/21 Range/Units 03:50 10:12 10:12 RBC 3.88 L (4.30-5.90) m/uL Hgb 9.5 L (13.0-17.5) gm/dL Hct 30.7 L (39.0-53.0) % MCV 79.1 L (80.0-100.0) fL MCH 24.5 L (25.0-35.0) pg MCHC 30.9 L (31.0-37.0) g/dL Lymphocytes # 0.9 L (1.0-4.8) k/uL APTT 53.6 H (22.0-30.0) sec Sodium 132 L (137-145) mmol/L BUN 4 L (9-20) mg/dL Glucose 100 H (74-99) mg/dL Calcium 8.2 L (8.4-10.2) mg/dL Microbiology - Last 24 Hours (Table) 11/19/21 23:08 Blood Culture - Preliminary Blood No Growth after 48 hours 11/17/21 15:19 Blood Culture - Preliminary Blood No Growth after 96 hours Assessment and Plan (1) Peritonitis Current Visit: No Status: Acute Code(s): K65.9 - PERITONITIS, UNSPECIFIED SNOMED Code(s): 58707240 Plan: 1patient presented to hospital with near syncopal episode in this patient currently being treated for possible periappendicular abscess however the patient repeat CAT scan is suspicious for possible necrotic cecal tumor and obstruction of the appendix , which has been confirmed on the colonoscopy and biopsy has been done. Biopsy Report pending 2the patient to continue with Zosyn and monitor clinical course closely Time with Patient: Less than 30
--- NOTE | 2021-11-23 18:17 | P.PN ---
Subjective Progress Note Date: 11/23/21 Principal diagnosis: Periappendicular abscess versus necrotic tumor Patient is a 71-year-old male who was recently admitted to this hospital with abdominal pain did have abdominal CT suspicious for possible ruptured appendicitis and abscess treated with IV Zosyn with subsequent CT raises the possibility of possible necrotic tumor in this patient did have a syncopal episode and evidence of PE. 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 area, patient scheduled for right-sided colectomy on 11/24/2021 On today's evaluation that is 11/23/2021, the patient continues to be afebrile, the patient is breathing comfortably on room air, the patient denies chest pain, shortness of breath or cough, the patient denies abdominal pain no nausea no vomiting currently undergoing Bowel prep and is having lots of diarrhea Objective - Vital Signs Vital signs: Vital Signs Temp 99.1 F 11/23/21 08:00 Pulse 89 11/23/21 12:00 Resp 16 11/23/21 12:00 BP 122/80 11/23/21 12:00 Pulse Ox 95 11/23/21 12:00 FiO2 Intake & Output 11/22/21 11/23/21 11/23/21 18:59 06:59 18:59 Intake Total 954.467 232.348 Output Total 0 0 Balance 954.467 232.348 0 Weight 87.6 kg Intake: Intake, IV Titration 238.467 232.348 Amount Heparin Sod,Pork in 0.45% 138.467 232.348 NaCl 25,000 unit In 0.45 % NaCl 1 250ml.bag @ 15.5 mls/hr IV .Q16H8M [facility] Rx #:[id number] Piperacillin-Tazobactam 3 100 .375 gm In Sodium Chloride 0.9% 100 ml @ 25 mls/hr IVPB Q8HR [facility] Rx# :[id number] Oral 716 Output: Stool 0 0 Other: Voiding Method Toilet Toilet Toilet Urinal Urinal Urinal # Voids 1 # Bowel Movements 1 - Exam GENERAL DESCRIPTION: An elderly male lying in bed in no distress RESPIRATORY SYSTEM: Unlabored breathing , decreased breath sounds at bases HEART: S1 S2 regular rate and rhythm , ABDOMEN: Soft , no tenderness EXTREMITIES: No edema feet - Labs CBC & Chem 7: 11/23/21 03:58 11/23/21 03:58 Labs: Abnormal Lab Results - Last 24 Hours (Table) 11/23/21 11/23/21 11/23/21 Range/Units 03:58 03:58 03:58 RBC 3.80 L (4.30-5.90) m/uL Hgb 9.4 L (13.0-17.5) gm/dL Hct 30.1 L (39.0-53.0) % MCV 79.3 L (80.0-100.0) fL MCH 24.7 L (25.0-35.0) pg Lymphocytes # 0.9 L (1.0-4.8) k/uL APTT 96.3 H (22.0-30.0) sec Sodium 131 L (137-145) mmol/L BUN 2 L (9-20) mg/dL Calcium 8.2 L (8.4-10.2) mg/dL Microbiology - Last 24 Hours (Table) 11/19/21 23:08 Blood Culture - Preliminary Blood No Growth after 72 hours 11/17/21 15:19 Blood Culture - Preliminary Blood No Growth after 120 hours Assessment and Plan (1) Peritonitis Current Visit: No Status: Acute Code(s): K65.9 - PERITONITIS, UNSPECIFIED SNOMED Code(s): 99691256 Plan: 1patient presented to hospital with near syncopal episode in this patient currently being treated for possible periappendicular abscess however the patient repeat CAT scan is suspicious for possible necrotic cecal tumor and obstruction of the appendix , which has been confirmed on the colonoscopy and biopsy has been done. Biopsy Report pending, patient scheduled for right colectomy and 22 2the patient to continue with Zosyn while waiting for surgical procedure tomorrow and monitor clinical course closely Time with Patient: Less than 30
[2021-11-23] MEDS: LACTATED RINGERS 1,000 ML IV SCH (19:30)
[2021-11-23] MEDS ORDERED: TEMAZEPAM 15 MG CAP PO ONE (21:00)
[2021-11-23] MEDS: D5-0.9% NACL WITH KCL 20 MEQ/L 1,000 ML IV SCH (21:19)
[2021-11-23] MEDS: CALCIUM CARBONATE 500 MG CHEWABLE PO PRN (22:58)
[2021-11-24] MEDS ORDERED: metroNIDAZOLE-NS PMX 500 MG in SALINE 1 100ML.BAG IVPB PRN (05:00)
[2021-11-24] MEDS: PANTOPRAZOLE 40 MG TABLET PO SCH (06:26)
[2021-11-24] MEDS ORDERED: ALVIMOPAN 12 MG CAPSULE PO PRN (07:00)
[2021-11-24] MEDS ORDERED: ACETAMINOPHEN TAB 500 MG TAB PO PRN (07:00)
[2021-11-24] MEDS: D5-0.9% NACL WITH KCL 20 MEQ/L 1,000 ML IV SCH ×3 (07:06→23:22)
[2021-11-24 08:27] LABS: Basophils # (A) 0.1 k/uL (0-0.2); Basophils % (A) 2 %; Eosinophils # (A) 0.5 k/uL (0-0.7); Eosinophils % (A) 9 %; HGB 8.6 gm/dL (13.0-17.5); Hypochromasia Moderate; Lymphocytes # (A) 0.8 k/uL (1.0-4.8); Lymphocytes % (A) 13 %; MCH 24.9 pg (25.0-35.0); MCHC 31.8 g/dL (31.0-37.0); MCV 78.3 fL (80.0-100.0); Monocytes # (A) 0.6 k/uL (0-1.0); Monocytes % (A) 10 %; Neutrophils # (A) 3.9 k/uL (1.3-7.7); Neutrophils % (A) 64 %; Platelet Count 351 k/uL (150-450); RBC 3.45 m/uL (4.30-5.90); RDW 15.3 % (11.5-15.5); WBC 6.1 k/uL (3.8-10.6)
[2021-11-24] MEDS: LOSARTAN 25 MG TAB PO SCH (08:37)
[2021-11-24] MEDS: amLODIPine 5 MG TAB PO SCH (08:38)
[2021-11-24] MEDS: atenoloL 25 MG TAB PO SCH (08:38)
[2021-11-24] MEDS: MAGNESIUM OXIDE 400 MG TAB PO SCH (08:38)
[2021-11-24] MEDS: ASPIRIN 81 MG PO SCH (08:38)
[2021-11-24] MEDS: FOLIC ACID 1 MG TAB PO SCH (08:38)
[2021-11-24] MEDS: CALCIUM CARBONATE 500 MG CHEWABLE PO SCH (08:38)
[2021-11-24] MEDS: PIPERACILLIN-TAZOBACTAM 3.375 GM in SODIUM CHLORIDE 0.9% 100 ML IVPB SCH ×3 (08:38→23:13)
[2021-11-24] MEDS: POTASSIUM CHLORIDE ER 10 MEQ TAB.ER.PRT PO SCH (08:38)
[2021-11-24] MEDS: CYANOCOBALAMIN 1,000 MCG/ML 1 ML VIAL IM SCH (08:39)
[2021-11-24 08:43] LABS: INR 1.1 (<1.2); Prothrombin Time 11.6 sec (9.0-12.0)
[2021-11-24 08:46] LABS: ALT 12 U/L (4-49); AST 26 U/L (17-59); African American GFR (CKD) >90 (>60 ml/min/1.73 sqM); Alkaline Phosphatase 87 U/L (38-126); Anion Gap 9 mmol/L; Blood Urea Nitrogen <2 mg/dL (9-20); Carbon Dioxide 24 mmol/L (22-30); Chloride 101 mmol/L (98-107); Glucose 106 mg/dL (74-99); Non-African American GFR(CKD) 88 (>60 ml/min/1.73 sqM); Potassium 3.9 mmol/L (3.5-5.1); Sodium 134 mmol/L (137-145); Total Bilirubin 0.3 mg/dL (0.2-1.3); Total Protein 5.2 g/dL (6.3-8.2)
[2021-11-24] MEDS ORDERED: ONDANSETRON 4 MG/2 ML VIAL IVP ONE (11:00)
[2021-11-24] MEDS ORDERED: DEXAMETHASONE SOD PHOSPHATE 4 MG/ML 1 ML VIAL IVP ONE (11:00)
[2021-11-24] MEDS: LACTATED RINGERS 1,000 ML IV SCH ×2 (11:00→11:34)
--- NOTE | 2021-11-24 11:09 | P.PN ---
Subjective This is a 71-year-old male with a past medical history significant for hypertension and palpitations. 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 We have been asked to see the patient in consultation for abnormal troponins. Patient was recently hospitalized for ruptured appendicitis with phlegmon, evaluated by Dr. Pak. He was discharged home on IV antibiotics. Patient came into the hospital to have a CAT scan that was ordered by infectious disease. He states that he was walking into the hospital he felt dizzy and lightheaded and felt like he was going to pass out. The patient believes he passed out at that point. His took him to the emergency room for further evaluation. Patient was found to have bilateral PE with evidence of RV strain by echocardiogram. EF 50-55%. He underwent EKOS with Dr. Macario on 11/18/2021. CT abdomen and pelvis report revealed Persistent highly suspicious necrotic mass centered over the cecum/ileocecal junction and obstructing the appendicular base. Surrounding local regional and mesenteric lymph nodes, possibly metastatic. Chronic necrotic abscess is much less likely yet still in the differential. No convincing evidence of perforated appendicitis. 11/21/2021- patient underwent EGD and colonoscopy which revealed an unresectable proximal mid transverse colon tumor occupying 75% of the lumen of the colon, polyps which were resected, and chronic gastritis. Surgical resection with right colectomy recommended. 11/24/2021 Patient seen and examined at bedside, no acute distress. He is doing well. No acute events overnight. He denies any chest pain or shortness of breath. Plan for patient to undergo Colectomy. His vital signs are stable. Plan for right colectomy today with general surgery. IVC filter not completed secondary to patient will be on anticoagulation post op Meds: He is currently maintained on amlodipine 5 mg daily, aspirin 81 mg daily, atenolol 25 mg daily, losartan 75 mg daily GENERAL: Well-appearing, well-nourished and in no acute distress. NECK: Supple without JVD or thyromegaly. LUNGS: Breath sounds clear to auscultation bilaterally. Respiration equal and unlabored. No wheezes, rales or rhonchi. HEART: Regular rate and rhythm without murmurs, rubs or gallops. S1 and S2 heard. EXTREMITIES: Normal range of motion, no edema. No clubbing or cyanosis. Peripheral pulses intact. ASSESSMENT Bilateral pulmonary embolism with evidence of RV strain s/p EKOS procedure on 11/18/2021, provoking factors with recent hospitalization for ruptured appendix and possible malignancy being considered Syncope, likely related to above Elevated troponin, secondary to bilateral PE Necrotic cecal mass noted on CT Recent hospitalization for ruptured appendix, on outpatient IV antibiotics Hypertension PLAN IVC filter placement cancelled secondary to hematology and general surgery stating no contraindication to anticoagulation after surgery Plan for possible right colectomy on with Dr. Pak Continue IV heparin Continue home cardiac medications Further recommendations based on clinical course Nurse Practitioner note has been reviewed, I agree with a documented findings and plan of care. Patient was seen and examined. Objective - Vital Signs Vital signs: Vital Signs Temp 98.3 F 11/24/21 08:00 Pulse 92 11/24/21 08:00 Resp 18 11/24/21 03:00 BP 130/84 11/24/21 08:00 Pulse Ox 96 11/24/21 08:00 FiO2 21 11/23/21 16:04 Intake & Output 11/23/21 11/24/21 11/24/21 18:59 06:59 18:59 Intake Total 418 106.755 Output Total 0 Balance 418 106.755 Weight 87.6 kg Intake: Intake, IV Titration 300 106.755 Amount Heparin Sod,Pork in 0.45% 106.755 NaCl 25,000 unit In 0.45 % NaCl 1 250ml.bag @ 11. 416 UNITS/KG/HR 10 mls/hr IV .Q24H [facility] Rx#: [id number] IV Fluid Continuation 800 100 ml @ 0 mls/hr IV .STK- MED ONE Rx#:[id number] Piperacillin-Tazobactam 3 200 .375 gm In Sodium Chloride 0.9% 100 ml @ 25 mls/hr IVPB Q8HR [facility] Rx# :[id number] Oral 118 Output: Stool 0 Other: Voiding Method Toilet Bedside Commode Urinal Urinal # Voids 2 # Bowel Movements 2 - Labs CBC & Chem 7: 11/24/21 07:50 11/24/21 07:50 Labs: Abnormal Lab Results - Last 24 Hours (Table) 11/23/21 11/23/21 11/24/21 Range/Units 11:35 21:30 07:50 RBC 3.45 L (4.30-5.90) m/uL Hgb 8.6 L (13.0-17.5) gm/dL Hct 27.0 L (39.0-53.0) % MCV 78.3 L (80.0-100.0) fL MCH 24.9 L (25.0-35.0) pg Lymphocytes # 0.8 L (1.0-4.8) k/uL APTT 30.3 H 95.6 H (22.0-30.0) sec Sodium (137-145) mmol/L BUN (9-20) mg/dL Glucose (74-99) mg/dL Calcium (8.4-10.2) mg/dL Total Protein (6.3-8.2) g/dL Albumin (3.5-5.0) g/dL 11/24/21 Range/Units 07:50 RBC (4.30-5.90) m/uL Hgb (13.0-17.5) gm/dL Hct (39.0-53.0) % MCV (80.0-100.0) fL MCH (25.0-35.0) pg Lymphocytes # (1.0-4.8) k/uL APTT (22.0-30.0) sec Sodium 134 L (137-145) mmol/L BUN <2 L (9-20) mg/dL Glucose 106 H (74-99) mg/dL Calcium 8.0 L (8.4-10.2) mg/dL Total Protein 5.2 L (6.3-8.2) g/dL Albumin 3.0 L (3.5-5.0) g/dL Microbiology - Last 24 Hours (Table) 11/23/21 16:11 Gram Stain - Preliminary Sputum Sputum Culture - Preliminary 11/19/21 23:08 Blood Culture - Preliminary Blood No Growth after 96 hours 11/17/21 15:19 Blood Culture - Final Blood No Growth after 144 hours
[2021-11-24] MEDS ORDERED: SUCCINYLCHOLINE CHLORIDE 100 MG/5 ML SYR IV ONE (11:21)
[2021-11-24] MEDS ORDERED: MIDAZOLAM 2 MG/2 ML VIAL ONE (11:21)
[2021-11-24] MEDS ORDERED: GLYCOPYRROLATE 0.2 MG/ML 2 ML VIAL ONE (11:21)
[2021-11-24] MEDS ORDERED: PROPOFOL 10 MG/ML 20 ML VIAL IV ONE (11:21)
[2021-11-24] MEDS ORDERED: fentaNYL (PF) 50 MCG/ML 2 ML AMP ONE (11:21)
[2021-11-24] MEDS ORDERED: NEOSTIGMINE 1 MG/ML 10 ML VIAL ONE (11:21)
[2021-11-24] MEDS ORDERED: LIDOCAINE 2% INJ 20 MG/ML (2 ML VIAL) ONE (11:21)
[2021-11-24] MEDS ORDERED: ROCURONIUM 10 MG/ML (5 ML VIAL) IV ONE (11:21)
--- NOTE | 2021-11-24 11:35 | P.HPADDEND ---
H&P Addendum H&P Addendum Date: 11/24/21 Benefits and risks of surgical intervention described including increased risks of bleeding with heparin drip after surgery. We'll proceed with robotic colectomy. All questions of patient addressed. I was personally contacted by vascular surgeon regarding IVC filter which at this time is not indicated per [facility] consultant.
[2021-11-24] MEDS ORDERED: IV FLUID CONTINUATION 400 ML IV ONE (12:00)
[2021-11-24] MEDS ORDERED: BUPIVACAIN-EPI 0.25%-1:200,000 30 ML VIAL SQ ONE (12:18)
[2021-11-24] MEDS ORDERED: LACTATED RINGERS 1,000 ML IV ONE (12:43)
--- NOTE | 2021-11-24 13:35 | P.PN ---
Progress Note - Text Progress Note Date: 11/24/21 Patient was seen prior to surgery. He is scheduled for right colectomy today with Dr. Pak. Patient is without any complaints. Oxygen is 99% on room air. Has been on a heparin drip, discontinued prior to surgery. Surgical physician assistant department manager states plan is to resume anticoagulation with heparin 2 hours post surgery per discussion with Dr. Pak. Patient is alert and oriented 3. In no acute distress. Respirations are nonlabored. No swelling to bilateral lower extremities. Assessment: 1. Pulmonary embolism with right heart strain status post EKOS 2. Cecal tumor, scheduled for right colectomy today 3. Recent episode ruptured appendix treated with outpatient IV antibiotics Plan: Apply SCDs. Dr. Lucas and Dr. Pak discussed that there is no contraindication to anticoagulation post surgical procedure. There is no indication for IVC filter at this time as there is no evidence of lower extremity DVT on imaging. Plan is to resume anticoagulation after surgery and eventually transition to oral anticoagulation once general surgeon deems appropriate. Thank you for this consultation, we will continue to follow. The impression and plan of care has been dictated as directed. I performed a history and examination of this patient, discussed the same with the dictator. I agree with the dictator's note ,documented as a scribe. Any additional findings or plans will be noted.
--- NOTE | 2021-11-24 14:39 | P.PN ---
Subjective Progress Note Date: 11/24/21 71-year-old male seen in consultation, for shortness of breath. The patient was initially seen in the emergency department, on November 17, complaining of syncope, and weakness. The patient has a recent history of a ruptured appendix, being treated with outpatient IV Zosyn. The patient was to come to the hospital today for a computed tomography scan of the abdomen, and he had a near syncopal episode, feeling very lightheaded and dizzy. He also has not been eating or drinking very much recently. He also had shortness of breath, and was evaluated, and the CTA was positive for pulmonary embolism. This is why we are asked to see him. Currently, he's on 6 L. He is receiving IV heparin, and Zosyn. White count 7.8, he will benign 0.5, hematocrit 29.5, and platelet count normal. Sodium 132, potassium 4.2, chlorides 99, CO2 21, BUN 9, creatinine 0.87. Troponin was 0.305. Urine was unremarkable. The chest x-ray showed no acute cardiopulmonary process. The KUB x-ray showed left inguinal hernia, and nonspecific bowel pattern. EKG did show sinus tachycardia. It also did show an S in lead 1 and a Q in lead 3. CT angiogram showed bilateral pulmonary emboli, worse on the right side than on the left. There was no evidence of right heart strain on the CTA. Echocardiogram did show a pulmonary pressure that was elevated at 55, and also a right ventricular to left ventricular ratio of 1.5. Dopplers of the lower extremities were negative for DVT. The patient is seen today 11/20/2019 follow-up in the intensive care unit. He is resting comfortably in bed. Awake and alert in no acute distress. He was found to have RV strain on his echocardiogram. He did undergo in for an EKOS procedure yesterday. Femoral catheters still in place. Remains on heparin. He is on 6 L high flow nasal cannula. He's been afebrile. Hemodynamically stable. Blood culture reveals no growth. White count 9.9. Hemoglobin 10.2. Platelets 273. Sodium 133. Potassium 3.7. BUN 5. Creatinine 0.68. He is currently on Zosyn. Progress note dated 11/20/2021. The patient is seen today in room 361. The patient remains on IV heparin. The patient is scheduled for an EGD and colonoscopy tomorrow. He is also planning to have surgery on his colonic mass, sometime this week. The patient remains on IV heparin. The patient was on 6 L yesterday, but is on room air today. He's feeling much better. The patient did have EKOS for his significant bilateral pulmonary emboli. White count 7.6, hemoglobin 10.3, hematocrit 32.2, and platelet count 390,000. PTT is 40.3. Sodium 132, potassium 3.8, chlorides 96, CO2 28, BUN 7, creatinine 0.83. Albumin is 3.3. 11/21/2021, the patient is calm and comfortable and the patient has no specific complaints and the patient is currently on room air oxygen. The patient was taken off the IV heparin and this patient for colonoscopy today. As mentioned earlier, the patient has a cecal mass that needs to be further investigated. Otherwise, the patient has no specific complaints. No evidence of any GI bleeding. Doppler of the lower extremities have been negative and the patient has undergone selective intra-arterial thrombolytic therapy regarding pulmonary embolism. The patient has been covered with IV Zosyn also has an empiric antibiotic coverage. Patient underwentthe bowel preparation yesterday without any major difficulties. No labs are available from today. Note that echocardiogram at shown pulmonary hypertension secondary to bilateral pulmonary embolism.he also gives history of tonsillar cancer that was treated many years back with a combination of chemoradiation therapy and back then during his treatment he had a blood clot in his left upper extremity. 11/22/2021, the patient is quite stable. The patient underwent a colonoscopy yesterday and the patient was found to have a unresectable proximal mid transverse colon tumor occupying 75% of the lumen of the colon. He also had some polyps that were resected. Nevertheless, there major concern is the mass in the proximal mid transverse colon and the patient will obviously need a colectomy. I discussed the case with the general surgeon and I also discussed the case with the vascular surgeon RONNA. I think the patient would be better off with an IVC filter placed to protect him from any further embolic phenomena postop knowing that the patient is getting to be off anticoagulants for at least 5-7 days postop. Otherwise, the patient is currently on IV heparin. Is doing extremely well. No bleeding complications. No other complaints otherwise for now. Note that the original Doppler of the lower extremities were negative for DVTs. This 2021, the patient is awaiting a IVC filter placement. Otherwise is doing well. No specific complaints. The procedure is going to with some bibasilar surgery and following that the plan is to proceed with a resection of the transverse colonic tumor that is causing 75% obstruction of the colonic lumen. Otherwise, the patient is calm and comfortable. The patient on room air oxygen. Not having any respiratory difficulties. His hemoglobin stable at 9.4 with a white cell count of 6.2 and the patient remains on IV Zosyn for now. The sodium is at 131. The patient remains on IV heparin with a therapeutic PTT at 96. Rest of the medications remain unchanged. The plan is to proceed with an IVC filter followed by a colectomy. 11/24/2021, the patient is in stable condition. The IVC filter was not placed as further discussion took place between the general surgeon and the vascular surgeon and it was decided not to do the filter as the patient is going to replacement the correlation with IV heparin immediately postop. This was the agreement. Otherwise, the patient has no specific complaints. Currently no thing by mouth awaiting surgery. The blood work from today shows a white cell count of 6.1 with a hemoglobin of 8.6, normal renal function and the patient's sodium is at 134. IV heparin will be discontinued 90 minutes prior to surgical start time. Objective - Vital Signs Vital signs: Vital Signs Temp 98 F 11/24/21 10:36 Pulse 79 11/24/21 10:36 Resp 16 11/24/21 10:36 BP 119/78 11/24/21 10:36 Pulse Ox 99 11/24/21 10:36 FiO2 21 11/23/21 16:04 Intake & Output 11/23/21 11/24/21 11/24/21 18:59 06:59 18:59 Intake Total 418 106.755 650 Output Total 0 Balance 418 106.755 650 Weight 87.6 kg Intake: IV 650 Intake, IV Titration 300 106.755 Amount Heparin Sod,Pork in 0.45% 106.755 NaCl 25,000 unit In 0.45 % NaCl 1 250ml.bag @ 11. 416 UNITS/KG/HR 10 mls/hr IV .Q24H [facility] Rx#: [id number] IV Fluid Continuation 800 100 ml @ 0 mls/hr IV .STK- [facility] Rx#:[id number] Piperacillin-Tazobactam 3 200 .375 gm In Sodium Chloride 0.9% 100 ml @ 25 mls/hr IVPB Q8HR [facility] Rx# :[id number] Oral 118 Output: Stool 0 Other: Voiding Method Toilet Bedside Commode Urinal Urinal # Voids 2 # Bowel Movements 2 - Exam No acute distress, oriented 3. Currently on room air. HEENT examination is grossly unremarkable. Neck supple. Full range of motion. No adenopathy thyromegaly or neck vein distention. Cardiovascular examination reveals regular rhythm rate. S1-S2 normal. No S3 or S4. No discernible murmur noted. Lungs reveal clear breath sounds. Breath sounds are equal bilaterally. No adventitious lung sounds including wheezes rhonchi or crackles. Abdomen soft bowel sounds are heard. No masses or tenderness. Extremities are intact. No cyanosis clubbing or edema. Skin is without rash or lesion. Neurologic examination is brief but nonfocal. - Labs CBC & Chem 7: 11/24/21 07:50 11/24/21 07:50 Labs: Abnormal Lab Results - Last 24 Hours (Table) 11/23/21 11/24/21 11/24/21 Range/Units 21:30 07:50 07:50 RBC 3.45 L (4.30-5.90) m/uL Hgb 8.6 L (13.0-17.5) gm/dL Hct 27.0 L (39.0-53.0) % MCV 78.3 L (80.0-100.0) fL MCH 24.9 L (25.0-35.0) pg Lymphocytes # 0.8 L (1.0-4.8) k/uL APTT 95.6 H (22.0-30.0) sec Sodium 134 L (137-145) mmol/L BUN <2 L (9-20) mg/dL Glucose 106 H (74-99) mg/dL Calcium 8.0 L (8.4-10.2) mg/dL Total Protein 5.2 L (6.3-8.2) g/dL Albumin 3.0 L (3.5-5.0) g/dL Microbiology - Last 24 Hours (Table) 11/23/21 16:11 Gram Stain - Preliminary Sputum Sputum Culture - Preliminary 11/19/21 23:08 Blood Culture - Preliminary Blood No Growth after 96 hours 11/17/21 15:19 Blood Culture - Final Blood No Growth after 144 hours Assessment and Plan Plan: Acute pulmonary embolism, with right heart strain, and acute pulmonary hypertension, S/P EKOS.the patient is currently on room air oxygen. Echocardiogram showed moderate to severe degree of pulmonary hypertension which is related to acute pulmonary embolism. The patient is currently on IV heparin.IV heparin will be discontinued 90 minutes prior to him being called to the operating room for a colectomy. Transverse colonic mass for which the patient is being planned for surgical resection of this week. Recent episode of ruptured appendix, being treated as an outpatient, with IV Zosyn. History of hypertension. 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 remote history of a left upper extremity DVT Vague history of irregular heartbeat. Plan based on discussion with the vascular surgery and general surgery,it was decided not to put the filter. I was in favor of putting the filter due to concerns of complications of DVT and pulmonary embolism. Surgical follow-up regarding colectomy we'll continue to follow.
[2021-11-24] MEDS ORDERED: BENZOCAINE/MENTHOL LOZENG 1 EACH LOZENGE MUCOUS MEM PRN (16:19)
[2021-11-24] MEDS ORDERED: HYDROmorphone 1 MG/ML 1 ML SYRINGE IVP PRN (16:19)
--- NOTE | 2021-11-24 16:28 | P.PN ---
Subjective Progress Note Date: 11/24/21 Principal diagnosis: Presented with syncope and found to have PE and colon mass Patient denies any acute complaints. No acute issues overnight. Patient was seen before surgery. Vascular surgery and general surgery spoke and said that there is no contraindication post op to anticoagulation so no IVC needed. Objective - Vital Signs Vital signs: Vital Signs Temp 96.8 F L 11/24/21 15:57 Pulse 78 11/24/21 16:00 Resp 14 11/24/21 16:00 BP 114/74 11/24/21 16:00 Pulse Ox 100 11/24/21 16:00 FiO2 21 11/23/21 16:04 Intake & Output 11/23/21 11/24/21 11/24/21 18:59 06:59 18:59 Intake Total 418 503.835 4812 Output Total 0 300 Balance 418 091.714 2274 Weight 87.6 kg Intake: IV 2150 Intake, IV Titration 300 106.755 Amount Heparin Sod,Pork in 0.45% 106.755 NaCl 25,000 unit In 0.45 % NaCl 1 250ml.bag @ 11. 416 UNITS/KG/HR 10 mls/hr IV .Q24H [facility] Rx#: [id number] IV Fluid Continuation 800 100 ml @ 0 mls/hr IV .STK- MED ONE Rx#:[id number] Piperacillin-Tazobactam 3 200 .375 gm In Sodium Chloride 0.9% 100 ml @ 25 mls/hr IVPB Q8HR [facility] Rx# :[id number] Oral 118 Output: Urine 200 Stool 0 Estimated Blood Loss 100 Other: Voiding Method Toilet Bedside Commode Urinal Urinal # Voids 2 # Bowel Movements 2 - Exam General examination - Alert and Oriented 3 in NAD Heart - + S1S2 no murmurs Lungs - Clear to auscultation Abdomen soft NT ND +ve BS Extremities - No edema [employer]OT [employer] - Moving all 4 extremities spontaneously Psych - Calm and cooperative - Labs CBC & Chem 7: 11/24/21 07:50 11/24/21 07:50 Labs: Abnormal Lab Results - Last 24 Hours (Table) 11/23/21 11/24/21 11/24/21 Range/Units 21:30 07:50 07:50 RBC 3.45 L (4.30-5.90) m/uL Hgb 8.6 L (13.0-17.5) gm/dL Hct 27.0 L (39.0-53.0) % MCV 78.3 L (80.0-100.0) fL MCH 24.9 L (25.0-35.0) pg Lymphocytes # 0.8 L (1.0-4.8) k/uL APTT 95.6 H (22.0-30.0) sec Sodium 134 L (137-145) mmol/L BUN <2 L (9-20) mg/dL Glucose 106 H (74-99) mg/dL Calcium 8.0 L (8.4-10.2) mg/dL Total Protein 5.2 L (6.3-8.2) g/dL Albumin 3.0 L (3.5-5.0) g/dL Microbiology - Last 24 Hours (Table) 11/23/21 16:11 Gram Stain - Preliminary Sputum Sputum Culture - Preliminary 11/19/21 23:08 Blood Culture - Preliminary Blood No Growth after 96 hours 11/17/21 15:19 Blood Culture - Final Blood No Growth after 144 hours Assessment and Plan Assessment: Acute pulmonary embolism with right heart strain and acute pulmonary hypertension -Status post EKOS by cardiology -Patient now on room air -Echocardiogram showed moderate to severe pulmonary hypertension -Patient on IV heparin -IVC filter was canceled as per general surgery there is no contraindication to anticoagulation postop and patient can resume heparin drip. -This is a provoked PE due to likely malignancy which is being worked up Transverse and cecal colon mass -Status post colonoscopy with multiple polyps removed and showed unresectable mass in the transverse colon -Gen. surgery plans to do colon resection today Status post recent ruptured appendix with abscess -Patient was being treated with IV Zosyn outpatient. 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
--- NOTE | 2021-11-24 16:35 | P.OP ---
Date of Procedure: 11/24/21 Description of Procedure: SURGEON: ALAN CHURCH MD Preoperative Diagnosis: 1. Cecal mass 2. Unresectable transverse colon adenoma via endoscopic approach 3. Recent acute bilateral pulmonary embolism status post EKOS 4. History of perforated appendicitis Postoperative Diagnosis: 1. Cecal mass, highly malignant potential 2. Unresectable transverse colon adenoma via endoscopic approach 3. Recent acute bilateral pulmonary embolism status post EKOS 4. History of perforated appendicitis with chronic appendicitis 5. Left inguinal hernia 6. Hepatomegaly with fatty liver disease Procedure(s) Performed: 1. Robot-assisted daVinci Xi laparoscopic extended right hemicolectomy Anesthesia: GETA, local Estimated Blood Loss (ml): 100 Condition: stable SPECIMENS REMOVED: appendix, terminal ileum and extended right colon and mesocolon, en bloc COMPLICATIONS: None. Disposition: floor Operative Findings: 1. Tattoo identified along the mid transverse colon. 2. Extended right hemicolectomy to distal mid transverse colon 3. Firm easily mobile mass involving the cecum over 10 cm in size 4. No invasion into the retroperitoneum of neoplasm 5. Moderate pelvic adhesions due to previous perforated appendicitis 6. En bloc resection involving terminal ileum, right colon, proximal to mid transverse colon, meso colon for R0 resection 7. Tumor bed and extraction site cleansed with sterile water for tumor lysis. 8. Excision and excision of left upper quadrant, extraction site, 10 cm 9. Hemostatic surgical site for tumor resection including anastomosis INDICATIONS: The patient is a 71-year-old male who presents with cecal mass. Surgical intervention with colon resection was described in detail. Benefits and risks, including infection, open surgery possibility for additional surgery was discussed at length. Informed consent was obtained. All questions of the patient and family were answered. DESCRIPTION: Earlier the patient had undergone a bowel prep using the enhanced colon recovery program. No epidural was used secondary to pre-existing hypotension. The patient was transferred to the operating room and placed in supine position. After general anesthetic, a louis catheter was placed. The abdomen was then prepped and draped in standard sterile fashion as Ioban was placed along the abdomen to minimize any contamination of skin floor. After a timeout protocol was performed, attention was then brought to the left upper quadrant whereby a 0 degree 5 mm laparoscopic trocar entry was performed. The abdominal cavity was entered and insufflated to 15 mmHg pressure, which was tolerated well. Diagnostic laparoscopy demonstrated no injury to bowel, viscera or mesentery. The liver was remarkable for hepatomegaly. Next trochars were placed along the left lateral abdomen. An robotic 8-mm trocar to the left lower abdomen. A 12 mm port was placed along the left lower quadrant. Another 8-mm port along the left upper quadrant. Ports were placed 8 cm apart from each other including 15-20 cm away from the target anatomy of the right pelvis. The 5-mm port was exchanged for a 12 mm robotic port. The patient was then placed in right side up 7. The robotic da Ayde XI system was primed and docked from the left side of the patient. Using atraumatic graspers and vessel sealer, the robotic system was docked and primed as described. Instruments were interchanged by the assistant chief engineer including scissors, needle stacker driver, robotic stapler and vessel sealer. Next, attention was brought to identify the cecum. A stay suture using 0 silk was placed along the anterior serosa of the along the terminal ileum. The terminal ileum and ascending colon mesentery was mobilized using a vessel sealer whereby the colon was marked and tagged. Tattoo was identified along the mid ascending colon. The colon was prepared for resection along the mid transverse colon including for resection along the terminal ileum. Using robot stapler 60 mm white load, the distal ileum was divided 8 centimeters proximal to the ileocecal valve. The mesentery of the ascending colon was mobilized towards the midline using a vessel sealer. The right colon was mobilized to the mid transverse colon and prepared for resection. The colon was divided using 60 mm blue loads. The rest of the colon mesentery was mobilized using vessel sealer including using blunt dissection. The ascending colon was mobilized from proximal to distal with the meeting point of the hepatic flexure. The vascular pedicle of the ileocolic artery was controlled using vessel sealer. The mid transverse colon and distal ileum was brought in a side to side antiperistaltic anastomotic fashion after placing interrupted sutures along the proposed laura-lumen using 3-0 silk. A colotomy and enterotomy was prepared along both limbs along the antimesenteric border. Next, 60 mm blue stapler loads were fired to create the laura-lumen. The laura-lumen was reapproximated using 3-0 silk followed by 60 mm blue load for closure of the enterostomy. All needles were removed from the abdominal cavity. The robot was undocked. I re-scrubbed into the case. Via the 12 mm port of the left upper quadrant, the right colon was removed after widening the skin incision to 3-cm using 15-mm Endo Catch bag. All sponges were removed from the abdominal cavity. The fascial defect was oversewn using 0 Vicryl and Jean-Pierre Shahid. Next all pneumoperitoneum was evacuated from the abdominal cavity. The 8-mm tro car sites were reapproximated using 4-0 Monocryl in an interrupted subcuticular fashion. Local anesthetic was infiltrated to all wounds for postop analgesia. All incisions were also cleansed with diluted hydrogen peroxide. Liquid was applied to the rest of the skin incisions. The patient had tolerated the procedure well. The patient was extubated successfully. Intraoperative photos were reviewed with the patient's family who were overall pleased with the level of care. The patient was transferred to the postanesthesia care unit in stable condition.
[2021-11-24 17:35] LABS: Basophils # (A) 0.1 k/uL (0-0.2); Basophils % (A) 1 %; Eosinophils # (A) 0.1 k/uL (0-0.7); Eosinophils % (A) 1 %; HCT 28.3 % (39.0-53.0); HGB 8.7 gm/dL (13.0-17.5); Hypochromasia Marked; Lymphocytes # (A) 0.6 k/uL (1.0-4.8); Lymphocytes % (A) 7 %; MCH 24.4 pg (25.0-35.0); MCHC 30.7 g/dL (31.0-37.0); MCV 79.5 fL (80.0-100.0); Mean Platelet Volume 8.2; Monocytes # (A) 0.3 k/uL (0-1.0); Monocytes % (A) 3 %; Neutrophils # (A) 8.1 k/uL (1.3-7.7); Neutrophils % (A) 88 %; Platelet Count 389 k/uL (150-450); RBC 3.56 m/uL (4.30-5.90); RDW 15.3 % (11.5-15.5); WBC 9.1 k/uL (3.8-10.6)
[2021-11-24 17:45] LABS: INR 1.1 (<1.2); Partial Thromboplastin Time 29.1 sec (22.0-30.0)
[2021-11-24] MEDS: ACETAMINOPHEN IV (For NPO) 1,000 MG in EMPTY BAG 1 BAG IVPB SCH ×2 (17:56→23:12)
[2021-11-24] MEDS: SIMETHICONE 40 MG/0.6 ML DROPS 2,000 MG/30 ML BOTTLE PO SCH ×2 (18:16→20:58)
[2021-11-24] MEDS: TAMSULOSIN 0.4 MG CAP.ER.24H PO SCH (18:16)
[2021-11-25] MEDS ORDERED: HEPARIN SODIUM 1,000 UN/ML (10ML VL) IV ONE (04:00)
[2021-11-25] MEDS ORDERED: HEPARIN SODIUM 1,000 UN/ML (10ML VL) IV PRN (04:00)
[2021-11-25] MEDS: HEPARIN SOD,PORK IN 0.45% NACL 25,000 UNIT in 0.45% NACL 1 250ML.BAG IV SCH (04:01)
[2021-11-25] MEDS: ACETAMINOPHEN IV (For NPO) 1,000 MG in EMPTY BAG 1 BAG IVPB SCH ×2 (05:52→14:09)
[2021-11-25] MEDS: PANTOPRAZOLE 40 MG TABLET PO SCH (05:54)
--- NOTE | 2021-11-25 08:18 | P.PN ---
Subjective Progress Note Date: 11/25/21 CHIEF COMPLAINT: Cecal mass HISTORY OF PRESENT ILLNESS: The patient is a 71-year-old male status post ex tended right hemicolectomy for large 10 cm no cecal tumor and concurrent unresectable transverse colon adenoma. Patient reports multiple concerns including he was told to have strict bed rest and he did not have SCDs despite orders been written. No reports of abdominal pain outside of what he calls. Patient is eager to ambulate. No signs of bleeding. Heparin drip resumed at 4 AM this morning. ROS: No reports of nausea and vomiting. No fevers or chills. No new chest pain. No productive sputum PHYSICAL EXAM: VITAL SIGNS: Reviewed CONSTITUTIONAL: Well developed and in no acute distress. EYES: Conjuctivae without sclera icterus. Extraocular movements grossly intact. HEAD, EARS, NOSE, THROAT: Moist buccal mucosa. Head is atraumatic, normocephalic. Hears conversational speech. No nasal drainage. RESPIRATORY: Non-labored respirations and equal bilateral excursions. CARDIOVASCULAR: Palpable 2+ radial pulses. ABDOMEN: Binder intact. No bleeding through dressings. MUSCULOSKELETAL: No gross deformity of the lower extremities noted. No clubbing. No cyanosis. SKIN: Good skin turgor. Well perfused. NEUROLOGIC: Cranial nerves II through XII grossly intact. No focal or la teralizing signs. PSYCH: Appropriate affect. Alert and oriented to person, place and time. CLINICAL LABS: Reviewed. Hemoglobin immediately postoperative from 8.6-8.7. ASSESSMENT: 1. Cecal mass 2. Transverse colon mass, adenoma unresectable via endoscopy 3. Pulmonary embolism, acute PLAN: 1. I discussed with nursing importance of functioning SCDs and immediate ambulation. 2. Heparin drip resumed. Anticipate start of oral anticoagulation in 48 hours pending stable hemoglobin. 3. Discussed with family, earliest time of discharge slated for November 29 for monitoring hemoglobin on oral anticoagulation Objective - Vital Signs Vital signs: Vital Signs Temp 98.4 F 11/25/21 04:00 Pulse 87 11/25/21 04:00 Resp 18 11/25/21 04:00 BP 124/82 11/25/21 04:00 Pulse Ox 97 11/25/21 04:00 FiO2 21 11/23/21 16:04 Intake & Output 11/24/21 11/25/21 11/25/21 18:59 06:59 18:59 Intake Total 2150 118 Output Total 300 1000 Balance 1850 -1000 118 Intake: IV 2150 Oral 118 Output: Urine 200 1000 Estimated Blood Loss 100 Other: Voiding Method Indwelling Catheter - Labs CBC & Chem 7: 11/24/21 17:23 11/24/21 07:50 Labs: Abnormal Lab Results - Last 24 Hours (Table) 11/24/21 11/24/21 11/24/21 Range/Units 07:50 07:50 17:23 RBC 3.45 L 3.56 L (4.30-5.90) m/uL Hgb 8.6 L 8.7 L (13.0-17.5) gm/dL Hct 27.0 L 28.3 L (39.0-53.0) % MCV 78.3 L 79.5 L (80.0-100.0) fL MCH 24.9 L 24.4 L (25.0-35.0) pg MCHC 30.7 L (31.0-37.0) g/dL Neutrophils # 8.1 H (1.3-7.7) k/uL Lymphocytes # 0.8 L 0.6 L (1.0-4.8) k/uL Sodium 134 L (137-145) mmol/L BUN <2 L (9-20) mg/dL Glucose 106 H (74-99) mg/dL Calcium 8.0 L (8.4-10.2) mg/dL Total Protein 5.2 L (6.3-8.2) g/dL Albumin 3.0 L (3.5-5.0) g/dL Microbiology - Last 24 Hours (Table) 11/19/21 23:08 Blood Culture - Preliminary Blood No Growth after 120 hours 11/23/21 16:11 Gram Stain - Preliminary Sputum Sputum Culture - Preliminary
[2021-11-25 08:46] LABS: African American GFR (CKD) >90 (>60 ml/min/1.73 sqM); Anion Gap 8 mmol/L; Blood Urea Nitrogen <2 mg/dL (9-20); Calcium 7.8 mg/dL (8.4-10.2); Carbon Dioxide 22 mmol/L (22-30); Chloride 101 mmol/L (98-107); Glucose 116 mg/dL (74-99); Non-African American GFR(CKD) 90 (>60 ml/min/1.73 sqM); Sodium 131 mmol/L (137-145)
[2021-11-25 09:00] LABS: INR 1.2 (<1.2); Prothrombin Time 12.9 sec (9.0-12.0)
[2021-11-25 09:07] LABS: Basophils % (A) 1 %; Eosinophils # (A) 0.1 k/uL (0-0.7); Eosinophils % (A) 1 %; HCT 26.6 % (39.0-53.0); HGB 8.4 gm/dL (13.0-17.5); Hypochromasia Marked; Lymphocytes % (A) 13 %; MCH 25.1 pg (25.0-35.0); MCHC 31.5 g/dL (31.0-37.0); MCV 79.8 fL (80.0-100.0); Monocytes # (A) 0.7 k/uL (0-1.0); Monocytes % (A) 10 %; Neutrophils # (A) 5.3 k/uL (1.3-7.7); Neutrophils % (A) 73 %; Platelet Count 394 k/uL (150-450); RBC 3.33 m/uL (4.30-5.90); RDW 15.6 % (11.5-15.5); WBC 7.3 k/uL (3.8-10.6)
--- NOTE | 2021-11-25 09:07 | P.PN ---
Subjective Progress Note Date: 11/25/21 Principal diagnosis: Pulmonary embolism Patient seen today as a follow-up for acute pulmonary embolism status post EKOS procedure. Vascular surgery was requested see patient regarding possible IVC filter placement, however patient has no current DVTs in either lower extremities. Gen. surgery so there was no contraindication to resume anticoagulation status post surgery for cecal mass. He is postop day #1 for extended right hemicolectomy for cecal tumor and concurrent on resectable transverse colon adenoma. Heparin drip was resumed at 0400 today. No signs at this time of bleeding. Current labs are pending. Patient is sitting up eating breakfast, which is clear liquids. He states his pain is tolerable and well managed. No other complaints at this time. He currently has SCDs in place. Objective - Vital Signs Vital signs: Vital Signs Temp 98.4 F 11/25/21 04:00 Pulse 87 11/25/21 04:00 Resp 18 11/25/21 04:00 BP 124/82 11/25/21 04:00 Pulse Ox 97 11/25/21 04:00 FiO2 21 11/23/21 16:04 Intake & Output 11/24/21 11/25/21 11/25/21 18:59 06:59 18:59 Intake Total 2150 118 Output Total 300 1000 200 Balance 1850 -1000 -82 Intake: IV 2150 Oral 118 Output: Urine 200 1000 200 Estimated Blood Loss 100 Other: Voiding Method Indwelling Catheter - Exam General appearance: The patient is alert, oriented, appears in no acute distress. HET: Head is normocephalic and atraumatic. Neck: Supple without lymphadenopathy. Trachea midline. Respiratory: Nonlabored respirations. Abdomen: Abdominal Binder in place. Extremities: Normal skin color and turgor. No cyanosis, rash, ulceration, clubbing, or edema. Bilateral SCDs on. Neurological: No focal deficits. Alert and oriented 3. - Labs CBC & Chem 7: 11/24/21 17:23 11/25/21 07:33 Labs: Abnormal Lab Results - Last 24 Hours (Table) 11/24/21 11/25/21 Range/Units 17:23 07:33 RBC 3.56 L (4.30-5.90) m/uL Hgb 8.7 L (13.0-17.5) gm/dL Hct 28.3 L (39.0-53.0) % MCV 79.5 L (80.0-100.0) fL MCH 24.4 L (25.0-35.0) pg MCHC 30.7 L (31.0-37.0) g/dL Neutrophils # 8.1 H (1.3-7.7) k/uL Lymphocytes # 0.6 L (1.0-4.8) k/uL Sodium 131 L (137-145) mmol/L BUN <2 L (9-20) mg/dL Glucose 116 H (74-99) mg/dL Calcium 7.8 L (8.4-10.2) mg/dL Microbiology - Last 24 Hours (Table) 11/19/21 23:08 Blood Culture - Preliminary Blood No Growth after 120 hours 11/23/21 16:11 Gram Stain - Preliminary Sputum Sputum Culture - Preliminary Assessment and Plan Assessment: 1. Pulmonary embolism with right heart strain, status post EKOS on heparin drip 2. Cecal tumor status post right hemicolectomy 3. Recent episode ruptured appendix treated with outpatient IV antibiotics 4. History of remote upper extremity DVT Plan: 1. Continue heparin drip, transitioned to oral anticoagulation per recomme ndations of general surgery. Per general surgeons note they anticipate starting in 48 hours pending stable hemoglobin andsigns of bleeding 2. Choice of oral anticoagulation per recommendations from hematology 3. SCDs on while in bed 4. Encourage ambulation 5. Continue incentive spirometer Thank you for this consultation, we will be on standby should patient not tolerate anticoagulation and need IVC filter placed. Please do not hesitate to call us back. The impression and plan of care has been dictated as directed. Dr. Lucas I performed a history and examination of this patient, discussed the same with the dictator. I agree with the dictator's note ,documented as a scribe. Any additional findings or plans will be noted.
[2021-11-25] MEDS: PIPERACILLIN-TAZOBACTAM 3.375 GM in SODIUM CHLORIDE 0.9% 100 ML IVPB SCH ×3 (09:28→23:26)
[2021-11-25] MEDS: POTASSIUM CHLORIDE ER 10 MEQ TAB.ER.PRT PO SCH (09:29)
[2021-11-25] MEDS: FOLIC ACID 1 MG TAB PO SCH (09:29)
[2021-11-25] MEDS: ASPIRIN 81 MG PO SCH (09:29)
[2021-11-25] MEDS: atenoloL 25 MG TAB PO SCH (09:29)
[2021-11-25] MEDS: CALCIUM CARBONATE 500 MG CHEWABLE PO SCH (09:29)
[2021-11-25] MEDS: CYANOCOBALAMIN 1,000 MCG/ML 1 ML VIAL IM SCH (09:29)
[2021-11-25] MEDS: D5-0.9% NACL WITH KCL 20 MEQ/L 1,000 ML IV SCH ×2 (09:29→21:11)
[2021-11-25] MEDS: LOSARTAN 25 MG TAB PO SCH (09:29)
[2021-11-25] MEDS: amLODIPine 5 MG TAB PO SCH (09:29)
[2021-11-25] MEDS: MAGNESIUM OXIDE 400 MG TAB PO SCH (09:29)
[2021-11-25] MEDS: SIMETHICONE 40 MG/0.6 ML DROPS 2,000 MG/30 ML BOTTLE PO SCH ×4 (09:32→20:33)
--- NOTE | 2021-11-25 10:15 | P.PN ---
Subjective Progress Note Date: 11/25/21 71-year-old male seen in consultation, for shortness of breath. The patient was initially seen in the emergency department, on November 17, complaining of syncope, and weakness. The patient has a recent history of a ruptured appendix, being treated with outpatient IV Zosyn. The patient was to come to the hospital today for a computed tomography scan of the abdomen, and he had a near syncopal episode, feeling very lightheaded and dizzy. He also has not been eating or drinking very much recently. He also had shortness of breath, and was evaluated, and the CTA was positive for pulmonary embolism. This is why we are asked to see him. Currently, he's on 6 L. He is receiving IV heparin, and Zosyn. White count 7.8, he will benign 0.5, hematocrit 29.5, and platelet count normal. Sodium 132, potassium 4.2, chlorides 99, CO2 21, BUN 9, creatinine 0.87. Troponin was 0.305. Urine was unremarkable. The chest x-ray showed no acute cardiopulmonary process. The KUB x-ray showed left inguinal hernia, and nonspecific bowel pattern. EKG did show sinus tachycardia. It also did show an S in lead 1 and a Q in lead 3. CT angiogram showed bilateral pulmonary emboli, worse on the right side than on the left. There was no evidence of right heart strain on the CTA. Echocardiogram did show a pulmonary pressure that was elevated at 55, and also a right ventricular to left ventricular ratio of 1.5. Dopplers of the lower extremities were negative for DVT. The patient is seen today 11/20/2019 follow-up in the intensive care unit. He is resting comfortably in bed. Awake and alert in no acute distress. He was found to have RV strain on his echocardiogram. He did undergo in for an EKOS procedure yesterday. Femoral catheters still in place. Remains on heparin. He is on 6 L high flow nasal cannula. He's been afebrile. Hemodynamically stable. Blood culture reveals no growth. White count 9.9. Hemoglobin 10.2. Platelets 273. Sodium 133. Potassium 3.7. BUN 5. Creatinine 0.68. He is currently on Zosyn. Progress note dated 11/20/2021. The patient is seen today in room 361. The patient remains on IV heparin. The patient is scheduled for an EGD and colonoscopy tomorrow. He is also planning to have surgery on his colonic mass, sometime this week. The patient remains on IV heparin. The patient was on 6 L yesterday, but is on room air today. He's feeling much better. The patient did have EKOS for his significant bilateral pulmonary emboli. White count 7.6, hemoglobin 10.3, hematocrit 32.2, and platelet count 390,000. PTT is 40.3. Sodium 132, potassium 3.8, chlorides 96, CO2 28, BUN 7, creatinine 0.83. Albumin is 3.3. 11/21/2021, the patient is calm and comfortable and the patient has no specific complaints and the patient is currently on room air oxygen. The patient was taken off the IV heparin and this patient for colonoscopy today. As mentioned earlier, the patient has a cecal mass that needs to be further investigated. Otherwise, the patient has no specific complaints. No evidence of any GI bleeding. Doppler of the lower extremities have been negative and the patient has undergone selective intra-arterial thrombolytic therapy regarding pulmonary embolism. The patient has been covered with IV Zosyn also has an empiric antibiotic coverage. Patient underwentthe bowel preparation yesterday without any major difficulties. No labs are available from today. Note that echocardiogram at shown pulmonary hypertension secondary to bilateral pulmonary embolism.he also gives history of tonsillar cancer that was treated many years back with a combination of chemoradiation therapy and back then during his treatment he had a blood clot in his left upper extremity. 11/22/2021, the patient is quite stable. The patient underwent a colonoscopy yesterday and the patient was found to have a unresectable proximal mid transverse colon tumor occupying 75% of the lumen of the colon. He also had some polyps that were resected. Nevertheless, there major concern is the mass in the proximal mid transverse colon and the patient will obviously need a colectomy. I discussed the case with the general surgeon and I also discussed the case with the vascular surgeon RONNA. I think the patient would be better off with an IVC filter placed to protect him from any further embolic phenomena postop knowing that the patient is getting to be off anticoagulants for at least 5-7 days postop. Otherwise, the patient is currently on IV heparin. Is doing extremely well. No bleeding complications. No other complaints otherwise for now. Note that the original Doppler of the lower extremities were negative for DVTs. This 2021, the patient is awaiting a IVC filter placement. Otherwise is doing well. No specific complaints. The procedure is going to with some bibasilar surgery and following that the plan is to proceed with a resection of the transverse colonic tumor that is causing 75% obstruction of the colonic lumen. Otherwise, the patient is calm and comfortable. The patient on room air oxygen. Not having any respiratory difficulties. His hemoglobin stable at 9.4 with a white cell count of 6.2 and the patient remains on IV Zosyn for now. The sodium is at 131. The patient remains on IV heparin with a therapeutic PTT at 96. Rest of the medications remain unchanged. The plan is to proceed with an IVC filter followed by a colectomy. 11/24/2021, the patient is in stable condition. The IVC filter was not placed as further discussion took place between the general surgeon and the vascular surgeon and it was decided not to do the filter as the patient is going to replacement the correlation with IV heparin immediately postop. This was the agreement. Otherwise, the patient has no specific complaints. Currently no thing by mouth awaiting surgery. The blood work from today shows a white cell count of 6.1 with a hemoglobin of 8.6, normal renal function and the patient's sodium is at 134. IV heparin will be discontinued 90 minutes prior to surgical start time. on today's evaluation of 11/25/2021, the patient has undergone a robotic- assisted laparoscopic right hemicolectomy. The patient was found to have a mass in the cecum and for that reason the patient was taken to the operating room and she and he underwent surgery yesterday without any complications. This morning, he has no abdominal pain. He is using incentive spirometer. He is hemodynamically stable. He is on IV heparin as agreed on with the general surgeon and the patient is not having any major respiratory difficulties. He is on 2 L of oxygen by nasal cannula. He has no passed any flatus yet. On his blood work, the patient's hemoglobin is at 8.4 with a white cell count of 7.3 and a platelet count of 394. Coagulation profile is being monitored. BUN is at 2 with a creatinine of 0.8 and a sodium level of 131. No other active issues for now. Objective - Vital Signs Vital signs: Vital Signs Temp 98.4 F 11/25/21 04:00 Pulse 89 11/25/21 08:00 Resp 16 11/25/21 08:00 BP 115/74 11/25/21 08:00 Pulse Ox 94 L 11/25/21 08:00 FiO2 21 11/23/21 16:04 Intake & Output 11/24/21 11/25/21 11/25/21 18:59 06:59 18:59 Intake Total 2150 118 Output Total 300 1000 200 Balance 1850 -1000 -82 Intake: IV 2150 Oral 118 Output: Urine 200 1000 200 Estimated Blood Loss 100 Other: Voiding Method Indwelling Catheter - Exam No acute distress, oriented 3. Currently on room air. HEENT examination is grossly unremarkable. Neck supple. Full range of motion. No adenopathy thyromegaly or neck vein distention. Cardiovascular examination reveals regular rhythm rate. S1-S2 normal. No S3 or S4. No discernible murmur noted. Lungs reveal clear breath sounds. Breath sounds are equal bilaterally. No adventitious lung sounds including wheezes rhonchi or crackles. Abdomen soft bowel sounds are heard. No masses or tenderness.The patient has an abdominal bounded. The patient's has clear surgical wound sites. Extremities are intact. No cyanosis clubbing or edema. Skin is without rash or lesion. Neurologic examination is brief but nonfocal. - Labs CBC & Chem 7: 11/25/21 07:33 11/25/21 07:33 Labs: Abnormal Lab Results - Last 24 Hours (Table) 11/24/21 11/25/21 11/25/21 Range/Units 17:23 07:33 07:33 RBC 3.56 L 3.33 L (4.30-5.90) m/uL Hgb 8.7 L 8.4 L (13.0-17.5) gm/dL Hct 28.3 L 26.6 L (39.0-53.0) % MCV 79.5 L 79.8 L (80.0-100.0) fL MCH 24.4 L (25.0-35.0) pg MCHC 30.7 L (31.0-37.0) g/dL RDW 15.6 H (11.5-15.5) % Neutrophils # 8.1 H (1.3-7.7) k/uL Lymphocytes # 0.6 L (1.0-4.8) k/uL PT 12.9 H (9.0-12.0) sec INR 1.2 H (<1.2) Sodium (137-145) mmol/L BUN (9-20) mg/dL Glucose (74-99) mg/dL Calcium (8.4-10.2) mg/dL 11/25/21 Range/Units 07:33 RBC (4.30-5.90) m/uL Hgb (13.0-17.5) gm/dL Hct (39.0-53.0) % MCV (80.0-100.0) fL MCH (25.0-35.0) pg MCHC (31.0-37.0) g/dL RDW (11.5-15.5) % Neutrophils # (1.3-7.7) k/uL Lymphocytes # (1.0-4.8) k/uL PT (9.0-12.0) sec INR (<1.2) Sodium 131 L (137-145) mmol/L BUN <2 L (9-20) mg/dL Glucose 116 H (74-99) mg/dL Calcium 7.8 L (8.4-10.2) mg/dL Microbiology - Last 24 Hours (Table) 11/19/21 23:08 Blood Culture - Preliminary Blood No Growth after 120 hours 11/23/21 16:11 Gram Stain - Preliminary Sputum Sputum Culture - Preliminary Assessment and Plan Plan: Acute pulmonary embolism, with right heart strain, and acute pulmonary hypertension, S/P EKOS.the patient is currently on room air oxygen. Echocardi ogram showed moderate to severe degree of pulmonary hypertension which is related to acute pulmonary embolism. The patient is currently on IV heparin Cecal mass post right hemicolectomy and the patient is currently postop day #1. It was agreed upon putting the patient on IV heparin immediately postop the patient is taking the IV heparin without any complications. Recent episode of ruptured appendix, being treated as an outpatient, with IV Zosyn. History of hypertension. 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 remote history of a left upper extremity DVT Vague history of irregular heartbeat. Plan Continue IV heparin Monitor oxygenation and currently on 2 L of oxygen nasal cannula Incentive spirometer Increase mobility IV Zosyn Monitor blood work and hemoglobin We'll continue to follow
--- NOTE | 2021-11-25 11:14 | P.PN ---
Subjective Progress Note Date: 11/25/21 Principal diagnosis: Presented with syncope and found to have PE and colon mass Patient is status post right hemicolectomy. Patient states that the SCDs are bothering him and preventing him from sleeping. I explained to the patient about the importance of keeping the SCDs on. I offered patient Ambien at nighttime to help him sleep. Patient is amenable with the plan and is going to keep the SCDs on. Objective - Vital Signs Vital signs: Vital Signs Temp 98.4 F 11/25/21 04:00 Pulse 89 11/25/21 08:00 Resp 16 11/25/21 08:00 BP 115/74 11/25/21 08:00 Pulse Ox 94 L 11/25/21 08:00 FiO2 21 11/23/21 16:04 Intake & Output 11/24/21 11/25/21 11/25/21 18:59 06:59 18:59 Intake Total 2150 118 Output Total 300 1000 200 Balance 1850 -1000 -82 Intake: IV 2150 Oral 118 Output: Urine 200 1000 200 Stool 0 Estimated Blood Loss 100 Other: Voiding Method Indwelling Catheter Indwelling Catheter - Exam General examination - Alert and Oriented 3 in NAD Heart - + S1S2 no murmurs Lungs - Clear to auscultation Abdomen diffuse tenderness to palpate as expected after surgery, abdominal binder Extremities - No edema STERILE TECH - Moving all 4 extremities spontaneously Psych - Calm and cooperative - Labs CBC & Chem 7: 11/25/21 07:33 11/25/21 07:33 Labs: Abnormal Lab Results - Last 24 Hours (Table) 11/24/21 11/25/21 11/25/21 Range/Units 17:23 07:33 07:33 RBC 3.56 L 3.33 L (4.30-5.90) m/uL Hgb 8.7 L 8.4 L (13.0-17.5) gm/dL Hct 28.3 L 26.6 L (39.0-53.0) % MCV 79.5 L 79.8 L (80.0-100.0) fL MCH 24.4 L (25.0-35.0) pg MCHC 30.7 L (31.0-37.0) g/dL RDW 15.6 H (11.5-15.5) % Neutrophils # 8.1 H (1.3-7.7) k/uL Lymphocytes # 0.6 L (1.0-4.8) k/uL PT 12.9 H (9.0-12.0) sec INR 1.2 H (<1.2) Sodium (137-145) mmol/L BUN (9-20) mg/dL Glucose (74-99) mg/dL Calcium (8.4-10.2) mg/dL 11/25/21 Range/Units 07:33 RBC (4.30-5.90) m/uL Hgb (13.0-17.5) gm/dL Hct (39.0-53.0) % MCV (80.0-100.0) fL MCH (25.0-35.0) pg MCHC (31.0-37.0) g/dL RDW (11.5-15.5) % Neutrophils # (1.3-7.7) k/uL Lymphocytes # (1.0-4.8) k/uL PT (9.0-12.0) sec INR (<1.2) Sodium 131 L (137-145) mmol/L BUN <2 L (9-20) mg/dL Glucose 116 H (74-99) mg/dL Calcium 7.8 L (8.4-10.2) mg/dL Microbiology - Last 24 Hours (Table) 11/19/21 23:08 Blood Culture - Preliminary Blood No Growth after 120 hours 11/23/21 16:11 Gram Stain - Preliminary Sputum Sputum Culture - Preliminary Assessment and Plan Assessment: Acute pulmonary embolism with right heart strain and acute pulmonary hypertension -Status post EKOS by cardiology -Patient now on room air -Echocardiogram showed moderate to severe pulmonary hypertension -Patient restarted on heparin drip. 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 -Await pathology results Status post recent ruptured appendix with abscess -Patient was being treated with IV Zosyn outpatient. 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
[2021-11-25] MEDS: ALVIMOPAN 12 MG CAPSULE PO SCH ×2 (12:58→20:34)
--- NOTE | 2021-11-25 13:24 | P.PN ---
Subjective This is a 71-year-old male with a past medical history significant for hypertension and palpitations. 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 We have been asked to see the patient in consultation for abnormal troponins. Patient was recently hospitalized for ruptured appendicitis with phlegmon, evaluated by Dr. Pak. He was discharged home on IV antibiotics. Patient came into the hospital to have a CAT scan that was ordered by infectious disease. He states that he was walking into the hospital he felt dizzy and lightheaded and felt like he was going to pass out. The patient believes he passed out at that point. His took him to the emergency room for further evaluation. Patient was found to have bilateral PE with evidence of RV strain by echocardiogram. EF 50-55%. He underwent EKOS with Dr. Macario on 11/18/2021. CT abdomen and pelvis report revealed Persistent highly suspicious necrotic mass centered over the cecum/ileocecal junction and obstructing the appendicular base. Surrounding local regional and mesenteric lymph nodes, possibly metastatic. Chronic necrotic abscess is much less likely yet still in the differential. No convincing evidence of perforated appendicitis. 11/21/2021- patient underwent EGD and colonoscopy which revealed an unresectable proximal mid transverse colon tumor occupying 75% of the lumen of the colon, polyps which were resected, and chronic gastritis. Surgical resection with right colectomy recommended. 11/25/2021 Patient seen and examined at bedside, no acute distress. Underwent Right hemicolectomy yesterday with Dr. Pak. He denies any chest pain or shortness of breath. His vital signs are stable. He continues to be on IV Heparin. Meds: He is currently maintained on amlodipine 5 mg daily, aspirin 81 mg daily, atenolol 25 mg daily, losartan 75 mg daily GENERAL: Well-appearing, well-nourished and in no acute distress. NECK: Supple without JVD or thyromegaly. LUNGS: Breath sounds clear to auscultation bilaterally. Respiration equal and unlabored. No wheezes, rales or rhonchi. HEART: Regular rate and rhythm without murmurs, rubs or gallops. S1 and S2 heard. EXTREMITIES: Normal range of motion, no edema. No clubbing or cyanosis. Peripheral pulses intact. ASSESSMENT Bilateral pulmonary embolism with evidence of RV strain s/p EKOS procedure on 11/18/2021, provoking factors with recent hospitalization for ruptured appendix and possible malignancy being considered Syncope, likely related to above Elevated troponin, secondary to bilateral PE Cecal Mass s/p right hemicolectomy on 11/26/2021. Recent hospitalization for ruptured appendix, on outpatient IV antibiotics Hypertension PLAN Continue IV heparin Continue home cardiac medications No further changes from a cardiology perspective, transition to PO anticoagulation when cleared by surgery We will follow the patient as needed. Please reconsult if needed. Nurse Practitioner note has been reviewed, I agree with a documented findings and plan of care. Patient was seen and examined. Objective - Vital Signs Vital signs: Vital Signs Temp 98.4 F 11/25/21 04:00 Pulse 89 11/25/21 08:00 Resp 16 11/25/21 08:00 BP 115/74 11/25/21 08:00 Pulse Ox 94 L 11/25/21 08:00 FiO2 21 11/23/21 16:04 Intake & Output 11/24/21 11/25/21 11/25/21 18:59 06:59 18:59 Intake Total 2150 118 Output Total 300 1000 200 Balance 1850 -1000 -82 Intake: IV 2150 Oral 118 Output: Urine 200 1000 200 Stool 0 Estimated Blood Loss 100 Other: Voiding Method Indwelling Catheter Indwelling Catheter - Labs CBC & Chem 7: 11/25/21 07:33 11/25/21 07:33 Labs: Abnormal Lab Results - Last 24 Hours (Table) 11/24/21 11/25/21 11/25/21 Range/Units 17:23 07:33 07:33 RBC 3.56 L 3.33 L (4.30-5.90) m/uL Hgb 8.7 L 8.4 L (13.0-17.5) gm/dL Hct 28.3 L 26.6 L (39.0-53.0) % MCV 79.5 L 79.8 L (80.0-100.0) fL MCH 24.4 L (25.0-35.0) pg MCHC 30.7 L (31.0-37.0) g/dL RDW 15.6 H (11.5-15.5) % Neutrophils # 8.1 H (1.3-7.7) k/uL Lymphocytes # 0.6 L (1.0-4.8) k/uL PT 12.9 H (9.0-12.0) sec INR 1.2 H (<1.2) Sodium (137-145) mmol/L BUN (9-20) mg/dL Glucose (74-99) mg/dL Calcium (8.4-10.2) mg/dL 11/25/21 Range/Units 07:33 RBC (4.30-5.90) m/uL Hgb (13.0-17.5) gm/dL Hct (39.0-53.0) % MCV (80.0-100.0) fL MCH (25.0-35.0) pg MCHC (31.0-37.0) g/dL RDW (11.5-15.5) % Neutrophils # (1.3-7.7) k/uL Lymphocytes # (1.0-4.8) k/uL PT (9.0-12.0) sec INR (<1.2) Sodium 131 L (137-145) mmol/L BUN <2 L (9-20) mg/dL Glucose 116 H (74-99) mg/dL Calcium 7.8 L (8.4-10.2) mg/dL Microbiology - Last 24 Hours (Table) 11/19/21 23:08 Blood Culture - Preliminary Blood No Growth after 120 hours 11/23/21 16:11 Gram Stain - Preliminary Sputum Sputum Culture - Preliminary
[2021-11-25] MEDS: ACETAMINOPHEN TAB 500 MG TAB PO SCH ×2 (16:32→23:29)
[2021-11-25] MEDS: TAMSULOSIN 0.4 MG CAP.ER.24H PO SCH (16:33)
[2021-11-25] MEDS: LACTATED RINGERS 1,000 ML IV SCH (16:34)
--- NOTE | 2021-11-25 16:45 | P.PN ---
Subjective Progress Note Date: 11/24/21 Principal diagnosis: Periappendicular abscess versus necrotic tumor Patient is a 71-year-old male who was recently admitted to this hospital with abdominal pain did have abdominal CT suspicious for possible ruptured appendicitis and abscess treated with IV Zosyn with subsequent CT raises the possibility of possible necrotic tumor in this patient did have a syncopal episode and evidence of PE. 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 area, patient is status post right-sided colectomy on 11/24/2021 On today's evaluation that is 11/24/2021, the patient remains to be afebrile, the patient is breathing comfortably on room air, the patient denies chest pain, shortness of breath or cough, the patient abdominal pain is currently controlled no nausea no vomiting Objective - Vital Signs Vital signs: Vital Signs Temp 98.4 F 11/24/21 04:00 Pulse 86 11/24/21 04:00 Resp 16 11/24/21 04:00 BP 113/70 11/24/21 04:00 Pulse Ox 94 L 11/24/21 04:00 FiO2 21 11/24/21 04:00 Intake & Output 11/24/21 18:59 Intake Total 2150 Output Total 300 Balance 1850 Intake: IV 2150 Oral Output: Urine 200 Stool Estimated Blood Loss 100 Other: Voiding Method # Voids - Exam GENERAL DESCRIPTION: An elderly male lying in bed in no distress RESPIRATORY SYSTEM: Unlabored breathing , decreased breath sounds at bases HEART: S1 S2 regular rate and rhythm , ABDOMEN: Soft , no tenderness EXTREMITIES: No edema feet - Labs CBC & Chem 7: 11/25/21 07:33 11/25/21 07:33 Labs: Abnormal Lab Results - Last 24 Hours (Table) 11/24/21 11/25/21 11/25/21 Range/Units 17:23 07:33 07:33 RBC 3.56 L 3.33 L (4.30-5.90) m/uL Hgb 8.7 L 8.4 L (13.0-17.5) gm/dL Hct 28.3 L 26.6 L (39.0-53.0) % MCV 79.5 L 79.8 L (80.0-100.0) fL MCH 24.4 L (25.0-35.0) pg MCHC 30.7 L (31.0-37.0) g/dL RDW 15.6 H (11.5-15.5) % Neutrophils # 8.1 H (1.3-7.7) k/uL Lymphocytes # 0.6 L (1.0-4.8) k/uL PT 12.9 H (9.0-12.0) sec INR 1.2 H (<1.2) Sodium (137-145) mmol/L BUN (9-20) mg/dL Glucose (74-99) mg/dL Calcium (8.4-10.2) mg/dL 11/25/21 Range/Units 07:33 RBC (4.30-5.90) m/uL Hgb (13.0-17.5) gm/dL Hct (39.0-53.0) % MCV (80.0-100.0) fL MCH (25.0-35.0) pg MCHC (31.0-37.0) g/dL RDW (11.5-15.5) % Neutrophils # (1.3-7.7) k/uL Lymphocytes # (1.0-4.8) k/uL PT (9.0-12.0) sec INR (<1.2) Sodium 131 L (137-145) mmol/L BUN <2 L (9-20) mg/dL Glucose 116 H (74-99) mg/dL Calcium 7.8 L (8.4-10.2) mg/dL Microbiology - Last 24 Hours (Table) 11/19/21 23:08 Blood Culture - Preliminary Blood No Growth after 120 hours Assessment and Plan (1) Peritonitis Current Visit: No Status: Acute Code(s): K65.9 - PERITONITIS, UNSPECIFIED SNOMED Code(s): 81029986 Plan: 1patient presented to hospital with near syncopal episode in this patient currently being treated for possible periappendicular abscess however the patient repeat CAT scan is suspicious for possible necrotic cecal tumor and obstruction of the appendix and this patient is status post colonoscopy followed by right hemicolectomy completed on 11/24/2021 2patient to continue with Zosyn and monitor clinical course closely Time with Patient: Less than 30
--- NOTE | 2021-11-25 16:46 | P.PN ---
Subjective Progress Note Date: 11/25/21 Principal diagnosis: Periappendicular abscess versus necrotic tumor Patient is a 71-year-old male who was recently admitted to this hospital with abdominal pain did have abdominal CT suspicious for possible ruptured appendicitis and abscess treated with IV Zosyn with subsequent CT raises the possibility of possible necrotic tumor in this patient did have a syncopal episode and evidence of PE. 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 area, patient is status post right-sided colectomy on 11/24/2021 On today's evaluation that is 11/25/2021, the patient continues to be afebrile, the patient is breathing comfortably on room air, the patient denies chest pain, shortness of breath or cough, the patient abdominal pain is currently controlled , the patient denies nausea no vomiting Objective - Vital Signs Vital signs: Vital Signs Temp 98.4 F 11/25/21 04:00 Pulse 89 11/25/21 08:00 Resp 16 11/25/21 08:00 BP 115/74 11/25/21 08:00 Pulse Ox 94 L 11/25/21 08:00 FiO2 21 11/23/21 16:04 Intake & Output 11/24/21 11/25/21 11/25/21 18:59 06:59 18:59 Intake Total 2150 618 Output Total 300 1000 200 Balance 1850 -1000 418 Intake: IV 2150 Oral 618 Output: Urine 200 1000 200 Stool 0 Estimated Blood Loss 100 Other: Voiding Method Indwelling Catheter Indwelling Catheter - Exam GENERAL DESCRIPTION: An elderly male lying in bed in no distress RESPIRATORY SYSTEM: Unlabored breathing , decreased breath sounds at bases HEART: S1 S2 regular rate and rhythm , ABDOMEN: Soft , no tenderness EXTREMITIES: No edema feet - Labs CBC & Chem 7: 11/25/21 07:33 11/25/21 07:33 Labs: Abnormal Lab Results - Last 24 Hours (Table) 11/24/21 11/25/21 11/25/21 Range/Units 17:23 07:33 07:33 RBC 3.56 L 3.33 L (4.30-5.90) m/uL Hgb 8.7 L 8.4 L (13.0-17.5) gm/dL Hct 28.3 L 26.6 L (39.0-53.0) % MCV 79.5 L 79.8 L (80.0-100.0) fL MCH 24.4 L (25.0-35.0) pg MCHC 30.7 L (31.0-37.0) g/dL RDW 15.6 H (11.5-15.5) % Neutrophils # 8.1 H (1.3-7.7) k/uL Lymphocytes # 0.6 L (1.0-4.8) k/uL PT 12.9 H (9.0-12.0) sec INR 1.2 H (<1.2) Sodium (137-145) mmol/L BUN (9-20) mg/dL Glucose (74-99) mg/dL Calcium (8.4-10.2) mg/dL 11/25/21 Range/Units 07:33 RBC (4.30-5.90) m/uL Hgb (13.0-17.5) gm/dL Hct (39.0-53.0) % MCV (80.0-100.0) fL MCH (25.0-35.0) pg MCHC (31.0-37.0) g/dL RDW (11.5-15.5) % Neutrophils # (1.3-7.7) k/uL Lymphocytes # (1.0-4.8) k/uL PT (9.0-12.0) sec INR (<1.2) Sodium 131 L (137-145) mmol/L BUN <2 L (9-20) mg/dL Glucose 116 H (74-99) mg/dL Calcium 7.8 L (8.4-10.2) mg/dL Microbiology - Last 24 Hours (Table) 11/19/21 23:08 Blood Culture - Preliminary Blood No Growth after 120 hours 11/23/21 16:11 Gram Stain - Preliminary Sputum Sputum Culture - Preliminary Assessment and Plan (1) Peritonitis Current Visit: No Status: Acute Code(s): K65.9 - PERITONITIS, UNSPECIFIED SNOMED Code(s): 05986594 Plan: 1patient presented to hospital with near syncopal episode in this patient currently being treated for possible periappendicular abscess however the patient repeat CAT scan is suspicious for possible necrotic cecal tumor and obstruction of the appendix and this patient is status post colonoscopy followed by right hemicolectomy completed on 11/24/2021 2patient currently being treated with Zosyn to continue and monitor clinical course closely Time with Patient: Less than 30
[2021-11-26] MEDS: HEPARIN SOD,PORK IN 0.45% NACL 25,000 UNIT in 0.45% NACL 1 250ML.BAG IV SCH (04:11)
[2021-11-26] MEDS: D5-0.9% NACL WITH KCL 20 MEQ/L 1,000 ML IV SCH ×2 (05:52→09:07)
[2021-11-26] MEDS: ACETAMINOPHEN TAB 500 MG TAB PO SCH ×3 (05:53→16:22)
[2021-11-26] MEDS: PANTOPRAZOLE 40 MG TABLET PO SCH (05:53)
[2021-11-26 08:20] LABS: Basophils # (A) 0.1 k/uL (0-0.2); Basophils % (A) 2 %; Eosinophils # (A) 0.2 k/uL (0-0.7); Eosinophils % (A) 3 %; HCT 26.9 % (39.0-53.0); HGB 8.2 gm/dL (13.0-17.5); Hypochromasia Marked; Lymphocytes % (A) 13 %; MCH 24.3 pg (25.0-35.0); MCHC 30.4 g/dL (31.0-37.0); MCV 79.9 fL (80.0-100.0); Mean Platelet Volume 7.5; Monocytes # (A) 0.6 k/uL (0-1.0); Monocytes % (A) 8 %; Neutrophils # (A) 5.4 k/uL (1.3-7.7); Neutrophils % (A) 72 %; Platelet Count 454 k/uL (150-450); RBC 3.37 m/uL (4.30-5.90); RDW 15.9 % (11.5-15.5); WBC 7.4 k/uL (3.8-10.6)
[2021-11-26 08:27] LABS: African American GFR (CKD) >90 (>60 ml/min/1.73 sqM); Anion Gap 6 mmol/L; Blood Urea Nitrogen <2 mg/dL (9-20); Carbon Dioxide 25 mmol/L (22-30); Chloride 101 mmol/L (98-107); Glucose 101 mg/dL (74-99); Magnesium 1.7 mg/dL (1.6-2.3); Non-African American GFR(CKD) 90 (>60 ml/min/1.73 sqM); Potassium 4.1 mmol/L (3.5-5.1); Sodium 132 mmol/L (137-145)
[2021-11-26] MEDS: ASPIRIN 81 MG PO SCH (09:05)
[2021-11-26] MEDS: MAGNESIUM OXIDE 400 MG TAB PO SCH (09:05)
[2021-11-26] MEDS: LOSARTAN 25 MG TAB PO SCH (09:05)
[2021-11-26] MEDS: FOLIC ACID 1 MG TAB PO SCH (09:06)
[2021-11-26] MEDS: atenoloL 25 MG TAB PO SCH (09:06)
[2021-11-26] MEDS: POTASSIUM CHLORIDE ER 10 MEQ TAB.ER.PRT PO SCH (09:06)
[2021-11-26] MEDS: amLODIPine 5 MG TAB PO SCH (09:06)
[2021-11-26] MEDS: PIPERACILLIN-TAZOBACTAM 3.375 GM in SODIUM CHLORIDE 0.9% 100 ML IVPB SCH ×2 (09:06→16:31)
[2021-11-26] MEDS: CALCIUM CARBONATE 500 MG CHEWABLE PO SCH (09:06)
[2021-11-26] MEDS: CYANOCOBALAMIN 1,000 MCG/ML 1 ML VIAL IM SCH (09:07)
[2021-11-26] MEDS: SIMETHICONE 40 MG/0.6 ML DROPS 2,000 MG/30 ML BOTTLE PO SCH ×4 (09:08→20:22)
--- NOTE | 2021-11-26 09:16 | P.PN ---
Subjective Progress Note Date: 11/26/21 71-year-old male seen in consultation, for shortness of breath. The patient was initially seen in the emergency department, on November 17, complaining of syncope, and weakness. The patient has a recent history of a ruptured appendix, being treated with outpatient IV Zosyn. The patient was to come to the hospital today for a computed tomography scan of the abdomen, and he had a near syncopal episode, feeling very lightheaded and dizzy. He also has not been eating or drinking very much recently. He also had shortness of breath, and was evaluated, and the CTA was positive for pulmonary embolism. This is why we are asked to see him. Currently, he's on 6 L. He is receiving IV heparin, and Zosyn. White count 7.8, he will benign 0.5, hematocrit 29.5, and platelet count normal. Sodium 132, potassium 4.2, chlorides 99, CO2 21, BUN 9, creatinine 0.87. Troponin was 0.305. Urine was unremarkable. The chest x-ray showed no acute cardiopulmonary process. The KUB x-ray showed left inguinal hernia, and nonspecific bowel pattern. EKG did show sinus tachycardia. It also did show an S in lead 1 and a Q in lead 3. CT angiogram showed bilateral pulmonary emboli, worse on the right side than on the left. There was no evidence of right heart strain on the CTA. Echocardiogram did show a pulmonary pressure that was elevated at 55, and also a right ventricular to left ventricular ratio of 1.5. Dopplers of the lower extremities were negative for DVT. The patient is seen today 11/20/2019 follow-up in the intensive care unit. He is resting comfortably in bed. Awake and alert in no acute distress. He was found to have RV strain on his echocardiogram. He did undergo in for an EKOS procedure yesterday. Femoral catheters still in place. Remains on heparin. He is on 6 L high flow nasal cannula. He's been afebrile. Hemodynamically stable. Blood culture reveals no growth. White count 9.9. Hemoglobin 10.2. Platelets 273. Sodium 133. Potassium 3.7. BUN 5. Creatinine 0.68. He is currently on Zosyn. Progress note dated 11/20/2021. The patient is seen today in room 361. The patient remains on IV heparin. The patient is scheduled for an EGD and colonoscopy tomorrow. He is also planning to have surgery on his colonic mass, sometime this week. The patient remains on IV heparin. The patient was on 6 L yesterday, but is on room air today. He's feeling much better. The patient did have EKOS for his significant bilateral pulmonary emboli. White count 7.6, hemoglobin 10.3, hematocrit 32.2, and platelet count 390,000. PTT is 40.3. Sodium 132, potassium 3.8, chlorides 96, CO2 28, BUN 7, creatinine 0.83. Albumin is 3.3. 11/21/2021, the patient is calm and comfortable and the patient has no specific complaints and the patient is currently on room air oxygen. The patient was taken off the IV heparin and this patient for colonoscopy today. As mentioned earlier, the patient has a cecal mass that needs to be further investigated. Otherwise, the patient has no specific complaints. No evidence of any GI bleeding. Doppler of the lower extremities have been negative and the patient has undergone selective intra-arterial thrombolytic therapy regarding pulmonary embolism. The patient has been covered with IV Zosyn also has an empiric antibiotic coverage. Patient underwentthe bowel preparation yesterday without any major difficulties. No labs are available from today. Note that echocardiogram at shown pulmonary hypertension secondary to bilateral pulmonary embolism.he also gives history of tonsillar cancer that was treated many years back with a combination of chemoradiation therapy and back then during his treatment he had a blood clot in his left upper extremity. 11/22/2021, the patient is quite stable. The patient underwent a colonoscopy yesterday and the patient was found to have a unresectable proximal mid transverse colon tumor occupying 75% of the lumen of the colon. He also had some polyps that were resected. Nevertheless, there major concern is the mass in the proximal mid transverse colon and the patient will obviously need a colectomy. I discussed the case with the general surgeon and I also discussed the case with the vascular surgeon RONNA. I think the patient would be better off with an IVC filter placed to protect him from any further embolic phenomena postop knowing that the patient is getting to be off anticoagulants for at least 5-7 days postop. Otherwise, the patient is currently on IV heparin. Is doing extremely well. No bleeding complications. No other complaints otherwise for now. Note that the original Doppler of the lower extremities were negative for DVTs. This 2021, the patient is awaiting a IVC filter placement. Otherwise is doing well. No specific complaints. The procedure is going to with some bibasilar surgery and following that the plan is to proceed with a resection of the transverse colonic tumor that is causing 75% obstruction of the colonic lumen. Otherwise, the patient is calm and comfortable. The patient on room air oxygen. Not having any respiratory difficulties. His hemoglobin stable at 9.4 with a white cell count of 6.2 and the patient remains on IV Zosyn for now. The sodium is at 131. The patient remains on IV heparin with a therapeutic PTT at 96. Rest of the medications remain unchanged. The plan is to proceed with an IVC filter followed by a colectomy. 11/24/2021, the patient is in stable condition. The IVC filter was not placed as further discussion took place between the general surgeon and the vascular surgeon and it was decided not to do the filter as the patient is going to replacement the correlation with IV heparin immediately postop. This was the agreement. Otherwise, the patient has no specific complaints. Currently no thing by mouth awaiting surgery. The blood work from today shows a white cell count of 6.1 with a hemoglobin of 8.6, normal renal function and the patient's sodium is at 134. IV heparin will be discontinued 90 minutes prior to surgical start time. on today's evaluation of 11/25/2021, the patient has undergone a robotic- assisted laparoscopic right hemicolectomy. The patient was found to have a mass in the cecum and for that reason the patient was taken to the operating room and she and he underwent surgery yesterday without any complications. This morning, he has no abdominal pain. He is using incentive spirometer. He is hemodynamically stable. He is on IV heparin as agreed on with the general surgeon and the patient is not having any major respiratory difficulties. He is on 2 L of oxygen by nasal cannula. He has no passed any flatus yet. On his blood work, the patient's hemoglobin is at 8.4 with a white cell count of 7.3 and a platelet count of 394. Coagulation profile is being monitored. BUN is at 2 with a creatinine of 0.8 and a sodium level of 131. No other active issues for now. 11/26 2021, the patient is postop day #2 following a robotic-assisted laparoscopic right hemicolectomy. Doing extremely well.. The bowel movements yesterday and his surgical wound site is dry clean and intact. He remains on room air oxygen. He is using incentive spirometer. He has no respiratory difficulties and the patient is on room air oxygen. On today's evaluation, he remains on IV heparin. Hemoglobin stable at 8.2. The white cell count is at 7.4. Electrolytes show a sodium level of 132, BUN of 2 with a creatinine of 0.8. No other significant events otherwise for now. He is ambulating. Objective - Vital Signs Vital signs: Vital Signs Temp 98.0 F 11/26/21 04:00 Pulse 99 11/26/21 04:00 Resp 18 11/26/21 04:00 BP 129/77 11/26/21 04:00 Pulse Ox 91 L 11/26/21 04:00 FiO2 21 11/23/21 16:04 Intake & Output 11/25/21 11/26/21 11/26/21 18:59 06:59 18:59 Intake Total 618 241.546 Output Total 550 1450 150 Balance 68 -1208.454 -150 Intake: Intake, IV Titration 241.546 Amount Heparin Sod,Pork in 0.45% 241.546 NaCl 25,000 unit In 0.45 % NaCl 1 250ml.bag @ 11. 41 UNITS/KG/HR 9.995 mls/ hr IV .[facility]H [facility] Rx#: [id number] Oral 618 Output: Urine 550 1450 150 Straight 200 Stool 0 Other: Voiding Method Indwelling Catheter Toilet Urinal # Voids 1 1 # Bowel Movements 1 - Exam No acute distress, oriented 3. Currently on room air. HEENT examination is grossly unremarkable. Neck supple. Full range of motion. No adenopathy thyromegaly or neck vein distention. Cardiovascular examination reveals regular rhythm rate. S1-S2 normal. No S3 or S4. No discernible murmur noted. Lungs reveal clear breath sounds. Breath sounds are equal bilaterally. No adventitious lung sounds including wheezes rhonchi or crackles. Abdomen soft bowel sounds are heard. No masses or tenderness.The patient has an abdominal bounded. The patient's has clear surgical wound sites. Extremities are intact. No cyanosis clubbing or edema. Skin is without rash or lesion. Neurologic examination is brief but nonfocal. - Labs CBC & Chem 7: 11/26/21 07:46 11/26/21 07:46 Labs: Abnormal Lab Results - Last 24 Hours (Table) 11/25/21 11/26/21 11/26/21 Range/Units 17:20 07:46 07:46 RBC 3.37 L (4.30-5.90) m/uL Hgb 8.2 L (13.0-17.5) gm/dL Hct 26.9 L (39.0-53.0) % MCV 79.9 L (80.0-100.0) fL MCH 24.3 L (25.0-35.0) pg MCHC 30.4 L (31.0-37.0) g/dL RDW 15.9 H (11.5-15.5) % Plt Count 454 H (150-450) k/uL APTT 46.4 H (22.0-30.0) sec Sodium 132 L (137-145) mmol/L BUN <2 L (9-20) mg/dL Glucose 101 H (74-99) mg/dL Calcium 8.0 L (8.4-10.2) mg/dL 11/26/21 Range/Units 07:46 RBC (4.30-5.90) m/uL Hgb (13.0-17.5) gm/dL Hct (39.0-53.0) % MCV (80.0-100.0) fL MCH (25.0-35.0) pg MCHC (31.0-37.0) g/dL RDW (11.5-15.5) % Plt Count (150-450) k/uL APTT 41.5 H (22.0-30.0) sec Sodium (137-145) mmol/L BUN (9-20) mg/dL Glucose (74-99) mg/dL Calcium (8.4-10.2) mg/dL Microbiology - Last 24 Hours (Table) 11/19/21 23:08 Blood Culture - Final Blood No Growth after 144 hours Assessment and Plan Plan: Acute pulmonary embolism, with right heart strain, and acute pulmonary hyper tension, S/P EKOS.the patient is currently on room air oxygen. Echocardiogram showed moderate to severe degree of pulmonary hypertension which is related to acute pulmonary embolism. The patient is currently on IV heparin Cecal mass post right hemicolectomy and the patient is currently postop day #2. It was agreed upon putting the patient on IV heparin immediately postop the patient is taking the IV heparin without any complications. Recent episode of ruptured appendix, being treated as an outpatient, with IV Zosyn. History of hypertension. 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 remote history of a left upper extremity DVT Vague history of irregular heartbeat. Plan No surgical complication and the patient is recovering well Passing bowel movements Postop day #2 and the patient is using incentive spirometer No active respiratory issues Continue IV heparin Discuss with the general surgeon the possibility of getting the patient off the IV heparin putting him on Eliquis 10 mg by mouth twice a day Currently on room air oxygen. Incentive spirometer Increase mobility IV Zosyn Monitor blood work and hemoglobin We'll continue to follow
--- NOTE | 2021-11-26 10:04 | P.PN ---
Subjective Progress Note Date: 11/26/21 Principal diagnosis: Presented with syncope and found to have PE and colon mass Patient was eating Cassie Hernandez when I walked in the room. He states that he is having bowel movements. He is denying any abdominal pain. He states only has abdominal pain when he coughs or sneezes. He states that he feels good. He also states that he slept well last night. Objective - Vital Signs Vital signs: Vital Signs Temp 98.6 F 11/26/21 08:00 Pulse 95 11/26/21 08:00 Resp 16 11/26/21 08:00 BP 125/85 11/26/21 08:00 Pulse Ox 94 L 11/26/21 08:00 FiO2 21 11/23/21 16:04 Intake & Output 11/25/21 11/26/21 11/26/21 18:59 06:59 18:59 Intake Total 618 241.546 51.141 Output Total 550 1450 150 Balance 68 -1208.454 -98.859 Intake: Intake, IV Titration 241.546 51.141 Amount Heparin Sod,Pork in 0.45% 241.546 51.141 NaCl 25,000 unit In 0.45 % NaCl 1 250ml.bag @ 11. 41 UNITS/KG/HR 9.995 mls/ hr IV .Q24H [facility] Rx#: [id number] Oral 618 Output: Urine 550 1450 150 Straight 200 Stool 0 Other: Voiding Method Indwelling Catheter Toilet Urinal # Voids 1 1 # Bowel Movements 1 - Exam General examination - Alert and Oriented 3 in NAD Heart - + S1S2 no murmurs Lungs - Clear to auscultation Abdomen no tenderness to palpate, abdominal binder Extremities - No edema REHABILITATION TECH - Moving all 4 extremities spontaneously Psych - Calm and cooperative - Labs CBC & Chem 7: 11/26/21 07:46 11/26/21 07:46 Labs: Abnormal Lab Results - Last 24 Hours (Table) 11/25/21 11/26/21 11/26/21 Range/Units 17:20 07:46 07:46 RBC 3.37 L (4.30-5.90) m/uL Hgb 8.2 L (13.0-17.5) gm/dL Hct 26.9 L (39.0-53.0) % MCV 79.9 L (80.0-100.0) fL MCH 24.3 L (25.0-35.0) pg MCHC 30.4 L (31.0-37.0) g/dL RDW 15.9 H (11.5-15.5) % Plt Count 454 H (150-450) k/uL APTT 46.4 H (22.0-30.0) sec Sodium 132 L (137-145) mmol/L BUN <2 L (9-20) mg/dL Glucose 101 H (74-99) mg/dL Calcium 8.0 L (8.4-10.2) mg/dL 11/26/21 Range/Units 07:46 RBC (4.30-5.90) m/uL Hgb (13.0-17.5) gm/dL Hct (39.0-53.0) % MCV (80.0-100.0) fL MCH (25.0-35.0) pg MCHC (31.0-37.0) g/dL RDW (11.5-15.5) % Plt Count (150-450) k/uL APTT 41.5 H (22.0-30.0) sec Sodium (137-145) mmol/L BUN (9-20) mg/dL Glucose (74-99) mg/dL Calcium (8.4-10.2) mg/dL Microbiology - Last 24 Hours (Table) 11/19/21 23:08 Blood Culture - Final Blood No Growth after 144 hours Assessment and Plan Assessment: Acute pulmonary embolism with right heart strain and acute pulmonary hyper tension -Status post EKOS by cardiology -Patient now on room air -Echocardiogram showed moderate to severe pulmonary hypertension -If hemoglobin is stable tomorrow morning we'll switch him to oral ant icoagulation -This is a provoked PE due to likely malignancy which is being worked up Transverse colon unresectable polyp and cecal colon mass -Status post colonoscopy with multiple polyps removed and showed unresectable polyp in the transverse colon -Status Post right hemicolectomy on 11/24/2021 -> per operative note the cecal mass is likely malignancy and I discussed this with the patient. -Await pathology results -Patient having bowel movements. States of bowel pain is minimal. Status post recent ruptured appendix with abscess -Patient was being treated with IV Zosyn outpatient. 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
--- NOTE | 2021-11-26 11:42 | P.PN ---
Progress Note - Text Progress Note Date: 11/26/21 Patient status post right quadrant. He is feeling better. He is currently having a bowel movement. He has no plans. Patient will Receive supportive care. We will follow with you.
[2021-11-26] MEDS: LACTATED RINGERS 1,000 ML IV SCH (16:27)
[2021-11-26] MEDS: TAMSULOSIN 0.4 MG CAP.ER.24H PO SCH (21:22)
[2021-11-27] MEDS: HEPARIN SOD,PORK IN 0.45% NACL 25,000 UNIT in 0.45% NACL 1 250ML.BAG IV SCH (03:18)
[2021-11-27] MEDS: D5-0.9% NACL WITH KCL 20 MEQ/L 1,000 ML IV SCH ×2 (03:19→10:56)
[2021-11-27] MEDS: ACETAMINOPHEN TAB 500 MG TAB PO SCH ×6 (05:37→23:50)
[2021-11-27] MEDS: PANTOPRAZOLE 40 MG TABLET PO SCH (06:23)
[2021-11-27] MEDS: FOLIC ACID 1 MG TAB PO SCH (08:46)
[2021-11-27] MEDS: atenoloL 25 MG TAB PO SCH (08:46)
[2021-11-27] MEDS: amLODIPine 5 MG TAB PO SCH (08:46)
[2021-11-27] MEDS: CALCIUM CARBONATE 500 MG CHEWABLE PO SCH (08:47)
[2021-11-27] MEDS: POTASSIUM CHLORIDE ER 10 MEQ TAB.ER.PRT PO SCH (08:47)
[2021-11-27] MEDS: ASPIRIN 81 MG PO SCH (08:47)
[2021-11-27] MEDS: LOSARTAN 25 MG TAB PO SCH (08:47)
[2021-11-27] MEDS: MAGNESIUM OXIDE 400 MG TAB PO SCH (08:47)
[2021-11-27] MEDS: SIMETHICONE 40 MG/0.6 ML DROPS 2,000 MG/30 ML BOTTLE PO SCH ×4 (08:51→19:58)
[2021-11-27] MEDS: CYANOCOBALAMIN 1,000 MCG/ML 1 ML VIAL IM SCH (09:39)
--- NOTE | 2021-11-27 09:54 | P.PN ---
Progress Note - Text Progress Note Date: 11/27/21 Patient feels well. He has minimal amounts of pain. He is tolerating diet and having bowel movements. On exam vital signs are stable. Abdomen soft. Incisions sites are clean dry tach. Status post right collecting. Patient will be medical management regarding his heparin therapy for DVT.
[2021-11-27 10:21] LABS: Anisocytosis Slight; HCT 22.6 % (39.0-53.0); HGB 7.1 gm/dL (13.0-17.5); Hypochromasia Marked; MCH 24.9 pg (25.0-35.0); MCHC 31.5 g/dL (31.0-37.0); MCV 78.9 fL (80.0-100.0); Platelet Count 457 k/uL (150-450); RBC 2.86 m/uL (4.30-5.90); RDW 16.5 % (11.5-15.5); WBC 5.8 k/uL (3.8-10.6)
[2021-11-27] MEDS: APIXABAN 5 MG TAB PO SCH ×2 (10:54→19:58)
[2021-11-27] MEDS: LACTATED RINGERS 1,000 ML IV SCH (11:13)
--- NOTE | 2021-11-27 11:15 | P.PN ---
Subjective Progress Note Date: 11/27/21 71-year-old male seen in consultation, for shortness of breath. The patient was initially seen in the emergency department, on November 17, complaining of syncope, and weakness. The patient has a recent history of a ruptured appendix, being treated with outpatient IV Zosyn. The patient was to come to the hospital today for a computed tomography scan of the abdomen, and he had a near syncopal episode, feeling very lightheaded and dizzy. He also has not been eating or drinking very much recently. He also had shortness of breath, and was evaluated, and the CTA was positive for pulmonary embolism. This is why we are asked to see him. Currently, he's on 6 L. He is receiving IV heparin, and Zosyn. White count 7.8, he will benign 0.5, hematocrit 29.5, and platelet count normal. Sodium 132, potassium 4.2, chlorides 99, CO2 21, BUN 9, creatinine 0.87. Troponin was 0.305. Urine was unremarkable. The chest x-ray showed no acute cardiopulmonary process. The KUB x-ray showed left inguinal hernia, and nonspecific bowel pattern. EKG did show sinus tachycardia. It also did show an S in lead 1 and a Q in lead 3. CT angiogram showed bilateral pulmonary emboli, worse on the right side than on the left. There was no evidence of right heart strain on the CTA. Echocardiogram did show a pulmonary pressure that was elevated at 55, and also a right ventricular to left ventricular ratio of 1.5. Dopplers of the lower extremities were negative for DVT. The patient is seen today 11/20/2019 follow-up in the intensive care unit. He is resting comfortably in bed. Awake and alert in no acute distress. He was found to have RV strain on his echocardiogram. He did undergo in for an EKOS procedure yesterday. Femoral catheters still in place. Remains on heparin. He is on 6 L high flow nasal cannula. He's been afebrile. Hemodynamically stable. Blood culture reveals no growth. White count 9.9. Hemoglobin 10.2. Platelets 273. Sodium 133. Potassium 3.7. BUN 5. Creatinine 0.68. He is currently on Zosyn. Progress note dated 11/20/2021. The patient is seen today in room 361. The patient remains on IV heparin. The patient is scheduled for an EGD and colonoscopy tomorrow. He is also planning to have surgery on his colonic mass, sometime this week. The patient remains on IV heparin. The patient was on 6 L yesterday, but is on room air today. He's feeling much better. The patient did have EKOS for his significant bilateral pulmonary emboli. White count 7.6, hemoglobin 10.3, hematocrit 32.2, and platelet count 390,000. PTT is 40.3. Sodium 132, potassium 3.8, chlorides 96, CO2 28, BUN 7, creatinine 0.83. Albumin is 3.3. 11/21/2021, the patient is calm and comfortable and the patient has no specific complaints and the patient is currently on room air oxygen. The patient was taken off the IV heparin and this patient for colonoscopy today. As mentioned earlier, the patient has a cecal mass that needs to be further investigated. Otherwise, the patient has no specific complaints. No evidence of any GI bleeding. Doppler of the lower extremities have been negative and the patient has undergone selective intra-arterial thrombolytic therapy regarding pulmonary embolism. The patient has been covered with IV Zosyn also has an empiric antibiotic coverage. Patient underwentthe bowel preparation yesterday without any major difficulties. No labs are available from today. Note that echocardiogram at shown pulmonary hypertension secondary to bilateral pulmonary embolism.he also gives history of tonsillar cancer that was treated many years back with a combination of chemoradiation therapy and back then during his treatment he had a blood clot in his left upper extremity. 11/22/2021, the patient is quite stable. The patient underwent a colonoscopy yesterday and the patient was found to have a unresectable proximal mid transverse colon tumor occupying 75% of the lumen of the colon. He also had some polyps that were resected. Nevertheless, there major concern is the mass in the proximal mid transverse colon and the patient will obviously need a colectomy. I discussed the case with the general surgeon and I also discussed the case with the vascular surgeon RONNA. I think the patient would be better off with an IVC filter placed to protect him from any further embolic phenomena postop knowing that the patient is getting to be off anticoagulants for at least 5-7 days postop. Otherwise, the patient is currently on IV heparin. Is doing extremely well. No bleeding complications. No other complaints otherwise for now. Note that the original Doppler of the lower extremities were negative for DVTs. This 2021, the patient is awaiting a IVC filter placement. Otherwise is doing well. No specific complaints. The procedure is going to with some bibasilar surgery and following that the plan is to proceed with a resection of the transverse colonic tumor that is causing 75% obstruction of the colonic lumen. Otherwise, the patient is calm and comfortable. The patient on room air oxygen. Not having any respiratory difficulties. His hemoglobin stable at 9.4 with a white cell count of 6.2 and the patient remains on IV Zosyn for now. The sodium is at 131. The patient remains on IV heparin with a therapeutic PTT at 96. Rest of the medications remain unchanged. The plan is to proceed with an IVC filter followed by a colectomy. 11/24/2021, the patient is in stable condition. The IVC filter was not placed as further discussion took place between the general surgeon and the vascular surgeon and it was decided not to do the filter as the patient is going to replacement the correlation with IV heparin immediately postop. This was the agreement. Otherwise, the patient has no specific complaints. Currently no thing by mouth awaiting surgery. The blood work from today shows a white cell count of 6.1 with a hemoglobin of 8.6, normal renal function and the patient's sodium is at 134. IV heparin will be discontinued 90 minutes prior to surgical start time. on today's evaluation of 11/25/2021, the patient has undergone a robotic- assisted laparoscopic right hemicolectomy. The patient was found to have a mass in the cecum and for that reason the patient was taken to the operating room and she and he underwent surgery yesterday without any complications. This morning, he has no abdominal pain. He is using incentive spirometer. He is hemodynamically stable. He is on IV heparin as agreed on with the general surgeon and the patient is not having any major respiratory difficulties. He is on 2 L of oxygen by nasal cannula. He has no passed any flatus yet. On his blood work, the patient's hemoglobin is at 8.4 with a white cell count of 7.3 and a platelet count of 394. Coagulation profile is being monitored. BUN is at 2 with a creatinine of 0.8 and a sodium level of 131. No other active issues for now. 11/26 2021, the patient is postop day #2 following a robotic-assisted laparoscopic right hemicolectomy. Doing extremely well.. The bowel movements yesterday and his surgical wound site is dry clean and intact. He remains on room air oxygen. He is using incentive spirometer. He has no respiratory difficulties and the patient is on room air oxygen. On today's evaluation, he remains on IV heparin. Hemoglobin stable at 8.2. The white cell count is at 7.4. Electrolytes show a sodium level of 132, BUN of 2 with a creatinine of 0.8. No other significant events otherwise for now. He is ambulating. 11/27/2021, the patient is doing extremely well. Postop day #3. Diet is been addressed and the patient WAS this morning. The patient is still on IV heparin. Proceed is subtherapeutic. I'm going to transition this patient to oral Eliquis. Patient completed the antibiotic course and the patient has a PICC line in the right upper extremity. The patient on room air oxygen. No respiratory difficulties. No costovertebral production. No nausea or vomiting. At the same time, the patient has a hemoglobin of 7.1 with a white cell count of 5.8. Objective - Vital Signs Vital signs: Vital Signs Temp 98.7 F 11/27/21 08:00 Pulse 97 11/27/21 08:00 Resp 16 11/27/21 08:00 BP 123/72 11/27/21 08:00 Pulse Ox 97 11/27/21 08:00 FiO2 21 11/23/21 16:04 Intake & Output 11/26/21 11/27/21 11/27/21 18:59 06:59 18:59 Intake Total 51.141 195.678 Output Total 725 1250 Balance -673.859 -1054.322 Intake: Intake, IV Titration 51.141 195.678 Amount Heparin Sod,Pork in 0.45% 51.141 195.678 NaCl 25,000 unit In 0.45 % NaCl 1 250ml.bag @ 11. 41 UNITS/KG/HR 9.995 mls/ hr IV .Q[facility]H [facility] Rx#: [id number] Output: Urine 725 1250 Stool 0 Other: Voiding Method Toilet Toilet Toilet Urinal Urinal Urinal # Bowel Movements 1 - Exam No acute distress, oriented 3. Currently on room air. HEENT examination is grossly unremarkable. Neck supple. Full range of motion. No adenopathy thyromegaly or neck vein distention. Cardiovascular examination reveals regular rhythm rate. S1-S2 normal. No S3 or S4. No discernible murmur noted. Lungs reveal clear breath sounds. Breath sounds are equal bilaterally. No adventitious lung sounds including wheezes rhonchi or crackles. Abdomen soft bowel sounds are heard. No masses or tenderness.The patient has an abdominal bounded. The patient's has clear surgical wound sites. Extremities are intact. No cyanosis clubbing or edema. Skin is without rash or lesion. Neurologic examination is brief but nonfocal. - Labs CBC & Chem 7: 11/27/21 08:07 11/26/21 07:46 Labs: Abnormal Lab Results - Last 24 Hours (Table) 11/26/21 11/27/21 11/27/21 Range/Units 14:34 08:07 08:07 RBC 2.86 L (4.30-5.90) m/uL Hgb 7.1 L (13.0-17.5) gm/dL Hct 22.6 L (39.0-53.0) % MCV 78.9 L (80.0-100.0) fL MCH 24.9 L (25.0-35.0) pg RDW 16.5 H (11.5-15.5) % Plt Count 457 H (150-450) k/uL APTT 52.7 H 46.8 H (22.0-30.0) sec Microbiology - Last 24 Hours (Table) 11/23/21 16:11 Gram Stain - Final Sputum Sputum Culture - Final Assessment and Plan Plan: Acute pulmonary embolism, with right heart strain, and acute pulmonary hypertension, S/P EKOS.the patient is currently on room air oxygen. Echocardiogram showed moderate to severe degree of pulmonary hypertension which is related to acute pulmonary embolism. The patient is currently on IV heparin Cecal mass post right hemicolectomy and the patient is currently postop day #3. It was agreed upon putting the patient on IV heparin immediately postop the patient is taking the IV heparin without any complications. Recent episode of ruptured appendix, being treated as an outpatient, with IV Zosyn. The patient completed the course of IV Zosyn via PICC line in the right upper extremity History of hypertension. 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 remote history of a left upper extremity DVT Vague history of irregular heartbeat. Chronic anemia with a drop in hemoglobin down to 7.1 Plan No surgical complication and the patient is recovering well Passing bowel movements Postop day #3and the patient is using incentive spirometer No active respiratory issues Stopped IV heparin and put the patient oral anticoagulation with Eliquis Recheck hemoglobin tomorrow. No signs of any bleeding Currently on room air oxygen. Incentive spirometer Increase mobility Completed the course of antibiotics Monitor blood work and hemoglobin We'll continue to follow
--- NOTE | 2021-11-27 11:46 | P.PN ---
Subjective Progress Note Date: 11/27/21 Principal diagnosis: Presented with syncope and found to have PE and colon mass Patient denies any acute bleeding. He states that he's been walking the hallways he states that he is tolerating his diet and having bowel movements. Patient's hemoglobin did drop yesterday from a 8.4 to 7.1. Pulmonology started the patient on Eliquis. Objective - Vital Signs Vital signs: Vital Signs Temp 98.7 F 11/27/21 08:00 Pulse 97 11/27/21 08:00 Resp 16 11/27/21 08:00 BP 123/72 11/27/21 08:00 Pulse Ox 97 11/27/21 08:00 FiO2 21 11/23/21 16:04 Intake & Output 11/26/21 11/27/21 11/27/21 18:59 06:59 18:59 Intake Total 51.141 195.678 Output Total 725 1250 Balance -673.859 -1054.322 Intake: Intake, IV Titration 51.141 195.678 Amount Heparin Sod,Pork in 0.45% 51.141 195.678 NaCl 25,000 unit In 0.45 % NaCl 1 250ml.bag @ 11. 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 Psych - Calm and cooperative - Labs CBC & Chem 7: 11/27/21 08:07 11/26/21 07:46 Labs: Abnormal Lab Results - Last 24 Hours (Table) 11/26/21 11/27/21 11/27/21 Range/Units 14:34 08:07 08:07 RBC 2.86 L (4.30-5.90) m/uL Hgb 7.1 L (13.0-17.5) gm/dL Hct 22.6 L (39.0-53.0) % MCV 78.9 L (80.0-100.0) fL MCH 24.9 L (25.0-35.0) pg RDW 16.5 H (11.5-15.5) % Plt Count 457 H (150-450) k/uL APTT 52.7 H 46.8 H (22.0-30.0) sec Microbiology - Last 24 Hours (Table) 11/23/21 16:11 Gram Stain - Final Sputum Sputum Culture - Final Assessment and Plan Assessment: Acute pulmonary embolism with right heart strain and acute pulmonary hypertension -Status post EKOS by cardiology -Patient now on room air -Echocardiogram showed moderate to severe pulmonary hypertension -Pulmonology started the patient on Eliquis -This is a provoked PE due to likely malignancy which is being worked up Transverse colon unresectable polyp and cecal colon mass -Status post colonoscopy with multiple polyps removed and showed unresectable polyp in the transverse colon -Status Post right hemicolectomy on 11/24/2021 -> per operative note the cecal mass is likely malignancy and I discussed this with the patient. -Await pathology results -Patient having bowel movements. States of bowel pain is minimal. Status post recent ruptured appendix with abscess -Patient was being treated with IV Zosyn outpatient. Patient was discharged on 10/26/2021 and ID had recommended 2 more weeks of IV Zosyn Elevated troponin likely due to PE with right heart strain -Patient seen by cardiology Iron deficiency microcytic anemia -Resume IV iron infusion Squamous cell cancer of the left tonsil status post chemoradiation Hypertension -Resume home meds DVT prophylaxis: Eliquis Anticipated discharge: Likely be stable for discharge on 11/29/2021 if hemoglobin stable and cleared by surgery
[2021-11-27] MEDS: TAMSULOSIN 0.4 MG CAP.ER.24H PO SCH (18:37)
[2021-11-28] MEDS: CALCIUM CARBONATE 500 MG CHEWABLE PO PRN (00:06)
[2021-11-28 06:02] LABS: Anisocytosis Slight; Basophils % (A) 1 %; Eosinophils # (A) 0.2 k/uL (0-0.7); Eosinophils % (A) 4 %; HCT 21.8 % (39.0-53.0); Hypochromasia Marked; Lymphocytes # (A) 1.1 k/uL (1.0-4.8); Lymphocytes % (A) 25 %; MCH 24.8 pg (25.0-35.0); MCHC 31.2 g/dL (31.0-37.0); MCV 79.6 fL (80.0-100.0); Mean Platelet Volume 7.4; Monocytes # (A) 0.4 k/uL (0-1.0); Monocytes % (A) 10 %; Neutrophils # (A) 2.5 k/uL (1.3-7.7); Neutrophils % (A) 58 %; Platelet Count 504 k/uL (150-450); RBC 2.74 m/uL (4.30-5.90); WBC 4.3 k/uL (3.8-10.6)
[2021-11-28 06:03] LABS: HGB 6.8 gm/dL (13.0-17.5)
[2021-11-28] MEDS: PANTOPRAZOLE 40 MG TABLET PO SCH (06:11)
[2021-11-28] MEDS: ACETAMINOPHEN TAB 500 MG TAB PO SCH ×4 (06:11→23:58)
[2021-11-28 06:28] LABS: African American GFR (CKD) >90 (>60 ml/min/1.73 sqM); Anion Gap 6 mmol/L; Blood Urea Nitrogen <2 mg/dL (9-20); Calcium 8.2 mg/dL (8.4-10.2); Carbon Dioxide 24 mmol/L (22-30); Chloride 102 mmol/L (98-107); Glucose 97 mg/dL (74-99); Non-African American GFR(CKD) >90 (>60 ml/min/1.73 sqM); Potassium 4.3 mmol/L (3.5-5.1); Sodium 132 mmol/L (137-145)
[2021-11-28] MEDS: ASPIRIN 81 MG PO SCH (08:34)
[2021-11-28] MEDS: APIXABAN 5 MG TAB PO SCH ×2 (08:34→19:56)
[2021-11-28] MEDS: atenoloL 25 MG TAB PO SCH (08:34)
[2021-11-28] MEDS: amLODIPine 5 MG TAB PO SCH (08:34)
[2021-11-28] MEDS: CYANOCOBALAMIN 1,000 MCG/ML 1 ML VIAL IM SCH (08:34)
[2021-11-28] MEDS: LOSARTAN 25 MG TAB PO SCH (08:34)
[2021-11-28] MEDS: CALCIUM CARBONATE 500 MG CHEWABLE PO SCH (08:34)
[2021-11-28] MEDS: POTASSIUM CHLORIDE ER 10 MEQ TAB.ER.PRT PO SCH (08:34)
[2021-11-28] MEDS: FOLIC ACID 1 MG TAB PO SCH (08:34)
[2021-11-28] MEDS: MAGNESIUM OXIDE 400 MG TAB PO SCH (08:34)
[2021-11-28] MEDS: SIMETHICONE 40 MG/0.6 ML DROPS 2,000 MG/30 ML BOTTLE PO SCH ×4 (08:36→19:56)
--- NOTE | 2021-11-28 11:39 | P.PN ---
Subjective Progress Note Date: 11/28/21 Principal diagnosis: Presented with syncope and found to have PE and colon mass Patient says that he has had bowel movements which are brown and there is no sign of blood or black stool. Patient states that he is feeling well he only has minimal abdominal pain. He states he has been walking the hallways. Patient's hemoglobin this morning was 6.8. Hemoglobin yesterday was 7.1. 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 Psych - Calm and cooperative - Labs CBC & Chem 7: 11/28/21 05:13 11/28/21 05:13 Labs: Abnormal Lab Results - Last 24 Hours (Table) 11/28/21 11/28/21 Range/Units 05:13 05:13 RBC 2.74 L (4.30-5.90) m/uL Hgb 6.8 L* (13.0-17.5) gm/dL Hct 21.8 L (39.0-53.0) % MCV 79.6 L (80.0-100.0) fL MCH 24.8 L (25.0-35.0) pg RDW 17.0 H (11.5-15.5) % Plt Count 504 H (150-450) k/uL Sodium 132 L (137-145) mmol/L BUN <2 L (9-20) mg/dL Calcium 8.2 L (8.4-10.2) mg/dL Assessment and Plan Assessment: Acute pulmonary embolism with right heart strain and acute pulmonary hypertension -Status post EKOS by cardiology -Patient now on room air -Echocardiogram showed moderate to severe pulmonary hypertension -Pulmonology started the patient on Eliquis -This is a provoked PE due to likely malignancy which is being worked up Transverse colon unresectable polyp and cecal colon mass Acute blood loss anemia -Status post colonoscopy with multiple polyps removed and showed unresectable polyp in the transverse colon -Status Post right hemicolectomy on 11/24/2021 -> per operative note the cecal mass is likely malignancy and I discussed this with the patient. -Await pathology results -Patient having bowel movements. States abdominal pain is minimal. -Hemoglobin this morning was 6.8. Yesterday hemoglobin was 7.2 so no significant drop. We'll continue to trend hemoglobin every 6 hours and if less than 6.5 we'll transfuse 1 unit of PRBC. Okay to resume anticoagulation for now. Status post recent ruptured appendix with abscess -Patient was being treated with IV Zosyn outpatient. Patient was discharged on 10/26/2021 and ID had recommended 2 more weeks of IV Zosyn -Infectious disease following. Will need final antibiotic recommendations from ID prior to discharge Elevated troponin likely due to PE with right heart strain -Patient seen by cardiology Iron deficiency microcytic anemia -Resume IV iron infusion Squamous cell cancer of the left tonsil status post chemoradiation Hypertension -Resume home meds DVT prophylaxis: Eliquis Anticipated discharge: Likely be stable for discharge on 11/29/2021 if hemoglobin stable and cleared by surgery. We'll also need to discuss with ID regarding final antibiotic recommendations
[2021-11-28 13:06] LABS: Anisocytosis Slight; HCT 23.5 % (39.0-53.0); HGB 7.2 gm/dL (13.0-17.5); Hypochromasia Marked; MCH 24.7 pg (25.0-35.0); MCHC 30.9 g/dL (31.0-37.0); Mean Platelet Volume 7.1; Platelet Count 539 k/uL (150-450); RBC 2.93 m/uL (4.30-5.90); WBC 5.8 k/uL (3.8-10.6)
--- NOTE | 2021-11-28 13:23 | P.PN ---
Subjective Progress Note Date: 11/28/21 71-year-old male seen in consultation, for shortness of breath. The patient was initially seen in the emergency department, on November 17, complaining of syncope, and weakness. The patient has a recent history of a ruptured appendix, being treated with outpatient IV Zosyn. The patient was to come to the hospital today for a computed tomography scan of the abdomen, and he had a near syncopal episode, feeling very lightheaded and dizzy. He also has not been eating or drinking very much recently. He also had shortness of breath, and was evaluated, and the CTA was positive for pulmonary embolism. This is why we are asked to see him. Currently, he's on 6 L. He is receiving IV heparin, and Zosyn. White count 7.8, he will benign 0.5, hematocrit 29.5, and platelet count normal. Sodium 132, potassium 4.2, chlorides 99, CO2 21, BUN 9, creatinine 0.87. Troponin was 0.305. Urine was unremarkable. The chest x-ray showed no acute cardiopulmonary process. The KUB x-ray showed left inguinal hernia, and nonspecific bowel pattern. EKG did show sinus tachycardia. It also did show an S in lead 1 and a Q in lead 3. CT angiogram showed bilateral pulmonary emboli, worse on the right side than on the left. There was no evidence of right heart strain on the CTA. Echocardiogram did show a pulmonary pressure that was elevated at 55, and also a right ventricular to left ventricular ratio of 1.5. Dopplers of the lower extremities were negative for DVT. The patient is seen today 11/20/2019 follow-up in the intensive care unit. He is resting comfortably in bed. Awake and alert in no acute distress. He was found to have RV strain on his echocardiogram. He did undergo in for an EKOS procedure yesterday. Femoral catheters still in place. Remains on heparin. He is on 6 L high flow nasal cannula. He's been afebrile. Hemodynamically stable. Blood culture reveals no growth. White count 9.9. Hemoglobin 10.2. Platelets 273. Sodium 133. Potassium 3.7. BUN 5. Creatinine 0.68. He is currently on Zosyn. Progress note dated 11/20/2021. The patient is seen today in room 361. The patient remains on IV heparin. The patient is scheduled for an EGD and colonoscopy tomorrow. He is also planning to have surgery on his colonic mass, sometime this week. The patient remains on IV heparin. The patient was on 6 L yesterday, but is on room air today. He's feeling much better. The patient did have EKOS for his significant bilateral pulmonary emboli. White count 7.6, hemoglobin 10.3, hematocrit 32.2, and platelet count 390,000. PTT is 40.3. Sodium 132, potassium 3.8, chlorides 96, CO2 28, BUN 7, creatinine 0.83. Albumin is 3.3. 11/21/2021, the patient is calm and comfortable and the patient has no specific complaints and the patient is currently on room air oxygen. The patient was taken off the IV heparin and this patient for colonoscopy today. As mentioned earlier, the patient has a cecal mass that needs to be further investigated. Otherwise, the patient has no specific complaints. No evidence of any GI bleeding. Doppler of the lower extremities have been negative and the patient has undergone selective intra-arterial thrombolytic therapy regarding pulmonary embolism. The patient has been covered with IV Zosyn also has an empiric antibiotic coverage. Patient underwentthe bowel preparation yesterday without any major difficulties. No labs are available from today. Note that echocardiogram at shown pulmonary hypertension secondary to bilateral pulmonary embolism.he also gives history of tonsillar cancer that was treated many years back with a combination of chemoradiation therapy and back then during his treatment he had a blood clot in his left upper extremity. 11/22/2021, the patient is quite stable. The patient underwent a colonoscopy yesterday and the patient was found to have a unresectable proximal mid transverse colon tumor occupying 75% of the lumen of the colon. He also had some polyps that were resected. Nevertheless, there major concern is the mass in the proximal mid transverse colon and the patient will obviously need a colectomy. I discussed the case with the general surgeon and I also discussed the case with the vascular surgeon RONNA. I think the patient would be better off with an IVC filter placed to protect him from any further embolic phenomena postop knowing that the patient is getting to be off anticoagulants for at least 5-7 days postop. Otherwise, the patient is currently on IV heparin. Is doing extremely well. No bleeding complications. No other complaints otherwise for now. Note that the original Doppler of the lower extremities were negative for DVTs. This 2021, the patient is awaiting a IVC filter placement. Otherwise is doing well. No specific complaints. The procedure is going to with some bibasilar surgery and following that the plan is to proceed with a resection of the transverse colonic tumor that is causing 75% obstruction of the colonic lumen. Otherwise, the patient is calm and comfortable. The patient on room air oxygen. Not having any respiratory difficulties. His hemoglobin stable at 9.4 with a white cell count of 6.2 and the patient remains on IV Zosyn for now. The sodium is at 131. The patient remains on IV heparin with a therapeutic PTT at 96. Rest of the medications remain unchanged. The plan is to proceed with an IVC filter followed by a colectomy. 11/24/2021, the patient is in stable condition. The IVC filter was not placed as further discussion took place between the general surgeon and the vascular surgeon and it was decided not to do the filter as the patient is going to replacement the correlation with IV heparin immediately postop. This was the agreement. Otherwise, the patient has no specific complaints. Currently no thing by mouth awaiting surgery. The blood work from today shows a white cell count of 6.1 with a hemoglobin of 8.6, normal renal function and the patient's sodium is at 134. IV heparin will be discontinued 90 minutes prior to surgical start time. on today's evaluation of 11/25/2021, the patient has undergone a robotic- assisted laparoscopic right hemicolectomy. The patient was found to have a mass in the cecum and for that reason the patient was taken to the operating room and she and he underwent surgery yesterday without any complications. This morning, he has no abdominal pain. He is using incentive spirometer. He is hemodynamically stable. He is on IV heparin as agreed on with the general surgeon and the patient is not having any major respiratory difficulties. He is on 2 L of oxygen by nasal cannula. He has no passed any flatus yet. On his blood work, the patient's hemoglobin is at 8.4 with a white cell count of 7.3 and a platelet count of 394. Coagulation profile is being monitored. BUN is at 2 with a creatinine of 0.8 and a sodium level of 131. No other active issues for now. 11/26 2021, the patient is postop day #2 following a robotic-assisted laparoscopic right hemicolectomy. Doing extremely well.. The bowel movements yesterday and his surgical wound site is dry clean and intact. He remains on room air oxygen. He is using incentive spirometer. He has no respiratory difficulties and the patient is on room air oxygen. On today's evaluation, he remains on IV heparin. Hemoglobin stable at 8.2. The white cell count is at 7.4. Electrolytes show a sodium level of 132, BUN of 2 with a creatinine of 0.8. No other significant events otherwise for now. He is ambulating. 11/27/2021, the patient is doing extremely well. Postop day #3. Diet is been addressed and the patient WAS this morning. The patient is still on IV heparin. Proceed is subtherapeutic. I'm going to transition this patient to oral Eliquis. Patient completed the antibiotic course and the patient has a PICC line in the right upper extremity. The patient on room air oxygen. No respiratory difficulties. No costovertebral production. No nausea or vomiting. At the same time, the patient has a hemoglobin of 7.1 with a white cell count of 5.8. 11/28/2021, the patient is postop day #4. The patient has transition to regular diet. There is a concern of a drop in hemoglobin down to 6.8 and the repeat hemoglobin came back at 7.2. Based on that, no change in vision was given and the patient was kept on Eliquis. No bleeding complications. Surgical wound is dry clean and intact. No fever. No chills. Patient is ambulating. The white cell count of 5.8 hemoglobin of 7.2 and a platelet count of 539. Resident electrodes are all within normal limits. BUN is less than 2 with a creatinine of 0.7 and sodium level is at 132. Objective - Vital Signs Vital signs: Vital Signs Temp 98.1 F 11/28/21 12:00 Pulse 83 11/28/21 12:00 Resp 18 11/28/21 12:00 BP 126/81 11/28/21 12:00 Pulse Ox 98 11/28/21 12:00 FiO2 21 11/23/21 16:04 Intake & Output 11/27/21 11/28/21 11/28/21 18:59 06:59 18:59 Output Total 0 Balance 0 Output: Stool 0 Other: Voiding Method Toilet Toilet Urinal Urinal - Exam No acute distress, oriented 3. Currently on room air. HEENT examination is grossly unremarkable. Neck supple. Full range of motion. No adenopathy thyromegaly or neck vein distention. Cardiovascular examination reveals regular rhythm rate. S1-S2 normal. No S3 or S4. No discernible murmur noted. Lungs reveal clear breath sounds. Breath sounds are equal bilaterally. No adventitious lung sounds including wheezes rhonchi or crackles. Abdomen soft bowel sounds are heard. No masses or tenderness.The patient has an abdominal bounded. The patient's has clear surgical wound sites. Extremities are intact. No cyanosis clubbing or edema. Skin is without rash or lesion. Neurologic examination is brief but nonfocal. - Labs CBC & Chem 7: 11/28/21 12:35 11/28/21 05:13 Labs: Abnormal Lab Results - Last 24 Hours (Table) 11/28/21 11/28/21 11/28/21 Range/Units 05:13 05:13 12:35 RBC 2.74 L 2.93 L (4.30-5.90) m/uL Hgb 6.8 L* 7.2 L (13.0-17.5) gm/dL Hct 21.8 L 23.5 L (39.0-53.0) % MCV 79.6 L (80.0-100.0) fL MCH 24.8 L 24.7 L (25.0-35.0) pg MCHC 30.9 L (31.0-37.0) g/dL RDW 17.0 H 17.0 H (11.5-15.5) % Plt Count 504 H 539 H (150-450) k/uL Sodium 132 L (137-145) mmol/L BUN <2 L (9-20) mg/dL Calcium 8.2 L (8.4-10.2) mg/dL Assessment and Plan Plan: Acute pulmonary embolism, with right heart strain, and acute pulmonary hypertension, S/P EKOS.the patient is currently on room air oxygen. Echocardiogram showed moderate to severe degree of pulmonary hypertension which is related to acute pulmonary embolism. The patient is currently on oral Eliquis Cecal mass post right hemicolectomy and the patient is currently postop day # 4. It was agreed upon putting the patient on IV heparin immediately postop the patient is taking the IV heparin without any complications. Subsequently, the patient was transitioned to oral anticoagulation with Eliquis. Recent episode of ruptured appendix, being treated as an outpatient, with IV Zosyn. The patient completed the course of IV Zosyn via PICC line in the right upper extremity, completed antibiotic course and the patient is currently off antibiotics History of hypertension. 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 remote history of a left upper extremity DVT Vague history of irregular heartbeat. Chronic anemia with a drop in hemoglobin down to 7.2 Plan No surgical complication and the patient is recovering well Passing bowel movements Monitor the hemoglobin No active respiratory issues Continue Eliquis Recheck hemoglobin tomorrow. No signs of any bleeding Currently on room air oxygen. Incentive spirometer Increase mobility Completed the course of antibiotics We'll continue to follow
[2021-11-28] MEDS: SODIUM FERRIC GLUCONAT-SUCROSE 125 MG in SODIUM CHLORIDE 0.9% 100 ML IVPB SCH (14:29)
[2021-11-28] MEDS: TAMSULOSIN 0.4 MG CAP.ER.24H PO SCH (16:41)
[2021-11-28 18:35] LABS: Anisocytosis Slight; HGB 7.4 gm/dL (13.0-17.5); Hypochromasia Marked; MCH 25.7 pg (25.0-35.0); MCHC 32.1 g/dL (31.0-37.0); Mean Platelet Volume 7.4; Platelet Count 524 k/uL (150-450); RBC 2.87 m/uL (4.30-5.90); RDW 17.1 % (11.5-15.5); WBC 6.2 k/uL (3.8-10.6)
[2021-11-28 20:48] LABS: Glucose,Whole Blood 112 mg/dL (70-110)
[2021-11-29 03:43] VITALS: TEMP 98.4
[2021-11-29 06:21] LABS: Glucose,Whole Blood 108 mg/dL (70-110)
[2021-11-29] MEDS: ACETAMINOPHEN TAB 500 MG TAB PO SCH ×2 (06:23→12:30)
[2021-11-29] MEDS: PANTOPRAZOLE 40 MG TABLET PO SCH (06:31)
[2021-11-29 07:48] LABS: Anisocytosis Slight; HCT 23.8 % (39.0-53.0); HGB 7.1 gm/dL (13.0-17.5); Hypochromasia Marked; MCH 24.3 pg (25.0-35.0); MCHC 30.1 g/dL (31.0-37.0); MCV 80.8 fL (80.0-100.0); Mean Platelet Volume 7.3; Platelet Count 575 k/uL (150-450); RBC 2.94 m/uL (4.30-5.90); WBC 5.7 k/uL (3.8-10.6)
[2021-11-29 07:52] LABS: African American GFR (CKD) >90 (>60 ml/min/1.73 sqM); Anion Gap 6 mmol/L; Blood Urea Nitrogen 3 mg/dL (9-20); Calcium 8.4 mg/dL (8.4-10.2); Carbon Dioxide 27 mmol/L (22-30); Chloride 98 mmol/L (98-107); Glucose 92 mg/dL (74-99); Magnesium 1.9 mg/dL (1.6-2.3); Non-African American GFR(CKD) 78 (>60 ml/min/1.73 sqM); Potassium 4.6 mmol/L (3.5-5.1); Sodium 131 mmol/L (137-145)
[2021-11-29] MEDS: SIMETHICONE 40 MG/0.6 ML DROPS 2,000 MG/30 ML BOTTLE PO SCH ×2 (08:40→12:30)
[2021-11-29] MEDS: SODIUM FERRIC GLUCONAT-SUCROSE 125 MG in SODIUM CHLORIDE 0.9% 100 ML IVPB SCH (09:36)
--- NOTE | 2021-11-29 09:39 | P.DS ---
Providers Date of admission: 11/17/21 18:28 Expected date of discharge: 11/29/21 Attending physician: Slime Arteaga DO Consults: 11/17/21 18:27 Consult Physician Routine Consulting Provider: Dayami Pak Consult Reason/Comments: Cecal mass Do you want consulting provider notified?: Already Contacted 11/17/21 18:28 Consult Physician Urgent Consulting Provider: Negro Bravo Consult Reason/Comments: Elevated troponin Do you want consulting provider notified?: Yes 11/17/21 18:32 Consult Physician Routine Consulting Provider: Vero Mcdonnell Consult Reason/Comments: Antibiotic selection Do you want consulting provider notified?: Yes 11/18/21 10:43 Consult Physician Routine Consulting Provider: Bob Ko Consult Reason/Comments: cecal mass Do you want consulting provider notified?: Yes 11/18/21 10:44 Consult Physician Routine Consulting Provider: Dimitry Armendariz Consult Reason/Comments: shortness of breath Do you want consulting provider notified?: Yes Primary care physician: Vj Knowles MD Hospital Course: Discharge Diagnosis: Acute bilateral pulmonary embolism with right heart strain Acute pulmonary hypertension Elevated troponin secondary to right heart strain from pulmonary embolism 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 He reports presented to the emergency department for syncope. The ER he underwent extensive evaluation. Chest x-ray was unremarkable, EKG demonstrated T-wave inversions. Troponin was 0.110, lactic acid 1.2, sodium 129, hemoglobin 10, d-dimer 1.97. He underwent a CT abdomen and pelvis which showed a necrotic enhancing 7.9 x 7.7 cm mass involving the base of the appendix concerning for malignancy associated with enlarged mesenteric lymph nodes. He was admitted for evaluation of his near syncope and hyponatremia. He was started on IV fluids. Cardiology and surgery were consulted. Patient underwent a stat CT PE protocol which showed moderate pulmonary embolism in both the upper and lower lobes bilaterally. He was subsequently started on a heparin drip. Echocardiogram showed right ventricular dilatation with evidence of pulmonary hypertension and RV strain. He was seen by pulmonary. He was taken to the dental laboratory manager for EKOS. Infectious disease was consulted for possible peritonitis patient was started on Zosyn. Lower extremity venous Dopplers are negative for DVT. Patient underwent EGD on with cold forceps biopsy of the antrum of the stomach, he was also noted to have grade B esophagitis and was started on PPI. Underwent colonoscopy on 11/21 with large cecal mass noted of the approximate mid transverse colon. Patient was seen by vascular surgery due to concerns for need for IVC filter however after multidisciplinary discussion it was determined patient did not need IVC filter placed. He was found to be anemic and was treated with IV iron X5 doses, Vit B 12, and folate. On 11/24 patient underwent robotic-assisted laparoscopy with extended right hemicolectomy. Patient did well after surgery. He was tolerating a diet and ambulating in the hallways. He was having bowel movements. He was doing well and was determined stable for discharge. Follow-up:Dr. Knowles in 3-4 days, Dr. Pak next week, CBC in 1 week, on oral iron and eliquis. I did suggest that he follow with heme/onc regardless of biopsy result given Pulmonary embolism burden and anemia, patient does not want to. Patient seen and examined at bedside. DOing well, eating and drinking well, normal bowel movements. Vital signs reviewed and stable. General: nontoxic, no distress, appears at stated age Derm: warm, dry Head: atraumatic, normocephalic, symmetric Eyes: EOMI, no lid lag, anicteric sclera Mouth: no lip lesion, mucus membranes moist Cardiovascular: S1S2 reg, no murmur, positive posterior tibial pulse bilateral, Lungs: CTA bilateral, no rhonchi, no rales , no accessory muscle use Abdominal: soft, nontender to palpation, no guarding, no appreciable organomegaly, incision C/D/I Ext: no gross muscle atrophy, no edema, no contractures Neuro: CN II-XI grossly intact, no focal neuro deficits Psych: Alert, oriented, appropriate affect A total of 37 minutes of time were spent preparing this complex discharge summary. Patient was discharged on 11/29/21. Patient Condition at Discharge: Stable Plan - Discharge Summary Discharge Rx Participant: Yes New Discharge Prescriptions: New Apixaban [Eliquis Starter Pack (for VTE)] 5 - 10 mg PO DIRECTED 30 Days #1 each Tamsulosin [Flomax] 0.4 mg PO PC-SUPPER #30 cap Pantoprazole [Protonix] 40 mg PO AC-BRKFST #30 tab Folic Acid 1 mg PO DAILY #30 tablet Continue Calcium Carbonate [Tums] 500 mg PO DAILY Cholecalciferol (Vitamin D3) [Vitamin D3 (125 MCG = 5,000 IU)] 125 mcg PO DAILY atenoloL [Tenormin] 25 mg PO DAILY amLODIPine BES/OLMESARTAN MED [amLODIPine BES/OLMESARTAN MED 5-20 mg] 1 tab PO DAILY Procto-Med Hc 2.5% Cream 1 applic RECTAL TID PRN PRN Reason: AFTER BOWEL MOVEMENTS Potassium Gluconate [Potassium Gluconate ER] 99 mg PO DAILY Vitamin E (Dl,Tocopheryl Acet) [Vitamin E (400 Iu = 180 mg)] 400 unit PO DAILY Magnesium 250 mg PO DAILY Discontinued Piperacillin-Tazobactam [Zosyn] 3.375 gm IVPB Q8HR 14 Days each Discharge Medication List Calcium Carbonate [Tums] 500 mg PO DAILY 10/19/21 [History] Cholecalciferol (Vitamin D3) [Vitamin D3 (125 MCG = 5,000 IU)] 125 mcg PO DAILY 10/19/21 [History] Magnesium 250 mg PO DAILY 10/19/21 [History] Potassium Gluconate [Potassium Gluconate ER] 99 mg PO DAILY 10/19/21 [History] Vitamin E (Dl,Tocopheryl Acet) [Vitamin E (400 Iu = 180 mg)] 400 unit PO DAILY 10/19/21 [History] amLODIPine BES/OLMESARTAN MED [amLODIPine BES/OLMESARTAN MED 5-20 mg] 1 tab PO DAILY 10/19/21 [History] atenoloL [Tenormin] 25 mg PO DAILY 10/19/21 [History] Procto-Med Hc 2.5% Cream 1 applic RECTAL TID PRN 11/17/21 [History] Apixaban [Eliquis Starter Pack (for VTE)] 5 - 10 mg PO DIRECTED 30 Days #1 each 11/21/21 [Rx] Folic Acid 1 mg PO DAILY #30 tablet 11/29/21 [Rx] Pantoprazole [Protonix] 40 mg PO AC-BRKFST #30 tab 11/29/21 [Rx] Tamsulosin [Flomax] 0.4 mg PO PC-SUPPER #30 cap 11/29/21 [Rx] Follow up Appointment(s)/Referral(s): Vj Knowles MD [Primary Care Provider] - 1-2 days Dayami Pak MD [STAFF PHYSICIAN] - 1 Week Bob Ko MD [STAFF PHYSICIAN] - 4 Weeks (I do suggest follow-up with your blood clot and anemia ) Ambulatory/Diagnostic Orders: Basic Metabolic Panel [LAB.AMB] Time Frame: 1 Week, Location: None Selected Complete Blood Count w/diff [LAB.AMB] Time Frame: 1 Week, Location: None Selected Activity/Diet/Wound Care/Special Instructions: Activity: As tolerated Diet: regular Special Instructions: Eliquis covered by insurance - copay $42 Blood work in 1 week Discharge Disposition: HOME SELF-CARE
--- NOTE | 2021-11-29 09:59 | P.PN ---
Subjective Progress Note Date: 11/29/21 CHIEF COMPLAINT: Cecal mass HISTORY OF PRESENT ILLNESS: The patient is a 71-year-old male status post ex tended right hemicolectomy for large 10 cm no cecal tumor and concurrent unresectable transverse colon adenoma. He is tolerating diet. He is having bowel movements without blood and brown. Pain is well-controlled. He is eager to go home. He denies shortness of breath. He denies signs of bleeding. ROS: No reports of nausea and vomiting. No fevers or chills. No new chest pain. No productive sputum PHYSICAL EXAM: VITAL SIGNS: Reviewed CONSTITUTIONAL: Well developed and in no acute distress. EYES: Conjuctivae without sclera icterus. Extraocular movements grossly intact. HEAD, EARS, NOSE, THROAT: Moist buccal mucosa. Head is atraumatic, normocephalic. Hears conversational speech. No nasal drainage. RESPIRATORY: Non-labored respirations and equal bilateral excursions. CARDIOVASCULAR: Palpable 2+ radial pulses. ABDOMEN: Dressing discontinued without hematoma, bleeding, no peritonitis. MUSCULOSKELETAL: No gross deformity of the lower extremities noted. No clubbing. No cyanosis. SKIN: Good skin turgor. Well perfused. NEUROLOGIC: Cranial nerves II through XII grossly intact. No focal or lateralizing signs. PSYCH: Appropriate affect. Alert and oriented to person, place and time. CLINICAL LABS: Reviewed. Hemoglobin 7.4-7.1, stable. ASSESSMENT: 1. Cecal mass 2. Transverse colon mass, adenoma unresectable via endoscopy 3. Pulmonary embolism, acute 4. Anemia PLAN: 1. Strict low fiber diet including no seeds advised until December 26. 2. Lifting restriction of 4 pounds until December 26 also described. 3. Patient placed on IV iron for 2 doses due to anemia 4. Patient otherwise having bowel movements without blood. Stable for discharge. All questions addressed. 5. Recommend follow-up in 1 week, telehealth. Objective - Vital Signs Vital signs: Vital Signs Temp 98.4 F 11/29/21 08:14 Pulse 100 11/29/21 08:14 Resp 19 11/29/21 08:14 BP 132/79 11/29/21 08:14 Pulse Ox 100 11/29/21 08:14 FiO2 21 11/23/21 16:04 Intake & Output 11/28/21 11/29/21 11/29/21 18:59 06:59 18:59 Output Total 0 Balance 0 Output: Stool 0 Other: Voiding Method Toilet Urinal # Bowel Movements 1 - Labs CBC & Chem 7: 11/29/21 06:20 11/29/21 06:20 Labs: Abnormal Lab Results - Last 24 Hours (Table) 11/28/21 11/28/21 11/28/21 Range/Units 12:35 17:59 20:45 RBC 2.93 L 2.87 L (4.30-5.90) m/uL Hgb 7.2 L 7.4 L (13.0-17.5) gm/dL Hct 23.5 L 23.0 L (39.0-53.0) % MCH 24.7 L (25.0-35.0) pg MCHC 30.9 L (31.0-37.0) g/dL RDW 17.0 H 17.1 H (11.5-15.5) % Plt Count 539 H 524 H (150-450) k/uL Sodium (137-145) mmol/L BUN (9-20) mg/dL POC Glucose (mg/dL) 112 H (70-110) mg/dL 11/29/21 11/29/21 Range/Units 06:20 06:20 RBC 2.94 L (4.30-5.90) m/uL Hgb 7.1 L (13.0-17.5) gm/dL Hct 23.8 L (39.0-53.0) % MCH 24.3 L (25.0-35.0) pg MCHC 30.1 L (31.0-37.0) g/dL RDW 18.0 H (11.5-15.5) % Plt Count 575 H (150-450) k/uL Sodium 131 L (137-145) mmol/L BUN 3 L (9-20) mg/dL POC Glucose (mg/dL) (70-110) mg/dL
[2021-11-29] MEDS: CYANOCOBALAMIN 1,000 MCG/ML 1 ML VIAL IM SCH (10:04)
[2021-11-29] MEDS: POTASSIUM CHLORIDE ER 10 MEQ TAB.ER.PRT PO SCH (10:05)
[2021-11-29] MEDS: atenoloL 25 MG TAB PO SCH (10:05)
[2021-11-29] MEDS: amLODIPine 5 MG TAB PO SCH (10:05)
[2021-11-29] MEDS: CALCIUM CARBONATE 500 MG CHEWABLE PO SCH (10:05)
[2021-11-29] MEDS: FOLIC ACID 1 MG TAB PO SCH (10:05)
[2021-11-29] MEDS: APIXABAN 5 MG TAB PO SCH (10:05)
[2021-11-29] MEDS: MAGNESIUM OXIDE 400 MG TAB PO SCH (10:06)
[2021-11-29] MEDS: ASPIRIN 81 MG PO SCH (10:06)
[2021-11-29] MEDS: LOSARTAN 25 MG TAB PO SCH (10:06)
[2021-11-29 11:41] VITALS: RESP 17
[2021-11-29 12:07] VITALS: BP 127/75; PULSE 89
--- NOTE | 2021-11-29 12:46 | P.PN ---
Subjective Progress Note Date: 11/26/21 Principal diagnosis: Periappendicular abscess versus necrotic tumor Patient is a 71-year-old male who was recently admitted to this hospital with abdominal pain did have abdominal CT suspicious for possible ruptured appendicitis and abscess treated with IV Zosyn with subsequent CT raises the possibility of possible necrotic tumor in this patient did have a syncopal episode and evidence of PE. 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 area, patient is status post right-sided colectomy on 11/24/2021 On today's evaluation that is 11/26/2021, the patient remains to be afebrile, the patient is breathing comfortably on room air, the patient denies chest pain, shortness of breath or cough, the patient abdominal pain is controlled , the patient denies nausea no vomiting and did have a bowel movement Objective - Vital Signs Vital signs: Vital Signs Temp 98.6 F 11/26/21 08:00 Pulse 87 11/26/21 12:00 Resp 16 11/26/21 12:00 BP 120/76 11/26/21 12:00 Pulse Ox 96 11/26/21 12:00 FiO2 21 11/23/21 16:04 Intake & Output 11/25/21 11/26/21 11/26/21 18:59 06:59 18:59 Intake Total 618 241.546 51.141 Output Total 550 1450 225 Balance 68 -1208.454 -173.859 Intake: Intake, IV Titration 241.546 51.141 Amount Heparin Sod,Pork in 0.45% 241.546 51.141 NaCl 25,000 unit In 0.45 % NaCl 1 250ml.bag @ 11. 41 UNITS/KG/HR 9.995 mls/ hr IV .Q24H [facility] Rx#: [id number] Oral 618 Output: Urine 550 1450 225 Straight 200 Stool 0 0 Other: Voiding Method Indwelling Catheter Toilet Toilet Urinal Urinal # Voids 1 1 # Bowel Movements 1 1 - Exam GENERAL DESCRIPTION: An elderly male lying in bed in no distress RESPIRATORY SYSTEM: Unlabored breathing , decreased breath sounds at bases HEART: S1 S2 regular rate and rhythm , ABDOMEN: Soft , no tenderness EXTREMITIES: No edema feet - Labs CBC & Chem 7: 11/29/21 06:20 11/29/21 06:20 Labs: Abnormal Lab Results - Last 24 Hours (Table) 11/25/21 11/26/21 11/26/21 Range/Units 17:20 07:46 07:46 RBC 3.37 L (4.30-5.90) m/uL Hgb 8.2 L (13.0-17.5) gm/dL Hct 26.9 L (39.0-53.0) % MCV 79.9 L (80.0-100.0) fL MCH 24.3 L (25.0-35.0) pg MCHC 30.4 L (31.0-37.0) g/dL RDW 15.9 H (11.5-15.5) % Plt Count 454 H (150-450) k/uL APTT 46.4 H (22.0-30.0) sec Sodium 132 L (137-145) mmol/L BUN <2 L (9-20) mg/dL Glucose 101 H (74-99) mg/dL Calcium 8.0 L (8.4-10.2) mg/dL 11/26/21 11/26/21 Range/Units 07:46 14:34 RBC (4.30-5.90) m/uL Hgb (13.0-17.5) gm/dL Hct (39.0-53.0) % MCV (80.0-100.0) fL MCH (25.0-35.0) pg MCHC (31.0-37.0) g/dL RDW (11.5-15.5) % Plt Count (150-450) k/uL APTT 41.5 H 52.7 H (22.0-30.0) sec Sodium (137-145) mmol/L BUN (9-20) mg/dL Glucose (74-99) mg/dL Calcium (8.4-10.2) mg/dL Microbiology - Last 24 Hours (Table) 11/23/21 16:11 Gram Stain - Final Sputum Sputum Culture - Final 11/19/21 23:08 Blood Culture - Final Blood No Growth after 144 hours Assessment and Plan (1) Peritonitis Current Visit: No Status: Acute Code(s): K65.9 - PERITONITIS, UNSPECIFIED SNOMED Code(s): 81386973 Plan: 1patient presented to hospital with near syncopal episode in this patient currently being treated for possible periappendicular abscess however the patient repeat CAT scan is suspicious for possible necrotic cecal tumor and obstruction of the appendix and this patient is status post colonoscopy followed by right hemicolectomy completed on 11/24/2021 2patient has completed his Zosyn as of 11/26/2021, and will monitor clinical course closely off antibiotics Time with Patient: Less than 30
--- NOTE | 2021-11-29 12:47 | P.PN ---
Subjective Progress Note Date: 11/27/21 Principal diagnosis: Periappendicular abscess versus necrotic tumor Patient is a 71-year-old male who was recently admitted to this hospital with abdominal pain did have abdominal CT suspicious for possible ruptured appendicitis and abscess treated with IV Zosyn with subsequent CT raises the possibility of possible necrotic tumor in this patient did have a syncopal episode and evidence of PE. 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 area, patient is status post right-sided colectomy on 11/24/2021 On today's evaluation that is 11/27/2021, the patient continues to be afebrile, the patient is breathing comfortably on room air, the patient denies chest pain, shortness of breath or cough, the patient denies abdominal pain , the patient denies nausea no vomiting and no diarrhea Objective - Vital Signs Vital signs: Vital Signs Temp 98.2 F 11/27/21 20:00 Pulse 82 11/27/21 20:00 Resp 16 11/27/21 20:00 BP 125/76 11/27/21 20:00 Pulse Ox 97 11/27/21 20:00 FiO2 21 11/23/21 16:04 Intake & Output 11/27/21 11/27/21 11/28/21 06:59 18:59 06:59 Intake Total 195.678 Output Total 1250 Balance -1054.322 Intake: Intake, IV Titration 195.678 Amount Heparin Sod,Pork in 0.45% 195.678 NaCl 25,000 unit In 0.45 % NaCl 1 250ml.bag @ 11. 41 UNITS/KG/HR 9.995 mls/ hr IV .Q24H [facility] Rx#: [id number] Output: Urine 1250 Other: Voiding Method Toilet Toilet Toilet Urinal Urinal Urinal - Exam GENERAL DESCRIPTION: An elderly male lying in bed in no distress RESPIRATORY SYSTEM: Unlabored breathing , decreased breath sounds at bases HEART: S1 S2 regular rate and rhythm , ABDOMEN: Soft , no tenderness EXTREMITIES: No edema feet - Labs CBC & Chem 7: 11/29/21 06:20 11/29/21 06:20 Labs: Abnormal Lab Results - Last 24 Hours (Table) 11/27/21 11/27/21 Range/Units 08:07 08:07 RBC 2.86 L (4.30-5.90) m/uL Hgb 7.1 L (13.0-17.5) gm/dL Hct 22.6 L (39.0-53.0) % MCV 78.9 L (80.0-100.0) fL MCH 24.9 L (25.0-35.0) pg RDW 16.5 H (11.5-15.5) % Plt Count 457 H (150-450) k/uL APTT 46.8 H (22.0-30.0) sec Assessment and Plan (1) Peritonitis Current Visit: No Status: Acute Code(s): K65.9 - PERITONITIS, UNSPECIFIED SNOMED Code(s): 22100903 Plan: 1patient presented to hospital with near syncopal episode in this patient currently being treated for possible periappendicular abscess however the patient repeat CAT scan is suspicious for possible necrotic cecal tumor and obstruction of the appendix and this patient is status post colonoscopy followed by right hemicolectomy completed on 11/24/2021 2patient has completed his Zosyn as of 11/26/2021, and seems to be doing well off antibiotics continue monitor closely Time with Patient: Less than 30
--- NOTE | 2021-11-29 12:49 | P.PN ---
Subjective Progress Note Date: 11/28/21 Principal diagnosis: Periappendicular abscess versus necrotic tumor Patient is a 71-year-old male who was recently admitted to this hospital with abdominal pain did have abdominal CT suspicious for possible ruptured appendicitis and abscess treated with IV Zosyn with subsequent CT raises the possibility of possible necrotic tumor in this patient did have a syncopal episode and evidence of PE. 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 area, patient is status post right-sided colectomy on 11/24/2021 On today's evaluation that is 11/28/2021, the patient denies any fever or chills, the patient is breathing comfortably on room air, the patient denies chest pain, shortness of breath or cough, the patient denies abdominal pain, no nausea vomiting or diarrhea overall feeling better Objective - Vital Signs Vital signs: Vital Signs Temp 98.4 F 11/28/21 11:15 Pulse 89 11/28/21 11:15 Resp 17 11/28/21 11:15 BP 127/75 11/28/21 11:15 Pulse Ox 96 11/28/21 11:15 FiO2 21 11/28/21 11:15 Intake & Output 11/28/21 11:15 Output Total 0 Balance 0 Output: Stool 0 Other: Voiding Method # Bowel Movements 1 - Exam GENERAL DESCRIPTION: An elderly male lying in bed in no distress RESPIRATORY SYSTEM: Unlabored breathing , decreased breath sounds at bases HEART: S1 S2 regular rate and rhythm , ABDOMEN: Soft , no tenderness EXTREMITIES: No edema feet - Labs CBC & Chem 7: 11/29/21 06:20 11/29/21 06:20 Labs: Abnormal Lab Results - Last 24 Hours (Table) 11/28/21 11/28/21 11/28/21 Range/Units 12:35 17:59 20:45 RBC 2.93 L 2.87 L (4.30-5.90) m/uL Hgb 7.2 L 7.4 L (13.0-17.5) gm/dL Hct 23.5 L 23.0 L (39.0-53.0) % MCH 24.7 L (25.0-35.0) pg MCHC 30.9 L (31.0-37.0) g/dL RDW 17.0 H 17.1 H (11.5-15.5) % Plt Count 539 H 524 H (150-450) k/uL Sodium (137-145) mmol/L BUN (9-20) mg/dL POC Glucose (mg/dL) 112 H (70-110) mg/dL 11/29/21 11/29/21 Range/Units 06:20 06:20 RBC 2.94 L (4.30-5.90) m/uL Hgb 7.1 L (13.0-17.5) gm/dL Hct 23.8 L (39.0-53.0) % MCH 24.3 L (25.0-35.0) pg MCHC 30.1 L (31.0-37.0) g/dL RDW 18.0 H (11.5-15.5) % Plt Count 575 H (150-450) k/uL Sodium 131 L (137-145) mmol/L BUN 3 L (9-20) mg/dL POC Glucose (mg/dL) (70-110) mg/dL Assessment and Plan (1) Peritonitis Current Visit: No Status: Acute Code(s): K65.9 - PERITONITIS, UNSPECIFIED SNOMED Code(s): 98501972 Plan: 1patient presented to hospital with near syncopal episode in this patient currently being treated for possible periappendicular abscess however the patient repeat CAT scan is suspicious for possible necrotic cecal tumor and obstruction of the appendix and this patient is status post colonoscopy followed by right hemicolectomy completed on 11/24/2021 2patient has received adequate antibiotic therapy and has completed his Zosyn as of 11/26/2021, and the patient seems to be doing well off antibiotics, will continue to monitor closely Time with Patient: Less than 30
--- NOTE | 2021-11-29 12:52 | P.PN ---
Subjective Progress Note Date: 11/29/21 Principal diagnosis: Periappendicular abscess versus necrotic tumor Patient is a 71-year-old male who was recently admitted to this hospital with abdominal pain did have abdominal CT suspicious for possible ruptured appendicitis and abscess treated with IV Zosyn with subsequent CT raises the possibility of possible necrotic tumor in this patient did have a syncopal episode and evidence of PE. 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 area, patient is status post right-sided colectomy on 11/24/2021 On today's evaluation that is 11/29/2021, the patient denies any fever or chills, the patient is breathing comfortably on room air, the patient denies chest pain, shortness of breath or cough, the patient denies abdominal pain, no nausea vomiting or diarrhea, patient is feeling better and ready to go home Objective - Vital Signs Vital signs: Vital Signs Temp 98.4 F 11/29/21 08:14 Pulse 100 11/29/21 08:14 Resp 19 11/29/21 08:14 BP 132/79 11/29/21 08:14 Pulse Ox 100 11/29/21 08:14 FiO2 21 11/23/21 16:04 Intake & Output 11/28/21 11/29/21 11/29/21 18:59 06:59 18:59 Output Total 0 Balance 0 Output: Stool 0 Other: Voiding Method Toilet Urinal # Bowel Movements 1 - Exam GENERAL DESCRIPTION: An elderly male lying in bed in no distress RESPIRATORY SYSTEM: Unlabored breathing , decreased breath sounds at bases HEART: S1 S2 regular rate and rhythm , ABDOMEN: Soft , no tenderness EXTREMITIES: No edema feet - Labs CBC & Chem 7: 11/29/21 06:20 11/29/21 06:20 Labs: Abnormal Lab Results - Last 24 Hours (Table) 11/28/21 11/28/21 11/28/21 Range/Units 12:35 17:59 20:45 RBC 2.93 L 2.87 L (4.30-5.90) m/uL Hgb 7.2 L 7.4 L (13.0-17.5) gm/dL Hct 23.5 L 23.0 L (39.0-53.0) % MCH 24.7 L (25.0-35.0) pg MCHC 30.9 L (31.0-37.0) g/dL RDW 17.0 H 17.1 H (11.5-15.5) % Plt Count 539 H 524 H (150-450) k/uL Sodium (137-145) mmol/L BUN (9-20) mg/dL POC Glucose (mg/dL) 112 H (70-110) mg/dL 11/29/21 11/29/21 Range/Units 06:20 06:20 RBC 2.94 L (4.30-5.90) m/uL Hgb 7.1 L (13.0-17.5) gm/dL Hct 23.8 L (39.0-53.0) % MCH 24.3 L (25.0-35.0) pg MCHC 30.1 L (31.0-37.0) g/dL RDW 18.0 H (11.5-15.5) % Plt Count 575 H (150-450) k/uL Sodium 131 L (137-145) mmol/L BUN 3 L (9-20) mg/dL POC Glucose (mg/dL) (70-110) mg/dL Assessment and Plan (1) Peritonitis Current Visit: No Status: Acute Code(s): K65.9 - PERITONITIS, UNSPECIFIED SNOMED Code(s): 64381480 Plan: 1patient presented to hospital with near syncopal episode in this patient currently being treated for possible periappendicular abscess however the patient repeat CAT scan is suspicious for possible necrotic cecal tumor and obst ruction of the appendix and this patient is status post colonoscopy followed by right hemicolectomy completed on 11/24/2021 2patient has received adequate antibiotic therapy and has completed his Zosyn as of 11/26/2021, and the patient did well off antibiotics for the last few days hence recommended no antibiotic on discharge Time with Patient: Less than 30
--- NOTE | 2021-11-29 15:18 | P.PN ---
Subjective Progress Note Date: 11/29/21 Principal diagnosis: Shortness of breath 71-year-old male seen in consultation, for shortness of breath. The patient was initially seen in the emergency department, on November 17, complaining of syncope, and weakness. The patient has a recent history of a ruptured appendix, being treated with outpatient IV Zosyn. The patient was to come to the hospital today for a computed tomography scan of the abdomen, and he had a near syncopal episode, feeling very lightheaded and dizzy. He also has not been eating or drinking very much recently. He also had shortness of breath, and was evaluated, and the CTA was positive for pulmonary embolism. This is why we are asked to see him. Currently, he's on 6 L. He is receiving IV heparin, and Zosyn. White count 7.8, he will benign 0.5, hematocrit 29.5, and platelet count normal. Sodium 132, potassium 4.2, chlorides 99, CO2 21, BUN 9, creatinine 0.87. Troponin was 0.305. Urine was unremarkable. The chest x-ray showed no acute cardiopulmonary process. The KUB x-ray showed left inguinal hernia, and nonspecific bowel pattern. EKG did show sinus tachycardia. It also did show an S in lead 1 and a Q in lead 3. CT angiogram showed bilateral pulmonary emboli, worse on the right side than on the left. There was no evidence of right heart strain on the CTA. Echocardiogram did show a pulmonary pressure that was elevated at 55, and also a right ventricular to left ventricular ratio of 1.5. Dopplers of the lower extremities were negative for DVT. The patient is seen today 11/20/2019 follow-up in the intensive care unit. He is resting comfortably in bed. Awake and alert in no acute distress. He was found to have RV strain on his echocardiogram. He did undergo in for an EKOS procedure yesterday. Femoral catheters still in place. Remains on heparin. He is on 6 L high flow nasal cannula. He's been afebrile. Hemodynamically stable. Blood culture reveals no growth. White count 9.9. Hemoglobin 10.2. Platelets 273. Sodium 133. Potassium 3.7. BUN 5. Creatinine 0.68. He is currently on Zosyn. Progress note dated 11/20/2021. The patient is seen today in room 361. The patient remains on IV heparin. The patient is scheduled for an EGD and colonoscopy tomorrow. He is also planning to have surgery on his colonic mass, sometime this week. The patient remains on IV heparin. The patient was on 6 L yesterday, but is on room air today. He's feeling much better. The patient did have EKOS for his significant bilateral pulmonary emboli. White count 7.6, hemoglobin 10.3, hematocrit 32.2, and pl atelet count 390,000. PTT is 40.3. Sodium 132, potassium 3.8, chlorides 96, CO2 28, BUN 7, creatinine 0.83. Albumin is 3.3. 11/21/2021, the patient is calm and comfortable and the patient has no specific complaints and the patient is currently on room air oxygen. The patient was taken off the IV heparin and this patient for colonoscopy today. As mentioned earlier, the patient has a cecal mass that needs to be further investigated. Otherwise, the patient has no specific complaints. No evidence of any GI bleeding. Doppler of the lower extremities have been negative and the patient has undergone selective intra-arterial thrombolytic therapy regarding pulmonary embolism. The patient has been covered with IV Zosyn also has an empiric antibiotic coverage. Patient underwentthe bowel preparation yesterday without any major difficulties. No labs are available from today. Note that ec hocardiogram at shown pulmonary hypertension secondary to bilateral pulmonary embolism.he also gives history of tonsillar cancer that was treated many years back with a combination of chemoradiation therapy and back then during his treatment he had a blood clot in his left upper extremity. 11/22/2021, the patient is quite stable. The patient underwent a colonoscopy yesterday and the patient was found to have a unresectable proximal mid transverse colon tumor occupying 75% of the lumen of the colon. He also had some polyps that were resected. Nevertheless, there major concern is the mass in the proximal mid transverse colon and the patient will obviously need a colectomy. I discussed the case with the general surgeon and I also discussed the case with the vascular surgeon RONNA. I think the patient would be better off with an IVC filter placed to protect him from any further embolic phenomena postop knowing that the patient is getting to be off anticoagulants for at least 5-7 days postop. Otherwise, the patient is currently on IV heparin. Is doing extremely well. No bleeding complications. No other complaints otherwise for now. Note that the original Doppler of the lower extremities were negative for DVTs. This 2021, the patient is awaiting a IVC filter placement. Otherwise is doing well. No specific complaints. The procedure is going to with some bibasilar surgery and following that the plan is to proceed with a resection of the transverse colonic tumor that is causing 75% obstruction of the colonic lumen. Otherwise, the patient is calm and comfortable. The patient on room air oxygen. Not having any respiratory difficulties. His hemoglobin stable at 9.4 with a white cell count of 6.2 and the patient remains on IV Zosyn for now. The sodium is at 131. The patient remains on IV heparin with a therapeutic PTT at 96. Rest of the medications remain unchanged. The plan is to proceed with an IVC filter followed by a colectomy. 11/24/2021, the patient is in stable condition. The IVC filter was not placed as further discussion took place between the general surgeon and the vascular surgeon and it was decided not to do the filter as the patient is going to replacement the correlation with IV heparin immediately postop. This was the agreement. Otherwise, the patient has no specific complaints. Currently nothing by mouth awaiting surgery. The blood work from today shows a white cell count of 6.1 with a hemoglobin of 8.6, normal renal function and the patient's sodium is at 134. IV heparin will be discontinued 90 minutes prior to surgical start time. on today's evaluation of 11/25/2021, the patient has undergone a robotic-assisted laparoscopic right hemicolectomy. The patient was found to have a mass in the cecum and for that reason the patient was taken to the operating room and she and he underwent surgery yesterday without any complications. This morning, he has no abdominal pain. He is using incentive spirometer. He is hemodynamically stable. He is on IV heparin as agreed on with the general surgeon and the patient is not having any major respiratory difficulties. He is on 2 L of oxygen by nasal cannula. He has no passed any flatus yet. On his blood work, the patient's hemoglobin is at 8.4 with a white cell count of 7.3 and a platelet count of 394. Coagulation profile is being monitored. BUN is at 2 with a creatinine of 0.8 and a sodium level of 131. No other active issues for now. 11/26 2021, the patient is postop day #2 following a robotic-assisted laparoscopic right hemicolectomy. Doing extremely well.. The bowel movements yesterday and his surgical wound site is dry clean and intact. He remains on room air oxygen. He is using incentive spirometer. He has no respiratory difficulties and the patient is on room air oxygen. On today's evaluation, he remains on IV heparin. Hemoglobin stable at 8.2. The white cell count is at 7.4. Electrolytes show a sodium level of 132, BUN of 2 with a creatinine of 0.8. No other significant events otherwise for now. He is ambulating. 11/27/2021, the patient is doing extremely well. Postop day #3. Diet is been addressed and the patient WAS this morning. The patient is still on IV heparin. Proceed is subtherapeutic. I'm going to transition this patient to oral Eliquis. Patient completed the antibiotic course and the patient has a PICC line in the right upper extremity. The patient on room air oxygen. No respiratory difficulties. No costovertebral production. No nausea or vomiting. At the same time, the patient has a hemoglobin of 7.1 with a white cell count of 5.8. 11/28/2021, the patient is postop day #4. The patient has transition to regular diet. There is a concern of a drop in hemoglobin down to 6.8 and the repeat h emoglobin came back at 7.2. Based on that, no change in vision was given and the patient was kept on Eliquis. No bleeding complications. Surgical wound is dry clean and intact. No fever. No chills. Patient is ambulating. The white cell count of 5.8 hemoglobin of 7.2 and a platelet count of 539. Resident electrodes are all within normal limits. BUN is less than 2 with a creatinine of 0.7 and sodium level is at 132. On 11/29/2021 patient seen in follow-up on selective care unit, disease postoperative day #5 status post right hemicolectomy for a cecal mass, unresectable transverse colon adenoma, and history of perforated appendicitis with chronic appendicitis Patient had a recent acute bilateral pulmonary embolism status post EKOS. Currently breathing comfortably, he is on room air, patient has been transitioned to oral anticoagulation with Eliquis. No complaints of chest discomfort or worsening dyspnea. Patient is tolerating diet. No signs of bleeding. No fever or chills. No productive sputum. Objective - Vital Signs Vital signs: Vital Signs Temp 98.4 F 11/29/21 11:15 Pulse 89 11/29/21 11:45 Resp 17 11/29/21 11:45 BP 127/75 11/29/21 11:45 Pulse Ox 96 11/29/21 11:45 FiO2 21 11/23/21 16:04 Intake & Output 11/28/21 11/29/21 11/29/21 18:59 06:59 18:59 Output Total 0 Balance 0 Output: Stool 0 Other: Voiding Method Toilet Toilet Urinal Urinal # Bowel Movements 1 - Exam GENERAL EXAM: Alert, very pleasant, 71-year-old white male, on room air comfortable in no apparent distress. HEAD: Normocephalic/atraumatic. EYES: Normal reaction of pupils, equal size. Conjunctiva pink, sclera white. NOSE: Clear with pink turbinates. THROAT: No erythema or exudates. NECK: No masses, no JVD, no thyroid enlargement, no adenopathy. CHEST: No chest wall deformity. Symmetrical expansion. LUNGS: Equal air entry with no crackles, wheeze, rhonchi or dullness. CVS: Regular rate and rhythm, normal S1 and S2, no gallops, no murmurs, no rubs ABDOMEN: Soft, nontender. No hepatosplenomegaly, normal bowel sounds, no guarding or rigidity. Abdominal incision is clean dry and intact EXTREMITIES: No clubbing, no edema, no cyanosis, 2+ pulses and upper and lower extremities. MUSCULOSKELETAL: Muscle strength and tone normal. SPINE: No scoliosis or deformity SKIN: No rashes CENTRAL NERVOUS SYSTEM: Alert and oriented -3. No focal deficits, tone is normal in all 4 extremities. PSYCHIATRIC: Alert and oriented -3. Appropriate affect. Intact judgment and insight. - Labs CBC & Chem 7: 11/29/21 06:20 11/29/21 06:20 Labs: Abnormal Lab Results - Last 24 Hours (Table) 11/28/21 11/28/21 11/29/21 Range/Units 17:59 20:45 06:20 RBC 2.87 L 2.94 L (4.30-5.90) m/uL Hgb 7.4 L 7.1 L (13.0-17.5) gm/dL Hct 23.0 L 23.8 L (39.0-53.0) % MCH 24.3 L (25.0-35.0) pg MCHC 30.1 L (31.0-37.0) g/dL RDW 17.1 H 18.0 H (11.5-15.5) % Plt Count 524 H 575 H (150-450) k/uL Sodium (137-145) mmol/L BUN (9-20) mg/dL POC Glucose (mg/dL) 112 H (70-110) mg/dL 11/29/21 Range/Units 06:20 RBC (4.30-5.90) m/uL Hgb (13.0-17.5) gm/dL Hct (39.0-53.0) % MCH (25.0-35.0) pg MCHC (31.0-37.0) g/dL RDW (11.5-15.5) % Plt Count (150-450) k/uL Sodium 131 L (137-145) mmol/L BUN 3 L (9-20) mg/dL POC Glucose (mg/dL) (70-110) mg/dL Assessment and Plan Plan: Assessment: #1. Acute pulmonary embolism, with right heart strain, and acute pulmonary hypertension status post EKOS. Patient remains on room air, echocardiogram showed moderate to severe degree of pulmonary hypertension related to acute pulmonary embolism. Patient is currently on [place] #2. Cecal mass status post right hemicolectomy, postoperative day #5. #3. Recent episode of ruptured appendix treated as an outpatient with IV Zosyn #4. History of hypertension #5. 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 A remote history of left upper extremity DVT #7. Vague history of irregular heartbeat #8. Chronic anemia with a drop in hemoglobin down to 7.2 Plan: No worsening dyspnea, patient is maintaining stable O2 saturations on room air Tolerating diet Continue oral anticoagulation Increase activity as tolerated Encourage deep breathing and coughing Patient is being discharged home today Outpatient follow-up with Dr. Plummer in the office in 7-10 days I have personally seen and examined the patient, performed the documentation and the assessment and plan as written. Number of minutes spent on the visit: [10] Time with Patient: Less than 30
== END 2021-11-29 12:57 | disposition home or self-care (01) | DRG 981 ==
LOC: EC 14:04 → 3SCARD 18:28 → 2SICU 11-18 13:17 → 3SCARD 11-19 14:10
PROVIDERS: ADMIT Internal Medicine; ATTEND Internal Medicine
PROC: 3E04317 Introduction of Other Thrombolytic into Central Vein, Percutaneous Approach (ICD-10-PCS; 2021-11-18)
PROC: 02HR33Z Insertion of Infusion Device into Left Pulmonary Artery, Percutaneous Approach (ICD-10-PCS; 2021-11-18)
PROC: 0DB68ZX Excision of Stomach, Via Natural or Artificial Opening Endoscopic, Diagnostic (ICD-10-PCS; 2021-11-21)
PROC: 0DBH8ZX Excision of Cecum, Via Natural or Artificial Opening Endoscopic, Diagnostic (ICD-10-PCS; 2021-11-21)
PROC: 0DBL8ZX Excision of Transverse Colon, Via Natural or Artificial Opening Endoscopic, Diagnostic (ICD-10-PCS; 2021-11-21)
PROC: 0DBK8ZX Excision of Ascending Colon, Via Natural or Artificial Opening Endoscopic, Diagnostic (ICD-10-PCS; 2021-11-21)
PROC: 0DNW4ZZ Release Peritoneum, Percutaneous Endoscopic Approach (ICD-10-PCS; 2021-11-24)
PROC: 8E0W4CZ Robotic Assisted Procedure of Trunk Region, Percutaneous Endoscopic Approach (ICD-10-PCS; 2021-11-24)
PROC: 0W9F4ZZ Drainage of Abdominal Wall, Percutaneous Endoscopic Approach (ICD-10-PCS; 2021-11-24)
PROC: 0DTF4ZZ Resection of Right Large Intestine, Percutaneous Endoscopic Approach (ICD-10-PCS; principal; 2021-11-24 11:30)
DX: I26.09 Other pulmonary embolism with acute cor pulmonale (principal); E88.3 Tumor lysis syndrome; D62 Acute posthemorrhagic anemia; E87.1 Hypo-osmolality and hyponatremia; K22.10 Ulcer of esophagus without bleeding; D12.2 Benign neoplasm of ascending colon; D12.3 Benign neoplasm of transverse colon; I10 Essential (primary) hypertension; K21.00 Gastro-esophageal reflux disease with esophagitis, without bleeding; K66.0 Peritoneal adhesions (postprocedural) (postinfection); E53.8 Deficiency of other specified B group vitamins; I08.1 Rheumatic disorders of both mitral and tricuspid valves; I27.20 Pulmonary hypertension, unspecified; K44.9 Diaphragmatic hernia without obstruction or gangrene; K40.90 Unilateral inguinal hernia, without obstruction or gangrene, not specified as recurrent; K64.4 Residual hemorrhoidal skin tags; K64.8 Other hemorrhoids; R00.0 Tachycardia, unspecified; I95.1 Orthostatic hypotension; D50.9 Iron deficiency anemia, unspecified; K29.50 Unspecified chronic gastritis without bleeding; D64.9 Anemia, unspecified; R77.8 Other specified abnormalities of plasma proteins; K76.0 Fatty (change of) liver, not elsewhere classified; R09.02 Hypoxemia; Z79.82 Long term (current) use of aspirin; Z79.899 Other long term (current) drug therapy; Z85.818 Personal history of malignant neoplasm of other sites of lip, oral cavity, and pharynx; Z85.89 Personal history of malignant neoplasm of other organs and systems; Z86.711 Personal history of pulmonary embolism; Z86.718 Personal history of other venous thrombosis and embolism; Z87.19 Personal history of other diseases of the digestive system; Z92.21 Personal history of antineoplastic chemotherapy; Z92.3 Personal history of irradiation; Z98.42 Cataract extraction status, left eye; Z98.41 Cataract extraction status, right eye; Z86.79 Personal history of other diseases of the circulatory system; Z80.9 Family history of malignant neoplasm, unspecified
CPT/HCPCS: 36415; 37211; 43239; 44404; 45385; 71046; 71275; 74018; 76937; 80048; 80053; 80061; 81001; 82105; 82272; 82306; 82378; 82550; 82607; 82728; 82746; 83540; 83550; 83605; 83690; 83735; 83921; 84100; 84484; 85025; 85027; 85379; 85384; 85610; 85730; 86850; 86900; 86901; 87040; 87070; 87205; 88305; 88309; 88341; 88342; 93005; 93308; 93970; 94760; 96361; 96365; 96366; 99285

== ENCOUNTER → 2021-11-17 | Outpatient (CLI) | payer MEDICARE ==
--- NOTE | 2021-11-17 19:03 | CT ---
EXAMINATION TYPE: CT abdomen pelvis wo/w con DATE OF EXAM: 11/17/2021 COMPARISON: CT dated 10/24/2021 HISTORY: Appendicitis w/ perforation and loc peritonitis CT DLP: 2621 mGycm Automated exposure control for dose reduction was used. TECHNIQUE: Helical acquisition of images was performed from the lung bases through the pelvis. CONTRAST: Performed with Oral Contrast and without and with IV Contrast, patient injected with 100 mL of Isovue 300. FINDINGS: LUNG BASES: Coronary arterial calcifications. LIVER/GB: Tiny segment 4 hepatic cyst. No other definite hepatic focal lesion. Cholelithiasis without evidence of acute cholecystitis. PANCREAS: Slightly atrophic. SPLEEN: No significant abnormality is seen. ADRENALS: No significant abnormality is seen. KIDNEYS: A few right renal cysts, otherwise unremarkable kidneys. FREE AIR: No free air is visualized RETROPERITONEAL ADENOPATHY: None visualized REPRODUCTIVE ORGANS: Enlarged prostate. Unremarkable seminal vesicles. URINARY BLADDER: Sizable left fat-containing inguinal hernia, also containing portion of the urinary bladder. This may cause urinary symptoms, please correlate clinically. PELVIC ADENOPATHY: No pathologically enlarged pelvic lymph nodes. OSSEOUS STRUCTURES: Degenerative changes of the lower thoracic and lumbar spine. No aggressive bone lesion. BOWEL: Almost interval complete resolution of the previously seen acute inflammatory changes in the abdomen and pelvis with no sizable free fluid, fat stranding or peritoneal reflection thickening. Per sistent highly suspicious necrotic enhancing mass at the inferior aspect of the cecum and involving t he base of the appendix measuring 7.7 x 7.9 cm, concerning for a cancer of the colon/ileocecal juncti on. Dilated distal portion of the appendix measuring 2.3 cm without significant surrounding inflammat ory changes, likely due to obstructed bases. The lesion is apparently inseparable from the adjacent p eritoneal reflection. Unremarkable stomach, duodenum and small bowel with no evidence of bowel obstru ction. The terminal ileum and the ileocecal junction are splayed over the mass. OTHER: Scattered arterial atherosclerotic calcification. Multiple prominent millimetric ileocolic lym ph nodes, possibly representing locoregional metastatic lymph nodes. Newly seen multiple mesenteric n odules/lymph nodes measuring up to 2 cm in short axis diameter, possibly metastatic. IMPRESSION: Interval resolution of the previously seen extensive inflammatory changes in the abdomen and the pelv is as described above. Persistent highly suspicious necrotic mass centered over the cecum/ileocecal j unction and obstructing the appendicular base as detailed above. Surrounding locoregional and mesente manjinder lymph nodes, possibly metastatic. Chronic necrotic abscess is much less likely yet still in the d ifferential. No convincing evidence of perforated appendix. Recommend surgical consultation and tissu e diagnosis. PET scan assessment can be also considered. Other interval changes and incidental findin gs as described above. Findings were discussed with referring physician at 4:10 PM on 11/17/2021.
== END | disposition home or self-care (01) ==
LOC: RADCTMAIN 11:18
PROVIDERS: ATTEND Internal Medicine Infectious Disease
DX: K76.89 Other specified diseases of liver (principal); N28.1 Cyst of kidney, acquired
CPT/HCPCS: 74178; 82565; 84520

== ENCOUNTER 2022-02-24 09:36 | Day surgery (SDC) | payer MEDICARE ==
[~2022-02-24 09:36] MED LIST: DEXAMETHASONE SOD PHOSPHATE 4 MG/ML 1 ML VIAL IV ONE; HEPARIN SODIUM,PORCINE/PF 5,000 UNIT/0.5 ML SYRINGE SQ PRN; HYDROmorphone 0.5 MG/0.5 ML SYRINGE IVP PRN; LACTATED RINGERS 1,000 ML IV SCH; MIDAZOLAM 2 MG/2 ML VIAL IV PRN; ONDANSETRON 4 MG/2 ML VIAL IVP ONE
[2022-02-24] MEDS ORDERED: MELOXICAM 7.5 MG TAB PO PRN (09:43)
[2022-02-24] MEDS ORDERED: GABAPENTIN 300 MG CAP PO STA (09:43)
[2022-02-24] MEDS ORDERED: TAMSULOSIN 0.4 MG CAP.ER.24H PO STA (09:43)
[2022-02-24] MEDS ORDERED: ACETAMINOPHEN TAB 500 MG TAB PO STA (09:43)
--- NOTE | 2022-02-24 09:43 | P.GSHP ---
History of Present Illness H&P Date: 02/24/22 CHIEF COMPLAINT: Inguinal hernia, left HISTORY OF PRESENT ILLNESS: The patient is a 71-year-old male who presents with a history of swelling and pain along the left groin. He's noted increased swelling including pain of the area. Now he presents for repair of his inguinal hernia. He has recent history of pulmonary embolism in the past 12 months. PAST MEDICAL HISTORY: Please see list. PAST SURGICAL HISTORY: Please see list. MEDICATIONS: Please see list. ALLERGIES: Please see list. SOCIAL HISTORY: No illicit drug use FAMILY HISTORY: No reports of Crohn disease or ulcerative colitis. REVIEW OF ORGAN SYSTEMS: CONSTITUTIONAL: No reports of fevers or chills. No reports of weight loss despite prior attempts. GI: Denies any blood in stools or constipation. PHYSICAL EXAM: VITAL SIGNS: Stable GENERAL: Well-developed pleasant male in no acute distress. HEENT: No scleral icterus. Extraocular movements grossly intact. Moist buccal mucosa. NECK: Supple without lymphadenopathy. CHEST: Unlabored respirations. Equal bilateral excursions. CARDIOVASCULAR: Regular rate and rhythm. Distal 2+ pulses. ABDOMEN: Soft, nondistended. No peritoneal signs. Left groin hernia. MUSCULOSKELETAL: No clubbing, cyanosis, or edema. ASSESSMENT: 1. Inguinal hernia, left 2. Pre-existing history of pulmonary embolism PLAN: 1. Recommend proceeding with a robotic inguinal repair with mesh with possible bilateral approach. 2. Benefits and risks of surgical intervention was discussed including possibility of open technique. 3. DVT prophylaxis. 4. Antibiotic prophylaxis. 5. Patient's elevated risk due to recent pulmonary embolism this year. Past Medical History Past Medical History: Cancer, Hypertension Additional Past Medical History / Comment(s): squamous cell carcinoma-in remission, tachycardic, recent ruptured appendix History of Any Multi-Drug Resistant Organisms: None Reported Additional Past Surgical History / Comment(s): dental, bilateral cataract removal, metaport Past Anesthesia/Blood Transfusion Reactions: No Reported Reaction Past Psychological History: No Psychological Hx Reported Smoking Status: Never smoker Past Alcohol Use History: Occasional Past Drug Use History: None Reported - Past Family History Father Family Medical History: Cancer Medications and Allergies Home Medications Medication Instructions Recorded Confirmed Type Calcium Carbonate [Tums] 500 mg PO DAILY 10/19/21 11/17/21 History Cholecalciferol (Vitamin D3) 125 mcg PO DAILY 10/19/21 11/17/21 History [Vitamin D3 (125 MCG = 5,000 IU)] Magnesium 250 mg PO DAILY 10/19/21 11/17/21 History Potassium Gluconate [Potassium 99 mg PO DAILY 10/19/21 11/17/21 History Gluconate ER] Vitamin E (Dl,Tocopheryl Acet) 400 unit PO DAILY 10/19/21 11/17/21 History [Vitamin E (400 Iu = 180 mg)] amLODIPine BES/OLMESARTAN MED 1 tab PO DAILY 10/19/21 11/18/21 History [amLODIPine BES/OLMESARTAN MED 5-20 mg] atenoloL [Tenormin] 25 mg PO DAILY 10/19/21 11/18/21 History Procto-Med Hc 2.5% Cream 1 applic RECTAL TID PRN 11/17/21 11/17/21 History Apixaban [Eliquis Starter Pack 5 - 10 mg PO DIRECTED 30 Days 11/21/21 Rx (for VTE)] #1 each Folic Acid 1 mg PO DAILY #30 tablet 11/29/21 Rx Pantoprazole [Protonix] 40 mg PO AC-BRKFST #30 tab 11/29/21 Rx Tamsulosin [Flomax] 0.4 mg PO PC-SUPPER #30 cap 11/29/21 Rx Allergies Allergy/AdvReac Type Severity Reaction Status Date / Time No Known Allergies Allergy Verified 11/24/21 10:58
[2022-02-24 10:50] VITALS: BP 127/83; PULSE 86; RESP 16; TEMP 98.1
[2022-02-24] MEDS ORDERED: LIDOCAINE 1% (10MG/ML) FOR IV START INTRADERMA ONE (10:53)
[2022-02-24 11:26] LABS: Prothrombin Time 10.7 sec (9.0-12.0)
[2022-02-24 11:29] LABS: Basophils % (A) 1 %; Eosinophils # (A) 0.1 k/uL (0-0.7); Eosinophils % (A) 1 %; HCT 40.4 % (39.0-53.0); HGB 12.5 gm/dL (13.0-17.5); Hypochromasia Slight; Lymphocytes # (A) 1.4 k/uL (1.0-4.8); Lymphocytes % (A) 22 %; MCH 24.3 pg (25.0-35.0); MCHC 30.9 g/dL (31.0-37.0); MCV 78.7 fL (80.0-100.0); Mean Platelet Volume 9.3; Microcytosis Slight; Monocytes # (A) 0.4 k/uL (0-1.0); Monocytes % (A) 6 %; Neutrophils # (A) 4.4 k/uL (1.3-7.7); Neutrophils % (A) 69 %; Platelet Count 243 k/uL (150-450); RBC 5.14 m/uL (4.30-5.90); RDW 15.5 % (11.5-15.5); WBC 6.4 k/uL (3.8-10.6)
[2022-02-24 11:30] LABS: ALT 25 U/L (4-49); AST 32 U/L (17-59); African American GFR (CKD) >90 (>60 ml/min/1.73 sqM); Albumin 4.5 g/dL (3.5-5.0); Alkaline Phosphatase 71 U/L (38-126); Anion Gap 11 mmol/L; Blood Urea Nitrogen 16 mg/dL (9-20); Calcium 9.2 mg/dL (8.4-10.2); Carbon Dioxide 25 mmol/L (22-30); Chloride 100 mmol/L (98-107); Glucose 100 mg/dL (74-99); Non-African American GFR(CKD) 85 (>60 ml/min/1.73 sqM); Potassium 4.4 mmol/L (3.5-5.1); Sodium 136 mmol/L (137-145); Total Bilirubin 0.8 mg/dL (0.2-1.3); Total Protein 6.9 g/dL (6.3-8.2)
--- NOTE | 2022-02-24 11:55 | P.PN ---
Progress Note - Text Progress Note Date: 02/24/22 Case canceled due to active possible fibrosis we'll elevated d-dimer. Patient had recent history of bilateral pulmonary embolism. Case canceled with need for follow up with senior office assistant and appropriate post thrombectomy treatment.
== END 2022-02-24 12:09 | disposition home or self-care (01) ==
LOC: OR 09:36
PROVIDERS: ATTEND Surgery Plastic and Reconstructive Surgery
DX: K40.90 Unilateral inguinal hernia, without obstruction or gangrene, not specified as recurrent (principal)
CPT/HCPCS: 80053; 83880; 85025; 85379; 85610

== ENCOUNTER 2022-06-13 10:43 | Emergency (ER) | payer MEDICARE ==
[2022-06-13 10:53] VITALS: TEMP 98
[2022-06-13 11:23] VITALS: RESP 16
--- NOTE | 2022-06-13 11:23 | ED ---
General Adult HPI - General Chief complaint: Extremity Injury, Lower Stated complaint: possible blood clot Time Seen by Provider: 06/13/22 10:50 Source: patient, RN notes reviewed, old records reviewed Mode of arrival: ambulatory Limitations: no limitations - History of Present Illness Initial comments: This is a 72-year-old male who presents emergency Department with a past medical history significant for colon cancer which was diagnosed last October and no radiation or chemo were indicated at that time. Patient also has history of DVT. Patient was put on Xarelto for 6 months and then stopped in April. Patient comes in today because his right leg is extremely swollen and is very tender. Patient denies any shortness of breath or difficulty breathing. Patient denies any chest pain. Patient states in the past he did have pulmonary embolisms. Patient denies any recent fever chills or cough. - Related Data Home Medications Medication Instructions Recorded Confirmed Calcium Carbonate [Tums] 500 mg PO HS 10/19/21 02/24/22 Cholecalciferol (Vitamin D3) 125 mcg PO DAILY 10/19/21 02/24/22 [Vitamin D3 (125 MCG = 5,000 IU)] Magnesium 250 mg PO DAILY 10/19/21 02/24/22 Potassium Gluconate [Potassium 99 mg PO DAILY 10/19/21 02/24/22 Gluconate ER] Vitamin E (Dl,Tocopheryl Acet) 400 unit PO DAILY 10/19/21 02/24/22 [Vitamin E (400 Iu = 180 mg)] amLODIPine BES/OLMESARTAN MED 1 tab PO DAILY 10/19/21 02/24/22 [amLODIPine BES/OLMESARTAN MED 5-20 mg] atenoloL [Tenormin] 25 mg PO DAILY 10/19/21 02/24/22 Procto-Med Hc 2.5% Cream 1 applic RECTAL TID PRN 11/17/21 02/24/22 Ferrous Sulfate [Iron (65 MG 325 mg PO DAILY 02/24/22 02/24/22 Elemental)] Multivit,Calc,Min/FA/K1/Lycop 1 each PO 02/24/22 02/24/22 [One-A-Day Men's Complete Tab] Previous Rx's Medication Instructions Recorded Folic Acid 1 mg PO DAILY #30 tablet 11/29/21 Rivaroxaban [Xarelto Starter Pack] 0 mg PO DIRECTED 30 Days #1 06/13/22 packet Allergies Allergy/AdvReac Type Severity Reaction Status Date / Time No Known Allergies Allergy Verified 06/13/22 10:53 Review of Systems ROS Statement: Those systems with pertinent positive or pertinent negative responses have been documented in the HPI. ROS Other: All systems not noted in ROS Statement are negative. Past Medical History Past Medical History: Cancer, Hypertension, Pulmonary Embolus (PE) Additional Past Medical History / Comment(s): squamous cell carcinoma-in remission, tachycardic, recent ruptured appendix History of Any Multi-Drug Resistant Organisms: None Reported Additional Past Surgical History / Comment(s): dental, bilateral cataract removal, metaport Past Anesthesia/Blood Transfusion Reactions: No Reported Reaction Past Psychological History: No Psychological Hx Reported Smoking Status: Never smoker Past Alcohol Use History: Occasional Past Drug Use History: None Reported - Past Family History Father Family Medical History: Cancer General Exam - General Exam Comments Initial Comments: GENERAL: Patient is well-developed and well-nourished. Patient is nontoxic and well- hydrated and is in mild distress. ENT: Neck is soft and supple. No significant lymphadenopathy is noted. Oropharynx is clear. Moist mucous membranes. Neck has full range of motion without eliciting any pain. EYES: The sclera were anicteric and conjunctiva were pink and moist. Extraocular movements were intact and pupils were equal round and reactive to light. Eyelids were unremarkable. PULMONARY: Unlabored respirations. Good breath sounds bilaterally. No audible rales rhonchi or wheezing was noted. CARDIOVASCULAR: There is a regular rate and rhythm without any murmurs gallops or rubs. ABDOMEN: Soft and nontender with normal bowel sounds. SKIN: Skin is clear with no lesions or rashes and otherwise unremarkable. NEUROLOGIC: Patient is alert and oriented x3. Cranial nerves II through XII are grossly intact. Motor and sensory are also intact. Normal speech, volume and content. Symmetrical smile. MUSCULOSKELETAL: Normal extremities with adequate strength and full range of motion. Right leg is very swollen and Is extremely tender to palpation LYMPHATICS: No significant lymphadenopathy is noted PSYCHIATRIC: Limitations: no limitations Course Vital Signs 06/13/22 06/13/22 10:48 11:21 Temperature 98 F 98 F Pulse Rate 102 H 60 Respiratory 18 16 Rate Blood Pressure 135/77 137/92 O2 Sat by Pulse 95 98 Oximetry Medical Decision Making - Medical Decision Making Was pt. sent in by a medical professional or institution (RONNA Pruitt, MELANGEUR OPERATOR, urgent care, hospital, or fdc...) When possible be specific @ -No Did you speak to anyone other than the patient for history (EMS, parent, family, police, friend...)? What history was obtained from this source @ -No Did you review nursing and triage notes (agree or disagree)? Why? @ -I reviewed and agree with nursing and triage notes Were old charts reviewed (outside hosp., previous admission, EMS record, old EKG, old radiological studies, urgent care reports/EKG's, fdc records)? Report findings @ -No old charts were reviewed Differential Diagnosis (chest pain, altered mental status, abdominal pain women, abdominal pain men, vaginal bleeding, weakness, fever, dyspnea, syncope, headache, dizziness, GI bleed, back pain, seizure, CVA, palpatations, mental health)? @ -DVT, pedal edema, muscle strain, infection, this is not a complete list EKG interpreted by me (3pts min.). @ -As above X-rays interpreted by me (1pt min.). @ -None done CT interpreted by me (1pt min.). @ -None done U/S interpreted by me (1pt. min.). @ -Ultrasound showed no DVT from the common femoral to the distal femoral however beyond that was unable to see any of the brain secondary swelling so a DVT could not be ruled out What testing was considered but not performed or refused? (CT, X-rays, U/S, labs)? Why? @ -None What meds were considered but not given or refused? Why? @ -None Did you discuss the management of the patient with other professionals (professionals i.e. RONNA Pruitt, MELANGEUR OPERATOR, lab, RT, psych nurse, social contact worker, nuclear medicine officer, teacher, customer service officer, case management rn)? Give summary @ -No Was smoking cessation discussed for >3mins.? @ -No Was critical care preformed (if so, how long)? @ -No Were there social determinants of health that impacted care today? How? (Homelessness, low income, unemployed, alcoholism, drug addiction, transportation, low edu. Level, literacy, decrease access to med. care, fci, rehab)? @ -No Was there de-escalation of care discussed even if they declined (Discuss DNR or withdrawal of care, Hospice)? DNR status @ -No What co-morbidities impacted this encounter? (DM, HTN, Smoking, COPD, CAD, Cancer, CVA, ARF, Chemo, Hep., AIDS, mental health diagnosis, sleep apnea, morbid obesity)? @ -None Was patient admitted / discharged? Hospital course, mention meds given and route, prescriptions, significant lab abnormalities, going to OR and other pertinent info. @ -Patient had an ultrasound was inconclusive from the popliteal vein down but because the patient's history of DVT and recently being removed from Xarelto Cristine significant swelling of the leg I am going to assume that the patient has a DVT is that the patient back on Xarelto Undiagnosed new problem with uncertain prognosis? @ -No Drug Therapy requiring intensive monitoring for toxicity (Heparin, Nitro, Insulin, Cardizem)? @ -No Were any procedures done? @ -No Diagnosis/symptom? @ -DVT Acute, or Chronic, or Acute on Chronic? @ -Acute Uncomplicated (without systemic symptoms) or Complicated (systemic symptoms)? @ -Uncomplicated Side effects of treatment? @ -No Exacerbation, Progression, or Severe Exacerbation? @ -No Poses a threat to life or bodily function? How? (Chest pain, [place], [place], pneumonia, PE, COPD, DKA, ARF, appy, cholecystitis, CVA, Diverticulitis, Homicidal, Suicidal, threat to staff... and all critical care pts) @ -No Disposition Clinical Impression: DVT (deep venous thrombosis) Disposition: HOME SELF-CARE Condition: Good Instructions (If sedation given, give patient instructions): Deep Vein Thrombosis (ED) Additional Instructions: Patient is to return to emergency department with any new or worsening symptoms or return if his any chest pain or difficulty breathing Prescriptions: Rivaroxaban [Xarelto Starter Pack] 0 mg PO DIRECTED 30 Days #1 packet Is patient prescribed a controlled substance at d/c from ED?: No Referrals: Vj Knowles MD [Primary Care Provider] - 1-2 days Time of Disposition: 12:44
--- NOTE | 2022-06-13 12:18 | US ---
EXAMINATION TYPE: US venous doppler duplex LE RT DATE OF EXAM: 06/13/2022 12:07 PM COMPARISON: US 2021 CLINICAL HISTORY: History of blood clots, swollen right leg. Swelling x a couple days per patient. Hx of PE*. SIDE PERFORMED: Right TECHNIQUE: The lower extremity deep venous system is examined utilizing real time linear array sonog ernestina with graded compression, doppler sonography and color-flow sonography. VESSELS IMAGED: Common Femoral Vein Deep Femoral Vein Greater Saphenous Vein * Femoral Vein (* superficial vessels) Right Leg: Color flow seen from CFV down through distal femoral vein. Unable to visualize right popli teal vein or right calf veins. *Complex, heterogeneous area seen posterior right knee extending down through the medial mid calf: 14.7 x 8.5 x 3.4 cm. Unable to visualize calf veins due to swelling. IMPRESSION: 1. No deep venous thrombosis of the right lower extremity extending from the common femoral vein thr ough the distal femoral vein. Unable to visualize the right popliteal or right calf veins due to swel ling. Possibility of deep venous thrombosis is not excluded. 2. Complex heterogenous area seen posterior to the right knee in the popliteal fossa. This is favore d to represent a complex popliteal fossa cyst/hematoma.
[2022-06-13 13:24] VITALS: BP 140/80; PULSE 66
== END 2022-06-13 13:24 | disposition home or self-care (01) ==
LOC: EC 10:43
DX: I82.401 Acute embolism and thrombosis of unspecified deep veins of right lower extremity (principal); I10 Essential (primary) hypertension; Z79.899 Other long term (current) drug therapy
CPT/HCPCS: 99283

== ENCOUNTER 2023-01-03 07:07 | Day surgery (SDC) | payer MEDICARE ==
[2023-01-03] MEDS ORDERED: LIDOCAINE 1% (10MG/ML) FOR IV START INTRADERMA PRN (07:10)
[2023-01-03] MEDS ORDERED: LACTATED RINGERS 1,000 ML IV SCH (07:10)
--- NOTE | 2023-01-03 07:35 | P.GSHP ---
History of Present Illness H&P Date: 01/03/23 CHIEF COMPLAINT: Colon screen HISTORY OF PRESENT ILLNESS: The patient is a 72-year-old male who presents for colon screen. Lower endoscopy was offered for further evaluation and management. PAST MEDICAL HISTORY: Please see list. PAST SURGICAL HISTORY: Please see list. MEDICATIONS: Please see list. ALLERGIES: Please see list. SOCIAL HISTORY: No illicit drug use FAMILY HISTORY: No reports of Crohn disease or ulcerative colitis. REVIEW OF ORGAN SYSTEMS: CONSTITUTIONAL: No reports of fevers or chills. PHYSICAL EXAM: VITAL SIGNS: Stable GENERAL: Well-developed pleasant in no acute distress. HEENT: No scleral icterus. Extraocular movements grossly intact. Moist buccal mucosa. NECK: Supple without lymphadenopathy. CHEST: Unlabored respirations. Equal bilateral excursions. CARDIOVASCULAR: Regular rate and rhythm. Distal 2+ pulses. ABDOMEN: Soft, nontender, nondistended. MUSCULOSKELETAL: No clubbing, cyanosis, or edema. ASSESSMENT: 1. Colon screen. PLAN: 1. 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 Harris monitoring pt for hematoma of right calf History of Any Multi-Drug Resistant Organisms: None Reported Past Surgical History: Appendectomy, Bowel Resection Additional Past Surgical History / Comment(s): dental, bilateral cataract removal, PICC line Past Anesthesia/Blood Transfusion Reactions: No Reported Reaction Smoking Status: Never smoker - Past Family History Father Family Medical History: Cancer Medications and Allergies Home Medications Medication Instructions Recorded Confirmed Type Calcium Carbonate [Tums] 1,000 mg PO HS 10/19/21 01/03/23 History Magnesium 62.7 mg PO DAILY 10/19/21 01/03/23 History Potassium Gluconate [Potassium 99 mg PO DAILY 10/19/21 01/03/23 History Gluconate ER] atenoloL [Tenormin] 25 mg PO DAILY 10/19/21 01/03/23 History Ibuprofen 800 mg PO Q8H PRN 12/27/22 01/03/23 History Magnesium Carb,Citrate,Oxide 300 mg PO DAILY 12/27/22 01/03/23 History [Magnesium Complex] amLODIPine BES/OLMESARTAN MED 1 each PO DAILY 12/27/22 01/03/23 History [Erick 10-40 mg Tablet] Allergies Allergy/AdvReac Type Severity Reaction Status Date / Time No Known Allergies Allergy Verified 01/03/23 07:33
[2023-01-03 07:44] VITALS: TEMP 97.2
[2023-01-03] MEDS ORDERED: PROPOFOL 10 MG/ML 20 ML VIAL IV ONE (08:02)
--- NOTE | 2023-01-03 08:45 | P.PCN ---
Date of Procedure: 01/03/23 Description of Procedure: PREOPERATIVE DIAGNOSIS: Personal history colon cancer Right colectomy, 2021 Colonoscopy surveillance POSTOPERATIVE DIAGNOSIS: Tubular adenoma ascending colon Tubular adenoma transverse colon Tubular adenoma sigmoid colon OPERATION: Colonoscopy to the ileocolic anastomosis Colonoscopy with hot snare polypectomy SURGEON: Dayami Pak MD. ANESTHESIA: MAC. INDICATIONS: The patient is an 72-year-old male with recent right colectomy 2021 for large cecal cancer over 15 cm. He presents for surveillance. Benefits and risks were described and informed consent was obtained. DESCRIPTION OF PROCEDURE: The patient had undergone Sutab prep. The patient had been brought into the operating room and laid in the left lateral decubitus position. After adequate intravenous sedation, the rectum was examined with 2% lidocaine jelly. The prostate was unremarkable. External hemorrhoids were encountered. The rectal tone was within normal limits. No lesions were palpated in the rectal vault. An Olympus colonoscope was advanced until the cecum, ileocecal valve and appendiceal orifice were clearly viewed. The prep was fair. No sigmoid diverticulosis was encountered. Colonic polyps were found and removed. No evidence of focal colitis was found. Retroflexion of the scope demonstrated grade 2 internal hemorrhoids without active bleeding or inflammation. The colon was desufflated. The patient had tolerated the procedure well. Withdrawal time was over 6 minutes. FINDINGS: Aronchick preparation quality scale 2 (1-5) Internal hemorrhoids, grade 2 External hemorrhoids, grade 2 No arteriovenous malformations. No large Sigmoid diverticulosis Removal of 2 polyps: - Snare polypectomy transverse colon 2, 5 to 8 mm tubulovillous adenoma . - Snare polypectomy of descending colon 2, 8 4 to 5 mm flat villous adenoma. - Snare polypectomy sigmoid colon, 15 mm tubular adenoma. No focal colitis. RECOMMENDATIONS: Given severity of tubular adenomas, recommend repeat colonoscopy 1 year, 2023 Plan - Discharge Summary Discharge Rx Participant: No New Discharge Prescriptions: Continue Calcium Carbonate [Tums] 1,000 mg PO HS atenoloL [Tenormin] 25 mg PO DAILY Magnesium Carb,Citrate,Oxide [Magnesium Complex] 300 mg PO DAILY Potassium Gluconate [Potassium Gluconate ER] 99 mg PO DAILY Magnesium 62.7 mg PO DAILY Ibuprofen 800 mg PO Q8H PRN PRN Reason: Pain amLODIPine BES/OLMESARTAN MED [Erick 10-40 mg Tablet] 1 each PO DAILY Discharge Medication List Calcium Carbonate [Tums] 1,000 mg PO HS 10/19/21 [History] Magnesium 62.7 mg PO DAILY 10/19/21 [History] Potassium Gluconate [Potassium Gluconate ER] 99 mg PO DAILY 10/19/21 [History] atenoloL [Tenormin] 25 mg PO DAILY 10/19/21 [History] Ibuprofen 800 mg PO Q8H PRN 12/27/22 [History] Magnesium Carb,Citrate,Oxide [Magnesium Complex] 300 mg PO DAILY 12/27/22 [History] amLODIPine BES/OLMESARTAN MED [Erick 10-40 mg Tablet] 1 each PO DAILY 12/27/22 [History] Follow up Appointment(s)/Referral(s): Dayami Pak MD [STAFF PHYSICIAN] - 02/06/23 9:00 am Patient Instructions/Handouts: Colorectal Polyps (GEN) Activity/Diet/Wound Care/Special Instructions: Repeat colonoscopy 1 year2022 Discharge Disposition: HOME SELF-CARE
[2023-01-03 09:01] VITALS: BP 115/76; PULSE 72; RESP 20
== END 2023-01-03 09:36 | disposition home or self-care (01) ==
LOC: ORWHC2ENDO 07:07
PROVIDERS: ATTEND Surgery Plastic and Reconstructive Surgery
DX: Z12.11 Encounter for screening for malignant neoplasm of colon (principal); D12.2 Benign neoplasm of ascending colon; D12.3 Benign neoplasm of transverse colon; D12.5 Benign neoplasm of sigmoid colon; K64.1 Second degree hemorrhoids; I10 Essential (primary) hypertension; Z90.49 Acquired absence of other specified parts of digestive tract; Z85.038 Personal history of other malignant neoplasm of large intestine; Z79.899 Other long term (current) drug therapy
CPT/HCPCS: 88305; 45385; J2704

== ENCOUNTER → 2023-01-18 | Day surgery (SDC) | payer MEDICARE ==
[2023-01-11 15:05] VITALS: BMI 28.5
[~2023-01-18] MED LIST changes: +ACETAMINOPHEN TAB 500 MG TAB PO PRN; -DEXAMETHASONE SOD PHOSPHATE 4 MG/ML 1 ML VIAL IV ONE; -HYDROmorphone 0.5 MG/0.5 ML SYRINGE IVP PRN; -LACTATED RINGERS 1,000 ML IV SCH; +MELOXICAM 7.5 MG TAB PO PRN; -MIDAZOLAM 2 MG/2 ML VIAL IV PRN; -ONDANSETRON 4 MG/2 ML VIAL IVP ONE; +ONDANSETRON 4 MG/2 ML VIAL IVP PRN; +TAMSULOSIN 0.4 MG CAP.ER.24H PO STA
--- NOTE | 2023-01-18 10:17 | P.GSHP ---
History of Present Illness H&P Date: 01/18/23 CHIEF COMPLAINT: Inguinal hernia, left HISTORY OF PRESENT ILLNESS: The patient is a 72-year-old male who presents with a history of swelling and pain along the left groin. He has noted increased swelling including pain of the area. Now he presents for repair of his inguinal hernia. PAST MEDICAL HISTORY: Please see list. PAST SURGICAL HISTORY: Please see list. MEDICATIONS: Please see list. ALLERGIES: Please see list. SOCIAL HISTORY: No illicit drug use FAMILY HISTORY: No reports of Crohn disease or ulcerative colitis. REVIEW OF ORGAN SYSTEMS: CONSTITUTIONAL: No reports of fevers or chills. No reports of weight loss despite prior attempts. GI: Denies any blood in stools or constipation. PHYSICAL EXAM: VITAL SIGNS: Stable GENERAL: Well-developed pleasant in no acute distress. HEENT: No scleral icterus. Extraocular movements grossly intact. Moist buccal mucosa. NECK: Supple without lymphadenopathy. CHEST: Unlabored respirations. Equal bilateral excursions. CARDIOVASCULAR: Regular rate and rhythm. Distal 2+ pulses. ABDOMEN: Soft, nondistended. No peritoneal signs. Moderate tenderness left lower quadrant MUSCULOSKELETAL: No clubbing, cyanosis, or edema. ASSESSMENT: 1. Inguinal hernia, left initial and symptomatic. PLAN: 1. Recommend proceeding robotic inguinal repair with mesh with possible bilateral approach. 2. Benefits and risks of surgical intervention was discussed including possibility of open technique. 3. DVT prophylaxis. 4. Antibiotic prophylaxis. 5. Non narcotic pain management including abdominal wall block described 6. Blood sugar glucose described. 7. Weight loss management described. 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 Harris monitoring pt for hematoma of right calf, colonoscopy with polyps (01/03/23), left inguinal hernia History of Any Multi-Drug Resistant Organisms: None Reported Past Surgical History: Appendectomy, Bowel Resection Additional Past Surgical History / Comment(s): dental, bilateral cataract removal, PICC line, colonoscopy with polyps (01/03/23) Past Anesthesia/Blood Transfusion Reactions: No Reported Reaction Past Psychological History: No Psychological Hx Reported Smoking Status: Never smoker Past Alcohol Use History: Occasional Past Drug Use History: None Reported - Past Family History Father Family Medical History: Cancer Medications and Allergies Home Medications Medication Instructions Recorded Confirmed Type Calcium Carbonate [Tums] 1,000 mg PO DIRECTED 10/19/21 01/11/23 History Potassium Gluconate [Potassium 99 mg PO DAILY 10/19/21 01/11/23 History Gluconate ER] atenoloL [Tenormin] 25 mg PO DAILY 10/19/21 01/11/23 History Ibuprofen 800 mg PO Q8H PRN 12/27/22 01/11/23 History amLODIPine BES/OLMESARTAN MED 1 each PO DAILY 12/27/22 01/11/23 History [Erick 10-40 mg Tablet] 4 In One Magnesium 240 mg PO DIRECTED 01/11/23 History Magnesium Chloride [Slow-Mag] 62 mg PO DIRECTED 01/11/23 01/11/23 History Allergies Allergy/AdvReac Type Severity Reaction Status Date / Time No Known Allergies Allergy Verified 01/11/23 14:54
== END ==
LOC: OR 12:50
PROVIDERS: ATTEND Surgery Plastic and Reconstructive Surgery
DX: Z53.8 Procedure and treatment not carried out for other reasons (principal); K40.90 Unilateral inguinal hernia, without obstruction or gangrene, not specified as recurrent

== ENCOUNTER 2023-01-26 05:33 | Day surgery (SDC) | payer MEDICARE ==
[2023-01-22 13:40] VITALS: BMI 28.5
[~2023-01-26 05:33] MED LIST changes: -TAMSULOSIN 0.4 MG CAP.ER.24H PO STA
[2023-01-26] MEDS ORDERED: DEXAMETHASONE SOD PHOSPHATE 4 MG/ML 1 ML VIAL IV ONE (06:11)
[2023-01-26] MEDS ORDERED: ONDANSETRON 4 MG/2 ML VIAL IVP ONE (06:11)
[2023-01-26] MEDS ORDERED: LIDOCAINE 1% (10MG/ML) FOR IV START INTRADERMA PRN (06:11)
[2023-01-26] MEDS ORDERED: LACTATED RINGERS 1,000 ML IV SCH (06:11)
[2023-01-26] MEDS ORDERED: TAMSULOSIN 0.4 MG CAP.ER.24H PO STA (06:45)
[2023-01-26] MEDS ORDERED: ACETAMINOPHEN TAB 500 MG TAB PO STA (06:45)
--- NOTE | 2023-01-26 06:45 | P.GSHP ---
History of Present Illness H&P Date: 01/26/23 CHIEF COMPLAINT: Inguinal hernia, left HISTORY OF PRESENT ILLNESS: The patient is a 72-year-old male who presents with a history of swelling and pain along the right left groin. He has noted increased swelling including pain of the area. Now he presents for repair of his inguinal hernia. PAST MEDICAL HISTORY: Please see list. PAST SURGICAL HISTORY: Please see list. MEDICATIONS: Please see list. ALLERGIES: Please see list. SOCIAL HISTORY: No illicit drug use FAMILY HISTORY: No reports of Crohn disease or ulcerative colitis. REVIEW OF ORGAN SYSTEMS: CONSTITUTIONAL: No reports of fevers or chills. No reports of weight loss despite prior attempts. GI: Denies any blood in stools or constipation. PHYSICAL EXAM: VITAL SIGNS: Stable GENERAL: Well-developed pleasant in no acute distress. HEENT: No scleral icterus. Extraocular movements grossly intact. Moist buccal mucosa. NECK: Supple without lymphadenopathy. CHEST: Unlabored respirations. Equal bilateral excursions. CARDIOVASCULAR: Regular rate and rhythm. Distal 2+ pulses. ABDOMEN: Soft, nondistended. No peritoneal signs. Hernia of the left groin. MUSCULOSKELETAL: No clubbing, cyanosis, or edema. ASSESSMENT: 1. Inguinal hernia, left PLAN: 1. Recommend proceeding robotic inguinal repair with mesh with possible bilateral approach. 2. Benefits and risks of surgical intervention was discussed including possibility of open technique. 3. DVT prophylaxis. 4. Antibiotic prophylaxis. 5. Non narcotic pain management including abdominal wall block described 6. Blood sugar glucose described. 7. Weight loss management described. 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 Harris monitoring pt for hematoma of right calf, colonoscopy with polyps (01/03/23), left inguinal hernia History of Any Multi-Drug Resistant Organisms: None Reported Past Surgical History: Appendectomy, Bowel Resection Additional Past Surgical History / Comment(s): dental, bilateral cataract removal, PICC line, colonoscopy with polyps (01/03/23) Past Anesthesia/Blood Transfusion Reactions: No Reported Reaction Past Psychological History: No Psychological Hx Reported Smoking Status: Never smoker Past Alcohol Use History: Occasional Past Drug Use History: None Reported - Past Family History Father Family Medical History: Cancer Medications and Allergies Home Medications Medication Instructions Recorded Confirmed Type Calcium Carbonate [Tums] 1,000 mg PO DIRECTED 10/19/21 01/26/23 History Potassium Gluconate [Potassium 99 mg PO DAILY 10/19/21 01/26/23 History Gluconate ER] atenoloL [Tenormin] 25 mg PO DAILY 10/19/21 01/26/23 History Ibuprofen 800 mg PO Q8H PRN 12/27/22 01/26/23 History amLODIPine BES/OLMESARTAN MED 1 each PO DAILY 12/27/22 01/26/23 History [Erick 10-40 mg Tablet] 4 In One Magnesium 240 mg PO DIRECTED 01/11/23 01/26/23 History Magnesium Chloride [Slow-Mag] 62 mg PO DIRECTED 01/11/23 01/26/23 History Allergies Allergy/AdvReac Type Severity Reaction Status Date / Time No Known Allergies Allergy Verified 01/26/23 06:26 Surgical - Exam Vital Signs Temp Pulse Resp BP Pulse Ox 98 F 76 16 135/83 98 01/26/23 06:25 01/26/23 06:25 01/26/23 06:25 01/26/23 06:25 01/26/23 06:25
[2023-01-26] MEDS ORDERED: METOCLOPRAMIDE 5 MG/ML 2 ML VIAL IVP PRN (07:00)
[2023-01-26] MEDS ORDERED: HYDROmorphone 0.5 MG/0.5 ML SYRINGE IVP PRN (07:00)
[2023-01-26 07:21] LABS: Basophils % (A) 1 %; Eosinophils % (A) 1 %; HCT 41.9 % (39.0-53.0); HGB 14.1 gm/dL (13.0-17.5); Lymphocytes % (A) 19 %; MCH 28.6 pg (25.0-35.0); MCHC 33.7 g/dL (31.0-37.0); MCV 84.7 fL (80.0-100.0); Mean Platelet Volume 8.7; Monocytes # (A) 0.5 k/uL (0-1.0); Monocytes % (A) 10 %; Neutrophils # (A) 3.4 k/uL (1.3-7.7); Neutrophils % (A) 67 %; Platelet Count 194 k/uL (150-450); RBC 4.94 m/uL (4.30-5.90); RDW 14.4 % (11.5-15.5); WBC 5.2 k/uL (3.8-10.6)
[2023-01-26 07:34] LABS: ALT 38 U/L (4-49); AST 39 U/L (17-59); African American GFR (CKD) 83 (>60 ml/min/1.73 sqM); Albumin 4.5 g/dL (3.5-5.0); Alkaline Phosphatase 68 U/L (38-126); Anion Gap 8 mmol/L; Blood Urea Nitrogen 15 mg/dL (9-20); Calcium 9.1 mg/dL (8.4-10.2); Carbon Dioxide 29 mmol/L (22-30); Chloride 96 mmol/L (98-107); Glucose 92 mg/dL (74-99); Non-African American GFR(CKD) 72 (>60 ml/min/1.73 sqM); Potassium 4.5 mmol/L (3.5-5.1); Sodium 133 mmol/L (137-145); Total Bilirubin 1.4 mg/dL (0.2-1.3); Total Protein 7.4 g/dL (6.3-8.2)
[2023-01-26] MEDS ORDERED: fentaNYL (PF) 50 MCG/ML 2 ML AMP ONE (07:35)
[2023-01-26] MEDS ORDERED: ROCURONIUM 10 MG/ML (5 ML VIAL) IV ONE (07:35)
[2023-01-26] MEDS ORDERED: LIDOCAINE 2% INJ 20 MG/ML (2 ML VIAL) ONE (07:35)
[2023-01-26] MEDS ORDERED: HYDROmorphone (PF) 1 MG/ML ONE (07:35)
[2023-01-26] MEDS ORDERED: NEOSTIGMINE 1 MG/ML 10 ML VIAL ONE (07:35)
[2023-01-26] MEDS ORDERED: GLYCOPYRROLATE 0.2 MG/ML 2 ML VIAL ONE (07:35)
[2023-01-26] MEDS ORDERED: ePHEDrine 50 MG/ML 1 ML VIAL ONE (07:35)
[2023-01-26] MEDS ORDERED: PROPOFOL 10 MG/ML 20 ML VIAL IV ONE (07:35)
[2023-01-26] MEDS ORDERED: MIDAZOLAM 2 MG/2 ML VIAL ONE (07:35)
[2023-01-26] MEDS ORDERED: SUCCINYLCHOLINE CHLORIDE 200 MG/10 ML VIAL IV ONE (07:35)
[2023-01-26] MEDS ORDERED: LIDOCAINE 1%-EPI 1:100,000 50 ML VIAL SQ ONE ×3 (08:05→08:13)
[2023-01-26] MEDS ORDERED: LACTATED RINGERS 1,000 ML IV ONE (09:43)
[2023-01-26 10:10] VITALS: TEMP 97.2
--- NOTE | 2023-01-26 10:17 | P.OP ---
Date of Procedure: 01/26/23 Description of Procedure: SURGEON: ALAN PAK MD PREOPERATIVE DIAGNOSES: 1. Recurrent left inguinal hernia 2. Hypertensive heart disease POSTOPERATIVE DIAGNOSES: 1. Recurrent left inguinal hernia with large bowel obstruction, sigmoid colon 10 cm x 15 cm 2. Hypertensive heart disease OPERATION: 1. Robotic-assisted da Ayde Xi laparoscopic lysis of adhesions over 30 minutes 2. Robotic-assisted da Ayde Xi laparoscopic reduction and repair of incarcerated left direct inguinal hernia with mesh, Ventralight ST 3. Resection of incarcerated subfascial left inguinal lipoma, 11 x 7 cm ANESTHESIA: General with local anesthetic ESTIMATED BLOOD LOSS: 5 mL. SPECIMENS: 1. Left inguinal lipoma and hernia sac COMPLICATIONS: None. FINDINGS: 1. Direct left inguinal hernia defect, 3 cm extending to the scrotum, Nyhus type IV 2. Reduced large incarcerated subfascial left inguinal lipoma, 11 x 7 centimeters INDICATIONS: The patient is a 72-year-old gentleman who presents with symptomatic left inguinal hernia. Now presents for definitive surgical intervention. Laparoscopic versus open and robotic approaches were discussed. Benefits and risks including bleeding, infection, injury to the vas deferens as well as sterility and chronic groin pain were reviewed. Placement of mesh was also described. Informed consent was obtained. DESCRIPTION: In the preoperative area, the patient was marked with indelible marker along the inguinal hernia. The patient was brought to the operating room and initially laid in supine position. The abdomen had been prepped and draped in standard sterile fashion. Ioban draping was also placed. Prior to incision, a timeout protocol was confirmed with surgical team regarding patient's name including procedures to be performed and location along the right groin. Initial positioning for the robotic assisted ports were selected whereby 15 cm superior to the target anatomy, 0 degree 5 mm laparoscopic trocar entry was performed at the left upper quadrant. The abdomen was insufflated to 15 mmHg which he had tolerated well. Diagnostic laparoscopy demonstrated no injury to bowel, viscera or mesentery. Severe pelvic adhesions involving the sigmoid colon adherent to the left groin and incarcerated epiploic of the sigmoid colon was found. Small right inguinal hernia defect was found and undisturbed. Next, along the epigastrium, 8 mm robot trocar was placed. An 8-mm robotic trocar was placed under direct visualization at the right upper quadrant. An 8 mm port was placed at the left upper quadrant. All trocars were positioned between 10-cm apart from each other. An accessory trocar 12 mm placed along the right upper abdominal wall, lateral. The [employer] XI robot was primed, draped, prepared for docking along upper abdomen of the patient. The patient was positioned 21 steep Trendelenburg position I then went to the [employer] Xi console. The licensed physical therapy assistant was at bedside for exchange of the robot arms and equipment. The left direct inguinal hernia with incarcerated epiploic of the sigmoid colon was found. Severe pelvic occasions involving the sigmoid colon to the left pelvis and right pelvis was identified. Extensive lysis of adhesions over 30 minutes was performed using electro-Bovie cautery with scissors and vessel sealer. The left inguinal hernia defect was probed were large 4 x 4 centimeters subfascial lipoma consisted of the sidewall of the sigmoid colon was reduced of its epiploica. The contents was evaginated whereby the peritoneum was scored using Endo scissors with cautery. Once completely reduced into the abdominal cavity, the peritoneal sac of the hernia was stripped. The sac with subfascial lipoma was resected and then passed off for further pathological analysis. The size of the hernia defect was 2 cm with intraoperative films obtained. An inguinal lipoma, subfascial 3 cm was resected. Using a nonabsorbable 2-0 VLOC, the peritoneal defect of the left inguinal hernia site was closed using a pursestring suture. The defect was found to be completely closed with complete reduction of the left direct inguinal hernia. As an onlay, an 11.[address] mesh by [employer] was cut in half and entered into the abdominal cavity via the 8 mm trocar. The mesh was tacked to the pelvis using nonabsorbable 2-0 VLOC sutures. The robot was undocked from the patient's bedside. I then rescrubbed into the case. Jean-Pierre Shahid with 0 Vicryl was used to close the right lateral upper quadrant 12 mm trocar incision. Insufflation was released from the abdominal cavity and all instruments were removed from the abdominal cavity. Air within the scrotum and pelvis was relieved. The subcutaneous apparatus and penile implant was functioning at the end of the case. The rest of incisions were reapproximated using 4-0 Monocryl in a running subcuticular fashion. Incisions were cleansed using dilute hydrogen peroxide. Liquid glue was applied to the skin. At the end of the procedure, the needle, sponge and instrument counts had been verified correct by the operating room surgical technician. The patient had tolerated the procedure well and was taken to the postanesthesia care unit in stable condition. Plan - Discharge Summary Discharge Rx Participant: No New Discharge Prescriptions: New Tamsulosin [Flomax] 0.4 mg PO DAILY #5 cap Acetaminophen Tab [Tylenol Tab] 1,000 mg PO Q6HR PRN #30 tablet PRN Reason: Pain Continue Calcium Carbonate [Tums] 1,000 mg PO DIRECTED atenoloL [Tenormin] 25 mg PO DAILY 4 In One Magnesium 240 mg PO DIRECTED Potassium Gluconate [Potassium Gluconate ER] 99 mg PO DAILY Ibuprofen 800 mg PO Q8H PRN PRN Reason: Pain amLODIPine BES/OLMESARTAN MED [Erick 10-40 mg Tablet] 1 each PO DAILY Magnesium Chloride [Slow-Mag] 62 mg PO DIRECTED Discharge Medication List Calcium Carbonate [Tums] 1,000 mg PO DIRECTED 10/19/21 [History] Potassium Gluconate [Potassium Gluconate ER] 99 mg PO DAILY 10/19/21 [History] atenoloL [Tenormin] 25 mg PO DAILY 10/19/21 [History] Ibuprofen 800 mg PO Q8H PRN 12/27/22 [History] amLODIPine BES/OLMESARTAN MED [Erick 10-40 mg Tablet] 1 each PO DAILY 12/27/22 [History] 4 In One Magnesium 240 mg PO DIRECTED 01/11/23 [History] Magnesium Chloride [Slow-Mag] 62 mg PO DIRECTED 01/11/23 [History] Acetaminophen Tab [Tylenol Tab] 1,000 mg PO Q6HR PRN #30 tablet 01/26/23 [Rx] Tamsulosin [Flomax] 0.4 mg PO DAILY #5 cap 01/26/23 [Rx] Follow up Appointment(s)/Referral(s): Alan Pak MD [STAFF PHYSICIAN] - 01/30/23 Patient Instructions/Handouts: Laparoscopic Herniorrhaphy (IP), Inguinal Hernia Repair (DC) Activity/Diet/Wound Care/Special Instructions: TELEHEALTH - DR WILL CALL YOU BETWEEN 8 am to 8 pm No lifting over 4 pounds in 4 weeks until Feb 25. May shower. No bath tub soaks for two weeks until Feb 08 Diet as tolerated. Use Tylenol, simethicone and ibuprofen or Aleve scheduled for the next 24-48 hours for best pain relief. Use ice along incisions for today to prevent swelling. Discharge Disposition: HOME SELF-CARE
[2023-01-26 10:43] VITALS: RESP 16
[2023-01-26 11:19] VITALS: BP 128/70; PULSE 82
== END 2023-01-26 11:41 | disposition home or self-care (01) ==
LOC: OR 05:33
PROVIDERS: ATTEND Surgery Plastic and Reconstructive Surgery
DX: K40.91 Unilateral inguinal hernia, without obstruction or gangrene, recurrent (principal); D17.9 Benign lipomatous neoplasm, unspecified; K21.9 Gastro-esophageal reflux disease without esophagitis; M79.9 Soft tissue disorder, unspecified; I11.9 Hypertensive heart disease without heart failure; I49.9 Cardiac arrhythmia, unspecified; I26.09 Other pulmonary embolism with acute cor pulmonale; F10.90 Alcohol use, unspecified, uncomplicated; Z80.9 Family history of malignant neoplasm, unspecified; Z79.810 Long term (current) use of selective estrogen receptor modulators (SERMs); Z79.811 Long term (current) use of aromatase inhibitors; Z98.890 Other specified postprocedural states; Z79.899 Other long term (current) drug therapy
CPT/HCPCS: 49650; 88304; 80053; 85025; C1781; J2250; J0330; J1100; J2710; J0690; J2405; J3010; J1170; J2704; J1644; J2001

== ENCOUNTER → 2024-06-16 | Outpatient (CLI) | payer MEDICARE ==
--- NOTE | 2024-06-16 08:32 | MR ---
EXAMINATION TYPE: MR Prostate wo/w con DATE OF EXAM: 06/16/2024 COMPARISON: None. INDICATION: Elevated PSA. PSA: 7.32 ng/ml on March 17, 2024 Recent Biopsy and Date: none Pathology Report (If Applicable): n/a TECHNIQUE: Examination was performed using a 3T MRI without an endorectal coil. Multiparametric imaging was perf ormed with T2 mutliplanar sequences, axial diffusion weighted imaging and dynamic contrast enhanced i maging, utilizing 9 mL intravenous Gadobutrol gadolinium contrast. FINDINGS: Slightly suboptimal with some motion artifact PROSTATE VOLUME: 5.8 cm SI x 4.6 cm AP x 5.8 cm LR Vol= 81.0 cc PSA DENSITY: 0.09 ng/ml/cc Thickening of the peripheral zone without suspicious area of focal diminished signal on ADC mapping. Heterogeneous transitional zone with bilateral nodules. No suspicious T2 hypointense area. No areas o f significant increased signal on diffusion-weighted imaging. Highest PI-Rads 2. Urinary bladder shows mild wall thickening anteriorly and inferiorly in the uterus largest left ingui nal hernia containing portion of bladder noted. No large destructive osseous lesions are present. IMPRESSION: Enlarged prostate consistent with BPH. A focus of clinically significant cancer is not id entified. Note is made of left inguinal hernia containing portion of bladder. Advise surgical referra l. Highest Assessment Category: 2 MRI Stage: T0 N0 M0 based on review of pelvic images. False negative rates for MRI range from 5-20% depending on risk profile. Assessment Categories: 1 ? Very low (clinically significant cancer is highly unlikely to be present) 2 ? Low (clinically significant cancer is unlikely to be present) 3 ? Intermediate (the presence of clinically significant cancer is equivocal) 4 ? High (clinically significant cancer is likely to be present) 5 ? Very high (clinically significant cancer is highly likely to be present) [facility], , 06/16/2024 8:29 AM
== END | disposition home or self-care (01) ==
LOC: RADMRIMAIN 06-02 05:51
PROVIDERS: ATTEND Family Medicine
DX: Z53.9 Procedure and treatment not carried out, unspecified reason (principal)
CPT/HCPCS: 72197; A9585